=== PATIENT | female | born 1935 | race Caucasian/White ===

== ENCOUNTER 2023-05-26 07:22 | Emergency (ER) | payer MEDICARE, BC, SELFPAY ==
[2023-05-26] VITALS (14 sets, daily range): BP systolic 132–187; BP diastolic 60–98; PULSE 60–64; RESP 14–18; TEMP 36.8; O2SAT 88–95; BMI 36.6
--- NOTE | 2023-05-26 07:50 | CRLHL7_ITS ---
For Patients: As a result of the Century Cures Act, medical imaging exams and procedure reports are released immediately into your electronic medical record. You may view this report before your referring provider. If you have questions, please contact your health care provider. INDICATION: HF exacerbation, increased edema vascular congestion TECHNIQUE: Chest 2 views. COMPARISON: April 18, 2019 FINDINGS: Cardiovascular and mediastinum: Stable cardiomediastinal enlargement. Left-sided dual chamber pacemaker with leads in place. Lungs and pleural spaces: Mild central vascular congestion and interstitial prominence suspicious for mild interstitial edema. Probable trace left greater than right bilateral pleural effusions with associated atelectasis. No pneumothorax. Bones and soft tissues: No significant findings. IMPRESSION: Mild central vascular congestion and interstitial prominence suspicious for mild interstitial edema. Probable trace left greater than right bilateral pleural effusions with associated atelectasis. Dictated by Gareth Austin MD @ 05/26/2023 8:59:57 AM (Electronically Signed)
--- NOTE | 2023-05-26 07:51 | ED.GENADULT ---
HPI - General Adult General Time Seen by Provider: 07:51 Date Seen: 05/26/23 Chief complaint: Weakness Stated complaint: chest heaviness,arm pain Time Seen by Provider: 05/26/23 07:43 Source: patient and family Mode of arrival: ambulatory Limitations: no limitations History of Present Illness HPI narrative: Lauren is a 87-year-old female past medical history includes hypertension, heart failure, atrial fibrillation status post pacemaker on chronic anticoagulation with Coumadin presents emerged department via private car with with weakness shortness of breath and chest heaviness. Patient states over the last weekend she has had increased chest heaviness and arm heaviness, this is worse with laying down, and when she sleeps, she has to get up and sit in her chair during the night. She gets more short of breath. This gets better throughout the day, however she is short of breath on exertion, she was seen in clinic a few weeks ago, her blood pressures were low so they stopped her diuretic and lisinopril, patient recently restarted on a couple days ago because her blood pressures were riding higher. No real chest pain, no nausea vomiting, fevers or chills, she has not had a cough, she denies any weight gain. Abdominal pain, urinary complaints or diarrhea. She just does not feel well, denies any weakness, dizziness or lightheadedness. She denies any pain at this time. Related Data Home Medications Medication Instructions Recorded Confirmed hydrochlorothiazide 12.5 mg tablet 12.5 mg PO DAILY 05/26/23 05/26/23 lisinopril 10 mg tablet 10 mg PO DAILY 05/26/23 05/26/23 sertraline 50 mg tablet 50 mg PO DAILY 05/26/23 05/26/23 sotalol 80 mg tablet 80 mg PO BID 05/26/23 05/26/23 warfarin 2.5 mg tablet mg PO 05/26/23 Previous Rx's Medication Instructions Recorded furosemide 20 mg tablet (Lasix) 20 mg PO DAILY 3 days #3 tabs 05/26/23 Allergies Allergy/AdvReac Type Severity Reaction Status Date / Time No Known Drug Allergies Allergy Verified 05/26/23 07:42 Review of Systems Status of ROS: Reports: 10 or more systems reviewed and unremarkable except as noted in History and below PFSH PFSH Social History Smoking Status: Never smoker Do you use any of these nicotine containing products: None How often do you have a drink containing alcohol: never AUDIT-C Alcohol total score: 0 Exam Narrative: Exam Narrative: General: No obvious distress sitting comfortably, nontoxic in appearance HEENT: Oropharynx is clear and moist, pupils equal round reactive to light, extraocular muscles intact No JVD Lungs: Mild bibasilar crackles Heart; normal sinus rhythm S1-S2 Abdomen: Soft nontender bowel sounds present Extremities: No lower extremity edema Neuro; awake and oriented x3, ambulatory Const: Vital Signs, click to edit/add: Vital Signs - 24 hr 05/26/23 07:37 05/26/23 08:03 05/26/23 08:24 Temperature 98.3 F Pulse Rate 60 60 Pulse Rate [Right Pulse Oximeter] 61 Respiratory Rate 18 Blood Pressure Blood Pressure [Ri ght Upper Arm] 187/98 H Pulse Oximetry 95 94 92 Oxygen Delivery Me thod Room Air 05/26/23 08:25 05/26/23 08:30 05/26/23 08:45 Temperature Pulse Rate 60 61 60 Pulse Rate [Right Pulse Oximeter] Respiratory Rate Blood Pressure 147/74 H Blood Pressure [Ri ght Upper Arm] Pulse Oximetry 91 91 88 Oxygen Delivery Me thod 05/26/23 09:00 05/26/23 09:15 05/26/23 09:21 Temperature Pulse Rate 60 60 60 Pulse Rate [Right Pulse Oximeter] Respiratory Rate Blood Pressure 153/72 H Blood Pressure [Ri ght Upper Arm] Pulse Oximetry 89 92 91 Oxygen Delivery Me thod 05/26/23 09:30 05/26/23 10:08 05/26/23 10:09 Temperature Pulse Rate 64 62 Pulse Rate [Right Pulse Oximeter] Respiratory Rate Blood Pressure 134/81 Blood Pressure [Ri ght Upper Arm] Pulse Oximetry 89 95 Oxygen Delivery Me thod 05/26/23 10:15 05/26/23 11:36 Temperature Pulse Rate 60 60 Pulse Rate [Right Pulse Oximeter] Respiratory Rate 14 Blood Pressure 132/60 Blood Pressure [Ri ght Upper Arm] Pulse Oximetry 95 94 Oxygen Delivery Me thod Course Course Hospital Course: 7:45 AM: AIDET performed, workup will include, IV peripheral, will obtain EKG, CBC, CMP, magnesium, BNP, point of care troponin, and imaging including XR chest two views, suspect heart failure exacerbation since patient has not been on her diuretic for 2 weeks, vitals are normal at this time, no appreciable hypoxia. Patient has no chest pain at this time, less likely ACS. Differential diagnosis include but not limited to COPD exacerbation, pulmonary edema, ACS, STEMI, NSTEMI, pulmonary embolism, pneumonia, viral pneumonia, pneumothorax heart failure exacerbation. Reevaluation(s) Time of Reevaluation #1: 09:06 Reevaluation #1: XR chest PA and lateral: IMPRESSION: Mild central vascular congestion and interstitial prominence suspicious for mild interstitial edema. Probable trace left greater than right bilateral pleural effusions with associated atelectasis. Time of Reevaluation #2: 09:07 Reevaluation #2: EKG showed a atrial paced rhythm, incomplete right bundle branch block seen on previous, rate 61, labs showed no leukocytosis, metabolic panel within normal limits, BNP was elevated, imaging showed mild central vascular congestion and interstitial prominence suspicious for mild interstitial edema consistent with her symptoms, she will receive IV Lasix 20 mg here in the emergency department. Repeat troponin was unchanged. Patient had a urinary output of greater than 300 mL of urine. She is ambulating and feeling better after above care given, plan would be to discharge, she will get a short course of Lasix 20 mg daily over the next 3 days, she will hold her hydrochlorothiazide during that time, will make a follow-up appointment for her this Thursday for recheck. Time of Reevaluation #3: 11:49 Reevaluation #3: Plan would be to discharge, she will follow up with her primary care provider over the next 3 days as scheduled, reasons to return given. Vital Signs Vital signs: Initial Vital Signs Temperature 98.3 F 05/26/23 07:37 Temperature Source Temporal Artery Scan 05/26/23 07:37 Pulse Rate 61 05/26/23 07:37 Respiratory Rate 18 05/26/23 07:37 Blood Pressure 187/98 H 05/26/23 07:37 Blood Pressure Mean 127 H 05/26/23 07:37 Blood Pressure Position Sitting 05/26/23 07:37 Pulse Oximetry 95 05/26/23 07:37 Oxygen Delivery Method Room Air 05/26/23 07:37 Vital Signs Temperature 98.3 F 05/26/23 07:37 Pulse Rate 61 05/26/23 07:37 Respiratory Rate 18 05/26/23 07:37 Blood Pressure 187/98 H 05/26/23 07:37 Pulse Oximetry 95 05/26/23 07:37 Oxygen Delivery Method Room Air 05/26/23 07:37 Temperature 98.3 F 05/26/23 07:37 Pulse Rate 60 05/26/23 11:36 Respiratory Rate 14 05/26/23 11:36 Blood Pressure 132/60 05/26/23 11:36 Pulse Oximetry 94 05/26/23 11:36 Oxygen Delivery Method Room Air 05/26/23 07:37 Medical Decision Making Lab Data Labs: Lab Results 05/26/23 05/26/23 05/26/23 Range/Units 07:45 07:56 10:45 WBC 8.70 (4.50-11.00) K/uL RBC 4.59 (4.00-5.20) m/uL Hgb 12.1 (12.0-16.0) gm/dL Hct 38.6 (33.0-51.0) % MCV 84 (80-100) fL MCH 26 (26-34) pg MCHC 31 L (32-36) gm/dL RDW Coeff of [place] 16.0 H (11.5-15.5) % Plt Count 275 (140-440) K/uL Neut % (Auto) 77.0 H (42.0-72.0) % Lymph % (Auto) 16.4 L (20-44) % [place] % (Auto) 4.3 (0.0-11.0) % Eos % (Auto) 1.8 (0.0-7.0) % Baso % (Auto) 0.2 (0.0-3.0) % Neut # (Auto) 6.70 (1.7-7.0) K/uL Lymph # (Auto) 1.40 (0.90-2.90) K/uL [place] # (Auto) 0.40 (0.00-0.90) K/UL Eos # (Auto) 0.16 (0.00-0.50) K/uL Baso # (Auto) 0.02 (0.00-0.30) K/uL INR 2.07 H (0.91-1.10) Sodium 135 (135-149) mmol/L Potassium 4.4 (3.6-5.1) mmol/L Chloride 102 (96-114) mmol/L Carbon Dioxide 27 (20-32) mmol/L BUN 12 (7-30) mg/dL Creatinine 0.8 (0.5-1.5) mg/dL Estimated Creat Clear 36.34 Estimated GFR 72 ml/min Glucose 106 (60-115) mg/dL Calcium 9.3 (8.4-10.6) mg/dL Magnesium 2.0 (1.5-2.6) mg/dL Total Bilirubin 0.6 (0.1-1.5) mg/dL AST 23 (12-35) U/L ALT 15 (4-35) U/L Alkaline Phosphatase 62 (40-150) U/L NT-Pro-B Natriuret Pep 2330 pg/mL Total Protein 6.8 (6.0-8.3) g/dL Albumin 3.9 (3.3-5.0) g/dL POC Troponin I 0.01 0.01 (0.01-0.04) ng/ml Discharge Plan Discharge Clinical Impression: Chest heaviness, Breathing difficult, Interstitial edema, Pleural effusion Patient Disposition: Home, Self-Care Condition: Improved Instructions: Pulmonary Edema (ED) Additional Instructions: To take Lasix 20 mg daily over the next 3 days, until follow up appointment. To hold hydrochlorothiazide until then. Return if worsening symptoms. Follow up appointment is scheduled at the [facility] on 05/29 with an 11:15am appointment time. Please arrive 10 minutes early to check in. If you have any questions or need to reschedule, please call [phone]. [facility] [address] [place] [address] Prescriptions: New furosemide [Lasix] 20 mg tablet 20 mg PO DAILY 3 Days Qty: 3 0RF No Action sotalol 80 mg tablet 80 mg PO BID warfarin 2.5 mg tablet PO lisinopril 10 mg tablet 10 mg PO DAILY sertraline 50 mg tablet 50 mg PO DAILY hydrochlorothiazide 12.5 mg tablet 12.5 mg PO DAILY Follow Up/Referrals: Kay Lange DO [Primary Care Provider] - Stand Alone Forms: Invoice2[employer] Info Instructions
[2023-05-26 08:01] LABS: Basophils Absolute Auto 0.02 K/uL (0.00-0.30); Basophils Percent Auto 0.2 % (0.0-3.0); Eosinophils Absolute Auto 0.16 K/uL (0.00-0.50); Eosinophils Percent Auto 1.8 % (0.0-7.0); Hematocrit 38.6 % (33.0-51.0); Hemoglobin* 12.1 gm/dL (12.0-16.0); Immature Granulocytes Abs Auto 0.03 K/uL (0.00-0.30); Immature Granulocytes Pct Auto 0.3 %; Lymphocytes Percent Auto 16.4 % (20-44); Mean Corpuscular HGB Conc 31 gm/dL (32-36); Mean Corpuscular Hemoglobin 26 pg (26-34); Mean Corpuscular Volume 84 fL (80-100); Monocytes Percent Auto 4.3 % (0.0-11.0); Platelet Count* 275 K/uL (140-440); Red Blood Count 4.59 m/uL (4.00-5.20)
[2023-05-26 08:08] LABS: Troponin, Point-of-Care* 0.01 ng/ml (0.01-0.04)
[2023-05-26 08:10] LABS: Slide Review Reflex No
[2023-05-26 08:23] LABS: Albumin* 3.9 g/dL (3.3-5.0); Chloride* 102 mmol/L (96-114)
[2023-05-26 08:24] LABS: Potassium* 4.4 mmol/L (3.6-5.1); Sodium* 135 mmol/L (135-149)
[2023-05-26 08:26] LABS: Alkaline Phosphatase* 62 U/L (40-150); Aspartate Amino Transferase* 23 U/L (12-35); Bilirubin Total* 0.6 mg/dL (0.1-1.5); Blood Urea Nitrogen* 12 mg/dL (7-30); Carbon Dioxide* 27 mmol/L (20-32); Creatinine* 0.8 mg/dL (0.5-1.5); Est. Creatinine Clearance* 36.34; Estimated Glomerular Filt Rate 72 ml/min; Glucose* 106 mg/dL (60-115); Total Protein* 6.8 g/dL (6.0-8.3)
[2023-05-26 08:27] LABS: Alanine Aminotransferase* 15 U/L (4-35); Calcium* 9.3 mg/dL (8.4-10.6)
[2023-05-26 08:36] LABS: NT Pro B Type NatriureticPept* 2330 pg/mL
[2023-05-26 09:12] LABS: INR 2.07 (0.91-1.10); Prothrombin Time 24.3 Seconds
[2023-05-26] MEDS: FUROSEMIDE 10 MG/ML inj 20 MG IVP (09:17)
[2023-05-26 11:17] LABS: Troponin, Point-of-Care* 0.01 ng/ml (0.01-0.04)
== END 2023-05-26 12:03 | disposition home or self-care (01) ==
PROVIDERS: Emergency Provider Student in an Organized Health Care Education/Training Program; PCP Family Medicine
DX: R07.89 Other chest pain (principal); R06.02 Shortness of breath; R60.9 Edema, unspecified; I26.99 Other pulmonary embolism without acute cor pulmonale
CPT/HCPCS: 36415; 71046; 80053; 83735; 83880; 84484; 85025; 85610; 93005; 96374; 99283; 99284; 99285; J1940

== ENCOUNTER 2023-07-01 10:21 | Emergency (ER) | payer MEDICARE, BC, SELFPAY ==
[2023-07-01 10:30] VITALS: BP 164/83; PULSE 85; RESP 18; TEMP 36.6; O2SAT 93; BMI 35.5
--- NOTE | 2023-07-01 11:03 | ED.CHESTPAIN ---
HPI - Chest Pain General Chief Complaint: Chest Pain Stated Complaint: Heaviness in chest Time Seen by Provider: 07/01/23 10:55 History of Present Illness HPI narrative: This 87-year-old female comes in by ambulance reporting some chest heaviness that began upon awakening this morning. She states that it has been constant since then. She does not have any nausea, vomiting, lightheadedness, shortness of breath, diaphoresis. She does not report any exercise intolerance and denies having any prior coronary artery disease history. She does have a pacemaker in place. She states that the bumps in the ambulance ride on the way here made the pain worse. Otherwise she states that she is not really able to reproduce the pain. Related Data Home Medications Medication Instructions Recorded Confirmed hydrochlorothiazide 12.5 mg tablet 12.5 mg PO DAILY 05/26/23 05/26/23 lisinopril 10 mg tablet 10 mg PO DAILY 05/26/23 05/26/23 sertraline 50 mg tablet 50 mg PO DAILY 05/26/23 05/26/23 sotalol 80 mg tablet 80 mg PO BID 05/26/23 05/26/23 warfarin 2.5 mg tablet mg PO 05/26/23 Previous Rx's Medication Instructions Recorded furosemide 20 mg tablet (Lasix) 20 mg PO DAILY 3 days #3 tabs 05/26/23 Allergies Allergy/AdvReac Type Severity Reaction Status Date / Time No Known Drug Allergies Allergy Verified 05/26/23 07:42 Review of Systems Status of ROS Reports: 10 or more systems reviewed and unremarkable except as noted in History and below Narrative Constitutional: No fevers, no weight gain or loss. Eyes: No discharge. No vision changes. HENT: No congestion, no sore throat, no ear pain. Cardiovascular: No palpitations. Respiratory: No shortness of breath, no wheezes, no cough. Gastrointestinal: No abdominal pain, no vomiting, no diarrhea. Genitourinary: No dysuria, no hematuria. Musculoskeletal: Normal range of motion. Skin: No rashes, no pruritis. Neurological: No dizziness, weakness, sensory change, speech change. Endo/Heme/Allergies: No bruising or bleeding. No polydipsia. Pysch: no suicidality, no anxiety, no insomnia. All other systems reviewed and are negative. PFSH PFSH Social History Smoking Status: Never smoker Do you use any of these nicotine containing products: None How often do you have a drink containing alcohol: never AUDIT-C Alcohol total score: 0 Non-prescribed substance use: denies use service: No Exam Narrative Exam Narrative: Constitutional: Well-developed, well-nourished, no acute distress. HEENT: Normocephalic, atraumatic. Neck: Normal range of motion. Nontender. Supple. Heart: Regular. No murmurs. Normal rate. Intact distal pulses. Lungs: Clear to auscultation. No wheezes, rhonchi, or rales. She reports a feeling of chest heaviness. Pain is not reproduced when palpating along the sternum. Abdomen: Normal bowel sounds. Nontender. No rebound tenderness. Genitalia: Deferred. Back: No midline tenderness. Normal range of motion. Extremities: Normal range of motion. No injury. Skin: Intact. No rash. Warm. No erythema or pallor. Neurologic: No altered sensation. No weakness. Alert and oriented. Psychiatric: No suicidality. No anxiety or depression. No insomnia. Nursing notes and vitals signs are reviewed. Const Vital Signs, click to edit/add: Vital Signs - 24 hr 07/01/23 10:30 Temperature 97.8 F Pulse Rate [Right Pulse Oximeter] 85 Respiratory Rate 18 Blood Pressure [Right Upper Arm] 164/83 H Pulse Oximetry 93 Oxygen Delivery Method Room Air Course Vital Signs Vital signs: Initial Vital Signs Temperature 97.8 F 07/01/23 10:30 Temperature Source Temporal Artery Scan 07/01/23 10:30 Pulse Rate 85 07/01/23 10:30 Respiratory Rate 18 07/01/23 10:30 Blood Pressure 164/83 H 07/01/23 10:30 Blood Pressure Mean 110 H 07/01/23 10:30 Blood Pressure Position Sitting 07/01/23 10:30 Pulse Oximetry 93 07/01/23 10:30 Oxygen Delivery Method Room Air 07/01/23 10:30 Vital Signs Temperature 97.8 F 07/01/23 10:30 Pulse Rate 85 07/01/23 10:30 Respiratory Rate 18 07/01/23 10:30 Blood Pressure 164/83 H 07/01/23 10:30 Pulse Oximetry 93 08/02/23 10:30 Oxygen Delivery Method Room Air 07/01/23 10:30 Temperature 97.8 F 07/01/23 10:30 Pulse Rate 85 07/01/23 10:30 Respiratory Rate 18 07/01/23 10:30 Blood Pressure 164/83 H 07/01/23 10:30 Pulse Oximetry 93 07/01/23 10:30 Oxygen Delivery Method Room Air 07/01/23 10:30 MDM - Chest Pain MDM Narrative Medical decision making narrative: This patient comes in reporting chest heaviness and discomfort as described above. Actually she clarifies this now saying that is really more on the right side of her chest and may in fact be coming from her back as she has some symptoms in the right midback also. She does not describe any injury event or strenuous activity recently. The pain or discomfort was worsened when going over bumps on the road. Her EKG here today shows no sign of heart strain or cardiac cause for these symptoms. Additionally her troponin is in normal range. Other lab results are also reassuring. Most likely this patient is experiencing symptoms related to her chest wall. At the time of discharge the patient appears safe for outpatient management. The treatment plan is reviewed along with written and verbal return precautions. Reasons to return and the importance of close followup were also reviewed. Lab Data Labs: Lab Results 07/01/23 07/01/23 Range/Units 11:03 11:16 WBC 9.68 (4.50-11.00) K/uL RBC 4.50 (4.00-5.20) m/uL Hgb 11.8 L (12.0-16.0) gm/dL Hct 37.4 (33.0-51.0) % MCV 83 (80-100) fL MCH 26 (26-34) pg MCHC 32 (32-36) gm/dL RDW Coeff of Ebony 15.6 H (11.5-15.5) % Plt Count 270 (140-440) K/uL Neut % (Auto) 78.5 H (42.0-72.0) % Lymph % (Auto) 12.9 L (20-44) % [place] % (Auto) 6.3 (0.0-11.0) % Eos % (Auto) 1.3 (0.0-7.0) % Baso % (Auto) 0.2 (0.0-3.0) % Neut # (Auto) 7.60 H (1.7-7.0) K/uL Lymph # (Auto) 1.20 (0.90-2.90) K/uL [place] # (Auto) 0.60 (0.00-0.90) K/UL Eos # (Auto) 0.13 (0.00-0.50) K/uL Baso # (Auto) 0.02 (0.00-0.30) K/uL Abs Immat Gran (auto) 0.08 (0.00-0.30) K/uL Imm/Tot Granulo (auto) 0.8 % Sodium 136 (135-149) mmol/L Potassium 3.9 (3.6-5.1) mmol/L Chloride 104 (96-114) mmol/L Carbon Dioxide 26 (20-32) mmol/L BUN 14 (7-30) mg/dL Creatinine 0.8 (0.5-1.5) mg/dL Estimated Creat Clear 37.80 Estimated GFR 72 ml/min Glucose 110 (60-115) mg/dL Calcium 9.6 (8.4-10.6) mg/dL POC Troponin I 0.01 (0.01-0.04) ng/ml ECG Data Attestation: I personally reviewed and interpreted this ECG as follows: Interpretation: Atrial paced rhythm. Rate is 65 beats per minute. There are no specific ST or T-wave abnormalities. Incomplete right bundle branch block. Discharge Plan Discharge Clinical Impression: Acute chest wall pain Patient Disposition: Home, Self-Care Condition: Stable Additional Instructions: Use [id number] medicines as needed and directed for symptomatic relief. Activity as tolerated. Follow up with MD or return if worsening. Prescriptions: No Action sotalol 80 mg tablet 80 mg PO BID warfarin 2.5 mg tablet PO lisinopril 10 mg tablet 10 mg PO DAILY sertraline 50 mg tablet 50 mg PO DAILY hydrochlorothiazide 12.5 mg tablet 12.5 mg PO DAILY furosemide [Lasix] 20 mg tablet 20 mg PO DAILY 3 Days Qty: 3 0RF Follow Up/Referrals: Kay Lange DO [Primary Care Provider] - Stand Alone Forms: RPOth Info Instructions
[2023-07-01 11:28] LABS: Basophils Absolute Auto 0.02 K/uL (0.00-0.30); Basophils Percent Auto 0.2 % (0.0-3.0); Eosinophils Absolute Auto 0.13 K/uL (0.00-0.50); Eosinophils Percent Auto 1.3 % (0.0-7.0); Hematocrit 37.4 % (33.0-51.0); Hemoglobin* 11.8 gm/dL (12.0-16.0); Immature Granulocytes Abs Auto 0.08 K/uL (0.00-0.30); Immature Granulocytes Pct Auto 0.8 %; Lymphocytes Percent Auto 12.9 % (20-44); Mean Corpuscular HGB Conc 32 gm/dL (32-36); Mean Corpuscular Hemoglobin 26 pg (26-34); Mean Corpuscular Volume 83 fL (80-100); Monocytes Percent Auto 6.3 % (0.0-11.0); Neutrophils Percent Auto 78.5 % (42.0-72.0); Platelet Count* 270 K/uL (140-440); RDW Coefficient of Variation % 15.6 % (11.5-15.5); White Blood Count* 9.68 K/uL (4.50-11.00)
[2023-07-01 11:34] LABS: Troponin, Point-of-Care* 0.01 ng/ml (0.01-0.04)
[2023-07-01 11:37] LABS: Slide Review Reflex No
[2023-07-01 11:47] LABS: Chloride* 104 mmol/L (96-114); Sodium* 136 mmol/L (135-149)
[2023-07-01 11:48] LABS: Potassium* 3.9 mmol/L (3.6-5.1)
[2023-07-01 11:50] LABS: Carbon Dioxide* 26 mmol/L (20-32); Creatinine* 0.8 mg/dL (0.5-1.5); Estimated Glomerular Filt Rate 72 ml/min
[2023-07-01 11:51] LABS: Blood Urea Nitrogen* 14 mg/dL (7-30); Calcium* 9.6 mg/dL (8.4-10.6); Glucose* 110 mg/dL (60-115)
== END 2023-07-01 12:16 | disposition home or self-care (01) ==
PROVIDERS: Emergency Provider Emergency Medicine Emergency Medical Services; PCP Family Medicine
DX: R07.89 Other chest pain (principal)
CPT/HCPCS: 36415; 80048; 84484; 85025; 93005; 99284

== ENCOUNTER 2023-07-04 22:37 | Emergency (ER) | payer MEDICARE, BC, SELFPAY ==
[2023-07-04 22:41] VITALS: BP 153/61; PULSE 61; RESP 18; TEMP 36.3; O2SAT 93; BMI 35.5
[2023-07-04 22:58] VITALS: O2SAT 92
--- NOTE | 2023-07-04 22:58 | CRLHL7_ITS ---
For Patients: As a result of the Century Cures Act, medical imaging exams and procedure reports are released immediately into your electronic medical record. You may view this report before your referring provider. If you have questions, please contact your health care provider. INDICATION: Shortness of breath TECHNIQUE: Two view chest. FINDINGS: Cardiac silhouette is enlarged. Left cardiac pacer basilar atelectasis and/or fibrotic change. No effusion or pneumothorax. Dictated by Diamond Wilkins MD @ 07/05/2023 1:04:14 AM (Electronically Signed)
[2023-07-04 23:30] VITALS: BP 166/70; PULSE 60; RESP 16; O2SAT 92
[2023-07-04 23:33] LABS: Lactate* 0.8 mmol/L (0.5-1.9)
--- NOTE | 2023-07-04 23:40 | ED_ITS ---
HPI - General Adult General Chief complaint: Chest Pain <Radha August MD - Last Filed: 07/07/23 15:10> Stated complaint: Chest Pain <Radha August MD - Last Filed: 07/07/23 15:10> Time Seen by Provider: 07/04/23 22:51 <Radha August MD - Last Filed: 07/07/23 15:10> Source: patient <Radha August MD - Last Filed: 07/07/23 15:10> Limitations: no limitations <Radha August MD - Last Filed: 07/07/23 15:10> History of Present Illness HPI narrative: 87-year-old female presenting to the ER today stating that she does not feel well. She states that on a regular basis she has the sensation that heat washes over her. It starts in her chest and goes down both arms and into her belly and also upper neck. This sensation lasts about 10 minutes and then resolves but at least her feeling very tired. It occurs approximately once per day. Happened again earlier today. Because she still feels very tired from it she presented to the ER for evaluation. She denies pain in her chest. She denies feeling short of breath. When this occurs she is not diaphoretic or dizzy. She denies any vertiginous symptoms. She denies any nausea or vomiting. She denies fevers or chills. Patient does have medical history significant for atrial fibrillation, she is on chronic anticoagulation therapy. She is also on sotalol. She takes sertraline and lorazepam for depression and anxiety. She states that she also has congestive heart failure for which she takes hydrochlorothiazide and Lasix. She does state that she sleeps in a chair at night because she feels short of breath lying down, however again no shortness of breath during the day. This is unchanged. <Radha August MD - Last Filed: 07/07/23 15:10> Related Data Home medications: Home Medications Medication Instructions Recorded Confirmed hydrochlorothiazide 12.5 mg tablet 12.5 mg PO DAILY 05/26/23 07/04/23 lisinopril 10 mg tablet 10 mg PO DAILY 05/26/23 05/26/23 sertraline 50 mg tablet 50 mg PO DAILY 05/26/23 07/04/23 sotalol 80 mg tablet 80 mg PO BID 05/26/23 07/04/23 warfarin 2.5 mg tablet mg PO 05/26/23 acetaminophen 07/04/23 lorazepam 0.5 mg tablet 0.5 mg PO DAILY PRN 07/04/23 07/04/23 Previous Rx's Medication Instructions Recorded furosemide 20 mg tablet (Lasix) 20 mg PO DAILY 3 days #3 tabs 05/26/23 <Radha August MD - Last Filed: 07/07/23 15:10> Allergies/adverse reactions: Allergies Allergy/AdvReac Type Severity Reaction Status Date / Time No Known Drug Allergies Allergy Verified 07/04/23 22:47 <Radha August MD - Last Filed: 07/07/23 15:10> Review of Systems Status of ROS: Reports: 10 or more systems reviewed and unremarkable except as noted in History and below <Radha August MD - Last Filed: 07/07/23 15:10> [facility] Social History: Social History Smoking Status: Never smoker Do you use any of these nicotine containing products: None How often do you have a drink containing alcohol: never AUDIT-C Alcohol total score: 0 Non-prescribed substance use: denies use service: No <Radha August MD - Last Filed: 07/07/23 15:10> Exam Narrative: Exam Narrative: Well-nourished well-developed patient in no acute distress. Alert and oriented. Answers questions appropriately. Mood and affect are appropriate. Thoughts are goal oriented and rational. No tangential or magical thinking noted. Patient speaks in full sentences without needing to catch her breath. HEENT: Normocephalic atraumatic. Pupils are equally round reactive to light. Extraocular muscles are intact. Conjunctivae are moist without any icterus noted. Moist mucous membranes. Posterior pharynx is normal. Neck is soft without any lymphadenopathy or thyromegaly. No masses are appreciated. Cardiovascular: Heart is regular rate and rhythm S1 and S2 are present with a very soft diastolic murmur. Lungs: Clear to auscultation bilaterally no wheezes rhonchi or rales are appreciated. Patient takes deep breaths without any discomfort. Abdomen: Soft and nontender nondistended with normal bowel sounds. No guarding or rebound. No masses or organomegaly appreciated. Extremities: Bilateral lower extremities are without pitting edema. Skin: Well perfused without any obvious rashes. Scattered ecchymosis. <Radha August MD - Last Filed: 07/07/23 15:10> Const: Vital Signs, click to edit/add: Vital Signs - 24 hr 07/04/23 22:41 07/04/23 22:58 07/04/23 23:30 Temperature 97.4 F L Pulse Rate Pulse Rate [Pulse Oximeter] 61 60 Respiratory Rate 18 16 Blood Pressure Blood Pressure [Le ft Upper Arm] 153/61 H 166/70 H Pulse Oximetry 93 92 92 Oxygen Delivery Me thod Room Air Room Air 07/04/23 23:47 07/05/23 00:00 07/05/23 00:02 Temperature Pulse Rate 60 60 60 Pulse Rate [Pulse Oximeter] Respiratory Rate Blood Pressure 133/55 L Blood Pressure [Le ft Upper Arm] Pulse Oximetry 92 92 91 Oxygen Delivery Me thod <Radha August MD - Last Filed: 07/07/23 15:10> Vital Signs, click to edit/add: Vital Signs - 24 hr 07/04/23 22:41 07/04/23 22:58 07/04/23 23:30 Temperature 97.4 F L Pulse Rate Pulse Rate [Pulse Oximeter] 61 60 Respiratory Rate 18 16 Blood Pressure Blood Pressure [Le ft Upper Arm] 153/61 H 166/70 H Pulse Oximetry 93 92 92 Oxygen Delivery Me thod Room Air Room Air 07/04/23 23:47 07/05/23 00:00 07/05/23 00:02 Temperature Pulse Rate 60 60 60 Pulse Rate [Pulse Oximeter] Respiratory Rate Blood Pressure 133/55 L Blood Pressure [Le ft Upper Arm] Pulse Oximetry 92 92 91 Oxygen Delivery Me thod <Radha Bermudez MD - Last Filed: 07/05/23 01:41> Course Course Hospital Course: EKG, read by me, shows atrial paced rhythm with a pulse of 62, incomplete right bundle-branch block. Prolonged QT. IV established and labs were drawn. CBC and chemistries unremarkable, LFTs minimally elevated. Troponin is normal. Chest x-ray results pending. Patient still needs to provide a urine sample, stool sample and she will have a repeat troponin in EKG at the 2 hour jack. Care transferred to oncoming physician at this time. <Radha August MD - Last Filed: 07/07/23 15:10> Reevaluation(s) Time of Reevaluation #1: 01:38 <Radha Bermudez MD - Last Filed: 07/05/23 01:41> Reevaluation #1: Lauren is feeling fine at this time. Reviewed with her that there are no changes in the cardiac enzymes, this spell does not seem to be consistent with any acute cardiac event. She describes epigastric pain where she will have radiating out sense of warmth and into her arms. She states it feels like a hot pain. She is asymptomatic at this time, does not think she can leave a urinalysis. We did discuss following up in clinic this next week and checking a urinalysis just to ensure stability. She has not had any diarrhea here but if that should continue, can follow up in clinic and have stool studies done if deemed appropriate. Talking to her I did wonder possibly about gallbladder issues, she does still have her gallbladder. There is nothing on her examination or with her current symptoms suggesting that this needs any further emergent workup. Her symptoms have improved. She can get gallbladder ultrasound ordered through clinic. In the interim, if symptoms are worsening, she can return back to us through the weekend until clinic is potentially open again. <Radha Bermudez MD - Last Filed: 07/05/23 01:41> Vital Signs Vital signs: Initial Vital Signs Temperature 97.4 F L 07/04/23 22:41 Temperature Source Temporal Artery Scan 07/04/23 22:41 Pulse Rate 61 07/04/23 22:41 Respiratory Rate 18 07/04/23 22:41 Blood Pressure 153/61 H 07/04/23 22:41 Blood Pressure Mean 91 07/04/23 22:41 Blood Pressure Position Semi-Fowlers 07/04/23 22:41 Pulse Oximetry 93 07/04/23 22:41 Oxygen Delivery Method Room Air 07/04/23 22:41 Vital Signs Temperature 97.4 F L 07/04/23 22:41 Pulse Rate 61 07/04/23 22:41 Respiratory Rate 18 07/04/23 22:41 Blood Pressure 153/61 H 07/04/23 22:41 Pulse Oximetry 93 07/04/23 22:41 Oxygen Delivery Method Room Air 07/04/23 22:41 Temperature 97.4 F L 07/04/23 22:41 Pulse Rate 60 07/05/23 00:02 Respiratory Rate 16 07/04/23 23:30 Blood Pressure 133/55 L 07/05/23 00:02 Pulse Oximetry 91 07/05/23 00:02 Oxygen Delivery Method Room Air 07/04/23 23:30 <Radha August MD - Last Filed: 07/07/23 15:10> Initial Vital Signs Temperature 97.4 F L 07/04/23 22:41 Temperature Source Temporal Artery Scan 07/04/23 22:41 Pulse Rate 61 07/04/23 22:41 Respiratory Rate 18 07/04/23 22:41 Blood Pressure 153/61 H 07/04/23 22:41 Blood Pressure Mean 91 07/04/23 22:41 Blood Pressure Position Semi-Fowlers 07/04/23 22:41 Pulse Oximetry 93 07/04/23 22:41 Oxygen Delivery Method Room Air 07/04/23 22:41 Vital Signs Temperature 97.4 F L 07/04/23 22:41 Pulse Rate 61 07/04/23 22:41 Respiratory Rate 18 07/04/23 22:41 Blood Pressure 153/61 H 07/04/23 22:41 Pulse Oximetry 93 07/04/23 22:41 Oxygen Delivery Method Room Air 07/04/23 22:41 Temperature 97.4 F L 07/04/23 22:41 Pulse Rate 60 07/05/23 00:02 Respiratory Rate 16 07/04/23 23:30 Blood Pressure 133/55 L 07/05/23 00:02 Pulse Oximetry 91 07/05/23 00:02 Oxygen Delivery Method Room Air 07/04/23 23:30 <Radha Bermudez MD - Last Filed: 07/05/23 01:41> Medical Decision Making Lab Data Labs: Lab Results 07/04/23 07/04/23 07/05/23 Range/Units 23:20 23:23 01:00 WBC 11.02 H (4.50-11.00) K/uL RBC 4.45 (4.00-5.20) m/uL Hgb 11.8 L (12.0-16.0) gm/dL Hct 37.3 (33.0-51.0) % MCV 84 (80-100) fL MCH 27 (26-34) pg MCHC 32 (32-36) gm/dL RDW Coeff of Ebony 16.2 H (11.5-15.5) % Plt Count 307 (140-440) K/uL Neut % (Auto) 79.7 H (42.0-72.0) % Lymph % (Auto) 12.5 L (20-44) % [place] % (Auto) 4.5 (0.0-11.0) % Eos % (Auto) 1.5 (0.0-7.0) % Baso % (Auto) 0.4 (0.0-3.0) % Neut # (Auto) 8.80 H (1.7-7.0) K/uL Lymph # (Auto) 1.40 (0.90-2.90) K/uL [place] # (Auto) 0.50 (0.00-0.90) K/UL Eos # (Auto) 0.20 (0.00-0.50) K/uL Baso # (Auto) 0.00 (0.00-0.30) K/uL Abs Immat Gran (auto) 0.20 (0.00-0.30) K/uL Imm/Tot Granulo (auto) 1.4 % ESR 24 H (2-20) mm/hr INR 1.71 H (0.91-1.10) Sodium 138 (135-149) mmol/L Potassium 3.9 (3.6-5.1) mmol/L Chloride 105 (96-114) mmol/L Carbon Dioxide 26 (20-32) mmol/L BUN 17 (7-30) mg/dL Creatinine 0.7 (0.5-1.5) mg/dL Estimated Creat Clear 37.80 Estimated GFR 84 ml/min Glucose 108 (60-115) mg/dL Lactate 0.8 (0.5-1.9) mmol/L Calcium 9.3 (8.4-10.6) mg/dL Total Bilirubin 0.6 (0.1-1.5) mg/dL Direct Bilirubin 0.3 (0.0-0.5) mg/dL AST 59 H (12-35) U/L ALT 93 H (4-35) U/L Alkaline Phosphatase 133 (40-150) U/L Troponin I < 0.01 L (0.01-0.04) ng/mL NT-Pro-B Natriuret Pep 2010 pg/mL Total Protein 6.9 (6.0-8.3) g/dL Albumin 3.8 (3.3-5.0) g/dL TSH 3.130 (0.270-4.20) uIU/mL SARS-CoV-2 (PCR) Negative SARS-CoV-2 (Negative) Monoscreen Negative (Negative) Influenza Type A (PCR) Negative PCR FLU A (Negative) Influenza Type B (PCR) Negative PCR FLU B (Negative) RSV (PCR) Negative PCR RSV (Negative) POC Troponin I 0.00 L 0.01 (0.01-0.04) ng/ml <Radha August MD - Last Filed: 07/07/23 15:10> Lab Results 07/04/23 07/04/23 07/05/23 Range/Units 23:20 23:23 01:00 WBC 11.02 H (4.50-11.00) K/uL RBC 4.45 (4.00-5.20) m/uL Hgb 11.8 L (12.0-16.0) gm/dL Hct 37.3 (33.0-51.0) % MCV 84 (80-100) fL MCH 27 (26-34) pg MCHC 32 (32-36) gm/dL RDW Coeff of Ebony 16.2 H (11.5-15.5) % Plt Count 307 (140-440) K/uL Neut % (Auto) 79.7 H (42.0-72.0) % Lymph % (Auto) 12.5 L (20-44) % [place] % (Auto) 4.5 (0.0-11.0) % Eos % (Auto) 1.5 (0.0-7.0) % Baso % (Auto) 0.4 (0.0-3.0) % Neut # (Auto) 8.80 H (1.7-7.0) K/uL Lymph # (Auto) 1.40 (0.90-2.90) K/uL [place] # (Auto) 0.50 (0.00-0.90) K/UL Eos # (Auto) 0.20 (0.00-0.50) K/uL Baso # (Auto) 0.00 (0.00-0.30) K/uL Abs Immat Gran (auto) 0.20 (0.00-0.30) K/uL Imm/Tot Granulo (auto) 1.4 % ESR 24 H (2-20) mm/hr INR 1.71 H (0.91-1.10) Sodium 138 (135-149) mmol/L Potassium 3.9 (3.6-5.1) mmol/L Chloride 105 (96-114) mmol/L Carbon Dioxide 26 (20-32) mmol/L BUN 17 (7-30) mg/dL Creatinine 0.7 (0.5-1.5) mg/dL Estimated Creat Clear 37.80 Estimated GFR 84 ml/min Glucose 108 (60-115) mg/dL Lactate 0.8 (0.5-1.9) mmol/L Calcium 9.3 (8.4-10.6) mg/dL Total Bilirubin 0.6 (0.1-1.5) mg/dL Direct Bilirubin 0.3 (0.0-0.5) mg/dL AST 59 H (12-35) U/L ALT 93 H (4-35) U/L Alkaline Phosphatase 133 (40-150) U/L Troponin I < 0.01 L (0.01-0.04) ng/mL NT-Pro-B Natriuret Pep 2010 pg/mL Total Protein 6.9 (6.0-8.3) g/dL Albumin 3.8 (3.3-5.0) g/dL TSH 3.130 (0.270-4.20) uIU/mL SARS-CoV-2 (PCR) Negative SARS-CoV-2 (Negative) Monoscreen Negative (Negative) Influenza Type A (PCR) Negative PCR FLU A (Negative) Influenza Type B (PCR) Negative PCR FLU B (Negative) RSV (PCR) Negative PCR RSV (Negative) POC Troponin I 0.00 L 0.01 (0.01-0.04) ng/ml <Radha Bermudez MD - Last Filed: 07/05/23 01:41> Imaging Data Chest x-ray: Attestation: I have reviewed the pertinent imaging results. <Radha Owen MD - Last Filed: 07/05/23 01:41> Radiologist's impression: Patient: LAUREN EPTTY Facility:?[facility] Patient ID:?[id number] Site Patient ID:?[id number]. Site :?[id number] Study:?XRay Chest 2 views-07/04/2023 11:52:42 PM Ordering Physician:Matthew Garcia Final Report: INDICATION: Shortness of breath TECHNIQUE: Two view chest. FINDINGS: Cardiac silhouette is enlarged. Left cardiac pacer basilar atelectasis and/or fibrotic change. No effusion or pneumothorax. Dictated by Diamond Wilkins MD @ 07/05/2023 1:04:14 AM (Electronic Signature) <Radha Bermudez MD - Last Filed: 07/05/23 01:41> ECG Data Interpretation: in EKG at 1:13 a.m. showing atrial paced rhythm, incomplete right bundle branch block. Flipped T-waves in the anterior precordial leads without ST segment change. Unchanged from her arrival EKG from earlier this evening. <Radha Bermudez MD - Last Filed: 07/05/23 01:41> Discharge Plan Discharge Clinical Impression: Fatigue <Radha August MD - Last Filed: 07/07/23 15:10> Patient Disposition: Home, Self-Care <Radha August MD - Last Filed: 07/07/23 15:10> Condition: Stable <Radha August MD - Last Filed: 07/07/23 15:10> Additional Instructions: Follow-up with your primary care provider Early next week, consider having urinalysis done, stool studies done if you have ongoing diarrhea as well as discussion of possibly doing an ultrasound of your gallbladder. Return to the ER if your symptoms are getting worse. <Radha August MD - Last Filed: 07/07/23 15:10> Activity Level: Activity as Tolerated <Radha August MD - Last Filed: 07/07/23 15:10> Activity as Tolerated <Radha Bermudez MD - Last Filed: 07/05/23 01:41> Prescriptions: No Action sotalol 80 mg tablet 80 mg PO BID warfarin 2.5 mg tablet PO lisinopril 10 mg tablet 10 mg PO DAILY sertraline 50 mg tablet 50 mg PO DAILY hydrochlorothiazide 12.5 mg tablet 12.5 mg PO DAILY furosemide [Lasix] 20 mg tablet 20 mg PO DAILY 3 Days Qty: 3 0RF lorazepam 0.5 mg tablet 0.5 mg PO DAILY PRN acetaminophen <Radha August MD - Last Filed: 07/07/23 15:10> Follow Up/Referrals: Kay Lange, [Primary Care Provider] - <Radha August MD - Last Filed: 07/07/23 15:10> Stand Alone Forms: MyHealth Info Instructions <Radha August MD - Last Filed: 07/07/23 15:10>
[2023-07-04 23:42] LABS: Basophils Percent Auto 0.4 % (0.0-3.0); Eosinophils Percent Auto 1.5 % (0.0-7.0); Hematocrit 37.3 % (33.0-51.0); Hemoglobin* 11.8 gm/dL (12.0-16.0); Immature Granulocytes Pct Auto 1.4 %; Lymphocytes Percent Auto 12.5 % (20-44); Mean Corpuscular HGB Conc 32 gm/dL (32-36); Mean Corpuscular Hemoglobin 27 pg (26-34); Mean Corpuscular Volume 84 fL (80-100); Monocytes Percent Auto 4.5 % (0.0-11.0); Neutrophils Percent Auto 79.7 % (42.0-72.0); Platelet Count* 307 K/uL (140-440); RDW Coefficient of Variation % 16.2 % (11.5-15.5); Red Blood Count 4.45 m/uL (4.00-5.20); White Blood Count* 11.02 K/uL (4.50-11.00)
[2023-07-04 23:47] VITALS: PULSE 60; O2SAT 92
[2023-07-04 23:49] LABS: Slide Review Reflex No
[2023-07-04 23:51] LABS: Albumin* 3.8 g/dL (3.3-5.0)
[2023-07-04 23:52] LABS: Chloride* 105 mmol/L (96-114); Potassium* 3.9 mmol/L (3.6-5.1); Sodium* 138 mmol/L (135-149)
[2023-07-04 23:54] LABS: Alanine Aminotransferase* 93 U/L (4-35); Alkaline Phosphatase* 133 U/L (40-150); Aspartate Amino Transferase* 59 U/L (12-35); Bilirubin Direct* 0.3 mg/dL (0.0-0.5); Bilirubin Total* 0.6 mg/dL (0.1-1.5); Creatinine* 0.7 mg/dL (0.5-1.5); Estimated Glomerular Filt Rate 84 ml/min; Total Protein* 6.9 g/dL (6.0-8.3)
[2023-07-04 23:55] LABS: Blood Urea Nitrogen* 17 mg/dL (7-30); Calcium* 9.3 mg/dL (8.4-10.6); Carbon Dioxide* 26 mmol/L (20-32); Glucose* 108 mg/dL (60-115)
[2023-07-05] VITALS: PULSE 60; O2SAT 92
[2023-07-05 00:02] VITALS: BP 133/55; PULSE 60; O2SAT 91
[2023-07-05 00:03] LABS: INR 1.71 (0.91-1.10); Prothrombin Time 20.9 Seconds
[2023-07-05 00:07] LABS: NT Pro B Type NatriureticPept* 2010 pg/mL; Troponin I* < 0.01 ng/mL (0.01-0.04)
[2023-07-05 00:11] LABS: Mono Screen* Negative (Negative)
[2023-07-05 00:13] LABS: PCR FLU A Negative PCR FLU A (Negative); PCR FLU B Negative PCR FLU B (Negative); PCR RSV Negative PCR RSV (Negative)
[2023-07-05 00:24] LABS: Erythrocyte SedimentationRate* 24 mm/hr (2-20)
[2023-07-05 00:55] LABS: SARS PCR* Negative SARS-CoV-2 (Negative)
[2023-07-05 01:24] LABS: Troponin, Point-of-Care* 0.01 ng/ml (0.01-0.04)
== END 2023-07-05 02:23 | disposition home or self-care (01) ==
PROVIDERS: Emergency Provider Family Medicine; PCP Family Medicine
DX: R07.89 Other chest pain (principal)
CPT/HCPCS: 36415; 71046; 80048; 80076; 81001; 83605; 83880; 84443; 84484; 85025; 85610; 85651; 86308; 87086; 87493; 87631; 93005; 94761; 99284; 99285

== ENCOUNTER 2023-12-12 06:28 | Outpatient (CLI) | payer MEDICARE, BC, SELFPAY ==
--- OUTSIDE RECORDS SUMMARY | 2023-12-15 12:21 | XMS_ITS | Clinical Summary ---
Author Name Unknown Organization [facility] Address [place], [place] [address] Care Team Providers Care Special Events Fundraiser Name Role Phone Kay Lange Primary Care Provider [phone] Conrado Grigsby MD Unavailable Olman Milner Unavailable [phone] Allergies Active Allergy Reactions Criticality Noted [...] as directed 80 Tablet 0 4 Active furosemide (LASIX) 20 mg tabletIndication s:Systolic [...] Encounters Date Type Department Care Team Description 12/14/2023 Travel 12/14/2023 Lab Requisition [facility] [phone] Sandoval Ortega MD 12/13/2023 12:50 AM CIRCULATION LIBRARIAN Office Visit [facility] [address] [place] [address] Sandoval Ortega MD Surgery Scheduled 12/13/2023 Orders Only [facility] Scanner 1 scan: (1-Ord) [facility], LAPAROSCOPIC CHOLECYSTECTOMY, 12/13/2023 12/12/2023 Orders Only [facility] Scanner 1 scan: (1-Ord) [facility], CT CHEST WO CON, 12/12/2023 12/12/2023 Orders Only [facility] Scanner 1 scan: (1-Ord) [facility], US ABDOMEN LIMITED , 12/12/2023 12/12/2023 Orders Only [facility] Scanner 1 scan: (1-Ord) [facility], XR CHEST 2V, 12/12/2023 12/03/2023 2:30 PM CIRCULATION LIBRARIAN Orders Only [address] [address] Lab[place] [facility] 12/03/2023 Anticoagulation (warfarin) [facility] [address] [place] [address] 1, [place] [facility]ticoagulation; Refill Request (Warfarin ) 12/03/2023 Travel 11/23/[address] [address] Nagi Laguerre MD Refill Request (Furosemide) 11/20/[address] [address] Kay Lange, Anticoagulation (INR OVERDUE REMINDER #2 ) 11/14/[address] [address] Kay Lange DO Refill Request (Warfarin) 11/10/2023 Travel 09/30/[address] [address] Kay Lange DO vaccines 09/17/2023 2:00 PM CDT Orders Only [address] [address] Lab[place] [facility] 09/17/2023 Anticoagulation (warfarin) [facility] [address] [place] [address] 1, [place] [facility] Anticoagulation 09/17/2023 Travel [...] st Contact Info) Description 2023 9:30 AM CIRCULATION LIBRARIAN Orders Only [facility] [address] [place] [address] [place] 03/14/2024 Cardiac Device Check [facility] [phone] Health Maintenance Due Date Last Done Comments [...] Additional history exists COVID-19 vaccine series Completed 10/08/20, 08/18/2022, 03/24/2022, Additional history exists Procedures Procedure Name Priority Date/Time Associated Diagnosis Comments SCAN-OPERATIVE/PROCEDU RE REPORT 12/13/2023 12:00 AM CIRCULATION LIBRARIAN SCAN-CT INTERPRETATION 12:00 AM CIRCULATION LIBRARIAN SCAN-ULTRASOUND REPORT 12:00 AM CIRCULATION LIBRARIAN SCAN-RADIOLOGY REPORT 12/12/2023 12:00 AM CIRCULATION LIBRARIAN INR,POCT Routine 12/03/2023 2:32 PM CIRCULATION LIBRARIAN Paroxysmal atrial fibrillation (HC) Anticoagulation monitoring, INR range 2-3 INR,POCT Routine 09/17/2023 2:09 PM CDT Paroxysmal atrial fibrillation (HC) Anticoagulation monitoring, INR range 2-3 from Last 3 Months Results * SCAN-OPERATIVE/PROCEDURE REPORT (12/13/2023 12:00 AM CIRCULATION LIBRARIAN) Scanner OTHER * SCAN-RADIOLOGY REPORT (12/12/2023 12:00 AM CIRCULATION LIBRARIAN) Anatomical Region Laterality Modality Other Scanner OTHER * SCAN-ULTRASOUND REPORT (12/12/2023 12:00 AM CIRCULATION LIBRARIAN) Anatomical Region Laterality Modality Other Scanner OTHER * SCAN-CT INTERPRETATION (12/12/2023 12:00 AM CIRCULATION LIBRARIAN) Anatomical Region Laterality Modality Other Scanner OTHER * (ABNORMAL) INR,POCT (12/03/2023 2:32 PM CIRCULATION LIBRARIAN) Only the most recent of2 resultswithin the time period is included. INR 1.9(H) <1.3 12/03/2023 2:34 PM CIRCULATION LIBRARIAN [facility] Blood BLOOD SPECIMEN / Unknown 12/03/2023 2:32 PM CIRCULATION LIBRARIAN 12/03/2023 2:34 PM CIRCULATION LIBRARIAN Narrative [facility] - 12/03/2023 2:34 PM CIRCULATION LIBRARIAN ?Therapeutic Range 2.0-3.0 for most anticoagulated patients 2.5-3.5 or 4.0 for high risk patients Kay Lange DO LABORATORY [facility] [address] [place] [address], from Last 3 Months Advance Directives Documents on File Type Date Recorded Patient Mail Handler Expl anation Healthcare Directive 08/06/2016 8:29 PM [...] 8:56 AM 08/15/2009 8:58 PM Care Teams Special Events Fundraiser Relationship Specialty Start Date End Date Kay Lange DO PCP - General 09/25/09 Conrado Grigsby MD [address] [place] [id number] Cardiovascular Disease 04/27/15 Olman Milner [address] [place] [id number] Manager Billing 04/27/15
== END 2023-12-12 06:29 | disposition home or self-care (01) ==
LOC: AMB 12-15 11:46
PROVIDERS: PCP Family Medicine; Visit Provider Internal Medicine
DX: R10.9 Unspecified abdominal pain (principal)
CPT/HCPCS: A0425; A0427

== ENCOUNTER 2023-12-12 07:28 | Inpatient (IN) | payer MEDICARE, BC, SELFPAY ==
[2023-12-12] VITALS (16 sets, daily range): BP systolic 128–158; BP diastolic 52–79; PULSE 60–75; RESP 18; TEMP 36.3–37.5; O2SAT 83–99; BMI 35.5; BMI 36.8
--- NOTE | 2023-12-12 07:54 | ED.ABDPAIN ---
HPI - Abdominal Pain General Time Seen by Provider: 07:54 Date Seen: 12/12/23 Chief Complaint: Abdominal Pain Stated Complaint: Abdominal pain Time Seen by Provider: 12/12/23 07:54 Source: patient, EMS and RN notes reviewed Mode of arrival: EMS Limitations: no limitations History of Present Illness HPI narrative: This 87-year-old female presents via EMS to the ED with right upper quadrant abdominal pain. She reported pain under her right breast for several days, worsening today. She has not had any fever, no vomiting or diarrhea. Nursing staff noted O2 sats in the lower 80s upon arrival, specifically 83%, oxygen was applied. Her temperature on arrival is 99.5? F. nursing staff questions if patient's stay hypoxia may be related to narcotics used in route. She received 2 mg IV morphine and 50 mcg of IV fentanyl. Patient states her pain is gone now. She is pointing to more right upper quadrant pain but to nursing staff had made him feel it was more right lower chest wall internally. She told nursing staff the pain got worse with coughing. She did relate to me that she has had some nausea but no vomiting, no change in stools, specifically no color change in no diarrhea. She has had diminished appetite over the last few days. Pain started a few days ago and has worsened and is not letting up now. She has had no abdominal surgery. She does report that she has been progressively short of breath for some time now. No edema, no chest pain associated with this. Patient's medications include Lasix, hydrochlorothiazide, lisinopril, p.r.n. lorazepam, sertraline, sotalol, Coumadin. Presumably she has had some heart failure if she is on Lasix or at least edema, has underlying arrhythmia, would presume this is likely atrial fibrillation. Related Data Home Medications Medication Instructions Recorded Confirmed sertraline 50 mg tablet 50 mg PO DAILY 05/26/23 12/12/23 sotalol 80 mg tablet 80 mg PO BID 05/26/23 12/12/23 warfarin 2.5 mg tablet 1.25 mg PO MOWEFR 05/26/23 12/12/23 lorazepam 0.5 mg tablet 0.5 mg PO DAILY PRN 07/04/23 12/12/23 warfarin 2.5 mg tablet 2.5 mg PO SUTUTHSA 12/12/23 12/12/23 Previous Rx's Medication Instructions Recorded furosemide 20 mg tablet (Lasix) 20 mg PO DAILY 3 days #3 tabs 05/26/23 Allergies Allergy/AdvReac Type Severity Reaction Status Date / Time No Known Drug Allergies Allergy Verified 07/04/23 22:47 Review of Systems Status of ROS Reports: 6 or more systems reviewed and unremarkable except as noted in History and below PFSH PFS Social History Smoking Status: Never smoker Do you use any of these nicotine containing products: None How often do you have a drink containing alcohol: never AUDIT-C Alcohol total score: 0 Non-prescribed substance use: denies use service: No Exam Const: Vital Signs, click to edit/add: Vital Signs - 24 hr 12/12/23 07:38 12/12/23 07:49 12/12/23 07:49 Temperature 99.5 F Pulse Rate Pulse Rate [Right Pulse Oximeter] 75 Respiratory Rate 18 Blood Pressure Blood Pressure [Ri ght Upper Arm] 144/61 H Pulse Oximetry 83 L 96 96 Oxygen Delivery Me thod Room Air Nasal Cannula Oxygen Flow Rate 2 12/12/23 08:11 12/12/23 08:15 12/12/23 08:30 Temperature Pulse Rate 65 66 66 Pulse Rate [Right Pulse Oximeter] Respiratory Rate Blood Pressure Blood Pressure [Ri ght Upper Arm] Pulse Oximetry 96 96 97 Oxygen Delivery Me thod Oxygen Flow Rate 12/12/23 08:31 12/12/23 08:45 12/12/23 09:00 Temperature Pulse Rate 64 66 Pulse Rate [Right Pulse Oximeter] Respiratory Rate Blood Pressure 128/52 L Blood Pressure [Ri ght Upper Arm] Pulse Oximetry 98 99 Oxygen Delivery Me thod Oxygen Flow Rate 12/12/23 09:02 12/12/23 09:15 Temperature Pulse Rate 65 63 Pulse Rate [Right Pulse Oximeter] Respiratory Rate Blood Pressure 132/79 Blood Pressure [Ri ght Upper Arm] Pulse Oximetry 98 98 Oxygen Delivery Me thod Oxygen Flow Rate This 87-year-old female is sleepy but it is able to stay awake when I am talking to her through the whole interaction, presume this is from the after effects of the IV narcotics. She denies pain at this time. Sclera clear, conjugate gaze, symmetrical facial function. Speech is normal. Patient is lying nearly flat with oxygen on, O2 sats are 96% with 2 L nasal cannula oxygen. Neck without any palpable masses lungs sound clear Documenting provider has reviewed patient's vital signs: yes Course Course ED Course: patient is exhibiting some hypoxia but after narcotics, has no pain now. Unclear if this is a respiratory or abdominal issue. Certainly gallbladder pathology is a consideration as well as pulmonary issues like pneumonia. Will obtain a right upper quadrant ultrasound, chest x-ray to start. She will be managed on supplemental oxygen, followed on pulse oximetry and cardiac monitoring. Will obtain a full complement of labs. Likely to be hospitalized from my initial history taking and evaluation. Consultations Consultation #1: have reviewed with Dr. Matthews the hospitalist. She would like to have a noncontrast chest CT, will follow up the results but I will order it. We have agreed on treating for community-acquired pneumonia, she will follow the patient clinically to see if she thinks there could be cholecystitis. I have ordered 1 g IV Rocephin, 500 mg oral azithromycin as she can tolerate orals. Do not feel that this patient needs any IV fluids she can start maintenance on the floor. I will update the patient on the plan. Time: 10:33 Vital Signs Vital signs: Initial Vital Signs Temperature 99.5 F 12/12/23 07:38 Temperature Source Temporal Artery Scan 12/12/23 07:38 Pulse Rate 75 12/12/23 07:38 Respiratory Rate 18 12/12/23 07:38 Blood Pressure 144/61 H 12/12/23 07:38 Blood Pressure Mean 88 12/12/23 07:38 Pulse Oximetry 83 L 12/12/23 07:38 Oxygen Delivery Method Room Air 12/12/23 07:38 Vital Signs Temperature 99.5 F 12/12/23 07:38 Pulse Rate 75 12/12/23 07:38 Respiratory Rate 18 12/12/23 07:38 Blood Pressure 144/61 H 12/12/23 07:38 Pulse Oximetry 83 L 12/12/23 07:38 Oxygen Delivery Method Room Air 12/12/23 07:38 Temperature 99.5 F 12/12/23 07:38 Pulse Rate 63 12/12/23 09:15 Respiratory Rate 18 12/12/23 07:38 Blood Pressure 132/79 12/12/23 09:02 Pulse Oximetry 98 12/12/23 09:15 Oxygen Delivery Method Nasal Cannula 12/12/23 07:49 Oxygen Flow Rate 2 12/12/23 07:49 Medications Administered Medications: Discontinued Medications Generic Name Dose Route Start Last Admin Trade Name Jennifer PRN Reason Stop Dose Admin Azithromycin 500 mg 12/12/23 10:30 12/12/23 11:27 Azithromycin 250 Mg Tablet PO 12/12/23 10:31 500 mg ONCE ONE Administration Ceftriaxone Sodium 1 gm/ 100 mls @ 200 mls/hr 12/12/23 10:30 12/12/23 11:27 Sodium Chloride IVPB 12/12/23 10:31 200 mls/hr ONCE ONE Administration MDM - Abdominal Pain Lab Data Attestation: I reviewed the patient's lab results. Labs: Lab Results 12/12/23 12/12/23 Range/Units 08:08 08:28 WBC 17.77 H (4.50-11.00) K/uL RBC 4.23 (4.00-5.20) m/uL Hgb 10.4 L (12.0-16.0) gm/dL Hct 34.0 (33.0-51.0) % MCV 80 (80-100) fL MCH 25 L (26-34) pg MCHC 31 L (32-36) gm/dL RDW Coeff of Ebony 16.9 H (11.5-15.5) % Plt Count 294 (140-440) K/uL Neut % (Auto) 87.4 H (42.0-72.0) % Lymph % (Auto) 6.0 L (20-44) % [place] % (Auto) 5.3 (0.0-11.0) % Eos % (Auto) 0.6 (0.0-7.0) % Baso % (Auto) 0.2 (0.0-3.0) % Neut # (Auto) 15.50 H (1.7-7.0) K/uL Lymph # (Auto) 1.10 (0.90-2.90) K/uL [place] # (Auto) 0.90 (0.00-0.90) K/UL Eos # (Auto) 0.10 (0.00-0.50) K/uL Baso # (Auto) 0.00 (0.00-0.30) K/uL Abs Immat Gran (auto) 0.10 (0.00-0.30) K/uL Imm/Tot Granulo (auto) 0.5 % INR 2.31 H (0.91-1.10) D-Dimer Quant (PE/DVT) 1.51 H (0.00-0.50) ug/ml VBG pH 7.457 H (7.32-7.43) VBG pCO2 38 L (40-50) mmHG VBG pO2 52.3 H (25-47) mmHG VBG HCO3 27 (21-28) mmol/L Sodium 135 (135-149) mmol/L Potassium 3.5 L (3.6-5.1) mmol/L Chloride 104 (96-114) mmol/L Carbon Dioxide 25 (20-32) mmol/L Anion Gap 6 L (7-15) mEq/L BUN 22 (7-30) mg/dL Creatinine 0.8 (0.5-1.5) mg/dL Estimated Creat Clear 37.80 Estimated GFR 72 ml/min Glucose 107 (60-115) mg/dL Lactate 0.8 (0.5-1.9) mmol/L Calcium 8.9 (8.4-10.6) mg/dL Total Bilirubin 0.8 (0.1-1.5) mg/dL Direct Bilirubin 0.2 (0.0-0.5) mg/dL AST 23 (12-35) U/L ALT 14 (4-35) U/L Alkaline Phosphatase 66 (40-150) U/L Troponin I < 0.01 L (0.01-0.04) ng/mL C-Reactive Protein 25.5 H (0.5-1.0) mg/dL NT-Pro-B Natriuret Pep 1360 pg/mL Total Protein 6.9 (6.0-8.3) g/dL Albumin 3.8 (3.3-5.0) g/dL Procalcitonin 0.34 (<0.50) ng/mL Lab Acknowledgement Test Added Imaging Data Chest x-ray: Attestation: I have reviewed the pertinent imaging results. Radiologist's impression: Patient: MÓNICA PETTY Facility:?[facility] Patient ID:?[id number] Site Patient ID:?[id number]. Site :?[id number] Study:?XRay Chest 2 VIEW-12/12/2023 9:02:49 AM Ordering Physician:?Lara Garcia Final Report: INDICATION: Short of breath COMPARISON: 07/04/2023 TECHNIQUE: PA and lateral 2 view chest radiograph. FINDINGS: Slightly elevated right diaphragm is unchanged. The lungs are well expanded. New right basilar opacities. No pulmonary edema. No pleural effusion. No pneumothorax. No pneumomediastinum. Two lead pacemaker from left subclavian approach in similar position. Atherosclerotic vascular calcifications are unchanged. Normal cardiomediastinal silhouette. Bones: Normal for age. IMPRESSION: New right basilar opacities may be pneumonia. Atelectasis could also be considered in the setting of a chronically elevated diaphragm. Dictated by Porsche Pete MD @ 12/12/2023 9:10:25 AM (Electronic Signature) US - abdomen: Attestation: I have reviewed the pertinent imaging results. Radiologist's impression: Patient: MÓNICA PETTY Facility:?[facility] Patient ID:?[id number] Site Patient ID:?[id number]. Site :?[id number] Study:?US Abdomen RUQ-12/12/2023 9:52:19 AM Ordering Physician:?Lara Garcia Final Report: INDICATION: Right upper quadrant pain COMPARISON: None. TECHNIQUE: Hollins-scale and color ultrasound of the right upper quadrant to include the liver, gallbladder (or gallbladder fossa), biliary tree, pancreatic head, and right kidney. FINDINGS: Difficult exam due to body habitus, but the exam is diagnostic. Liver: Normal hepatic echogenicity and normal echotexture. No mass. Gallbladder: The gallbladder is distended. The gallbladder wall is thickened measures up to 0.5 cm. There are multiple shadowing gallstones within the gallbladder lumen at the fundus and at the neck. Pericholecystic inflammation/fluid: None. Sonographic Tabares`s sign: Negative. Bile ducts: Not dilated. The common bile duct measures 4 mm. Pancreatic head: Normal homogeneously echogenic parenchyma. No cyst or mass. No duct dilatation. Right Kidney: Renal length: 9.1 cm Parenchyma: Normal thickness and normal echogenicity. Cyst: None Mass: None Calculi: None Urinary tract: Not dilated. RUQ Ascites: None. IMPRESSION: Ultrasound appearance of the gallbladder is suggestive of calculus cholecystitis. However the patient did not report particular tenderness or positive Tabares sign with exam over the gallbladder. Correlate with clinical exam and lab findings. Dictated by Porsche Pete MD @ 12/12/2023 10:01:51 AM (Electronic Signature) ECG Data Attestation: I personally reviewed and interpreted this ECG as follows: ( Normal sinus rhythm, 63 beats per minute. Incomplete right bundle branch block. Flipped T-waves V1 through V4, no definitive acute infarct. Flipped T-waves lead 3. QT corrected 478 milliseconds.) ECG interpretation date: 12/12/23 ECG interpretation time: 08:32 Prior ECG tracings: available for review ( Compared to July 04 2023, the anterior precordial leads are more pronounced in current EKG, new flipped T-wave in lead 3.) Ischemic changes: non-specific ST-T wave changes and t wave inversions Discharge Plan Discharge Clinical Impression: Abnormal findings on diagnostic imaging of abdomen, Hypoxia Pneumonia Qualifiers: Pneumonia type: due to unspecified organism Patient Disposition: Admitted As Observation Discharge Location: [facility]
--- NOTE | 2023-12-12 08:05 | CRLHL7_ITS ---
For Patients: As a result of the Century Cures Act, medical imaging exams and procedure reports are released immediately into your electronic medical record. You may view this report before your referring provider. If you have questions, please contact your health care provider. INDICATION: Right upper quadrant pain COMPARISON: None. TECHNIQUE: Hollins-scale and color ultrasound of the right upper quadrant to include the liver, gallbladder (or gallbladder fossa), biliary tree, pancreatic head, and right kidney. FINDINGS: Difficult exam due to body habitus, but the exam is diagnostic. Liver: Normal hepatic echogenicity and normal echotexture. No mass. Gallbladder: The gallbladder is distended. The gallbladder wall is thickened measures up to 0.5 cm. There are multiple shadowing gallstones within the gallbladder lumen at the fundus and at the neck. Pericholecystic inflammation/fluid: None. Sonographic Tabares`s sign: Negative. Bile ducts: Not dilated. The common bile duct measures 4 mm. Pancreatic head: Normal homogeneously echogenic parenchyma. No cyst or mass. No duct dilatation. Right Kidney: Renal length: 9.1 cm Parenchyma: Normal thickness and normal echogenicity. Cyst: None Mass: None Calculi: None Urinary tract: Not dilated. RUQ Ascites: None. IMPRESSION: Ultrasound appearance of the gallbladder is suggestive of calculus cholecystitis. However the patient did not report particular tenderness or positive Tabares sign with exam over the gallbladder. Correlate with clinical exam and lab findings. Dictated by Porsche Pete MD @ 12/12/2023 10:01:51 AM (Electronically Signed)
--- NOTE | 2023-12-12 08:05 | CRLHL7_ITS ---
For Patients: As a result of the Century Cures Act, medical imaging exams and procedure reports are released immediately into your electronic medical record. You may view this report before your referring provider. If you have questions, please contact your health care provider. INDICATION: Short of breath COMPARISON: 07/04/2023 TECHNIQUE: PA and lateral 2 view chest radiograph. FINDINGS: Slightly elevated right diaphragm is unchanged. The lungs are well expanded. New right basilar opacities. No pulmonary edema. No pleural effusion. No pneumothorax. No pneumomediastinum. Two lead pacemaker from left subclavian approach in similar position. Atherosclerotic vascular calcifications are unchanged. Normal cardiomediastinal silhouette. Bones: Normal for age. IMPRESSION: New right basilar opacities may be pneumonia. Atelectasis could also be considered in the setting of a chronically elevated diaphragm. Dictated by Porsche Pete MD @ 12/12/2023 9:10:25 AM (Electronically Signed)
[2023-12-12 08:30] LABS: PCR FLU A Negative PCR FLU A (Negative); PCR FLU B Negative PCR FLU B (Negative); PCR RSV Negative PCR RSV (Negative); SARS PCR* Negative SARS-CoV-2 (Negative)
[2023-12-12 08:37] LABS: Basophils Percent Auto 0.2 % (0.0-3.0); Eosinophils Percent Auto 0.6 % (0.0-7.0); Hemoglobin* 10.4 gm/dL (12.0-16.0); Immature Granulocytes Pct Auto 0.5 %; Mean Corpuscular HGB Conc 31 gm/dL (32-36); Mean Corpuscular Hemoglobin 25 pg (26-34); Mean Corpuscular Volume 80 fL (80-100); Monocytes Percent Auto 5.3 % (0.0-11.0); Neutrophils Percent Auto 87.4 % (42.0-72.0); Platelet Count* 294 K/uL (140-440); RDW Coefficient of Variation % 16.9 % (11.5-15.5); Red Blood Count 4.23 m/uL (4.00-5.20); White Blood Count* 17.77 K/uL (4.50-11.00)
--- OUTSIDE RECORDS SUMMARY | 2023-12-12 08:37 | XMS_ITS | Clinical Summary ---
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 0 0 Active Blood Pressure MonitorIndicatio ns:Hypertension Hypertension dx. 1 Device 0 3 Active acetaminophen (TYLENOL EXTRA STRGTH) 500 mg tablet Take 1-2 tablets by mouth 3 times daily. Max acetaminophen dose: 4000mg in 24 hrs. 0 7 Active nitroglycerin (NITROSTAT) 0.4 mg sublingual tabletIndication s:Abnormal nuclear stress test ONE TABLET UNDER TONGUE NEEDED FOR CHEST PAIN EVERY 5 MINUTES 25 Tablet 3 1 Active CPAPIndications: STEPHY (obstructive sleep apnea) CPAP machine for home use at pressure 10cm/H2O-- starting pressure at 5cm/H2O with ramp of 15 minutes, nasal mask x1/3month with nasal pillows x 2/mo 1 Each 11 2 Active nystatin powder (MYCOSTATIN) powderIndication s:Yeast dermatitis Apply 1 Strip topically to affected area(s) three times daily. 60 g 3 3 Active sertraline (ZOLOFT) 50 mg tabletIndication s:Anxiety Take 1 Tablet (50 mg) by mouth every morning. 90 Tablet 3 3 Active sotaloL (BETAPACE) 80 mg tabletIndication s:Paroxysmal atrial fibrillation (HC) Take 1 Tablet (80 mg) by mouth every 12 hours. 180 Tablet 3 3 Active LORazepam (ATIVAN) 0.5 mg tabIndications:A nxiety TAKE ONE-HALF TO 1 TABLET BY MOUTH NEEDED FOR ANXIETY 30 Tablet 0 3 Active furosemide (LASIX) 20 mg tabletIndication s:Systolic congestive heart failure, NYHA class 1, unspecified congestive heart failure chronicity (HC) TAKE 1 TABLET(20 MG) BY MOUTH EVERY MORNING 30 Tablet 0 3 Active warfarin (COUMADIN) 2.5 mg tabletIndication s:Paroxysmal atrial fibrillation (HC),Anticoagula tion monitoring, INR range 2-3 Take by mouth 1.25 mg (2.5 mg x 0.5) every Mon, Wed, Fri; 2.5 mg (2.5 mg x 1) all other days in the evening OR as directed 80 Tablet 0 4 Active warfarin (COUMADIN) 2.5 mg tabletIndication s:Paroxysmal atrial fibrillation (HC),Anticoagula tion monitoring, INR range 2-3 Take by mouth 1.25 mg (2.5 mg x 0.5) every Mon, Wed, Fri; 2.5 mg (2.5 mg x 1) all other days in the evening OR as directed 75 Tablet 0 3 023 Discontinued furosemide (LASIX) 20 mg tabletIndication s:Systolic congestive heart failure, NYHA class 1, unspecified congestive heart failure chronicity (HC) TAKE 1 TABLET(20 MG) BY MOUTH EVERY MORNING 90 Tablet 0 3 023 Discontinued warfarin (COUMADIN) 2.5 mg tabletIndication s:Paroxysmal atrial fibrillation (HC),Anticoagula tion monitoring, INR range 2-3 Take by mouth 1.25 mg (2.5 mg x 0.5) every Mon, Wed, Fri; 2.5 mg (2.5 mg x 1) all other days in the evening OR as directed 25 Tablet 0 3 024 Discontinued(Re order (E-cancel not sent)) Active Problems Problem Noted Date Diagnosed Date 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 Normal left ventricular ejection fraction of approximately 65 percent. Anticoagulation monitoring, INR range 2-3 2013 CHF (congestive heart failure), NYHA class I Last Assessment & Plan: stable today during visit. Kay Lange D.O. 05/18/2023 6:11 AM PVC (premature ventricular contraction) 09/02/20 12 PAC (premature atrial contraction) 09/02/2012 Obesity, unspecified 05/30/2011 Hypertension 09/25/2009 Tachycardia 09/25/2009 Paroxysmal atrial fibrillation Overview: S/P EPS with complex atrial fibrillation ablation with Dr Grigsby 10/16/2010 Other ill-defined and unknow n causes of morbidity and mortality Mitral valve disorders Irritable bowel syndrome Resolved Problems Problem Noted Date Diagnosed Date Resolved Date HTN (hypertension) 09/02/2012 2 URETHRAL STRICTURE 07/22/2010 2 Routine general medical exam ination at a health care facility 09/21/2009 04/07/2018 Overview: Pap- hysterectomy Bone Density-02/14/02 Colonoscopy-07/30/05 repeat in 5 years SLEEP APNEA AHI-105 04/05/2008 05/31/2008 02/26/2021 Encounter for long-term (cur rent) use of anticoagulants 04/13/2007 04/03/2014 Overview: INR goal range 2.0-3.0 Urethral stricture unspecified 03/08/2007 06/03/2012 Encounters Date Type Department Care Team Description 12/03/2023 2:30 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 Orders Only [facility] [address] [place] [address] [place] [facility] 12/03/2023 Anticoagulation (warfarin) [facility] [address] [place] [address] 1, [place] [facility] Anticoagulation; Refill Request (Warfarin ) 12/03/2023 Travel 11/23/2023 Refill [facility] [address] [place] [address] Nagi Laguerre MD Refill Request (Furosemide) 11/20/2023 Telephone [facility] [address] [place] [address] Kay Lange, Anticoagulation (INR OVERDUE REMINDER #2 ) 11/14/2023 Refill [facility] [address] [place] [address] Kay Lange DO Refill Request (Warfarin) 11/10/2023 Travel 09/30/2023 Telephone [facility] [address] [place] [address] Kay Lange DO vaccines 09/17/2023 2:00 PM CDT Orders Only [address] [address] Lab, [place] [facility] 09/17/2023 Anticoagulation (warfarin) [facility] [address] [place] [address] 1, [place] [facility] Anticoagulation 09/17/2023 Travel from Last 3 Months Immunizations Name Administration Dates Next Due COVID-19 vaccine (Pfizer-Bio NTech 30mcg/0.3mL) 12YO+ BIVALENT PF, MDV 08/18/2022 COVID-19 vaccine (Pfizer-Bio NTech 30mcg/0.3mL) 12YO+ CECILIA-SUCROSE PF, MDV 03/24/2022 Influenza A (H1N1), Inactiva tsering (Age >=3 Years) 12/04/2009 Influenza Virus, Unspecified 09/08/2018 Influenza, High-dose Inactivated 019,09/08/2018,09/09/2016,2014 Influenza, High-dose Quadriv alent Inactivated 09/05/2020 Influenza, IIV3 (Age >=3 years) 09/21/20 14,11/04/2013,10/19/2010,2008,08/31/2008,09/21/2006 Influenza, Inactivated AIIV4 (Age 65+ Years) Preserv Free 08/27/2023,08/18/2022,09/23/2021 Pneumococcal Poly,23-Valent (Pneumovax) 11/15/2018,08/30/1997,09/24/1995 Pneumococcal conj 13-Valent (Prevnar 13) 04/27/2015 Td (Age >=7 Years) 08/03/1996 Td, Preservative Free (age > = 7 Years) 03/07/2009 Zoster (Shingrix-RZV, recombinant) 08/29/2019, Zoster (Zostavax-ZVL, live) 12/03/2011 Family History Medical History Relation Name Comments Diabetes Father Hypertension Father Hypertension Mother Genetic Other She does not [place] any premature coronary disease in her family. Cancer-breast Sister Relation Name Status Comments Father Mother Other Sister Social History Tobacco Use Types Packs/Day Years Used Date Smoking Tobacco: Former Cigarettes 1 25 0 07/04/1964 - 07/04/1989 Smokeless Tobacco: Never Tobacco Cessation:Counseling Given: Yes Alcohol Use Standard Drinks/Week Comments No 0 (1 standard drink = 0.6 oz pur e alcohol) PHQ-2 Answer Date Recorded PHQ-2 TOTAL SCORE 0 05/13/2023 Social Connections Answer Date Recorded Frequency of Communication with Friends and Fami ly Not on file 11/27/2021 Financial Resource Strain Answer Date R ecorded Difficulty of Paying Living Expenses Not on file 11/27/2021 Difficulty of Paying Living Expenses Not on file 11/27/2021 Sex and Gender Information Value Date Recorded Sex Assigned at Not on file Gender Identity Not on file Sexual Orientation Not on file Obstetrics History Last Filed Vital Signs Vital Sign Reading Time Taken Comments Blood Pressure 143/86 06/26/2023 9:30 AM CDT Pulse 72 06/17/2023 3:00 PM CDT Temperature 36.4 ??C (97.6 ??F) 05/09/2022 2:28 PM CD T Respiratory Rate 16 08/24/2019 7:15 AM CDT Oxygen Saturation 95% 06/17/2023 3:00 PM CDT Inhaled Oxygen Concentration - - Weight 104.3 kg (230 lb) 06/26/2023 9:30 AM CDT Height 167.6 cm (5' 6) 06/17/2023 3:00 PM CDT Body Mass Index 37.12 06/17/2023 3:00 PM CDT Plan of Treatment Upcoming Encounters Date Type Department Care Team (Late st Contact Info) Description 2023 9:30 AM PICKER OPERATOR Orders Only [facility] [address] [place] [address] [place] 03/14/2024 Cardiac Device Check [facility] [phone] Health Maintenance Due Date Last Done Comments Tdap 1946 Tetanus booster 03/07/2019 03/07/2009, 08/03/1996 Medicare Wellness for age 65+ 05/12/2024, 05/09/2022, 11/07/2020, Additional history exists Depression screening for age 12+ 05/15/2024 05/15/2023, 05/14/2023, 05/13/2023, Additional history exists BMI (ht and wt on same day) for age 18+ 06/17/2024 06/17/2023, 05/13/2023, 05/09/2022, Additional history exists DEXA/DXA scan for age 65+ Completed 05/03/2015, Pneumococcal series for age 65+ Completed 11/15/2018, 04/27/2015, 08/30/1997, Additional history exists Zoster (shingles) series for age 50+ Completed 08/29/2019, 06/23/2019, 12/03/2011 Influenza for age 65+ Completed 08/27/2023 , 08/18/2022, 09/23/2021, Additional history exists COVID-19 vaccine series Completed 10/08/20 23, 08/18/2022, 03/24/2022, Additional history exists Procedures Procedure Name Priority Date/Time Associated Diagnosis Comments INR,POCT Routine 12/03/2023 2:32 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 Paroxysmal atrial fibrillation (HC) Anticoagulation monitoring, INR range 2-3 INR,POCT Routine 09/17/2023 2:09 PM CDT Paroxysmal atrial fibrillation (HC) Anticoagulation monitoring, INR range 2-3 from Last 3 Months Results * (ABNORMAL) INR,POCT (12/03/2023 2:32 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) Only the most recent of2 resultswithin the time period is included. INR 1.9(H) <1.3 12/03/2023 2:34 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 [facility] Blood BLOOD SPECIMEN / Unknown 12/03/2023 2:32 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 12/03/2023 2:34 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 Narrative [facility] - 12/03/2023 2:34 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 ?Therapeutic Range 2.0-3.0 for most anticoagulated patients 2.5-3.5 or 4.0 for high risk patients Kay Lange DO LABORATORY [facility] [address] [place] [address], from Last 3 Months Advance Directives Documents on File Type Date Recorded Patient Acid Etch Operator Expl anation Healthcare Directive 08/06/2016 8:29 PM 06/2016 Latest Code Status on File Code Status Date Activated Date Inactivated Comments Full Code 08/23/2019 9:27 AM 08/24/2019 1:45 PM Code Status History Code Status Date Activated Date Inactivated Comments Full Code 08/07/2017 6:41 AM 08/07/2017 9:30 PM Full Code 10/16/2010 9:15 AM 10/17/2010 1:01 PM Full Code 08/15/2009 8:56 AM 08/15/2009 8:58 PM Care Teams Aircraft Sheet Metal Mechanic Relationship Specialty Start Date End Date Kay Lange DO PCP - General 09/25/09 Conrado Grigsby MD [address] [address] Cardiovascular Disease 04/27/15 Olman Milner [address] [place] [id number] Horse Breeder 04/27/15
[2023-12-12 08:38] LABS: HCO3 VBG 27 mmol/L (21-28); Lactate* 0.8 mmol/L (0.5-1.9); PCO2 VBG 38 mmHG (40-50); PO2 VBG 52.3 mmHG (25-47); pH VBG 7.457 (7.32-7.43)
[2023-12-12 08:40] LABS: Slide Review Reflex No
[2023-12-12 09:11] LABS: D Dimer Quantitative* 1.51 ug/ml (0.00-0.50)
[2023-12-12 09:27] LABS: INR 2.31 (0.91-1.10); Prothrombin Time 27.1 Seconds
[2023-12-12 09:30] LABS: Albumin* 3.8 g/dL (3.3-5.0); Chloride* 104 mmol/L (96-114)
[2023-12-12 09:31] LABS: Potassium* 3.5 mmol/L (3.6-5.1); Sodium* 135 mmol/L (135-149)
[2023-12-12 09:33] LABS: Creatinine* 0.8 mg/dL (0.5-1.5); Estimated Glomerular Filt Rate 72 ml/min
[2023-12-12 09:34] LABS: Alanine Aminotransferase* 14 U/L (4-35); Alkaline Phosphatase* 66 U/L (40-150); Anion Gap 6 mEq/L (7-15); Aspartate Amino Transferase* 23 U/L (12-35); Bilirubin Direct* 0.2 mg/dL (0.0-0.5); Bilirubin Total* 0.8 mg/dL (0.1-1.5); Blood Urea Nitrogen* 22 mg/dL (7-30); Calcium* 8.9 mg/dL (8.4-10.6); Carbon Dioxide* 25 mmol/L (20-32); Glucose* 107 mg/dL (60-115); Total Protein* 6.9 g/dL (6.0-8.3)
[2023-12-12 09:51] LABS: Procalcitonin* 0.34 ng/mL (<0.50)
[2023-12-12 09:54] LABS: C Reactive Protein* 25.5 mg/dL (0.5-1.0); NT Pro B Type NatriureticPept* 1360 pg/mL; Troponin I* < 0.01 ng/mL (0.01-0.04)
--- NOTE | 2023-12-12 10:31 | CRLHL7_ITS ---
For Patients: As a result of the Century Cures Act, medical imaging exams and procedure reports are released immediately into your electronic medical record. You may view this report before your referring provider. If you have questions, please contact your health care provider. INDICATION: Hypoxia. Pneumonia. TECHNIQUE: Multiple axial images were obtained from the apices to the diaphragm without contrast. Sagittal and coronal re-formatted images were obtained. COMPARISON: One hundred thirteen 1,024. FINDINGS: There is an area of consolidation in the right lower lobe. There is atelectasis in the dependent portion of the upper lobes bilaterally and left lower lobe. There is no pleural effusion. There is no axillary, mediastinal or hilar adenopathy. There are atherosclerotic calcifications including coronary calcifications. There is a left-sided pacemaker. There is a thickening of the wall of the gallbladder with appearance of pericholecystic fluid. IMPRESSION: 1. Area consolidation right lobe a this could be a secondary atelectasis however a pneumonia cannot be excluded. 2. Abnormal appearing gallbladder with thickened wall and probable pericholecystic fluid. This could be an acute cholecystitis. Please see right upper quadrant abdominal ultrasound done the same day. Please note that all CT scans at this facility use dose modulation, iterative reconstruction, and/or weight-based dosing when appropriate to reduce radiation dose to as low as reasonably achievable. Dictated by Gadiel Gunderson MD @ 12/12/2023 11:18:31 AM (Electronically Signed)
[2023-12-12] MEDS: cefTRIAXone 1 GM in 0.9 % SODIUM CHLORIDE Mini-bag 100 ML IVPB (11:27)
[2023-12-12] MEDS: AZITHROMYCIN 250 MG TABLET 500 MG PO (11:27)
[2023-12-12 11:55] LABS: Gamma Glutamyl Transpeptidase* 22 U/L (8-55)
[2023-12-12] MEDS: PHYTONADIONE (VIT K1) 10 MG in 0.9 % SODIUM CHLORIDE 50 ml 50 ML 100 MG IVPB (14:32)
[2023-12-12] MEDS: LACTATED RINGERS 1000 ML 1,000 ML 125 ML IV ×2 (14:35→21:52)
--- NOTE | 2023-12-12 16:12 | P.IMHP_ITS ---
Hospitalist- H&P: HPI History of Present Illness Date Seen: 12/12/23 Chief complaint: Abdominal pain Narrative: ADMISSION HISTORY AND PHYSICAL - HOSPITALIST Chief Complaint: Abdominal pain HPI: This is an 87-year-old who was in her previous state of good health until 2 days ago when she started having right upper quadrant pain. She felt like she was having a low-grade fever but measured only 99. No chills. No cough. No shortness of breath. She had vomiting on the day of initiation of symptoms but that has tapered off. The pain is described as burning and penetrating to her midback. She had to call EMS today because the pain was getting too intense. ER COURSE: Chest CT, chest x-ray, abdominal ultrasound, labs. Elevated WBC, 17.7 neutrophil predominance. Hemoglobin 10.4. Platelets 294. INR 2.3 PH 7.45, no CO2 retention Mild hypokalemia. Normal renal function. Normal LFTs. Normal lactate. CRP 25 Procalcitonin less than 0.5 Quad screen respiratory screen negative. Blood culture x2 pending, NTD. MRSA negative. EKG QT 478 NSR RBBB CODE STATUS: DNR/DNI EMERGENCY CONTACT PLAN: Primary Contact? Finger,Caden H? ?Rel to Pat? [phone] I've updated the PFSH, medications and allergies in the Expanse tabs. INVESTIGATIONS: LABS/MICRO/ECG/IMAGING 1. Area consolidation right lobe a this could be a secondary atelectasis however a pneumonia cannot be excluded. 2. Abnormal appearing gallbladder with thickened wall and probable pericholecystic fluid. This could be an acute cholecystitis. Please see right upper quadrant abdominal ultrasound done the same day. REVIEW OF SYSTEMS: 12-point ROS completed with patient and negative unless otherwise stated in HPI or below. PHYSICAL EXAM: CONSTITUTIONAL: Conversive, good historian. A/O. Knows setting and context. VITAL SIGNS: see record. HEENT: Normocephalic, atraumatic. PERRL, EOMI, conjunctivae pink, no scleral icterus. Ears and nose externally normal. Pharynx normal. NECK: No JVD. No carotid bruit, no thyromegaly, no adenopathy. CHEST: Clear to auscultation bilaterally - NO WHEEZING HEART: S1 and S2 normal. No harsh murmurs. Edema 1+ MUSCULOSKELETAL: No gross joint deformity or swelling. NEURO: Cranial nerves intact. Grossly intact. No asymmetric findings. Abdomen: soft. tender to palpation UQ bilaterally. SKIN: No rashes, petechiae, concerning changes PSYCHIATRIC: Euthymic. ADMIT TO MEDSURG: FLOOR CARE DVT: coumadin, will be reversed for sugery proposed for 12/13, then lovenox bridge to coumadin GI: PPI Time spent: Today I spent 75 minutes seeing the patient, discussing the patient with ER staff, reviewing Expanse and EPIC notes/diagnostics, discussing the care plan with our care time that includes social work, PT/OT, pharmacy, RT, half-way and documenting my impressions and plan in the medical record. 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 (ICD-10) Surgical History (Updated 12/12/23 @ 16:27 by Eliz Matthews MD) Status post biventricular cardiac pacemaker insertion ?Z95.0 - Presence of cardiac pacemaker (ICD-10) History of hysterectomy ?Z90.710 - Acquired absence of both cervix and uterus (ICD-10) Social History What is your current living situation?: I presently have a place to live Problems where you live: no known problems Problems where you live details: no known problems In the past 12 months, utilities in danger of being shut off: no In past 12 months, lack of transportation kept you from medical appts, meetings, work, or getting things needed for daily living: no In the past 12 mos, have been you worried that your food would run out before you had money to buy more?: never true In the past 12 mos, the food you bought just didn't last and you didn't have money to buy more?: never true Highest level of school completed/degree received: some college, no degree Smoking Status: Never smoker Do you use any of these nicotine containing products: None How often do you have a drink containing alcohol: never How often do you have six or more drinks on one occasion: Less than monthly AUDIT-C Alcohol total score: 1 Non-prescribed substance use: denies use Caffeine: Yes How often does anyone, including family, friends and others, physically hurt you : never How often does anyone, including family, friends and others, insult or talk down to you: never How often does anyone, including family, friends and others, threaten you with harm: never How often does anyone, including family, friends and others, scream or curse at you: never service: No Meds Home Medications and Allergies Home Medications Medication Instructions Recorded Confirmed Type sertraline 50 mg tablet 50 mg PO DAILY 05/26/23 12/12/23 History sotalol 80 mg tablet 80 mg PO BID 05/26/23 12/12/23 History warfarin 2.5 mg tablet 1.25 mg PO MOWEFR 05/26/23 12/12/23 History lorazepam 0.5 mg tablet 0.5 mg PO DAILY PRN 07/04/23 12/12/23 History warfarin 2.5 mg tablet 2.5 mg PO SUTUTHSA 12/12/23 12/12/23 History Allergies Allergy/AdvReac Type Severity Reaction Status Date / Time No Known Drug Allergies Allergy Verified 07/04/23 22:47 Exam Const: Vital Signs, click to edit/add: Vital Signs - 24 hr 12/12/23 07:38 12/12/23 07:49 12/12/23 07:49 Temperature 99.5 F Pulse Rate Pulse Rate [Pulse Oximeter] Pulse Rate [Right Pulse Oximeter] 75 Respiratory Rate 18 Blood Pressure Blood Pressure [Ri ght Arm] Blood Pressure [Ri ght Upper Arm] 144/61 H Pulse Oximetry 83 L 96 96 Oxygen Delivery Me thod Room Air Nasal Cannula Oxygen Flow Rate 2 12/12/23 08:11 12/12/23 08:15 12/12/23 08:30 Temperature Pulse Rate 65 66 66 Pulse Rate [Pulse Oximeter] Pulse Rate [Right Pulse Oximeter] Respiratory Rate Blood Pressure Blood Pressure [Ri ght Arm] Blood Pressure [Ri ght Upper Arm] Pulse Oximetry 96 96 97 Oxygen Delivery Me thod Oxygen Flow Rate 12/12/23 08:31 12/12/23 08:45 12/12/23 09:00 Temperature Pulse Rate 64 66 Pulse Rate [Pulse Oximeter] Pulse Rate [Right Pulse Oximeter] Respiratory Rate Blood Pressure 128/52 L Blood Pressure [Ri ght Arm] Blood Pressure [Ri ght Upper Arm] Pulse Oximetry 98 99 Oxygen Delivery Me thod Oxygen Flow Rate 12/12/23 09:02 12/12/23 09:15 12/12/23 11:34 Temperature Pulse Rate 65 63 Pulse Rate [Pulse Oximeter] Pulse Rate [Right Pulse Oximeter] Respiratory Rate 18 Blood Pressure 132/79 Blood Pressure [Ri ght Arm] Blood Pressure [Ri ght Upper Arm] Pulse Oximetry 98 98 98 Oxygen Delivery Me thod Nasal Cannula Oxygen Flow Rate 1.5 12/12/23 12:56 12/12/23 12:56 12/12/23 14:43 Temperature 99.5 F 99.5 F Pulse Rate Pulse Rate [Pulse Oximeter] Pulse Rate [Right Pulse Oximeter] Respiratory Rate 18 18 18 Blood Pressure Blood Pressure [Ri ght Arm] 148/64 H Blood Pressure [Ri ght Upper Arm] Pulse Oximetry 98 98 96 Oxygen Delivery Me thod Nasal Cannula Nasal Cannula Nasal Cannula Oxygen Flow Rate 1.5 1 1 12/12/23 14:43 Temperature Pulse Rate Pulse Rate [Pulse Oximeter] 74 Pulse Rate [Right Pulse Oximeter] Respiratory Rate 18 Blood Pressure Blood Pressure [Ri ght Arm] Blood Pressure [Ri ght Upper Arm] Pulse Oximetry Oxygen Delivery Me thod Oxygen Flow Rate Hospitalist - H&P: Result Labs Labs: Short CBC 12/12/23 Range/Units 08:28 WBC 17.77 H (4.50-11.00) K/uL Hgb 10.4 L (12.0-16.0) gm/dL Hct 34.0 (33.0-51.0) % Plt Count 294 (140-440) K/uL BMP 12/12/23 08:28 Sodium 135 Potassium 3.5 L Chloride 104 Carbon Dioxide 25 BUN 22 Creatinine 0.8 Glucose 107 Calcium 8.9 Cardiac Enzymes 12/12/23 Range/Units 08:28 Troponin I < 0.01 L (0.01-0.04) ng/mL Liver Function 12/12/23 Range/Units 08:28 Total Bilirubin 0.8 (0.1-1.5) mg/dL Direct Bilirubin 0.2 (0.0-0.5) mg/dL GGT 22 (8-55) U/L AST 23 (12-35) U/L ALT 14 (4-35) U/L Alkaline Phosphatase 66 (40-150) U/L Albumin 3.8 (3.3-5.0) g/dL Assessment and Plan Assessment and plan (1) Acute cholecystitis: Problem comment: -discussed with surgery. Lap choly planned for 12/13 -Zosyn q.6 -LR for IVF -anti coagulation to be reversed with IV vitamin K Status: Acute (2) Hypoxic respiratory failure: Problem comment: -1 L nasal cannula likely due to atelectasis or consolidation in the right lower lobe. Status: Acute (3) Atelectasis of right lung: Problem comment: Likely related to consolidation of the right lower lobe from acute cholecystitis. Will have RT work with patient and antibiotic coverage will cover community-acquired pneumonia. will get sputum cx, MRSA culture and have nebs available. azithro and zosyn are abx being used (after a gram of rocephin given in the ED) Status: Acute (4) Chronic anticoagulation: Problem comment: For longstanding AFib. Has a cardiac pacemaker. Will reverse her anticoagulation with IV vitamin K. Lovenox bridged INR once postop stable Status: Acute (5) Atrial fibrillation: Problem comment: Rate controlled. Continue sotalol. Status: Acute (6) Cardiac pacemaker: Problem comment: Noted Status: Acute (7) Mild anxiety: Problem comment: Noted Status: Acute
[2023-12-12] MEDS: PIPERACILLIN/TAZOBACTAM 3.375 GM in 0.9 % SODIUM CHLORIDE Mini-bag 100 ML IVPB ×2 (17:29→23:40)
[2023-12-12] MEDS: ACETAMINOPHEN 325 MG TABLET PO (17:58)
[2023-12-12] MEDS: OXYCODONE 5 MG TABLET PO (17:59)
[2023-12-12 20:37] LABS: Legionella pneumo Ag Urine L. pneumo Negative (Negative); S pneumo Ag Urine S. pneumo Negative (Negative)
[2023-12-12 21:11] LABS: INR 1.58 (0.91-1.10)
[2023-12-12] MEDS: IPRAT-ALBUT 0.5-2.5 MG/3 ML NEB 1 NEB IH (21:51)
[2023-12-12] MEDS: BUDESONIDE 0.5 MG/2ML NEB NEB (21:54)
[2023-12-12] MEDS: SOTALOL HCL 80 MG TABLET PO (22:11)
[2023-12-13] VITALS (67 sets, daily range): BP systolic 103–185; BP diastolic 42–119; PULSE 58–66; RESP 16–18; TEMP 36.3–36.7; O2SAT 91–99
[2023-12-13] MEDS: PIPERACILLIN/TAZOBACTAM 3.375 GM in 0.9 % SODIUM CHLORIDE Mini-bag 100 ML IVPB ×3 (05:46→23:25)
[2023-12-13 05:55] LABS: Hematocrit 33.8 % (33.0-51.0); Hemoglobin* 10.2 gm/dL (12.0-16.0); Mean Corpuscular HGB Conc 30 gm/dL (32-36); Mean Corpuscular Hemoglobin 24 pg (26-34); Mean Corpuscular Volume 81 fL (80-100); Platelet Count* 280 K/uL (140-440); Red Blood Count 4.19 m/uL (4.00-5.20); White Blood Count* 11.56 K/uL (4.50-11.00)
[2023-12-13 06:07] LABS: Slide Review Reflex No
[2023-12-13 06:09] LABS: HCO3 VBG 28 mmol/L (21-28); PCO2 VBG 48 mmHG (40-50); PO2 VBG 54.1 mmHG (25-47); pH VBG 7.377 (7.32-7.43)
[2023-12-13 06:14] LABS: Albumin* 3.3 g/dL (3.3-5.0); Chloride* 104 mmol/L (96-114); INR 1.36 (0.91-1.10); Prothrombin Time 17.7 Seconds
[2023-12-13 06:15] LABS: Sodium* 138 mmol/L (135-149)
[2023-12-13 06:16] LABS: Potassium* 3.4 mmol/L (3.6-5.1)
[2023-12-13 06:17] LABS: Creatinine* 0.7 mg/dL (0.5-1.5); Estimated Glomerular Filt Rate 84 ml/min
[2023-12-13 06:18] LABS: Alanine Aminotransferase* 12 U/L (4-35); Alkaline Phosphatase* 79 U/L (40-150); Anion Gap 8 mEq/L (7-15); Aspartate Amino Transferase* 22 U/L (12-35); Bilirubin Total* 0.8 mg/dL (0.1-1.5); Blood Urea Nitrogen* 18 mg/dL (7-30); Calcium* 8.6 mg/dL (8.4-10.6); Carbon Dioxide* 26 mmol/L (20-32); Glucose* 100 mg/dL (60-115); Lipase* 20 U/L (23-300); Total Protein* 6.5 g/dL (6.0-8.3)
[2023-12-13 06:19] LABS: Magnesium* 2.3 mg/dL (1.5-2.6)
[2023-12-13 06:41] LABS: Gamma Glutamyl Transpeptidase* 19 U/L (8-55)
--- NOTE | 2023-12-13 06:50 | PC.NURSE ---
Addendum entered by Maria E Lewis RN 12/13/23 06:53: was able to titrate pt to RA, pt maintaining sats >88% Original Note: 23-07: pleasant and cooperative. NPO since midnight. No c/o pain. VSS. need sputum collection, pt working on aerobika indep, attempting to cough up sputum.
[2023-12-13 07:06] LABS: C Reactive Protein* 22.8 mg/dL (0.5-1.0)
[2023-12-13] MEDS: SOTALOL HCL 80 MG TABLET PO ×2 (08:12→21:15)
[2023-12-13] MEDS: IPRAT-ALBUT 0.5-2.5 MG/3 ML NEB 1 NEB IH (08:13)
[2023-12-13] MEDS: BUDESONIDE 0.5 MG/2ML NEB NEB ×2 (08:13→21:15)
[2023-12-13] MEDS: LACTATED RINGERS 1000 ML 1,000 ML 125 ML IV ×2 (08:17→10:30)
--- NOTE | 2023-12-13 08:24 | P.GSCN_ITS ---
History of Present Illness Consult details Date Seen: 12/13/23 Consult date: 12/13/23 Narrative: 87-year-old female was admitted to the hospital with right upper quadrant abdominal pain and I was asked by Dr. St to see her in consultation. Patient states that she did have a good appetite for about a week. For the last few days she has been experiencing ?excruciating? pain in the right upper quadrant. The pain was intermittent. Patient was not sure what was making it better or worse. Yesterday morning when she woke up and the pain was ?awful?. Patient was then brought to the emergency room. Patient states that she had bowel movements daily. She denies any nausea or vomiting. Denies any fevers. She did not have anything previous similar to this pain. In the emergency room she was found to have an elevated WBC of 17. Her liver function tests were normal. Her INR was 2.3 (patient is on warfarin). Patient's CRP was 25. A gallbladder ultrasound was obtained that showed a distended gallbladder with cholelithiasis. The common bile duct was visualized at 0.[address] was obtained due to suspicion for a pneumonia and that showed possible right middle lobe consolidation. There was distended gallbladder with pericholecystic fluid concerning for acute cholecystitis. Patient's warfarin was reversed with vitamin K. Review of Systems Narrative: General: no fevers HENT: no problems swallowing CV: no shortness of breath, patient can walk for about a block and then gets short of breath. Resp: no cough GI: See above Skin: no new rashes Musculoskeletal: Patient had back pain radiating her from her abdominal pain. 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) Surgical History (Updated 12/13/23 @ 08:29 by Sandoval Ortega MD) Status post biventricular cardiac pacemaker insertion ?Z95.0 - Presence of cardiac pacemaker (ICD-10) History of hysterectomy ?Z90.710 - Acquired absence of both cervix and uterus (ICD-10) Social History What is your current living situation?: I presently have a place to live Problems where you live: no known problems Problems where you live details: no known problems In the past 12 months, utilities in danger of being shut off: no In past 12 months, lack of transportation kept you from medical appts, meetings, work, or getting things needed for daily living: no In the past 12 mos, have been you worried that your food would run out before you had money to buy more?: never true In the past 12 mos, the food you bought just didn't last and you didn't have money to buy more?: never true Highest level of school completed/degree received: some college, no degree Smoking Status: Never smoker Do you use any of these nicotine containing products: None How often do you have a drink containing alcohol: never How often do you have six or more drinks on one occasion: Less than monthly AUDIT-C Alcohol total score: 1 Non-prescribed substance use: denies use Caffeine: Yes How often does anyone, including family, friends and others, physically hurt you : never How often does anyone, including family, friends and others, insult or talk down to you: never How often does anyone, including family, friends and others, threaten you with harm: never How often does anyone, including family, friends and others, scream or curse at you: never service: No Meds Home Medications and Allergies Home Medications Medication Instructions Recorded Confirmed Type sertraline 50 mg tablet 50 mg PO DAILY 05/26/23 12/12/23 History sotalol 80 mg tablet 80 mg PO BID 05/26/23 12/12/23 History warfarin 2.5 mg tablet 1.25 mg PO MOWEFR 05/26/23 12/12/23 History lorazepam 0.5 mg tablet 0.5 mg PO DAILY PRN 07/04/23 12/12/23 History warfarin 2.5 mg tablet 2.5 mg PO SUTUTHSA 12/12/23 12/12/23 History Allergies Allergy/AdvReac Type Severity Reaction Status Date / Time No Known Drug Allergies Allergy Verified 07/04/23 22:47 Exam Narrative: Exam Narrative: General appearance: Alert, cooperative, and in no distress Pulmonary: Chest symmetric, lungs clear bilaterally Cardiovascular Heart: Regular rate and rhythm, S1, S2, no murmurs/rubs/gallops Gastrointestinal Abdominal: soft, not distended, exquisitely tender to palpation in the right upper quadrant with positive Tabares sign. Skin: Normal skin color, texture, and turgor. No rashes or lesions. Psychiatric: Alert, cooperative, normal affect. Const: Vital Signs, click to edit/add: Vital Signs - 24 hr 12/12/23 08:30 12/12/23 08:31 12/12/23 08:45 Temperature Pulse Rate 66 64 Pulse Rate [Pulse Oximeter] Respiratory Rate Blood Pressure 128/52 L Blood Pressure [Ri ght Arm] Pulse Oximetry 97 98 Oxygen Delivery Me thod Oxygen Flow Rate 12/12/23 09:00 12/12/23 09:02 12/12/23 09:15 Temperature Pulse Rate 66 65 63 Pulse Rate [Pulse Oximeter] Respiratory Rate Blood Pressure 132/79 Blood Pressure [Ri ght Arm] Pulse Oximetry 99 98 98 Oxygen Delivery Me thod Oxygen Flow Rate 12/12/23 11:34 12/12/23 12:56 12/12/23 12:56 Temperature 99.5 F Pulse Rate Pulse Rate [Pulse Oximeter] Respiratory Rate 18 18 18 Blood Pressure Blood Pressure [Ri ght Arm] Pulse Oximetry 98 98 98 Oxygen Delivery Me thod Nasal Cannula Nasal Cannula Nasal Cannula Oxygen Flow Rate 1.5 1.5 1 12/12/23 14:43 12/12/23 14:43 12/12/23 19:00 Temperature 99.5 F 97.9 F Pulse Rate Pulse Rate [Pulse Oximeter] 74 66 Respiratory Rate 18 18 18 Blood Pressure Blood Pressure [Ri ght Arm] 148/64 H 138/58 L Pulse Oximetry 96 97 Oxygen Delivery Me thod Nasal Cannula Nasal Cannula Oxygen Flow Rate 1 1 12/12/23 23:00 12/12/23 23:00 12/12/23 23:49 Temperature 97.4 F L Pulse Rate 71 Pulse Rate [Pulse Oximeter] 60 60 Respiratory Rate 18 18 Blood Pressure Blood Pressure [Ri ght Arm] 158/67 H Pulse Oximetry 98 Oxygen Delivery Me thod Nasal Cannula Oxygen Flow Rate 1 12/13/23 00:26 12/13/23 03:00 12/13/23 07:00 Temperature 97.4 F L Pulse Rate 60 Pulse Rate [Pulse Oximeter] 66 60 Respiratory Rate 18 18 Blood Pressure Blood Pressure [Ri t Arm] 139/65 Pulse Oximetry 91 Oxygen Delivery Me thod Nasal Cannula Oxygen Flow Rate 0.5 12/13/23 07:00 Temperature 97.4 F L Pulse Rate Pulse Rate [Pulse Oximeter] 60 Respiratory Rate 18 Blood Pressure Blood Pressure [Ri t Arm] 185/76 H Pulse Oximetry 93 Oxygen Delivery Me thod Room Air Oxygen Flow Rate Results Labs Labs: Abnormal lab results 12/12/23 12/12/23 12/13/23 Range/Units 08:28 20:47 05:10 WBC 17.77 H 11.56 H (4.50-11.00) K/uL Hgb 10.4 L 10.2 L (12.0-16.0) gm/dL MCH 25 L 24 L (26-34) pg MCHC 31 L 30 L (32-36) gm/dL RDW Coeff of Ebony 16.9 H (11.5-15.5) % Neut % (Auto) 87.4 H (42.0-72.0) % Lymph % (Auto) 6.0 L (20-44) % Neut # (Auto) 15.50 H (1.7-7.0) K/uL INR 2.31 H 1.58 H 1.36 H (0.91-1.10) D-Dimer Quant (PE/DVT) 1.51 H (0.00-0.50) ug/ml VBG pH 7.457 H (7.32-7.43) VBG pCO2 38 L (40-50) mmHG VBG pO2 52.3 H 54.1 H (25-47) mmHG Potassium 3.5 L 3.4 L (3.6-5.1) mmol/L Anion Gap 6 L (7-15) mEq/L Troponin I < 0.01 L (0.01-0.04) ng/mL C-Reactive Protein 25.5 H 22.8 H (0.5-1.0) mg/dL Lipase 20 L (23-300) U/L Diabetes panel 12/12/23 12/13/23 Range/Units 08:28 05:10 Sodium 135 138 (135-149) mmol/L Potassium 3.5 L 3.4 L (3.6-5.1) mmol/L Chloride 104 104 (96-114) mmol/L Carbon Dioxide 25 26 (20-32) mmol/L BUN 22 18 (7-30) mg/dL Creatinine 0.8 0.7 (0.5-1.5) mg/dL Glucose 107 100 (60-115) mg/dL Calcium 8.9 8.6 (8.4-10.6) mg/dL AST 23 22 (12-35) U/L ALT 14 12 (4-35) U/L Alkaline Phosphatase 66 79 (40-150) U/L Total Protein 6.9 6.5 (6.0-8.3) g/dL Albumin 3.8 3.3 (3.3-5.0) g/dL Calcium panel 12/12/23 12/13/23 Range/Units 08:28 05:10 Calcium 8.9 8.6 (8.4-10.6) mg/dL Albumin 3.8 3.3 (3.3-5.0) g/dL Pituitary panel 12/12/23 12/13/23 Range/Units 08:28 05:10 Sodium 135 138 (135-149) mmol/L Potassium 3.5 L 3.4 L (3.6-5.1) mmol/L Chloride 104 104 (96-114) mmol/L Carbon Dioxide 25 26 (20-32) mmol/L BUN 22 18 (7-30) mg/dL Creatinine 0.8 0.7 (0.5-1.5) mg/dL Glucose 107 100 (60-115) mg/dL Calcium 8.9 8.6 (8.4-10.6) mg/dL Adrenal panel 12/12/23 12/13/23 Range/Units 08:28 05:10 Sodium 135 138 (135-149) mmol/L Potassium 3.5 L 3.4 L (3.6-5.1) mmol/L Chloride 104 104 (96-114) mmol/L Carbon Dioxide 25 26 (20-32) mmol/L BUN 22 18 (7-30) mg/dL Creatinine 0.8 0.7 (0.5-1.5) mg/dL Glucose 107 100 (60-115) mg/dL Calcium 8.9 8.6 (8.4-10.6) mg/dL Total Bilirubin 0.8 0.8 (0.1-1.5) mg/dL AST 23 22 (12-35) U/L ALT 14 12 (4-35) U/L Alkaline Phosphatase 66 79 (40-150) U/L Total Protein 6.9 6.5 (6.0-8.3) g/dL Albumin 3.8 3.3 (3.3-5.0) g/dL All other labs normal. Assessment and Plan Assessment and plan (1) Acute cholecystitis: Problem comment: -discussed with surgery. Lap choly planned for 12/13 -Zosyn q.6 -LR for IVF -anti coagulation to be reversed with IV vitamin K Status: Acute Plan 87-year-old female admitted to the hospital with acute cholecystitis. I discussed with the patient her laboratory and imaging findings. Patient was treated with antibiotics overnight. Her INR today is 1.3. Her WBC decreased to 11. I recommended to proceed with laparoscopic cholecystectomy. The procedure was discussed in detail. The risks associated the procedure including infection, bleeding, injury to intra-abdominal organs, injury to the common bile duct, and the risks of anesthesia as well as stress of surgery such as heart att ack, stroke, and respiratory failure were all discussed with the patient, and she agreed to proceed.
[2023-12-13] MEDS: BUPIVACAINE 0.25% 30 ML 20 ML INJECTION (09:50)
--- NOTE | 2023-12-13 10:44 | REH.OT ---
Orders for evaluate and treat received, will be deferred until tomorrow d/t pt having surgery today.
--- NOTE | 2023-12-13 11:54 | P.GSOP_ITS ---
Operative Note Date of procedure: 12/13/23 Pre-op diagnosis: Acute cholecystitis. Post-op diagnosis: 1. Same Type of Procedure: 1. Laparoscopic cholecystectomy. Indications: 87-year-old female presented to emergency room with a few days of right upper quadrant pain. Patient stated the pain was severe and was intermittent. In the emergency room she was found to have an elevated WBC. A gallbladder ultrasound and chest CT showed distended gallbladder with pericholecystic fluid. There was evidence of cholelithiasis. The common bile duct was normal in caliber. Patient's liver function tests were normal. On clinical exam patient had tenderness to palpation in the right upper quadrant with positive Tabares sign. Procedure Description: After discussing the risks and benefits of the procedure, the patient signed informed consent.? The operative site was marked and the patient was brought to the operating room and placed on the operating table in supine position.? Care was taken to pad the patient's pressure points.?? The patient was then intubated by anesthesia.?? The operative site was then prepped and draped in the usual sterile fashion.? A time-out was then performed. A 5-mm laparoscopy port was placed in the left upper quadrant guided by a 5-mm laparoscope placed into a translucent trochar.~ Passage through the layers of the abdominal wall was visualized with the laparoscope.~ A pneumoperitoneum was established. A 0-degree 5-mm laparoscope was advanced into the abdomen. The abdomen was briefly surveyed, and no adhesions were noted. A 10-mm port were placed infraumbilically and two more 5 mm ports were placed on the right under direct visualization by laparoscope. The camera was then changed to 10 mm 30- degree scope and placed into the abdomen through the 10 mm port. The left upper quadrant port entrance was examined and no injury to intra-abdominal organs was identified. The gallbladder was identified, and the fundus was difficult to grasp because the gallbladder was distended and inflamed. Laparoscopic needle was then used to decompress the gallbladder. 30 mL of green bile was suctioned out of the gallbladder. The gallbladder was then grasped and retracted cephalad. The gallbladder was not very mobile and was folded on itself making it difficult to visualize the gallbladder infundibulum. This made dissection of the gallbladder difficult throughout the case. The infundibulum was freed from adjacent peritoneum with hook cautery and bluntly. The tissues surrounding the gallbladder were friable and inflamed. The infundibulum was grasped and retracted laterally, exposing the peritoneum overlying the triangle of Calot. This was then divided and exposed in a blunt fashion and with hook cautery. Common bile duct was not identified but care was taken not to injure it. The cystic duct was clearly identified and bluntly dissected circumferentially. The cystic artery was not initially identified. Since the dissection was very difficult in visualizing the structures of triangle of Calot, and the cystic duct was clearly going into the gallbladder infundibulum, I elected to divide the cystic duct. Two vascular clips were placed on the patient's side and a single clip was placed on this patient's side and the cystic duct was divided with scissors. This allowed retraction of the infundibulum cranially. We then divided peritoneum overlying the gallbladder medially just lateral to the cystic node. The cystic artery was visualized and was clipped with vascular clips on the patient's side and the gallbladder side and divided with hook cautery. This peritoneum encasing the gallbladder medially and containg the cystic artery was then bluntly retracted medially. We then proceeded with dissecting the gallbladder off the liver. This was very difficult due to limited visualization. Our laparoscopic ports were going in and out of the abdomen and insufflating patient's subcutaneous space with carbon dioxide. For the majority of the case carbon dioxide had some insufflation of the patient's abdominal wall. When the gallbladder was off the liver, it was placed into the laparoscopic bag. The thickness of the abdominal wall made it difficult to remove the bag containing the gallbladder from the abdomen. Infraumbilical skin incision was enlarged with a scalpel. The fascia of the infraumbilical incision was enlarged with cautery. I was able to remove the gallbladder with the bag and that was sent to pathology. The surgical field was then examined and bleeding was noted from the liver edge. This was controlled with hook cautery. Oozing was seen from the inflammatory rind at the lateral edge and that was controlled with vascular clips. Rosalio was sprayed in the gallbladder fossa. The fascia of the infraumbilical incision was then closed with a running 0-0 Vicryl stitch. The abdomen was then insufflated and no intra-abdominal structures were incarcerated in the infraumbilical fascial closure. Pneumoperitoneum was completely reduced and all laparoscopic ports were removed. The dermis of the infraumbilical incision was then reapproximated with interrupted 3-0 Vicryl sutures. The skin of all surgical incisions was then closed with 4-0 monocryl and steristrips were applied. Instrument, sponge, and needle counts were correct at closure and at the conclusion of the case. The patient was transferred to PACU in stable condition. Findings: Inflamed and distended gallbladder, visualization and dissection was difficult throughout the case. Anesthesia: GETA Surgeon: Sandoval Ortega MD Estimated blood loss (mL): 50 Specimen: Gallbladder Condition: stable Disposition: PACU
--- NOTE | 2023-12-13 12:38 | P.ANES_ITS ---
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
--- NOTE | 2023-12-13 12:38 | W.ANESCHARGE ---
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
[2023-12-13 12:42] LABS: HCO3 VBG 26 mmol/L (21-28); PO2 VBG 32.8 mmHG (25-47)
[2023-12-13 12:46] LABS: PCO2 VBG 63 mmHG (40-50)
[2023-12-13] MEDS: LACTATED RINGERS 1000 ML 1,000 ML 75 ML IV (13:52)
[2023-12-13] MEDS: ACETAMINOPHEN INJ 1,000 MG/100 ML VIAL 400 MG IVPB (15:14)
--- NOTE | 2023-12-13 16:27 | P.IMPN_ITS ---
Progress Note: A&P Assessment and plan (1) Acute cholecystitis: Problem details: -transferred from PACU to CCU secondary to CO2 narcosis. clearing. -Zosyn q.6 -LR for IVF -anti coagulation to be reversed with IV vitamin K. restart Coumadin with Lovenox bridge on 12/14/2023. To be discussed with general surgery prior to initiation. Status: Acute (2) Status post laparoscopic cholecystectomy: Problem details: Date of surgery 12/13/2023. Dr. Ortega. Status: Acute (3) Atelectasis of right lung: Problem details: Likely related to consolidation of the right lower lobe from acute cholecystitis. Will have RT work with patient and antibiotic coverage will cover community-acquired pneumonia. will get sputum cx, MRSA culture and have nebs available. azithro and zosyn are abx being used (after a gram of rocephin given in the ED) Status: Acute (4) Hypoxic respiratory failure: Problem details: -1 L nasal cannula likely due to atelectasis or consolidation in the right lower lobe. Status: Acute (5) Atrial fibrillation: Problem details: Rate controlled. Continue sotalol. Resume anticoagulation when stable postoperatively Status: Acute (6) Mild anxiety: Problem details: Noted Status: Acute (7) Chronic anticoagulation: Problem details: For longstanding AFib. Has a cardiac pacemaker. Will reverse her antico agulation with IV vitamin K on night prior to surgery.. Lovenox bridged INR once postop stable Status: Acute (8) Cardiac pacemaker: Problem details: Noted Status: Acute Subjective Date Seen: 12/13/23 Interval history: Daily Progress Note - Hospital Medicine Day #: 2 Post OP Day# 0 - lap choly CC: Acute cholecystitis, potential pneumonia OVERNIGHT UPDATES FROM STAFF & MED, LAB, IMAGING UPDATES Stable night. Pain well controlled. Laparoscopic cholecystectomy morning of 12/13/2023. No immediate surgical complications however patient had a prolonged surgery with prolonged insufflation. Subcu emphysema from the CO2 inserted noted in the PACU. Patient extubated without issue but was groggy upon transfer to floor. End-tidal CO2 was elevated and venous blood gas noted to show some mild acidosis with CO2 elevation. [employer], general surgery all helpful with settling patient at [facility] surge initial pH 7.230, CO2 63. Objective: Alert/in the chair/watching football - when I see for the 2nd time after surgery. Vitals: Mildly hypertensive. Afebrile. Satting 99% on 2 L nasal cannula. see above Lungs: Clear. Cardiac: S1S2. Disposition/Potential discharge - Likely to return to previous living situation. Today I spent 50minutes seeing the patient, reviewing Expanse and EPIC notes/diagnostics, discussing the care plan with our care time that includes social work, PT/OT, pharmacy, RT, fci and documenting my impressions and plan in the medical record. Exam Const: Vital Signs, click to edit/add: Vital Signs - 24 hr 12/12/23 19:00 12/12/23 23:00 12/12/23 23:00 Temperature 97.9 F 97.4 F L Pulse Rate Pulse Rate [Pulse Oximeter] 66 60 60 Respiratory Rate 18 18 18 Blood Pressure Blood Pressure [Le ft Arm] Blood Pressure [Ri ght Arm] 138/58 L 158/67 H Pulse Oximetry 97 98 Oxygen Delivery Me thod Nasal Cannula Nasal Cannula Oxygen Flow Rate 1 1 12/12/23 23:49 12/13/23 00:26 12/13/23 03:00 Temperature 97.4 F L Pulse Rate 71 60 Pulse Rate [Pulse Oximeter] 66 Respiratory Rate 18 Blood Pressure Blood Pressure [Le ft Arm] Blood Pressure [Ri ght Arm] 139/65 Pulse Oximetry 91 Oxygen Delivery Me thod Nasal Cannula Oxygen Flow Rate 0.5 12/13/23 07:00 12/13/23 07:00 12/13/23 11:57 Temperature 97.4 F L Pulse Rate 60 Pulse Rate [Pulse Oximeter] 60 60 Respiratory Rate 18 18 Blood Pressure 173/70 H Blood Pressure [Le ft Arm] Blood Pressure [Ri ght Arm] 185/76 H Pulse Oximetry 93 97 Oxygen Delivery Me thod Room Air OxyMask Oxygen Flow Rate 10 12/13/23 11:58 12/13/23 11:59 12/13/23 12:00 Temperature Pulse Rate 60 60 60 Pulse Rate [Pulse Oximeter] Respiratory Rate Blood Pressure Blood Pressure [Le ft Arm] Blood Pressure [Ri ght Arm] Pulse Oximetry 96 97 97 Oxygen Delivery Me thod Oxygen Flow Rate 12/13/23 12:01 12/13/23 12:02 12/13/23 12:03 Temperature Pulse Rate 60 60 62 Pulse Rate [Pulse Oximeter] Respiratory Rate Blood Pressure 159/73 H Blood Pressure [Le ft Arm] Blood Pressure [Ri ght Arm] Pulse Oximetry 97 97 98 Oxygen Delivery Me thod OxyMask Oxygen Flow Rate 10 12/13/23 12:04 12/13/23 12:05 12/13/23 12:06 Temperature Pulse Rate 60 60 60 Pulse Rate [Pulse Oximeter] Respiratory Rate Blood Pressure 146/79 H Blood Pressure [Le ft Arm] Blood Pressure [Ri ght Arm] Pulse Oximetry 96 97 97 Oxygen Delivery Me thod Oxygen Flow Rate 12/13/23 12:07 12/13/23 12:08 12/13/23 12:09 Temperature Pulse Rate 60 60 60 Pulse Rate [Pulse Oximeter] Respiratory Rate Blood Pressure Blood Pressure [Le ft Arm] Blood Pressure [Ri ght Arm] Pulse Oximetry 97 97 97 Oxygen Delivery Me thod OxyMask Oxygen Flow Rate 10 12/13/23 12:10 12/13/23 12:11 12/13/23 12:12 Temperature Pulse Rate 60 60 60 Pulse Rate [Pulse Oximeter] Respiratory Rate Blood Pressure 169/72 H Blood Pressure [Le ft Arm] Blood Pressure [Ri ght Arm] Pulse Oximetry 97 97 97 Oxygen Delivery Me thod Oxygen Flow Rate 12/13/23 12:13 12/13/23 12:14 12/13/23 12:15 Temperature Pulse Rate 61 60 62 Pulse Rate [Pulse Oximeter] Respiratory Rate Blood Pressure Blood Pressure [Le ft Arm] Blood Pressure [Ri ght Arm] Pulse Oximetry 97 97 97 Oxygen Delivery Me thod OxyMask Oxygen Flow Rate 10 12/13/23 12:16 12/13/23 12:17 12/13/23 12:18 Temperature Pulse Rate 60 64 62 Pulse Rate [Pulse Oximeter] Respiratory Rate Blood Pressure 155/119 H Blood Pressure [Le ft Arm] Blood Pressure [Ri ght Arm] Pulse Oximetry 98 97 97 Oxygen Delivery Me thod Oxygen Flow Rate 12/13/23 12:19 12/13/23 12:20 12/13/23 12:21 Temperature Pulse Rate 61 61 61 Pulse Rate [Pulse Oximeter] Respiratory Rate Blood Pressure Blood Pressure [Le ft Arm] Blood Pressure [Ri ght Arm] Pulse Oximetry 97 97 98 Oxygen Delivery Me thod OxyMask OxyMask Oxygen Flow Rate 10 10 12/13/23 12:22 12/13/23 12:23 12/13/23 12:24 Temperature Pulse Rate 60 60 60 Pulse Rate [Pulse Oximeter] Respiratory Rate Blood Pressure Blood Pressure [Le ft Arm] Blood Pressure [Ri ght Arm] Pulse Oximetry 97 97 97 Oxygen Delivery Me thod Oxygen Flow Rate 12/13/23 12:25 12/13/23 12:26 12/13/23 12:27 Temperature Pulse Rate 60 59 L 60 Pulse Rate [Pulse Oximeter] Respiratory Rate Blood Pressure Blood Pressure [Le ft Arm] Blood Pressure [Ri ght Arm] Pulse Oximetry 97 98 97 Oxygen Delivery Me thod Oxygen Flow Rate 12/13/23 12:28 12/13/23 12:29 12/13/23 12:30 Temperature Pulse Rate 61 60 60 Pulse Rate [Pulse Oximeter] Respiratory Rate Blood Pressure Blood Pressure [Le ft Arm] Blood Pressure [Ri ght Arm] Pulse Oximetry 98 97 97 Oxygen Delivery Me thod Oxygen Flow Rate 12/13/23 12:31 12/13/23 12:32 12/13/23 12:33 Temperature Pulse Rate 60 60 60 Pulse Rate [Pulse Oximeter] Respiratory Rate Blood Pressure Blood Pressure [Le ft Arm] Blood Pressure [Ri ght Arm] Pulse Oximetry 98 96 97 Oxygen Delivery Me thod Oxygen Flow Rate 12/13/23 12:34 12/13/23 12:35 12/13/23 12:36 Temperature Pulse Rate 60 60 59 L Pulse Rate [Pulse Oximeter] Respiratory Rate Blood Pressure Blood Pressure [Le ft Arm] Blood Pressure [Ri ght Arm] Pulse Oximetry 98 97 98 Oxygen Delivery Me thod Oxygen Flow Rate 12/13/23 12:37 12/13/23 12:38 12/13/23 12:39 Temperature Pulse Rate 61 61 58 L Pulse Rate [Pulse Oximeter] Respiratory Rate Blood Pressure Blood Pressure [Le ft Arm] Blood Pressure [Ri ght Arm] Pulse Oximetry 98 98 98 Oxygen Delivery Me thod OxyMask Oxygen Flow Rate 12/13/23 12:40 12/13/23 12:41 12/13/23 12:42 Temperature Pulse Rate 60 60 61 Pulse Rate [Pulse Oximeter] Respiratory Rate Blood Pressure 154/71 H 157/73 H Blood Pressure [Le ft Arm] Blood Pressure [Ri ght Arm] Pulse Oximetry 98 98 98 Oxygen Delivery Me thod Oxygen Flow Rate 12/13/23 12:43 12/13/23 14:11 Temperature 97.7 F Pulse Rate 61 60 Pulse Rate [Pulse Oximeter] Respiratory Rate 16 Blood Pressure Blood Pressure [Le ft Arm] 173/82 H Blood Pressure [Ri ght Arm] Pulse Oximetry 99 Oxygen Delivery Me thod OxyMask Nasal Cannula Oxygen Flow Rate 10 2 Labs Labs: Laboratory Results - last 24 hr 12/12/23 12/12/23 12/13/23 11:34 20:47 05:10 WBC 11.56 H RBC 4.19 Hgb 10.2 L Hct 33.8 MCV 81 MCH 24 L MCHC 30 L Plt Count 280 INR 1.58 H 1.36 H VBG pH 7.377 VBG pCO2 48 VBG pO2 54.1 H VBG HCO3 28 Sodium 138 Potassium 3.4 L Chloride 104 Carbon Dioxide 26 Anion Gap 8 BUN 18 Creatinine 0.7 Estimated Creat Clear 37.80 Estimated GFR 84 Glucose 100 Calcium 8.6 Magnesium 2.3 Total Bilirubin 0.8 GGT 19 AST 22 ALT 12 Alkaline Phosphatase 79 C-Reactive Protein 22.8 H Total Protein 6.5 Albumin 3.3 Lipase 20 L Urine L. pneumophilia Ag L. pneumo Negative Urine Strep pneumoniae Ag S. pneumo Negative 12/13/23 12:37 WBC RBC Hgb Hct MCV MCH MCHC Plt Count INR VBG pH 7.230 L* VBG pCO2 63 H* VBG pO2 32.8 VBG HCO3 26 Sodium Potassium Chloride Carbon Dioxide Anion Gap BUN Creatinine Estimated Creat Clear Estimated GFR Glucose Calcium Magnesium Total Bilirubin GGT AST ALT Alkaline Phosphatase C-Reactive Protein Total Protein Albumin Lipase Urine L. pneumophilia Ag Urine Strep pneumoniae Ag
[2023-12-13 16:42] LABS: HCO3 VBG 25 mmol/L (21-28); PCO2 VBG 40 mmHG (40-50); PO2 VBG 55.7 mmHG (25-47); pH VBG 7.401 (7.32-7.43)
--- NOTE | 2023-12-13 19:47 | PC.NURSE ---
Patient alert and oriented, voided well after surgery. PRN tylenol administered for discomfort from crepitus. IV in right FA patent, Riky. SCD's in use. Patient tolerating a clear liquid diet. Ice pack applied to op site. 4 Lap sites are c/d/i. Patient on 1.5 L of NC and tolerated well. Patient up to chair and tolerated activity well. Patient on tele, A-paced with NSR.
[2023-12-14] VITALS (11 sets, daily range): BP systolic 118–144; BP diastolic 47–76; PULSE 60–68; RESP 16–20; TEMP 36.4–37.3; O2SAT 92–96
[2023-12-14] MEDS: HYDROmorphone 0.5 mg/0.5 ml inj IVP (01:25)
[2023-12-14] MEDS: SODIUM CHLORIDE 0.9 % (FLUSH) 10 ML SYRINGE 5 ML IVF (01:25)
[2023-12-14] MEDS: ACETAMINOPHEN 325 MG TABLET PO ×2 (01:56→05:37)
[2023-12-14] MEDS: LACTATED RINGERS 1000 ML 1,000 ML 75 ML IV (04:27)
--- NOTE | 2023-12-14 04:35 | PC.NURSE ---
Pt's O2 was falling to mid 80s on RA. Placed on 1 L NC to maintain @ 94%. Pt up SBA with walker and voiding. Pain controlled. No N/V. Afebrile. Pleasant and cooperative. Lap sites CDI.
[2023-12-14] MEDS: PIPERACILLIN/TAZOBACTAM 3.375 GM in 0.9 % SODIUM CHLORIDE Mini-bag 100 ML IVPB ×3 (05:34→17:50)
[2023-12-14 06:29] LABS: HCO3 VBG 27 mmol/L (21-28); PCO2 VBG 48 mmHG (40-50); pH VBG 7.354 (7.32-7.43)
[2023-12-14 06:43] LABS: Hematocrit 30.3 % (33.0-51.0); Hemoglobin* 9.1 gm/dL (12.0-16.0); Mean Corpuscular HGB Conc 30 gm/dL (32-36); Mean Corpuscular Hemoglobin 25 pg (26-34); Mean Corpuscular Volume 83 fL (80-100); Platelet Count* 323 K/uL (140-440); Red Blood Count 3.66 m/uL (4.00-5.20); White Blood Count* 13.29 K/uL (4.50-11.00)
[2023-12-14 06:49] LABS: Anion Gap 10 mEq/L (7-15); Carbon Dioxide* 25 mmol/L (20-32); Chloride* 105 mmol/L (96-114); Glucose* 100 mg/dL (60-115); Potassium* 3.8 mmol/L (3.6-5.1); Sodium* 140 mmol/L (135-149)
[2023-12-14 06:55] LABS: Slide Review Reflex No
[2023-12-14] MEDS: AZITHROMYCIN 250 MG TABLET PO (08:19)
[2023-12-14] MEDS: SERTRALINE 50 MG TABLET PO (08:19)
[2023-12-14] MEDS: SOTALOL HCL 80 MG TABLET PO ×2 (08:20→20:44)
[2023-12-14] MEDS: BUDESONIDE 0.5 MG/2ML NEB NEB ×2 (08:21→20:51)
--- NOTE | 2023-12-14 09:20 | CRLHL7_ITS ---
For Patients: As a result of the Century Cures Act, medical imaging exams and procedure reports are released immediately into your electronic medical record. You may view this report before your referring provider. If you have questions, please contact your health care provider. INDICATION: DYSPNEA, S/P LAP DIANDRA TECHNIQUE: Chest 2 views. COMPARISON: CT chest on 12/12/2023 FINDINGS/IMPRESSION: Mild cardiomegaly. Left chest wall dual lead pacemaker with lead tips projecting over the expected position of the right atrium and right ventricle. No focal airspace consolidation, pleural effusion, or pneumothorax. There is subcutaneous emphysema seen throughout the thorax, likely postsurgical given history. No displaced fractures or malalignment Dictated by Nahun Morales MD @ 12/14/2023 9:55:11 AM (Electronically Signed)
--- NOTE | 2023-12-14 11:14 | P.GSPN_ITS ---
Subjective Subjective Date Seen: 12/14/23 Interval history: Patient is doing okay with her abdominal pain. She complains of pain in the upper abdomen. She was also complaining of shortness of breath and difficult to take a deep breath. She had some sips of clears and tolerated those well. Her VBG came down to normal. Exam Narrative: Exam Narrative: Abdomen is soft, not distended, tender to palpation in epigastrium, laparoscopic incisions are covered with Steri is. The periumbilical outer dressing was taken off and there is some skin maceration at the bottom of the umbilicus. Const: Vital Signs, click to edit/add: Vital Signs - 24 hr 12/13/23 11:57 12/13/23 11:58 12/13/23 11:59 Temperature Pulse Rate 60 60 60 Pulse Rate [Pulse Oximeter] Respiratory Rate Blood Pressure 173/70 H Blood Pressure [Le ft Arm] Pulse Oximetry 97 96 97 Oxygen Delivery Me thod OxyMask Oxygen Flow Rate 12/13/23 12:00 12/13/23 12:01 12/13/23 12:02 Temperature Pulse Rate 60 60 60 Pulse Rate [Pulse Oximeter] Respiratory Rate Blood Pressure 159/73 H Blood Pressure [Le ft Arm] Pulse Oximetry 97 97 97 Oxygen Delivery Me thod OxyMask Oxygen Flow Rate 12/13/23 12:03 12/13/23 12:04 12/13/23 12:05 Temperature Pulse Rate 62 60 60 Pulse Rate [Pulse Oximeter] Respiratory Rate Blood Pressure Blood Pressure [Le ft Arm] Pulse Oximetry 98 96 97 Oxygen Delivery Me thod Oxygen Flow Rate 12/13/23 12:06 12/13/23 12:07 12/13/23 12:08 Temperature Pulse Rate 60 60 60 Pulse Rate [Pulse Oximeter] Respiratory Rate Blood Pressure 146/79 H Blood Pressure [Le ft Arm] Pulse Oximetry 97 97 97 Oxygen Delivery Me thod Oxygen Flow Rate 12/13/23 12:09 12/13/23 12:10 12/13/23 12:11 Temperature Pulse Rate 60 60 60 Pulse Rate [Pulse Oximeter] Respiratory Rate Blood Pressure 169/72 H Blood Pressure [Le ft Arm] Pulse Oximetry 97 97 97 Oxygen Delivery Me thod OxyMask Oxygen Flow Rate 12/13/23 12:12 12/13/23 12:13 12/13/23 12:14 Temperature Pulse Rate 60 61 60 Pulse Rate [Pulse Oximeter] Respiratory Rate Blood Pressure Blood Pressure [Le ft Arm] Pulse Oximetry 97 97 97 Oxygen Delivery Me thod Oxygen Flow Rate 12/13/23 12:15 12/13/23 12:16 12/13/23 12:17 Temperature Pulse Rate 62 60 64 Pulse Rate [Pulse Oximeter] Respiratory Rate Blood Pressure 155/119 H Blood Pressure [Le ft Arm] Pulse Oximetry 97 98 97 Oxygen Delivery Me thod OxyMask Oxygen Flow Rate 12/13/23 12:18 12/13/23 12:19 12/13/23 12:20 Temperature Pulse Rate 62 61 61 Pulse Rate [Pulse Oximeter] Respiratory Rate Blood Pressure Blood Pressure [Le ft Arm] Pulse Oximetry 97 97 97 Oxygen Delivery Me thod OxyMask Oxygen Flow Rate 12/13/23 12:21 12/13/23 12:22 12/13/23 12:23 Temperature Pulse Rate 61 60 60 Pulse Rate [Pulse Oximeter] Respiratory Rate Blood Pressure Blood Pressure [Le ft Arm] Pulse Oximetry 98 97 97 Oxygen Delivery Me thod OxyMask Oxygen Flow Rate 12/13/23 12:24 12/13/23 12:25 12/13/23 12:26 Temperature Pulse Rate 60 60 59 L Pulse Rate [Pulse Oximeter] Respiratory Rate Blood Pressure Blood Pressure [Le ft Arm] Pulse Oximetry 97 97 98 Oxygen Delivery Me thod Oxygen Flow Rate 12/13/23 12:27 12/13/23 12:28 12/13/23 12:29 Temperature Pulse Rate 60 61 60 Pulse Rate [Pulse Oximeter] Respiratory Rate Blood Pressure Blood Pressure [Le ft Arm] Pulse Oximetry 97 98 97 Oxygen Delivery Me thod Oxygen Flow Rate 12/13/23 12:30 12/13/23 12:31 12/13/23 12:32 Temperature Pulse Rate 60 60 60 Pulse Rate [Pulse Oximeter] Respiratory Rate Blood Pressure Blood Pressure [Le ft Arm] Pulse Oximetry 97 98 96 Oxygen Delivery Me thod Oxygen Flow Rate 12/13/23 12:33 12/13/23 12:34 12/13/23 12:35 Temperature Pulse Rate 60 60 60 Pulse Rate [Pulse Oximeter] Respiratory Rate Blood Pressure Blood Pressure [Le ft Arm] Pulse Oximetry 97 98 97 Oxygen Delivery Me thod Oxygen Flow Rate 12/13/23 12:36 12/13/23 12:37 12/13/23 12:38 Temperature Pulse Rate 59 L 61 61 Pulse Rate [Pulse Oximeter] Respiratory Rate Blood Pressure Blood Pressure [Le ft Arm] Pulse Oximetry 98 98 98 Oxygen Delivery Me thod OxyMask Oxygen Flow Rate 10 12/13/23 12:39 12/13/23 12:40 12/13/23 12:41 Temperature Pulse Rate 58 L 60 60 Pulse Rate [Pulse Oximeter] Respiratory Rate Blood Pressure 154/71 H Blood Pressure [Le ft Arm] Pulse Oximetry 98 98 98 Oxygen Delivery Me thod Oxygen Flow Rate 12/13/23 12:42 12/13/23 12:43 12/13/23 12:56 Temperature Pulse Rate 61 61 Pulse Rate [Pulse Oximeter] Respiratory Rate 16 Blood Pressure 157/73 H Blood Pressure [Le ft Arm] Pulse Oximetry 98 99 Oxygen Delivery Me thod OxyMask Oxygen Flow Rate 10 12/13/23 13:00 12/13/23 13:15 12/13/23 13:30 Temperature 97.7 F 97.7 F 98.0 F Pulse Rate Pulse Rate [Pulse Oximeter] 63 62 63 Respiratory Rate 16 16 16 Blood Pressure Blood Pressure [Le ft Arm] 171/67 H 161/69 H 143/63 H Pulse Oximetry 93 93 92 Oxygen Delivery Me thod Nasal Cannula Nasal Cannula Nasal Cannula Oxygen Flow Rate 2 2 2 12/13/23 13:45 12/13/23 14:11 12/13/23 14:15 Temperature 98.1 F 97.7 F 98.1 F Pulse Rate 60 Pulse Rate [Pulse Oximeter] 64 60 Respiratory Rate 16 16 16 Blood Pressure Blood Pressure [Le ft Arm] 145/72 H 173/82 H 143/64 H Pulse Oximetry 94 94 Oxygen Delivery Me thod Nasal Cannula Nasal Cannula Nasal Cannula Oxygen Flow Rate 2 2 2 12/13/23 14:45 12/13/23 15:00 12/13/23 15:00 Temperature 98.1 F 98.1 F Pulse Rate 60 Pulse Rate [Pulse Oximeter] 63 62 Respiratory Rate 16 16 Blood Pressure Blood Pressure [Le ft Arm] 141/63 H 142/73 H Pulse Oximetry 91 95 Oxygen Delivery Me thod Nasal Cannula Nasal Cannula Oxygen Flow Rate 2 2 12/13/23 16:00 12/13/23 16:56 12/13/23 17:00 Temperature 98.1 F 98.1 F Pulse Rate Pulse Rate [Pulse Oximeter] 61 61 Respiratory Rate 16 16 16 Blood Pressure Blood Pressure [Le ft Arm] 103/82 156/69 H Pulse Oximetry 95 95 Oxygen Delivery Me thod Nasal Cannula Nasal Cannula Oxygen Flow Rate 2 1.5 12/13/23 18:00 12/13/23 19:00 12/13/23 22:47 Temperature 98.1 F 98.1 F Pulse Rate 60 Pulse Rate [Pulse Oximeter] 63 62 Respiratory Rate 16 18 Blood Pressure Blood Pressure [Le ft Arm] 145/42 H 141/57 H Pulse Oximetry 92 91 Oxygen Delivery Me thod Nasal Cannula CPAP Oxygen Flow Rate 1.5 12/13/23 22:48 12/13/23 22:50 12/14/23 01:56 Temperature 98.1 F 98.1 F Pulse Rate Pulse Rate [Pulse Oximeter] 64 64 Respiratory Rate 16 16 Blood Pressure Blood Pressure [Le ft Arm] 141/55 H Pulse Oximetry 92 Oxygen Delivery Me thod CPAP Oxygen Flow Rate 2 12/14/23 02:00 12/14/23 04:24 12/14/23 05:37 Temperature 98.1 F 98.1 F 98.1 F Pulse Rate Pulse Rate [Pulse Oximeter] 66 Respiratory Rate 16 Blood Pressure Blood Pressure [Le ft Arm] 142/76 H Pulse Oximetry 92 Oxygen Delivery Me thod CPAP Oxygen Flow Rate 2 12/14/23 06:12 12/14/23 07:00 12/14/23 07:00 Temperature 98.1 F 97.9 F Pulse Rate 60 Pulse Rate [Pulse Oximeter] 66 Respiratory Rate 18 Blood Pressure Blood Pressure [Le ft Arm] 133/61 Pulse Oximetry 94 Oxygen Delivery Me thod Oxygen Flow Rate 1 12/14/23 11:00 Temperature 98.0 F Pulse Rate Pulse Rate [Pulse Oximeter] 60 Respiratory Rate 20 Blood Pressure Blood Pressure [Le ft Arm] 118/56 L Pulse Oximetry 96 Oxygen Delivery Me thod Nasal Cannula Oxygen Flow Rate 1 Progress Note: A&P Assessment and plan (1) Status post laparoscopic cholecystectomy: Problem details: Date of surgery 12/13/2023. Dr. Ortega. Status: Acute Plan 87-year-old female s/p laparoscopic cholecystectomy for acute cholecystitis POD 1. Discussed with the patient that she needs to walk around today. Her subcutaneous emphysema on chest x-ray is post surgical since a good amount of time the ports were going in and out of the abdomen and the subcutaneous tissue was insufflated with carbon dioxide. Her VBG is now normal. She can advance her diet as tolerated. Will transition her to oral [place]. I would hold off on Lovenox until tomorrow given the amount of friability that was present during surgery.
[2023-12-14] MEDS: HYDROCODONE-ACETAMIN 5-325 MG 1 TAB PO ×2 (11:15→17:05)
[2023-12-14 11:31] LABS: Bilirubin Total* 0.8 mg/dL (0.1-1.5); Creatinine* 0.7 mg/dL (0.5-1.5); Estimated Glomerular Filt Rate 84 ml/min
[2023-12-14 11:32] LABS: Alanine Aminotransferase* 25 U/L (4-35); Alkaline Phosphatase* 63 U/L (40-150); Aspartate Amino Transferase* 47 U/L (12-35); Blood Urea Nitrogen* 15 mg/dL (7-30); Calcium* 8.2 mg/dL (8.4-10.6); Gamma Glutamyl Transpeptidase* 22 U/L (8-55); Lipase* 16 U/L (23-300); Magnesium* 2.1 mg/dL (1.5-2.6)
[2023-12-14 11:50] LABS: C Reactive Protein* 18.6 mg/dL (0.5-1.0)
[2023-12-14 13:02] LABS: Procalcitonin* 0.18 ng/mL (<0.50)
--- NOTE | 2023-12-14 14:10 | PC.NURSE ---
VSS, sats mid 90s on 1L NC. Abdominal pain 7- relief w/ PRN norco. Heavy chest, SOB coming on shift- chest xray ordered, resulted. On tele, A-paced. Minimal appetite, did advance diet to regular- has had kyung crackers & peanut butter toast. 600 cc in, 400 cc dark yellow, concentrated urine. Moderate BM x1, some small amount of fresh blood noted w/ wiping. Walked in [place] x2, up to bathroom x3, up in chair this afternoon. PIV in left arm, SL'd. Lap sites x4, blood drainage noted and some redness on left incision. Will continue to monitor, follow POC, and keep pt and family updated. Jackie Bravo RN
--- NOTE | 2023-12-14 15:36 | PC.SOCIAL ---
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 Pt would like to discharge home after her stay. Pt does have help at home from her . Pt did express interest in PT/OT through Home Care services if the doctor feels she would qualify for Home Care services. Social work to follow-up as needed.
--- NOTE | 2023-12-14 15:44 | PM.IMPN1 ---
Progress Note: A&P Assessment and plan (1) Status post laparoscopic cholecystectomy: Problem details: Date of surgery 12/13/2023. Dr. Ortega. Status: Acute Assessment and Plan: 1. Discussed with Dr. Ortega and patient. 2. Continue to hold anticoagulants for now. 3. Will follow with General surgery until patient is discharged from hospital. 4. Agree with increased activities. Plan 1. Reviewed impression with patient. 2. Patient agreeable with above stated plans and recommendations. Time Spent With Patient Total time spent: 30 minutes Subjective Date Seen: 12/14/23 Interval history: Daily Progress Note - Hospital Medicine Day #: 3 Post OP Day# 1 - lap choly CC: Acute cholecystitis, potential pneumonia Abdominal pain much improved. Informs me that she does very little physical activity at home and sits most of the day. Informs me that she has dyspnea with exertion but is able to walk to and from the bathroom from her hospital bed. Tolerating clear liquids. Passing flatus. Denies syncope, nausea, vomiting. Exam Narrative: Exam Narrative: I evaluated patient in her hospital room. Appears comfortable at rest. No acute distress. Sitting upright in eating her Jell-O. Vision and hearing are grossly normal. Alert and oriented to self, place, time, situation. Friendly and cooperative. Lungs are clear. Heart tones with regular rhythm. Active bowel sounds. Able to transfer from sitting to standing. Subcutaneous emphysema in chest, minimal. Not unexpected. Const: Vital Signs, click to edit/add: Vital Signs - 24 hr 12/13/23 16:00 12/13/23 16:56 12/13/23 17:00 Temperature 98.1 F 98.1 F Pulse Rate Pulse Rate [Pulse Oximeter] 61 61 Respiratory Rate 16 16 16 Blood Pressure [Le ft Arm] 103/82 156/69 H Pulse Oximetry 95 95 Oxygen Delivery Me thod Nasal Cannula Nasal Cannula Oxygen Flow Rate 2 1.5 12/13/23 18:00 12/13/23 19:00 12/13/23 22:47 Temperature 98.1 F 98.1 F Pulse Rate 60 Pulse Rate [Pulse Oximeter] 63 62 Respiratory Rate 16 18 Blood Pressure [Le ft Arm] 145/42 H 141/57 H Pulse Oximetry 92 91 Oxygen Delivery Me thod Nasal Cannula CPAP Oxygen Flow Rate 1.5 12/13/23 22:48 12/13/23 22:50 12/14/23 01:56 Temperature 98.1 F 98.1 F Pulse Rate Pulse Rate [Pulse Oximeter] 64 64 Respiratory Rate 16 16 Blood Pressure [Le ft Arm] 141/55 H Pulse Oximetry 92 Oxygen Delivery Me thod CPAP Oxygen Flow Rate 2 12/14/23 02:00 12/14/23 04:24 12/14/23 05:37 Temperature 98.1 F 98.1 F 98.1 F Pulse Rate Pulse Rate [Pulse Oximeter] 66 Respiratory Rate 16 Blood Pressure [Le ft Arm] 142/76 H Pulse Oximetry 92 Oxygen Delivery Me thod CPAP Oxygen Flow Rate 2 12/14/23 06:12 12/14/23 07:00 12/14/23 07:00 Temperature 98.1 F 97.9 F Pulse Rate 60 Pulse Rate [Pulse Oximeter] 66 Respiratory Rate 18 Blood Pressure [Le ft Arm] 133/61 Pulse Oximetry 94 Oxygen Delivery Me thod Oxygen Flow Rate 1 12/14/23 11:00 Temperature 98.0 F Pulse Rate Pulse Rate [Pulse Oximeter] 60 Respiratory Rate 20 Blood Pressure [Le ft Arm] 118/56 L Pulse Oximetry 96 Oxygen Delivery Me thod Nasal Cannula Oxygen Flow Rate 1 Labs Labs: Laboratory Results - last 24 hr 12/13/23 12/14/23 12/14/23 16:34 05:44 09:19 WBC 13.29 H RBC 3.66 L Hgb 9.1 L Hct 30.3 L MCV 83 MCH 25 L MCHC 30 L Plt Count 323 VBG pH 7.401 7.354 VBG pCO2 40 48 VBG pO2 55.7 H 44.0 VBG HCO3 25 27 Sodium 140 Potassium 3.8 Chloride 105 Carbon Dioxide 25 Anion Gap 10 BUN 15 Creatinine 0.7 Estimated Creat Clear 37.80 Estimated GFR 84 Glucose 100 Calcium 8.2 L Magnesium 2.1 Total Bilirubin 0.8 GGT 22 AST 47 H ALT 25 Alkaline Phosphatase 63 C-Reactive Protein 18.6 H Total Protein 6.0 Albumin 3.0 L Lipase 16 L Procalcitonin 0.18 Lab Acknowledgement Test Added Imaging Chest x-ray: Attestation: I have reviewed the pertinent imaging results. Radiologist's impression: Subcutaneous emphysema as expected status post laparoscopic cholecystectomy. Otherwise unremarkable.
--- NOTE | 2023-12-14 22:23 | PC.NURSE ---
Shift [id number]- Patient notes pain increases with movement- pain medication administered with relief- see eMAR. She is up with SBA and walker. IV infiltrated this evening- removed with catheter intact- new IV initiated. Poor appetite this evening- bites. Lap sites with old dried blood at steri strips. Bowel sounds active. She is low 90s% on 0.5L O2. Up to bathroom on RA, 85% upon return.
[2023-12-15] VITALS (7 sets, daily range): BP systolic 128–149; BP diastolic 53–62; PULSE 60–71; RESP 18–20; TEMP 36.4–37.2; O2SAT 80–96
[2023-12-15] MEDS: PIPERACILLIN/TAZOBACTAM 3.375 GM in 0.9 % SODIUM CHLORIDE Mini-bag 100 ML IVPB ×4 (01:17→19:15)
[2023-12-15 06:03] LABS: HCO3 VBG 27 mmol/L (21-28); PCO2 VBG 48 mmHG (40-50); PO2 VBG 53.9 mmHG (25-47); pH VBG 7.357 (7.32-7.43)
[2023-12-15 06:07] LABS: Hematocrit 28.1 % (33.0-51.0); Hemoglobin* 8.5 gm/dL (12.0-16.0); Mean Corpuscular HGB Conc 30 gm/dL (32-36); Mean Corpuscular Hemoglobin 25 pg (26-34); Mean Corpuscular Volume 83 fL (80-100); Platelet Count* 282 K/uL (140-440); White Blood Count* 11.92 K/uL (4.50-11.00)
[2023-12-15] MEDS: LACTATED RINGERS 1000 ML 1,000 ML 75 ML IV (06:09)
[2023-12-15 06:15] LABS: Slide Review Reflex No
[2023-12-15 06:21] LABS: Chloride* 107 mmol/L (96-114)
[2023-12-15 06:22] LABS: Potassium* 3.4 mmol/L (3.6-5.1); Sodium* 138 mmol/L (135-149)
[2023-12-15 06:24] LABS: Alkaline Phosphatase* 63 U/L (40-150); Anion Gap 6 mEq/L (7-15); Aspartate Amino Transferase* 32 U/L (12-35); Bilirubin Total* 0.6 mg/dL (0.1-1.5); Carbon Dioxide* 25 mmol/L (20-32); Creatinine* 0.7 mg/dL (0.5-1.5); Estimated Glomerular Filt Rate 84 ml/min
[2023-12-15 06:25] LABS: Alanine Aminotransferase* 20 U/L (4-35); Blood Urea Nitrogen* 13 mg/dL (7-30); Calcium* 8.4 mg/dL (8.4-10.6); Gamma Glutamyl Transpeptidase* 24 U/L (8-55); Glucose* 118 mg/dL (60-115); Lipase* 16 U/L (23-300); Magnesium* 2.2 mg/dL (1.5-2.6)
[2023-12-15 06:40] LABS: C Reactive Protein* 20.8 mg/dL (0.5-1.0)
--- NOTE | 2023-12-15 08:02 | PC.NURSE ---
Pt pleasant and cooperative. Up in chair most of the night stated most comfortable for her. Did have one small loose stool in her pants which she states she didnt even know she had gone. Otherwise voids in the toilet. Up with assist of one and walker.
[2023-12-15] MEDS: AZITHROMYCIN 250 MG TABLET PO (08:17)
[2023-12-15] MEDS: HYDROCODONE-ACETAMIN 5-325 MG 1 TAB PO ×2 (08:17→21:11)
[2023-12-15] MEDS: SOTALOL HCL 80 MG TABLET PO ×2 (08:17→21:11)
[2023-12-15] MEDS: SERTRALINE 50 MG TABLET PO (08:17)
[2023-12-15] MEDS: BUDESONIDE 0.5 MG/2ML NEB NEB ×2 (08:18→21:13)
[2023-12-15] MEDS: IPRAT-ALBUT 0.5-2.5 MG/3 ML NEB 1 NEB IH (08:18)
[2023-12-15] MEDS: POTASSIUM CHLORIDE 10 MEQ CAPSULE ER 20 MEQ PO ×2 (08:33→18:04)
--- NOTE | 2023-12-15 10:08 | P.GSPN_ITS ---
Subjective Subjective Date Seen: 12/15/23 Interval history: Patient complains of shortness of breath with walking. She is on 1.5 L of oxygen. Her abdominal pain is ?sore?. The pain medication is helping. The pain is mostly located in epigastrium. Patient is passing gas and had a bowel movement in the morning. She had some food but did not have a great appetite. Exam Narrative: Exam Narrative: Abdomen is soft, not distended, tender to palpation in epigastrium but no where else. Infraumbilical incision with drainage at the Steri-Strips. The Steri- Strips were removed and her incision was cleaned with Vashe. Dry gauze was placed into the umbilicus and it was covered by Mepilex. The rest of the laparoscopic incisions are covered with dry Steri-Strips. Const: Vital Signs, click to edit/add: Vital Signs - 24 hr 12/14/23 11:00 12/14/23 15:00 12/14/23 15:40 Temperature 98.0 F 99.1 F Pulse Rate 63 Pulse Rate [Pulse Oximeter] 60 67 Respiratory Rate 20 18 Blood Pressure [Le ft Arm] 118/56 L 144/67 H Pulse Oximetry 96 95 Oxygen Delivery Me thod Nasal Cannula Room Air Oxygen Flow Rate 1 12/14/23 19:04 12/14/23 23:00 12/15/23 03:00 Temperature 97.5 F L 99 F 99 F Pulse Rate Pulse Rate [Pulse Oximeter] 68 62 64 Respiratory Rate 20 16 18 Blood Pressure [Le ft Arm] 136/47 L 132/49 L 149/62 H Pulse Oximetry 93 95 95 Oxygen Delivery Me thod Nasal Cannula Nasal Cannula Nasal Cannula Oxygen Flow Rate 0.5 1.5 1.5 12/15/23 07:00 Temperature Pulse Rate 62 Pulse Rate [Pulse Oximeter] Respiratory Rate Blood Pressure [Le ft Arm] Pulse Oximetry Oxygen Delivery Me thod Oxygen Flow Rate Progress Note: A&P Assessment and plan (1) Status post laparoscopic cholecystectomy: Problem details: Date of surgery 12/13/2023. Dr. Ortega. Status: Acute Assessment and Plan: 87-year-old female s/p laparoscopic cholecystectomy POD 2. Patient will need to continue ambulating. We working on weaning her oxygen off. She can advance to regular diet as tolerated. She will most likely need more time to get stronger and have her breathing close to baseline.
--- NOTE | 2023-12-15 15:18 | PC.SOCIAL ---
Per nursing, pt's son (Shane, ) had questions regarding home care and would like social work to reach out to him. Phone call to pt's son Shane to answer questions. Pt's son would like [facility] for pt upon discharge if home care is recommended. Informed pt's son when pt is cleared for discharge social work will assist with setting up home care. Social work will follow up as needed.
--- NOTE | 2023-12-15 15:23 | PM.IMPN1 ---
Progress Note: A&P Assessment and plan (1) Status post laparoscopic cholecystectomy: Problem details: Date of surgery 12/13/2023. Dr. Ortega. Status: Acute (2) Hypoxic respiratory failure: Problem details: -1 L nasal cannula likely due to atelectasis or consolidation in the right lower lobe. Status: Acute (3) Atelectasis of right lung: Problem details: Likely related to consolidation of the right lower lobe from acute cholecystitis. Status: Acute (4) Atrial fibrillation: Problem details: Rate controlled. Continue sotalol. Resume anticoagulation when stable postoperatively Status: Acute (5) Mild anxiety: Problem details: Noted Status: Acute (6) Chronic anticoagulation: Problem details: For longstanding AFib. Has a cardiac pacemaker. Presently warfarin on hold. No need to use bridge therapy for atrial fibrillation in this setting. May resume warfarin therapy when general surgery deems patient ready. Status: Acute (7) Cardiac pacemaker: Problem details: Noted Status: Acute Time Spent With Patient Total time spent: 30 minute Subjective Date Seen: 12/15/23 Interval history: Daily Progress Note - Hospital Medicine Day #: 4 Post OP Day# 1 - lap choly CC: Acute cholecystitis, potential pneumonia Abdominal pain much improved. Informs me that she does very little physical activity at home and sits most of the day. Informs me that she has dyspnea with exertion but is able to walk to and from the bathroom from her hospital bed. Tolerating clear liquids. Passing flatus. Denies syncope, nausea, vomiting. Still requiring O2 support at this time. Exam Narrative: Exam Narrative: I examine her in her room. She appears comfortable and in no acute distress. Alert and oriented to self, place, time situation. Vision and hearing are grossly normal. Friendly and cooperative. Lungs clear to auscultation. Heart tones with regular rhythm. Abdomen with active bowel sounds, soft, nontender. Transfers from bed to chair. Feeds herself without difficulty. Const: Vital Signs, click to edit/add: Vital Signs - 24 hr 12/14/23 15:40 12/14/23 19:04 12/14/23 23:00 Temperature 99.1 F 97.5 F L 99 F Pulse Rate Pulse Rate [Pulse Oximeter] 67 68 62 Respiratory Rate 18 20 16 Blood Pressure [Le ft Arm] 144/67 H 136/47 L 132/49 L Pulse Oximetry 95 93 95 Oxygen Delivery Me thod Room Air Nasal Cannula Nasal Cannula Oxygen Flow Rate 0.5 1.5 12/15/23 03:00 12/15/23 07:00 12/15/23 07:30 Temperature 99 F Pulse Rate 62 Pulse Rate [Pulse Oximeter] 64 64 Respiratory Rate 18 20 Blood Pressure [Le ft Arm] 149/62 H Pulse Oximetry 95 Oxygen Delivery Me thod Nasal Cannula Oxygen Flow Rate 1.5 Documenting provider has reviewed patient's vital signs: yes Labs Labs: Laboratory Results - last 24 hr 12/15/23 05:38 WBC 11.92 H RBC 3.40 L Hgb 8.5 L Hct 28.1 L MCV 83 MCH 25 L MCHC 30 L Plt Count 282 VBG pH 7.357 VBG pCO2 48 VBG pO2 53.9 H VBG HCO3 27 Sodium 138 Potassium 3.4 L Chloride 107 Carbon Dioxide 25 Anion Gap 6 L BUN 13 Creatinine 0.7 Estimated Creat Clear 37.80 Estimated GFR 84 Glucose 118 H Calcium 8.4 Magnesium 2.2 Total Bilirubin 0.6 GGT 24 AST 32 ALT 20 Alkaline Phosphatase 63 C-Reactive Protein 20.8 H Total Protein 6.0 Albumin 3.0 L Lipase 16 L
[2023-12-15] MEDS: SODIUM CHLORIDE 0.9 % (FLUSH) 10 ML SYRINGE 5 ML IVF (21:12)
[2023-12-16] VITALS (10 sets, daily range): BP systolic 127–170; BP diastolic 50–74; PULSE 60–66; RESP 16–20; TEMP 36.1–37.2; O2SAT 92–96
[2023-12-16] MEDS: PIPERACILLIN/TAZOBACTAM 3.375 GM in 0.9 % SODIUM CHLORIDE Mini-bag 100 ML IVPB ×5 (00:16→23:50)
[2023-12-16] MEDS: SODIUM CHLORIDE 0.9 % (FLUSH) 10 ML SYRINGE 5 ML IVF ×3 (00:23→20:51)
--- NOTE | 2023-12-16 05:46 | PC.NURSE ---
end of shift note: pt pleasant and cooperative with cares. a&o x3. lap sites x4 (3 steri strips, umbilical reenforced with dressing). pt with roberto wore cpap roughly 2.5hrs with 0.5-1l o2 bled into cpap. 88-92%. 1l o2 on nc 96% with no activity. no pain reported during vs. per pt report abd hurts when i cough. vss with supplemental o2. tele reads nsr.
[2023-12-16 06:50] LABS: HCO3 VBG 28 mmol/L (21-28); PCO2 VBG 51 mmHG (40-50); PO2 VBG 36.2 mmHG (25-47); pH VBG 7.351 (7.32-7.43)
[2023-12-16 07:00] LABS: Hematocrit 29.8 % (33.0-51.0); Hemoglobin* 8.9 gm/dL (12.0-16.0); Mean Corpuscular HGB Conc 30 gm/dL (32-36); Mean Corpuscular Hemoglobin 25 pg (26-34); Mean Corpuscular Volume 83 fL (80-100); Platelet Count* 342 K/uL (140-440); Red Blood Count 3.59 m/uL (4.00-5.20); White Blood Count* 10.94 K/uL (4.50-11.00)
[2023-12-16 07:22] LABS: Albumin* 3.1 g/dL (3.3-5.0); Chloride* 107 mmol/L (96-114)
[2023-12-16 07:23] LABS: Potassium* 3.7 mmol/L (3.6-5.1); Sodium* 138 mmol/L (135-149)
[2023-12-16 07:25] LABS: Alkaline Phosphatase* 71 U/L (40-150); Anion Gap 4 mEq/L (7-15); Aspartate Amino Transferase* 29 U/L (12-35); Bilirubin Total* 0.5 mg/dL (0.1-1.5); Carbon Dioxide* 27 mmol/L (20-32); Creatinine* 0.7 mg/dL (0.5-1.5); Estimated Glomerular Filt Rate 84 ml/min; Total Protein* 6.4 g/dL (6.0-8.3)
[2023-12-16 07:26] LABS: Alanine Aminotransferase* 20 U/L (4-35); Blood Urea Nitrogen* 13 mg/dL (7-30); Calcium* 8.8 mg/dL (8.4-10.6); Gamma Glutamyl Transpeptidase* 28 U/L (8-55); Glucose* 107 mg/dL (60-115); Lipase* 24 U/L (23-300); Magnesium* 2.3 mg/dL (1.5-2.6)
[2023-12-16 07:28] LABS: Slide Review Reflex No
[2023-12-16 07:42] LABS: C Reactive Protein* 18.7 mg/dL (0.5-1.0)
[2023-12-16] MEDS: POTASSIUM CHLORIDE 10 MEQ CAPSULE ER 20 MEQ PO ×2 (08:39→18:15)
[2023-12-16] MEDS: AZITHROMYCIN 250 MG TABLET PO (08:39)
[2023-12-16] MEDS: SOTALOL HCL 80 MG TABLET PO ×2 (08:39→20:47)
[2023-12-16] MEDS: SERTRALINE 50 MG TABLET PO (08:40)
--- NOTE | 2023-12-16 08:52 | PM.GSPN ---
Subjective Subjective Date Seen: 12/16/23 Interval history: Patient is having hard time breathing and taking deep breaths. She walked several times yesterday. She is passing gas. She tolerated some diet but did not have a great appetite. She states that her abdominal pain is present when she is coughing. Exam Narrative: Exam Narrative: Respiratory: Patient is working harder to brief visually. Lungs with some crackles auscultated bilaterally. Abdomen: Soft, not distended, tender to palpation in epigastrium, this is improved from yesterday. Const: Vital Signs, click to edit/add: Vital Signs - 24 hr 12/15/23 11:30 12/15/23 15:00 12/15/23 15:00 Temperature 98.4 F Pulse Rate 71 Pulse Rate [Pulse Oximeter] 62 66 Respiratory Rate 18 18 Blood Pressure [Le ft Arm] 145/53 H Blood Pressure [Ri ght Arm] Pulse Oximetry 94 Oxygen Delivery Me thod Room Air Oxygen Flow Rate 1 12/15/23 15:00 12/15/23 20:17 12/15/23 22:43 Temperature 97.5 F L 98.9 F Pulse Rate 68 Pulse Rate [Pulse Oximeter] 66 67 Respiratory Rate 20 18 Blood Pressure [Le ft Arm] 139/55 L 128/54 L Blood Pressure [Ri ght Arm] Pulse Oximetry 94 96 Oxygen Delivery Me thod Room Air Nasal Cannula Oxygen Flow Rate 1 1 12/16/23 00:00 12/16/23 00:00 12/16/23 00:00 Temperature 96.9 F L Pulse Rate 64 Pulse Rate [Pulse Oximeter] 66 66 Respiratory Rate 20 20 Blood Pressure [Le ft Arm] Blood Pressure [Ri ght Arm] 142/68 H Pulse Oximetry 96 Oxygen Delivery Me thod Nasal Cannula Oxygen Flow Rate 1 12/16/23 03:00 12/16/23 03:03 12/16/23 07:43 Temperature 97.7 F Pulse Rate 62 60 Pulse Rate [Pulse Oximeter] 61 Respiratory Rate 16 Blood Pressure [Le ft Arm] Blood Pressure [Ri ght Arm] 132/53 L Pulse Oximetry 92 Oxygen Delivery Me thod CPAP Oxygen Flow Rate 0.5 12/16/23 07:56 12/16/23 08:00 Temperature 98.2 F Pulse Rate Pulse Rate [Pulse Oximeter] 61 Respiratory Rate 16 16 Blood Pressure [Le ft Arm] Blood Pressure [Ri ght Arm] 151/50 H Pulse Oximetry 93 96 Oxygen Delivery Me thod Nasal Cannula Nasal Cannula Oxygen Flow Rate 0.5 0.5 Progress Note: A&P Assessment and plan (1) Status post laparoscopic cholecystectomy: Problem details: Date of surgery 12/13/2023. Dr. Ortega. Status: Acute Assessment and Plan: 87-year-old female s/p laparoscopic cholecystectomy POD 3. Patient is having more difficulty breathing today. Her EKG is without ST elevations. I think she might benefit from diuresis. This was discussed with the hospitalist. We could also consider CT chest with IV contrast to evaluate for PE. Patient's hemoglobin has been stable in the 8-9 range. I would recommend starting her on Lovenox for DVT prophylaxis today.
[2023-12-16 09:13] LABS: Troponin I* 0.01 ng/mL (0.01-0.04)
[2023-12-16] MEDS: BUDESONIDE 0.5 MG/2ML NEB NEB ×2 (09:55→20:47)
[2023-12-16 09:56] LABS: NT Pro B Type NatriureticPept* 4160 pg/mL
[2023-12-16 09:56] LABS: Troponin I* < 0.01 ng/mL (0.01-0.04)
[2023-12-16] MEDS: FUROSEMIDE 10 MG/ML inj 40 MG IVP (11:42)
[2023-12-16] MEDS: POTASSIUM CHLORIDE 10 MEQ CAPSULE ER 40 MEQ PO (11:42)
[2023-12-16] MEDS: 0.9 % SODIUM CHLORIDE 250 ml IV (11:44)
--- NOTE | 2023-12-16 13:03 | PC.NURSE ---
Shift Summary: Patient pleasant and cooperative. This morning noted patient having labored breathing in chair, stated her chest felt heavy, MD updated and ordered labs and EKG, patient returned to bed. Repeat weight done since patients weight is up today, new orders for Lasix IV see JAN. Vitals stable and WNL, o2 sats 89-93% on 0.5L/NC. States she has pain when coughing, no cough noted today. Around 10am patient took 1.5hr nap and appears better. Up to [facility] with one assist, walker and gait belt. Poor appetite today. Dressing dry and intact, denies abdominal pain.
--- NOTE | 2023-12-16 15:43 | PM.IMPN1 ---
Progress Note: A&P Assessment and plan (1) Status post laparoscopic cholecystectomy: Problem details: Date of surgery 12/13/2023. Dr. Ortega. Status: Acute (2) Hypoxic respiratory failure: Problem details: -1 L nasal cannula likely due to atelectasis and volume overloaded state of heart from IV fluids perioperatively. Status: Acute (3) Cardiac volume overload: Problem details: -IV fluids have been saline locked -BNP elevated 4 times compared to what it was on presentation, 4100 now -furosemide 40 mg IV x1 dose today, and another dose tomorrow morning - ordinarily takes 20 mg furosemide orally once daily, which has been on hold since she has been in the hospital -troponin I's have been less than 0.01 -electrocardiogram without acute ischemic changes and unchanged from 12/12/2023 -will order bedside transthoracic echocardiogram Status: Acute (4) Atelectasis of right lung: Problem details: Likely related to consolidation of the right lower lobe from acute cholecystitis. Status: Acute (5) Atrial fibrillation: Problem details: Rate controlled. Continue sotalol. Resume anticoagulation when stable postoperatively Status: Acute (6) Chronic anticoagulation: Problem details: For longstanding AFib. Has a cardiac pacemaker. Presently warfarin on hold. No need to use bridge therapy for atrial fibrillation in this setting. May resume warfarin therapy when general surgery deems patient ready. Status: Acute (7) Cardiac pacemaker: Problem details: Noted Status: Acute (8) Mild anxiety: Problem details: Noted Status: Acute Plan 1. Reviewed impression with patient and 2. Answered their questions 3. They agree with above stated plans and recommendations 4. Discussed with Dr. Ortega 5. Consider CT PE protocol if condition not improving or worsening despite intervention efforts. I am not checking a D-dimer given her high suspicion that it will be elevated in association with a CRP. Time Spent With Patient Total time spent: 40 Subjective Date Seen: 12/16/23 Interval history: Daily Progress Note - Hospital Medicine Day #: 4 Post OP Day# 1 - lap choly CC: Acute cholecystitis, potential pneumonia Abdominal pain much improved. Informs me that she does very little physical activity at home and sits most of the day. Complains of dyspnea at rest today. Complains of heaviness and chest. She states she gets this feeling at times at home as well. Tolerating clear liquids. Passing flatus. Denies syncope, nausea, vomiting. Still requiring O2 support at this time. Exam Narrative: Exam Narrative: Examiner in her hospital room. She is asleep in her recliner chair with head of bed elevated at 60? and legs extended out front of her. Easily arousable. Vision and hearing are grossly normal. Appears comfortable and in no acute distress. Nevertheless she tells me that she has a sense of chest heaviness, like someone sitting on her chest. Alert and oriented to self, place, time, situation. Friendly, articulate, cooperative. Has JVD and hepatojugular reflux in the sitting upright position. Lungs fairly clear to auscultation save some decreased breath sounds in the base. Heart tones with regular rhythm. Abdomen with active bowel sounds, soft, nontender. Trace edema bilateral lower extremities. Const: Vital Signs, click to edit/add: Vital Signs - 24 hr 12/15/23 20:17 12/15/23 22:43 12/16/23 00:00 Temperature 98.9 F Pulse Rate 68 64 Pulse Rate [Pulse Oximeter] 67 Respiratory Rate 18 Blood Pressure [Le ft Arm] 128/54 L Blood Pressure [Ri ght Arm] Pulse Oximetry 96 Oxygen Delivery Me thod Nasal Cannula Oxygen Flow Rate 1 12/16/23 00:00 12/16/23 00:00 12/16/23 03:00 Temperature 96.9 F L 97.7 F Pulse Rate Pulse Rate [Pulse Oximeter] 66 66 61 Respiratory Rate 20 20 16 Blood Pressure [Le ft Arm] Blood Pressure [Ri ght Arm] 142/68 H 132/53 L Pulse Oximetry 96 92 Oxygen Delivery Me thod Nasal Cannula CPAP Oxygen Flow Rate 1 0.5 12/16/23 03:03 12/16/23 07:43 12/16/23 07:56 Temperature Pulse Rate 62 60 Pulse Rate [Pulse Oximeter] Respiratory Rate 16 Blood Pressure [Le ft Arm] Blood Pressure [Ri ght Arm] Pulse Oximetry 93 Oxygen Delivery Me thod Nasal Cannula Oxygen Flow Rate 0.5 12/16/23 08:00 12/16/23 11:00 Temperature 98.2 F 98.9 F Pulse Rate Pulse Rate [Pulse Oximeter] 61 60 Respiratory Rate 16 16 Blood Pressure [Le ft Arm] Blood Pressure [Ri ght Arm] 151/50 H 141/74 H Pulse Oximetry 96 92 Oxygen Delivery Me thod Nasal Cannula Nasal Cannula Oxygen Flow Rate 0.5 0.5 Documenting provider has reviewed patient's vital signs: yes Labs Labs: Laboratory Results - last 24 hr 12/16/23 12/16/23 12/16/23 06:09 08:52 09:01 WBC 10.94 RBC 3.59 L Hgb 8.9 L Hct 29.8 L MCV 83 MCH 25 L MCHC 30 L Plt Count 342 VBG pH 7.351 VBG pCO2 51 H VBG pO2 36.2 VBG HCO3 28 Sodium 138 Potassium 3.7 Chloride 107 Carbon Dioxide 27 Anion Gap 4 L BUN 13 Creatinine 0.7 Estimated Creat Clear 37.80 Estimated GFR 84 Glucose 107 Calcium 8.8 Magnesium 2.3 Total Bilirubin 0.5 GGT 28 AST 29 ALT 20 Alkaline Phosphatase 71 Troponin I 0.01 < 0.01 L C-Reactive Protein 18.7 H NT-Pro-B Natriuret Pep 4160 Total Protein 6.4 Albumin 3.1 L Lipase 24 Lab Acknowledgement Test Added Test Added
[2023-12-16] MEDS: HYDROCODONE-ACETAMIN 5-325 MG 1 TAB PO (20:28)
[2023-12-17] VITALS (13 sets, daily range): BP systolic 136–173; BP diastolic 61–87; PULSE 60–78; RESP 18–20; TEMP 36.6–37; O2SAT 90–95
[2023-12-17] MEDS: PIPERACILLIN/TAZOBACTAM 3.375 GM in 0.9 % SODIUM CHLORIDE Mini-bag 100 ML IVPB ×4 (06:25→23:44)
[2023-12-17 06:37] LABS: HCO3 VBG 30 mmol/L (21-28); PCO2 VBG 50 mmHG (40-50); PO2 VBG 57.2 mmHG (25-47); pH VBG 7.384 (7.32-7.43)
[2023-12-17 06:43] LABS: Hemoglobin* 9.1 gm/dL (12.0-16.0); Mean Corpuscular HGB Conc 29 gm/dL (32-36); Mean Corpuscular Hemoglobin 24 pg (26-34); Mean Corpuscular Volume 83 fL (80-100); Platelet Count* 387 K/uL (140-440); Red Blood Count 3.74 m/uL (4.00-5.20); White Blood Count* 11.85 K/uL (4.50-11.00)
[2023-12-17 07:00] LABS: Slide Review Reflex No
[2023-12-17 07:10] LABS: Chloride* 108 mmol/L (96-114)
[2023-12-17 07:11] LABS: Albumin* 3.2 g/dL (3.3-5.0); Sodium* 141 mmol/L (135-149)
[2023-12-17 07:13] LABS: Creatinine* 0.6 mg/dL (0.5-1.5); Estimated Glomerular Filt Rate 87 ml/min
[2023-12-17 07:14] LABS: Alkaline Phosphatase* 73 U/L (40-150); Anion Gap 4 mEq/L (7-15); Aspartate Amino Transferase* 25 U/L (12-35); Bilirubin Total* 0.4 mg/dL (0.1-1.5); Blood Urea Nitrogen* 11 mg/dL (7-30); Carbon Dioxide* 29 mmol/L (20-32); Gamma Glutamyl Transpeptidase* 28 U/L (8-55); Lipase* 24 U/L (23-300); Total Protein* 6.4 g/dL (6.0-8.3)
[2023-12-17 07:15] LABS: Alanine Aminotransferase* 18 U/L (4-35); Calcium* 8.6 mg/dL (8.4-10.6); Glucose* 115 mg/dL (60-115); Magnesium* 2.2 mg/dL (1.5-2.6)
[2023-12-17 07:32] LABS: C Reactive Protein* 13.1 mg/dL (0.5-1.0)
--- NOTE | 2023-12-17 07:34 | PC.NURSE ---
END OF SHIFT NOTE: PT PLEASANT AND COOPERATIVE. A&Ox3. DENIES CP, SOB, N/V. AMBULATES SBA/W. VSS ON 1L NC; PT NON-COMPLIANT WITH CPAP; REMOVED MULTIPLE TIMES. AFEBRILE. x3 LAP SITES WITH STERI STRIPS, UMBILICAL WITH DRESSING AND MEPILEX APPLIED. BED ALARM ON AND CALL LIGHT WITHIN PT?S REACH.?
[2023-12-17] MEDS: SERTRALINE 50 MG TABLET PO (08:58)
[2023-12-17] MEDS: SOTALOL HCL 80 MG TABLET PO ×2 (08:58→20:50)
[2023-12-17] MEDS: POTASSIUM CHLORIDE 10 MEQ CAPSULE ER 20 MEQ PO ×2 (08:58→17:32)
[2023-12-17] MEDS: FUROSEMIDE 10 MG/ML inj 40 MG IVP (09:29)
[2023-12-17] MEDS: SODIUM CHLORIDE 0.9 % (FLUSH) 10 ML SYRINGE 5 ML IVF ×3 (09:29→20:51)
[2023-12-17] MEDS: 0.9 % SODIUM CHLORIDE 250 ml IV (11:53)
--- NOTE | 2023-12-17 14:35 | P.IMPN_ITS ---
Progress Note: A&P Assessment and plan (1) Status post laparoscopic cholecystectomy: Problem details: Date of surgery 12/13/2023. Dr. Ortega. Status: Acute (2) Hypoxic respiratory failure: Problem details: -1 L nasal cannula likely due to atelectasis and volume overloaded state of heart from IV fluids perioperatively. Status: Acute (3) Cardiac volume overload: Problem details: -IV fluids have been saline locked -BNP elevated 4 times compared to what it was on presentation, 4100 now -furosemide 40 mg IV x1 dose on 12/16/2023, and another dose this morning - ordinarily takes 20 mg furosemide orally once daily, which has been on hold since she has been in the hospital -between 12/16/2023 when she weighed 111.2 kg and 12/17/2023 when she weighed 108.9 kg, patient lost 2.3 kg -troponin I's have been less than 0.01 -electrocardiogram without acute ischemic changes on 12/16/2023 and unchanged from 12/12/2023 -bedside transthoracic echocardiogram is still pending as of 2:30 p.m. on 12/17/2023 Status: Acute (4) Atelectasis of right lung: Problem details: Likely related to consolidation of the right lower lobe from acute cholecystitis. Status: Acute (5) Atrial fibrillation: Problem details: Rate controlled. Continue sotalol. Resume anticoagulation when stable postoperatively Status: Acute (6) Chronic anticoagulation: Problem details: For longstanding AFib. Has a cardiac pacemaker. Presently warfarin on hold. No need to use bridge therapy for atrial fibrillation in this setting. May resume warfarin therapy when general surgery deems patient ready. Status: Acute (7) Cardiac pacemaker: Problem details: Noted Status: Acute (8) Mild anxiety: Problem details: Noted Status: Acute (9) Physical deconditioning: Status: Acute Plan 1. Reviewed impression with patient and . 2. Reviewed plans with patient and as specified above. 3. Patient has were agreeable to above stated plans and recommendations. 4. Will likely need to work toward correction facility transitional care services when patient is ready for discharge. Continue to work with physical occupational therapy and social welfare administrator. Time Spent With Patient Total time spent: 40 minutes Subjective Date Seen: 12/17/23 Interval history: Daily Progress Note - Hospital Medicine Day #: 6 Post OP Day# 1 - lap choly CC: Acute cholecystitis, potential pneumonia Abdominal pain much improved. Informs me that she does very little physical activity at home and sits most of the day. Complains of less dyspnea at rest today than yesterday. No longer has complaint of heaviness on chest today, as she did yesterday. Feels all in today from being up and down so much yesterday to urinate after we initiated the diuresis efforts. Tolerating clear liquids. Passing flatus. Denies syncope, nausea, vomiting. Still requiring O2 support at this time, 1 LPM via NC. Exam Narrative: Exam Narrative: Examined patient in her hospital room. Appears comfortable and in no acute distress. Sleeping. Arouses easily by me calling out her name and holding her hand. Vision and hearing are normal. Alert, oriented to self, place, time, situation. Friendly, articulate, cooperative. Sitting with head of bed elevated at 60?, she has jugular venous distention at the base of the neck and hepatojugular reflux to the angle of the jaw. Weight today down to 108.9 kg, yesterday was 111.2 kg. Lung sounds fairly clear to auscultation. Heart tones with regular rhythm. Abdomen with active bowel sounds, soft, nontender. Extremities with only trace edema. Const: Vital Signs, click to edit/add: Vital Signs - 24 hr 12/16/23 15:00 12/16/23 15:00 12/16/23 15:00 Temperature Pulse Rate 60 Pulse Rate [Pulse Oximeter] 60 Respiratory Rate 16 18 Blood Pressure [Le ft Arm] Blood Pressure [Ri ght Arm] Pulse Oximetry 94 Oxygen Delivery Me thod Nasal Cannula Oxygen Flow Rate 0.5 12/16/23 15:00 12/16/23 19:00 12/16/23 23:45 Temperature 97.4 F L 97.6 F Pulse Rate 60 Pulse Rate [Pulse Oximeter] 65 65 Respiratory Rate 18 18 Blood Pressure [Le ft Arm] Blood Pressure [Ri ght Arm] 165/62 H 170/69 H Pulse Oximetry 94 94 Oxygen Delivery Me thod Nasal Cannula Nasal Cannula Oxygen Flow Rate 0.5 0.5 12/16/23 23:45 12/16/23 23:45 12/16/23 23:45 Temperature 97.9 F Pulse Rate Pulse Rate [Pulse Oximeter] 65 65 Respiratory Rate 16 16 16 Blood Pressure [Le ft Arm] Blood Pressure [Ri ght Arm] 127/66 Pulse Oximetry 94 94 Oxygen Delivery Me thod CPAP CPAP Oxygen Flow Rate 0.5 0.5 12/17/23 03:00 12/17/23 07:00 12/17/23 07:23 Temperature 98.4 F 98.3 F Pulse Rate 60 Pulse Rate [Pulse Oximeter] 62 62 Respiratory Rate 18 20 Blood Pressure [Le ft Arm] 136/61 Blood Pressure [Ri ght Arm] 148/69 H Pulse Oximetry 94 93 Oxygen Delivery Me thod Nasal Cannula Nasal Cannula Oxygen Flow Rate 1 0.5 12/17/23 09:14 12/17/23 12:22 12/17/23 14:15 Temperature 98.6 F Pulse Rate Pulse Rate [Pulse Oximeter] 65 Respiratory Rate 20 20 20 Blood Pressure [Le ft Arm] Blood Pressure [Ri ght Arm] 156/87 H Pulse Oximetry 93 90 95 Oxygen Delivery Me thod Nasal Cannula Nasal Cannula Nasal Cannula Oxygen Flow Rate 0.5 0.5 0.5 Documenting provider has reviewed patient's vital signs: yes Labs Labs: Laboratory Results - last 24 hr 12/17/23 06:02 WBC 11.85 H RBC 3.74 L Hgb 9.1 L Hct 31.0 L MCV 83 MCH 24 L MCHC 29 L Plt Count 387 VBG pH 7.384 VBG pCO2 50 VBG pO2 57.2 H VBG HCO3 30 H Sodium 141 Potassium 4.0 Chloride 108 Carbon Dioxide 29 Anion Gap 4 L BUN 11 Creatinine 0.6 Estimated Creat Clear 37.80 Estimated GFR 87 Glucose 115 Calcium 8.6 Magnesium 2.2 Total Bilirubin 0.4 GGT 28 AST 25 ALT 18 Alkaline Phosphatase 73 C-Reactive Protein 13.1 H Total Protein 6.4 Albumin 3.2 L Lipase 24
[2023-12-17 14:43] LABS: INR 1.11 (0.91-1.10); Prothrombin Time 15.1 Seconds
--- NOTE | 2023-12-17 15:22 | PC.SOCIAL ---
Discharge planning- Met with pt, pt's , and pt's daughter Jackie to discuss discharge plans. Pt's daughter called pt's son (Shane, , [email or web address]) to be part of discharge planning, since pt's son works at [employer] as the general administrator. Recommendation is that pt go to SNF for short-term rehab. Per MD, pt would not be ready to discharge until Thursday at the earliest. Per family, they would like this worker to check with [facility] as first choice. Shane will check with [facility] [facility] [employer] to see if there is availability. Phone call to Sarah Davalos at [facility] and she informs that they will have a female private room for Thursday and will accept referral. Secure e-mailed referral to Sarah Davalos at [facility]. Met with pt's daughter Jackie and she provided update that Shane would like the second choice to be [facility] in [place]. Phone call to Leti in admissions at [facility] and there may be some openings next week. Faxed referral to [facility] at [phone]. Social work will continue to follow up as needed.
--- NOTE | 2023-12-17 16:22 | PC.NURSE ---
Shift Summary: Patient pleasant and cooperative. Up walking in keenan between ccu rooms x1, up to bathroom with one assist walker and gait belt. Vitals stable, increased BP this evening after ambulating in keenan. O2 89-84% on 0.5L/NC. C/o pain x1 getting back into bed from the bathroom, quickly resolved denied need for medication. Had nausea with Echo today however no emesis. X2 loose BM, 1 incontinent. Manriquez cath placed this morning. Patient verbalized that chest heaviness has improved today. Poor appetite, has been drinking ensure.
[2023-12-17] MEDS: WARFARIN 2.5 MG TABLET PO (17:32)
[2023-12-17] MEDS: BUDESONIDE 0.5 MG/2ML NEB NEB (20:51)
[2023-12-18] VITALS (8 sets, daily range): BP systolic 134–217; BP diastolic 62–107; PULSE 60–80; RESP 16–24; TEMP 36.4–37.1; O2SAT 88–96
[2023-12-18] MEDS: PIPERACILLIN/TAZOBACTAM 3.375 GM in 0.9 % SODIUM CHLORIDE Mini-bag 100 ML IVPB (05:40)
[2023-12-18 06:48] LABS: HCO3 VBG 33 mmol/L (21-28); PCO2 VBG 49 mmHG (40-50); PO2 VBG 54.3 mmHG (25-47); pH VBG 7.434 (7.32-7.43)
--- NOTE | 2023-12-18 06:48 | PC.NURSE ---
End of shift note [id number]: Pt transfers with assist of 1 using walker and GB with pt using bathroom for toileting. Manriquez catheter currently in place with 325 mL urinary output throughout the shift. Pt noted to be alert & oriented x 4 and able to make needs known. IV patent and SL. Pt denied pain when asked with no nonverbal signs of pain noted. Pt has been afebrile throughout the shift. Lung sounds noted to be clear bilaterally though bases noted to be diminished. No c/o N/V noted this shift. Pt on telemetry with NSR noted. She refused to wear CPAP after CPAP was put on at HS and was then resumed on 0.5 L oxygen via NC. Surgical incisions to abdomen LEAD ATG DEVELOPER with steri strips in place with no s/sx of infection observed upon inspection. Pt remains on CL diet.
--- NOTE | 2023-12-18 06:50 | PC.NURSE ---
End of shift note [id number]: Pt transfers with assist of 1 using walker and GB with pt using bathroom for toileting with no loose stool noted this shift. Manriquez catheter currently in place with 325 mL urinary output throughout the shift. Pt noted to be alert & oriented x 4 and able to make needs known. IV patent and SL. Pt denied pain when asked with no nonverbal signs of pain noted. Pt has been afebrile throughout the shift. Lung sounds noted to be clear bilaterally though bases noted to be diminished. No c/o N/V noted this shift. Pt on telemetry with NSR noted. She refused to wear CPAP after CPAP was put on at HS and was then resumed on 0.5 L oxygen via NC. Surgical incisions to abdomen DAO with no s/sx of infection observed upon inspection. Pt remains on regular diet.
[2023-12-18 06:55] LABS: Hematocrit 30.3 % (33.0-51.0); Mean Corpuscular HGB Conc 30 gm/dL (32-36); Mean Corpuscular Hemoglobin 25 pg (26-34); Mean Corpuscular Volume 82 fL (80-100); Platelet Count* 403 K/uL (140-440); Red Blood Count 3.68 m/uL (4.00-5.20); White Blood Count* 11.36 K/uL (4.50-11.00)
[2023-12-18 07:05] LABS: Slide Review Reflex No
[2023-12-18 07:09] LABS: Albumin* 3.1 g/dL (3.3-5.0); Chloride* 105 mmol/L (96-114)
[2023-12-18 07:10] LABS: Potassium* 3.8 mmol/L (3.6-5.1); Sodium* 143 mmol/L (135-149)
[2023-12-18 07:12] LABS: Creatinine* 0.6 mg/dL (0.5-1.5); Estimated Glomerular Filt Rate 87 ml/min
[2023-12-18 07:13] LABS: Alanine Aminotransferase* 15 U/L (4-35); Alkaline Phosphatase* 71 U/L (40-150); Anion Gap 5 mEq/L (7-15); Aspartate Amino Transferase* 24 U/L (12-35); Bilirubin Total* 0.4 mg/dL (0.1-1.5); Blood Urea Nitrogen* 12 mg/dL (7-30); Carbon Dioxide* 33 mmol/L (20-32); Gamma Glutamyl Transpeptidase* 28 U/L (8-55); Glucose* 113 mg/dL (60-115); Lipase* 33 U/L (23-300); Magnesium* 2.2 mg/dL (1.5-2.6); Total Protein* 6.2 g/dL (6.0-8.3)
[2023-12-18 07:16] LABS: C Reactive Protein* 6.9 mg/dL (0.5-1.0)
[2023-12-18] MEDS: FUROSEMIDE 10 MG/ML inj 40 MG IVP (08:51)
[2023-12-18] MEDS: POTASSIUM CHLORIDE 10 MEQ CAPSULE ER 20 MEQ PO ×2 (08:51→18:44)
[2023-12-18] MEDS: SOTALOL HCL 80 MG TABLET PO ×2 (08:51→21:19)
[2023-12-18] MEDS: SERTRALINE 50 MG TABLET PO (08:51)
[2023-12-18] MEDS: SODIUM CHLORIDE 0.9 % (FLUSH) 10 ML SYRINGE 5 ML IVF ×2 (08:51→21:19)
[2023-12-18] MEDS: BUDESONIDE 0.5 MG/2ML NEB NEB ×2 (09:03→21:19)
--- NOTE | 2023-12-18 12:49 | PM.GSPN ---
Subjective Subjective Date Seen: 12/18/23 Interval history: Lauren is doing well today. She is having bowel movements. She has had several that have been loose, but she states that she has had this prior to the surgery for some time. She is feeling better from a respiratory standpoint though she did desat with activity today. She does not have much of an appetite but no nausea. Exam Narrative: Exam Narrative: General: No acute distress Abdomen: Incisions are clean and dry. No erythema. Abdomen is appropriately tender for the postoperative state. Const: Vital Signs, click to edit/add: Vital Signs - 24 hr 12/17/23 14:15 12/17/23 14:40 12/17/23 15:00 Temperature 97.8 F Pulse Rate 69 Pulse Rate [Pulse Oximeter] 65 Respiratory Rate 20 20 Blood Pressure [Le ft Arm] Blood Pressure [Ri ght Arm] 173/77 H Pulse Oximetry 95 94 Oxygen Delivery Me thod Nasal Cannula Nasal Cannula Oxygen Flow Rate 0.5 0.5 12/17/23 19:42 12/17/23 23:00 12/17/23 23:04 Temperature 98.6 F Pulse Rate 65 Pulse Rate [Pulse Oximeter] 78 78 Respiratory Rate 20 20 Blood Pressure [Le ft Arm] 170/73 H Blood Pressure [Ri ght Arm] Pulse Oximetry 92 Oxygen Delivery Me thod Nasal Cannula Oxygen Flow Rate 0.5 12/17/23 23:47 12/17/23 23:48 12/18/23 03:06 Temperature 98.5 F 97.6 F Pulse Rate Pulse Rate [Pulse Oximeter] 78 65 Respiratory Rate 20 20 16 Blood Pressure [Le ft Arm] 157/74 H Blood Pressure [Ri ght Arm] 169/81 H Pulse Oximetry 94 94 96 Oxygen Delivery Me thod Nasal Cannula Nasal Cannula Nasal Cannula Oxygen Flow Rate 0.5 0.5 0.5 12/18/23 07:00 12/18/23 07:00 12/18/23 07:00 Temperature 97.9 F Pulse Rate Pulse Rate [Pulse Oximeter] 60 60 Respiratory Rate 16 16 16 Blood Pressure [Le ft Arm] 168/70 H Blood Pressure [Ri ght Arm] Pulse Oximetry 96 96 Oxygen Delivery Me thod Nasal Cannula Nasal Cannula Oxygen Flow Rate 0.5 0.5 12/18/23 07:00 Temperature Pulse Rate 60 Pulse Rate [Pulse Oximeter] Respiratory Rate Blood Pressure [Le ft Arm] Blood Pressure [Ri ght Arm] Pulse Oximetry Oxygen Delivery Me thod Oxygen Flow Rate Labs/Imaging Labs Labs: White blood cell count is slightly elevated at 11. This is stable from yesterday. Hemoglobin remained stable at 9. CRP is down to 6.9 from 13 CO2 is mildly elevated today at 33, possibly secondary to contraction from diuresis. Progress Note:A&P Assessment and plan (1) Cardiac volume overload: Status: Acute (2) Physical deconditioning: Status: Acute (3) Status post laparoscopic cholecystectomy: Status: Acute (4) Cardiac pacemaker: Status: Acute (5) Chronic anticoagulation: Status: Acute (6) Atrial fibrillation: Status: Acute Plan The patient is an 87-year-old female who is postop day 5 from laparoscopic cholecystectomy from her acute cholecystitis. She is doing well today. Diuresis continues. She is tolerating a diet though her appetite is poor. She has antegrade bowel function. Pain is controlled. -okay to continue warfarin -continue IS and therapies -in if patient continues to have loose stool and or white blood cell count rises would recommend checking C diff. -can transition antibiotics to oral. Seven day course should be sufficient. -planning on discharge to rehab on Thursday.
--- NOTE | 2023-12-18 15:04 | P.IMPN_ITS ---
Progress Note: A&P Assessment and plan (1) Cardiac volume overload: Problem details: Postoperative IV fluids are discontinued and diuresis has occurred and she is clinically euvolemic Status: Acute (2) Physical deconditioning: Problem details: Will need custodial facility for additional rehab prior to returning home Status: Acute (3) Status post laparoscopic cholecystectomy: Problem details: Date of surgery 12/13/2023. Dr. Ortega. No apparent operative complications. Discontinue Zosyn and switch to Augmentin for 2 days prior to discharge. Status: Acute (4) Cardiac pacemaker: Problem details: Noted Status: Acute (5) Chronic anticoagulation: Problem details: For longstanding AFib. Has a cardiac pacemaker. Resume warfarin and INR monitoring Status: Acute (6) Atrial fibrillation: Problem details: Rate controlled. Continue sotalol. Resume anticoagulation Status: Acute (7) Aortic regurgitation: Problem details: Echo shows moderate aortic regurgitation. Unchanged from 07/05/2021. Outpatient follow-up with Cardiology Status: Acute Assessment and Plan: New diagnosis. Uncertain cause. (8) Pulmonary hypertension: Problem details: Echo shows pulmonary hypertension, 57 mmHg by tricuspid regurgitation velocity and right atrial pressure. New since 07/05/21. Outpatient follow-up Status: Acute Plan Continue in-hospital for management of postoperative care and rehab. Pending discharge to custodial facility for rehab on Thursday. Monitor antico agulation, chronic medical problems including atrial fibrillation, nutrition, rehab therapy. Time Spent With Patient Total time spent: Total time spent today is 45 minutes, 30 minutes in coordination of care discussing with patient, and other providers ongoing evaluation management postoperative care, abnormal echocardiogram, chronic medical management. Subjective Date Seen: 12/18/23 Interval history: 87-year-old female admitted to the hospital with right upper quadrant abdominal pain and fever. She was subsequently diagnosed with acute cholecystitis and underwent laparoscopic cholecystectomy on December 13. She has had a slow but steady recovery from her surgery. She reports her appetite is still poor but a little better. Her pain is better controlled. She reports she still has prominent fatigue. She had some postoperative volume overload treated with diuresis. She is currently pending custodial facility placement for additional rehab prior to returning home with her . Exam Narrative: Exam Narrative: She is alert, oriented and pleasant. Respirations are clear to auscultation. No wheezing rales or rhonchi. Cardiovascular: S1, S2, relatively regular rhythm. Abdomen is soft without tenderness or mass. Laparoscopic puncture sites are well healed. Extremities without significant edema. Const: Vital Signs, click to edit/add: Vital Signs - 24 hr 12/17/23 19:42 12/17/23 23:00 12/17/23 23:04 Temperature 98.6 F Pulse Rate 65 Pulse Rate [Pulse Oximeter] 78 78 Respiratory Rate 20 20 Blood Pressure [Le ft Arm] 170/73 H Blood Pressure [Ri ght Arm] Pulse Oximetry 92 Oxygen Delivery Me thod Nasal Cannula Oxygen Flow Rate 0.5 12/17/23 23:47 12/17/23 23:48 12/18/23 03:06 Temperature 98.5 F 97.6 F Pulse Rate Pulse Rate [Pulse Oximeter] 78 65 Respiratory Rate 20 20 16 Blood Pressure [Le ft Arm] 157/74 H Blood Pressure [Ri ght Arm] 169/81 H Pulse Oximetry 94 94 96 Oxygen Delivery Me thod Nasal Cannula Nasal Cannula Nasal Cannula Oxygen Flow Rate 0.5 0.5 0.5 12/18/23 07:00 12/18/23 07:00 12/18/23 07:00 Temperature 97.9 F Pulse Rate Pulse Rate [Pulse Oximeter] 60 60 Respiratory Rate 16 16 16 Blood Pressure [Le ft Arm] 168/70 H Blood Pressure [Ri ght Arm] Pulse Oximetry 96 96 Oxygen Delivery Me thod Nasal Cannula Nasal Cannula Oxygen Flow Rate 0.5 0.5 12/18/23 07:00 12/18/23 11:00 12/18/23 14:59 Temperature 97.9 F Pulse Rate 60 Pulse Rate [Pulse Oximeter] 61 61 Respiratory Rate 16 16 Blood Pressure [Le ft Arm] Blood Pressure [Ri ght Arm] 134/73 Pulse Oximetry 95 Oxygen Delivery Me thod Room Air Oxygen Flow Rate 12/18/23 14:59 12/18/23 14:59 Temperature 97.9 F Pulse Rate Pulse Rate [Pulse Oximeter] 61 Respiratory Rate 16 Blood Pressure [Le ft Arm] Blood Pressure [Ri ght Arm] 153/62 H Pulse Oximetry 93 93 Oxygen Delivery Me thod Room Air Room Air Oxygen Flow Rate Documenting provider has reviewed patient's vital signs: yes Labs Labs: Laboratory Results - last 24 hr 12/17/23 12/18/23 06:02 06:13 WBC 11.36 H RBC 3.68 L Hgb 9.0 L Hct 30.3 L MCV 82 MCH 25 L MCHC 30 L Plt Count 403 INR 1.11 H VBG pH 7.434 H VBG pCO2 49 VBG pO2 54.3 H VBG HCO3 33 H Sodium 143 Potassium 3.8 Chloride 105 Carbon Dioxide 33 H Anion Gap 5 L BUN 12 Creatinine 0.6 Estimated Creat Clear 37.80 Estimated GFR 87 Glucose 113 Calcium 9.0 Magnesium 2.2 Total Bilirubin 0.4 GGT 28 AST 24 ALT 15 Alkaline Phosphatase 71 C-Reactive Protein 6.9 H Total Protein 6.2 Albumin 3.1 L Lipase 33
[2023-12-18 15:48] LABS: INR 1.14 (0.91-1.10); Prothrombin Time 15.3 Seconds
--- NOTE | 2023-12-18 16:42 | PC.SOCIAL ---
Discharge planning: [facility] on Thursday and reuested pt discharge from the hospital at about 11:00. Spoke with pt's son, Shane, who is aware and agrees with this plan. Shane is arranging for his two brothers to assist with transport in their own vehicle at discharge on Thursday. If pt is too weak on Thursday to be transported in their own vehicle, son would be interested in EMS transport. However, current plan is family transport on Thursday at discharge to [facility]. wash worker to follow up as needed.
[2023-12-18] MEDS: WARFARIN 3 MG TABLET PO (18:44)
[2023-12-18] MEDS: AMOXICILLIN/CLAVULANATE 875 mg/125 mg TABLET PO (18:44)
[2023-12-19] VITALS (10 sets, daily range): BP systolic 132–172; BP diastolic 50–78; PULSE 61–71; RESP 18–24; TEMP 36.4–37.1; O2SAT 89–96
--- NOTE | 2023-12-19 06:03 | PC.NURSE ---
[id number]: Patient cooperative with cares. Around 2100 patient c/o SOB and anxiety. Patient returned to baseline level after moving from the bed to the chair. Patient appeared to rest well during noc. 1.0 Lt NC on during noc. A1/walker/GB. Patient using IS and Aerobika when nurse prompts. No c/o pain. 3 lap sites to abdomen C/D/I. BS active. Loose stool x2.
[2023-12-19 06:18] LABS: HCO3 VBG 32 mmol/L (21-28); PCO2 VBG 42 mmHG (40-50); PO2 VBG 65.5 mmHG (25-47); pH VBG 7.488 (7.32-7.43)
[2023-12-19 06:31] LABS: Hematocrit 32.9 % (33.0-51.0); Hemoglobin* 9.9 gm/dL (12.0-16.0); Mean Corpuscular HGB Conc 30 gm/dL (32-36); Mean Corpuscular Hemoglobin 25 pg (26-34); Mean Corpuscular Volume 82 fL (80-100); Platelet Count* 488 K/uL (140-440); Red Blood Count 4.03 m/uL (4.00-5.20); White Blood Count* 12.28 K/uL (4.50-11.00)
[2023-12-19 06:46] LABS: Slide Review Reflex No
[2023-12-19 06:51] LABS: Albumin* 3.5 g/dL (3.3-5.0); Chloride* 104 mmol/L (96-114)
[2023-12-19 06:52] LABS: Sodium* 141 mmol/L (135-149)
[2023-12-19 06:54] LABS: Anion Gap 5 mEq/L (7-15); Aspartate Amino Transferase* 29 U/L (12-35); Bilirubin Total* 0.4 mg/dL (0.1-1.5); Carbon Dioxide* 32 mmol/L (20-32); Creatinine* 0.6 mg/dL (0.5-1.5); Estimated Glomerular Filt Rate 87 ml/min
[2023-12-19 06:55] LABS: Alanine Aminotransferase* 19 U/L (4-35); Alkaline Phosphatase* 79 U/L (40-150); Blood Urea Nitrogen* 15 mg/dL (7-30); Calcium* 9.4 mg/dL (8.4-10.6); Gamma Glutamyl Transpeptidase* 33 U/L (8-55); Glucose* 117 mg/dL (60-115); Lipase* 49 U/L (23-300); Magnesium* 2.3 mg/dL (1.5-2.6)
[2023-12-19 06:57] LABS: C Reactive Protein* 4.7 mg/dL (0.5-1.0)
[2023-12-19 07:08] LABS: Potassium* 4.3 mmol/L (3.6-5.1)
[2023-12-19] MEDS: POTASSIUM CHLORIDE 10 MEQ CAPSULE ER 20 MEQ PO ×2 (08:30→17:38)
[2023-12-19] MEDS: AMOXICILLIN/CLAVULANATE 875 mg/125 mg TABLET PO ×2 (08:30→17:39)
[2023-12-19] MEDS: FUROSEMIDE 10 MG/ML inj 40 MG IVP (08:30)
[2023-12-19 09:25] LABS: Troponin I* 0.02 ng/mL (0.01-0.04)
[2023-12-19] MEDS: SERTRALINE 50 MG TABLET PO (09:29)
[2023-12-19] MEDS: BUDESONIDE 0.5 MG/2ML NEB NEB ×2 (09:29→21:43)
[2023-12-19] MEDS: SOTALOL HCL 80 MG TABLET PO ×2 (10:36→21:42)
[2023-12-19 11:07] LABS: Troponin I* < 0.01 ng/mL (0.01-0.04)
[2023-12-19] MEDS: SODIUM CHLORIDE 0.9 % (FLUSH) 10 ML SYRINGE 5 ML IVF ×2 (11:52→21:42)
[2023-12-19] MEDS: FUROSEMIDE 10 MG/ML inj 20 MG IVP (13:47)
[2023-12-19] MEDS: OMEPRAZOLE 20 MG CAPSULE DR PO (13:47)
--- NOTE | 2023-12-19 15:38 | PM.IMPN1 ---
Progress Note: A&P Assessment and plan (1) Cardiac volume overload: Problem details: Postoperative IV fluids are discontinued and diuresis has occurred and she is clinically euvolemic Status: Acute (2) Physical deconditioning: Problem details: Will need senior care facility for additional rehab prior to returning home Status: Acute (3) Status post laparoscopic cholecystectomy: Problem details: Date of surgery 12/13/2023. Dr. Ortega. No apparent operative complications. Discontinue Zosyn and switch to Augmentin for 2 days prior to discharge. Status: Acute (4) Cardiac pacemaker: Problem details: Noted Status: Acute (5) Chronic anticoagulation: Problem details: For longstanding AFib. Has a cardiac pacemaker. Resume warfarin and INR monitoring Status: Acute (6) Atrial fibrillation: Problem details: Rate controlled. Continue sotalol. Resume anticoagulation Status: Acute (7) Aortic regurgitation: Problem details: Echo shows moderate aortic regurgitation. Unchanged from 07/05/2021. Outpatient follow-up with Cardiology Status: Acute (8) Pulmonary hypertension: Problem details: Echo shows pulmonary hypertension, 57 mmHg by tricuspid regurgitation velocity and right atrial pressure. New since 07/05/21. Outpatient follow-up Status: Acute (9) Chest pain: Problem details: Patient reports that she has had recent history of chest heaviness. Initial evaluation is reassuring for acute coronary syndrome. Her history is consistent with an anginal presentation however. Continue to monitor and consider stress testing as an outpatient verses inpatient depending on her clinical course Status: Acute Plan Continue in hospital for monitoring of postoperative recovery and evaluation of chest heaviness and cardiac disease. Time Spent With Patient Total time spent: Total time spent today is 50 minutes, 40 minutes in coordination of care discussing with patient and other providers ongoing management of postoperative care and heart disease Subjective Date Seen: 12/19/23 Interval history: 87-year-old female admitted to the hospital with right upper quadrant abdominal pain and fever. She was subsequently diagnosed with acute cholecystitis and underwent laparoscopic cholecystectomy on December 13. She has had a slow but steady recovery from her surgery. She reports her appetite is still poor but a little better. Her pain is better controlled. She reports she still has prominent fatigue. She had some postoperative volume overload treated with diuresis. She is currently pending senior care facility placement for additional rehab prior to returning home with her . Today she reports that she has been having chest heaviness especially with exertion. She reports this has been going on even prior to her hospital admission. Is bothering her more now because she is up walking to the bathroom and more physically active. The sensation is there constantly but gets worse when she exerts herself. She has been in an out of atrial fibrillation during this hospital stay. It is not clear that her symptoms are correlating with her heart rate. She has not had cough or fever. She reports profound fatigue. She has a poor appetite but is able to eat. Exam Narrative: Exam Narrative: She is alert appears in no distress. Respirations are clear to auscultation. Cardiovascular: S1, S2, regular rate and rhythm. Palpation over chest wall is nontender. Palpation of her abdomen shows no tenderness. Skin incisions are well healed. Extremities without significant edema. Const: Vital Signs, click to edit/add: Vital Signs - 24 hr 12/18/23 19:43 12/18/23 22:16 12/18/23 23:00 Temperature 98.8 F 97.7 F Pulse Rate 60 Pulse Rate [Pulse Oximeter] 65 80 Respiratory Rate 24 24 Blood Pressure [Le ft Arm] 147/65 H Blood Pressure [Ri ght Arm] 217/107 H Pulse Oximetry 88 95 Oxygen Delivery Me thod Nasal Cannula Oxygen Flow Rate 2.0 12/18/23 23:00 12/19/23 01:18 12/19/23 03:36 Temperature 97.7 F Pulse Rate Pulse Rate [Pulse Oximeter] 63 Respiratory Rate 24 24 20 Blood Pressure [Le ft Arm] Blood Pressure [Ri ght Arm] 165/54 H Pulse Oximetry 95 94 Oxygen Delivery Me thod Nasal Cannula Nasal Cannula Oxygen Flow Rate 2.0 1.0 12/19/23 07:00 12/19/23 08:40 12/19/23 11:00 Temperature 98.8 F 97.5 F L Pulse Rate Pulse Rate [Pulse Oximeter] 64 61 Respiratory Rate 18 18 Blood Pressure [Le ft Arm] 172/78 H 132/51 L Blood Pressure [Ri ght Arm] Pulse Oximetry 96 96 91 Oxygen Delivery Me thod Nasal Cannula Nasal Cannula Room Air Oxygen Flow Rate 2 1 Documenting provider has reviewed patient's vital signs: yes Labs Labs: Laboratory Results - last 24 hr 12/18/23 12/19/23 12/19/23 15:24 06:04 08:42 WBC 12.28 H RBC 4.03 Hgb 9.9 L Hct 32.9 L MCV 82 MCH 25 L MCHC 30 L Plt Count 488 H INR 1.14 H VBG pH 7.488 H VBG pCO2 42 VBG pO2 65.5 H VBG HCO3 32 H Sodium 141 Potassium 4.3 Chloride 104 Carbon Dioxide 32 Anion Gap 5 L BUN 15 Creatinine 0.6 Estimated Creat Clear 37.80 Estimated GFR 87 Glucose 117 H Calcium 9.4 Magnesium 2.3 Total Bilirubin 0.4 GGT 33 AST 29 ALT 19 Alkaline Phosphatase 79 Troponin I 0.02 C-Reactive Protein 4.7 H Total Protein 7.0 Albumin 3.5 Lipase 49 Lab Acknowledgement Test Added 12/19/23 10:18 WBC RBC Hgb Hct MCV MCH MCHC Plt Count INR VBG pH VBG pCO2 VBG pO2 VBG HCO3 Sodium Potassium Chloride Carbon Dioxide Anion Gap BUN Creatinine Estimated Creat Clear Estimated GFR Glucose Calcium Magnesium Total Bilirubin GGT AST ALT Alkaline Phosphatase Troponin I < 0.01 L C-Reactive Protein Total Protein Albumin Lipase Lab Acknowledgement
[2023-12-19] MEDS: WARFARIN 2 MG TABLET 4 MG PO (17:39)
[2023-12-19] MEDS: ASPIRIN 81 MG TAB.CHEW PO (17:39)
--- NOTE | 2023-12-19 19:40 | PC.NURSE ---
shift note: pt up 1/walker in room. pt ambulated in keenan with PT this a.m. Pt had non radiating chest tightness on lt upper chest this a.m. Dr. Prado notified and EKG done. vss stable. Pt cont sats 89-92% RA. Pt has crkls/dim to RLL. pt using IS and aerobika indept throughout the day. pt denies sob. pt had small loose continent stool this a.m x2. Upper coccyx sore and red.
[2023-12-19] MEDS: LORazepam 0.5 MG TABLET PO (21:42)
[2023-12-20] VITALS (8 sets, daily range): BP systolic 147–164; BP diastolic 63–72; PULSE 60–64; RESP 16–22; TEMP 36.3–37.1; O2SAT 90–94
[2023-12-20] MEDS: OMEPRAZOLE 20 MG CAPSULE DR PO (06:09)
--- NOTE | 2023-12-20 06:41 | PC.NURSE ---
[id number]: Patient pleasant and cooperative with cares. SBA w/walker. Afebrile. Used CPAP during noc. Rates pain 1-2/10. Loose BM x1. Rested well during noc.
[2023-12-20 07:08] LABS: Chloride* 102 mmol/L (96-114); Potassium* 3.7 mmol/L (3.6-5.1); Sodium* 142 mmol/L (135-149)
[2023-12-20 07:11] LABS: Anion Gap 7 mEq/L (7-15); Blood Urea Nitrogen* 18 mg/dL (7-30); Carbon Dioxide* 33 mmol/L (20-32); Creatinine* 0.6 mg/dL (0.5-1.5); Estimated Glomerular Filt Rate 87 ml/min; Glucose* 105 mg/dL (60-115)
[2023-12-20 07:12] LABS: Calcium* 9.3 mg/dL (8.4-10.6)
[2023-12-20 07:23] LABS: INR 1.37 (0.91-1.10); Prothrombin Time 17.7 Seconds
[2023-12-20 07:24] LABS: Troponin I* 0.02 ng/mL (0.01-0.04)
[2023-12-20 07:55] LABS: C Reactive Protein* 3.5 mg/dL (0.5-1.0); Eosinophils Percent Auto 2.9 % (0.0-7.0); Hematocrit 31.9 % (33.0-51.0); Hemoglobin* 9.5 gm/dL (12.0-16.0); Lymphocytes Percent Auto 18.3 % (20-44); Mean Corpuscular HGB Conc 30 gm/dL (32-36); Mean Corpuscular Hemoglobin 25 pg (26-34); Mean Corpuscular Volume 82 fL (80-100); Neutrophils Percent Auto 67.3 % (42.0-72.0); Platelet Count* 453 K/uL (140-440); RDW Coefficient of Variation % 17.5 % (11.5-15.5); Red Blood Count 3.88 m/uL (4.00-5.20)
[2023-12-20 07:56] LABS: Basophils Absolute Auto 0.04 K/uL (0.00-0.30); Basophils Percent Auto 0.4 % (0.0-3.0); Immature Granulocytes Abs Auto 0.42 K/uL (0.00-0.30); Immature Granulocytes Pct Auto 4.1 %; Neutrophils Absolute Auto 6.86 K/uL (1.7-7.0)
[2023-12-20 08:07] LABS: Slide Review Reflex No
[2023-12-20] MEDS: POTASSIUM CHLORIDE 10 MEQ CAPSULE ER 20 MEQ PO ×2 (08:56→18:16)
[2023-12-20] MEDS: FUROSEMIDE 20 MG TABLET PO (08:57)
[2023-12-20] MEDS: AMOXICILLIN/CLAVULANATE 875 mg/125 mg TABLET PO ×2 (08:57→18:16)
[2023-12-20] MEDS: AMLODIPINE 5 MG TABLET PO (10:44)
[2023-12-20] MEDS: SOTALOL HCL 80 MG TABLET PO ×2 (10:45→21:18)
[2023-12-20] MEDS: SERTRALINE 50 MG TABLET PO (10:45)
[2023-12-20] MEDS: BUDESONIDE 0.5 MG/2ML NEB NEB ×2 (10:46→21:18)
[2023-12-20] MEDS: SODIUM CHLORIDE 0.9 % (FLUSH) 10 ML SYRINGE 5 ML IVF ×2 (10:46→21:19)
[2023-12-20] MEDS: ASPIRIN 81 MG TAB.CHEW PO (10:46)
--- NOTE | 2023-12-20 13:49 | P.IMPN_ITS ---
Progress Note: A&P Assessment and plan (1) Cardiac volume overload: Problem details: Postoperative IV fluids are discontinued and diuresis has occurred and she is clinically euvolemic Status: Acute (2) Physical deconditioning: Problem details: Will need assisted facility for additional rehab prior to returning home Status: Acute (3) Status post laparoscopic cholecystectomy: Problem details: Date of surgery 12/13/2023. Dr. Ortega. No apparent operative complications. Discontinue Zosyn and switch to Augmentin for 2 days prior to discharge. Status: Acute (4) Cardiac pacemaker: Problem details: Noted Status: Acute (5) Chronic anticoagulation: Problem details: For longstanding AFib. Has a cardiac pacemaker. Resume warfarin and INR monitoring Status: Acute (6) Atrial fibrillation: Problem details: Rate controlled. Continue sotalol. Resume anticoagulation Status: Acute (7) Aortic regurgitation: Problem details: Echo shows moderate aortic regurgitation. Unchanged from 07/05/2021. Outpatient follow-up with Cardiology Status: Acute (8) Pulmonary hypertension: Problem details: Echo shows pulmonary hypertension, 57 mmHg by tricuspid regurgitation velocity and right atrial pressure. New since 07/05/21. Outpatient follow-up Status: Acute (9) Chest pain: Problem details: She has anterolateral T-wave inversion which is more prominent. Slight change in troponin to 0.02. If she remains asymptomatic delayed outpatient evaluation including stress test may be appropriate. Patient reports that she has had recent history of chest heaviness. Initial evaluation is reassuring for acute coronary syndrome. Her history is consistent with an anginal presentation however. Continue to monitor and consider stress testing as an outpatient verses inpatient depending on her clinical course Status: Acute Plan Continue in-hospital pending probable [facility] discharge tomorrow and outpatient follow-up for heart disease and other concerns. Time Spent With Patient Total time spent: Total time spent today is 40 minutes, 30 minutes in coordination care discussing with patient and other providers ongoing evaluation management of postoperative care and heart disease Subjective Date Seen: 12/20/23 Interval history: 87-year-old female admitted to the hospital with right upper quadrant abdominal pain and fever. She was subsequently diagnosed with acute cholecystitis and underwent laparoscopic cholecystectomy on December 13. She has had a slow but steady recovery from her surgery. She reports her appetite is still poor but a little better. Her pain is better controlled. She reports she still has prominent fatigue. She had some postoperative volume overload treated with diuresis. She is currently pending assisted facility placement for additional rehab prior to returning home with her . Yesterday she reports that she has been having chest heaviness especially with exertion. She reports this has been going on even prior to her hospital admission. Is bothering her more now because she is up walking to the bathroom and more physically active. The sensation is there constantly but gets worse when she exerts herself. She has been in an out of atrial fibrillation during this hospital stay. It is not clear that her symptoms are correlating with her heart rate. She has not had cough or fever. She reports profound fatigue. She has a poor appetite but is able to eat. Today she reports the chest heaviness has resolved and she is tolerating walking without chest heaviness or dyspnea. She still has prominent fatigue and poor appetite. No fever. Abdominal pain is minimal Exam Narrative: Exam Narrative: She is alert and appears in no distress. Respirations are clear to auscultatio n. Cardiovascular: S1, S2, regular rate and rhythm. No murmur gallop or rub. Abdomen is soft without tenderness or mass. Extremities without edema. Const: Vital Signs, click to edit/add: Vital Signs - 24 hr 12/19/23 15:00 12/19/23 15:00 12/19/23 15:00 Temperature 97.7 F Pulse Rate 65 Pulse Rate [Pulse Oximeter] 70 Respiratory Rate 20 20 Blood Pressure [Le ft Arm] 135/64 Blood Pressure [Ri ght Arm] Pulse Oximetry 92 89 Oxygen Delivery Me thod Room Air Room Air 12/19/23 20:08 12/19/23 21:49 12/19/23 23:00 Temperature 97.8 F 98.8 F Pulse Rate Pulse Rate [Pulse Oximeter] 63 71 Respiratory Rate 22 22 22 Blood Pressure [Le ft Arm] Blood Pressure [Ri ght Arm] 138/50 L 163/68 H Pulse Oximetry 93 92 92 Oxygen Delivery Me thod Room Air Room Air Room Air 12/19/23 23:51 12/20/23 03:24 12/20/23 07:00 Temperature Pulse Rate 69 Pulse Rate [Pulse Oximeter] 63 Respiratory Rate 20 16 Blood Pressure [Le ft Arm] Blood Pressure [Ri ght Arm] Pulse Oximetry 90 94 Oxygen Delivery Me thod CPAP Room Air 12/20/23 08:36 12/20/23 11:00 Temperature 97.8 F 97.5 F L Pulse Rate Pulse Rate [Pulse Oximeter] 64 63 Respiratory Rate 18 20 Blood Pressure [Le ft Arm] 164/63 H 147/69 H Blood Pressure [Ri ght Arm] Pulse Oximetry 92 93 Oxygen Delivery Me thod Room Air Room Air Documenting provider has reviewed patient's vital signs: yes Labs Labs: Laboratory Results - last 24 hr 12/20/23 05:35 WBC 10.20 RBC 3.88 L Hgb 9.5 L Hct 31.9 L MCV 82 MCH 25 L MCHC 30 L RDW Coeff of Ebony 17.5 H Plt Count 453 H Neut % (Auto) 67.3 Lymph % (Auto) 18.3 L [place] % (Auto) 7.0 Eos % (Auto) 2.9 Baso % (Auto) 0.4 Neut # (Auto) 6.86 Lymph # (Auto) 1.90 [place] # (Auto) 0.70 Eos # (Auto) 0.30 Baso # (Auto) 0.04 Abs Immat Gran (auto) 0.42 H Imm/Tot Granulo (auto) 4.1 INR 1.37 H Sodium 142 Potassium 3.7 Chloride 102 Carbon Dioxide 33 H Anion Gap 7 BUN 18 Creatinine 0.6 Estimated Creat Clear 37.80 Estimated GFR 87 Glucose 105 Calcium 9.3 Troponin I 0.02 C-Reactive Protein 3.5 H
[2023-12-20] MEDS: WARFARIN 2.5 MG TABLET PO (18:16)
--- NOTE | 2023-12-20 18:19 | PC.NURSE ---
this science writer in chart to help nurse with med pass
--- NOTE | 2023-12-20 18:56 | PC.NURSE ---
shift note: pt up 1/walker. pt states she feels better today. IV patent. cont sats 89-92%
[2023-12-20] MEDS: LORazepam 0.5 MG TABLET PO (21:21)
[2023-12-21 04:16] VITALS: PULSE 65; RESP 20; O2SAT 90
--- NOTE | 2023-12-21 05:37 | PC.NURSE ---
[id number]: Friendly and cooperative. Patient showered before bed. Encouraged to ambulate but declined to walk in the keenan. Using Aerobika and IS when prompted. Used CPAP during noc. Lap sites open to air and C/D/I./ Tuck pads utilized for hemorrhoid. D/C today to [facility].
[2023-12-21] MEDS: OMEPRAZOLE 20 MG CAPSULE DR PO (06:10)
[2023-12-21 06:49] LABS: Basophils Absolute Auto 0.04 K/uL (0.00-0.30); Basophils Percent Auto 0.4 % (0.0-3.0); Eosinophils Absolute Auto 0.26 K/uL (0.00-0.50); Eosinophils Percent Auto 2.7 % (0.0-7.0); Hematocrit 33.3 % (33.0-51.0); Immature Granulocytes Abs Auto 0.31 K/uL (0.00-0.30); Immature Granulocytes Pct Auto 3.2 %; Lymphocytes Percent Auto 17.7 % (20-44); Mean Corpuscular HGB Conc 30 gm/dL (32-36); Mean Corpuscular Hemoglobin 25 pg (26-34); Mean Corpuscular Volume 82 fL (80-100); Monocytes Percent Auto 6.5 % (0.0-11.0); Neutrophils Absolute Auto 6.71 K/uL (1.7-7.0); Neutrophils Percent Auto 69.5 % (42.0-72.0); Platelet Count* 423 K/uL (140-440); RDW Coefficient of Variation % 17.4 % (11.5-15.5); Red Blood Count 4.07 m/uL (4.00-5.20); White Blood Count* 9.66 K/uL (4.50-11.00)
[2023-12-21 07:00] VITALS: BP 169/65; PULSE 62; RESP 20; TEMP 37.1; O2SAT 93
[2023-12-21 07:01] LABS: INR 1.53 (0.91-1.10); Prothrombin Time 19.5 Seconds
[2023-12-21 07:04] LABS: Slide Review Reflex No
[2023-12-21 07:09] LABS: Chloride* 103 mmol/L (96-114)
[2023-12-21 07:10] LABS: Potassium* 4.1 mmol/L (3.6-5.1); Sodium* 141 mmol/L (135-149)
[2023-12-21 07:12] LABS: Creatinine* 0.7 mg/dL (0.5-1.5); Estimated Glomerular Filt Rate 84 ml/min
[2023-12-21 07:13] LABS: Anion Gap 7 mEq/L (7-15); Blood Urea Nitrogen* 17 mg/dL (7-30); Calcium* 9.1 mg/dL (8.4-10.6); Carbon Dioxide* 31 mmol/L (20-32); Glucose* 100 mg/dL (60-115)
[2023-12-21 07:16] LABS: C Reactive Protein* 2.9 mg/dL (0.5-1.0)
[2023-12-21] MEDS: AMLODIPINE 5 MG TABLET PO (08:08)
[2023-12-21] MEDS: POTASSIUM CHLORIDE 10 MEQ CAPSULE ER 20 MEQ PO (08:09)
[2023-12-21] MEDS: BUDESONIDE 0.5 MG/2ML NEB NEB (08:09)
[2023-12-21] MEDS: SERTRALINE 50 MG TABLET PO (08:09)
[2023-12-21] MEDS: SOTALOL HCL 80 MG TABLET PO (08:09)
[2023-12-21] MEDS: FUROSEMIDE 20 MG TABLET PO (08:09)
[2023-12-21] MEDS: AMOXICILLIN/CLAVULANATE 875 mg/125 mg TABLET PO (08:09)
[2023-12-21] MEDS: ASPIRIN 81 MG TAB.CHEW PO (08:09)
[2023-12-21] MEDS: SODIUM CHLORIDE 0.9 % (FLUSH) 10 ML SYRINGE 5 ML IVF (08:10)
[2023-12-21 11:00] VITALS: BP 141/65; PULSE 63; RESP 18; TEMP 36.9; O2SAT 91
[2023-12-21 11:03] LABS: SARS PCR* Negative SARS-CoV-2 (Negative)
[2023-12-21 11:11] VITALS: BP 141/65; PULSE 63; RESP 18; TEMP 36.9
--- NOTE | 2023-12-21 11:15 | PC.NURSE ---
End of care & discharge note: Pt A&O and VSS throughout the morning. Ambulates SBA with 4ww. Pt has a steady gait and ambulated the halls with PT. Denies having any pain, nausea or shortness of breath. Intermittent chest heaviness after coughing or using MD Sage aware. Pt at bedside this morning. Lap sites DAO and C/D/I. No BM today. PIV in right wrist discontinued catheter intact. COVID test for discharge was negative. Pt discharged to [facility] accompanied by her with transportation provided by her son.
--- NOTE | 2023-12-21 11:33 | PM.DS1 ---
DS: Providers Provider Date Seen: 12/21/23 Date of admission: 12/13/23 11:51 Primary care physician: Kay Lange DO Admitting Clinician: Eliz Matthews MD Consults: 12/12/23 11:34 Consult to Occupational Therapy [CONS] Routine Comment: Reason(s) for OT Consult:: Evaluate and Treat Any Restrictions?:: No Restrictions Consult to Physical Therapy [CONS] Routine Comment: Reason(s) for PT Consult:: Evaluate and Treat Any Restrictions?:: No Restrictions Consult to Analyzer Sales [CONS] Routine Comment: Reason for Consult:: Social Service Consult 12/12/23 11:36 Consult to Respiratory Therapy [CONS] Routine Comment: Reason(s) for RT Consult:: Consult Attending Physician on discharge: Eliz Matthews MD DS: Summary Hospital Course Hospital Course: 87-year-old female presented to the hospital with acute cholecystitis. Patient underwent laparoscopic cholecystectomy. Postoperatively she had shortness of breath and was diuresed for several days to get her breathing closer to baseline. Patient had decreased mobility postoperatively and was working with physical and occupational therapy. She was discharged to [facility] to continue working with therapies. She was tolerating regular diet and having bowel movements. Time Spent with Patient Time attestation: Total time spent providing and/or coordinating discharge services: Exam Narrative: Exam Narrative: Abdomen: Soft, not tender to palpation, laparoscopic incisions are healing well. There is dried blood near her infraumbilical incision. There is no surrounding erythema. Const: Vital Signs, click to edit/add: Vital Signs - 24 hr 12/20/23 15:00 12/20/23 15:00 12/20/23 15:00 Temperature 97.8 F Pulse Rate Pulse Rate [Pulse Oximeter] 60 62 Respiratory Rate 18 18 18 Blood Pressure Blood Pressure [Le ft Arm] 157/72 H Blood Pressure [Ri ght Arm] Pulse Oximetry 92 92 Oxygen Delivery Me thod Room Air Room Air 12/20/23 20:15 12/20/23 22:12 12/20/23 22:18 Temperature 97.4 F L 98.7 F Pulse Rate Pulse Rate [Pulse Oximeter] 62 63 Respiratory Rate 20 22 22 Blood Pressure Blood Pressure [Le ft Arm] Blood Pressure [Ri ght Arm] 153/65 H 162/67 H Pulse Oximetry 93 90 90 Oxygen Delivery Me thod Room Air Room Air Room Air 12/21/23 04:16 12/21/23 07:00 12/21/23 07:00 Temperature Pulse Rate Pulse Rate [Pulse Oximeter] 65 62 Respiratory Rate 20 20 20 Blood Pressure Blood Pressure [Le ft Arm] Blood Pressure [Ri ght Arm] Pulse Oximetry 90 93 Oxygen Delivery Me thod CPAP Room Air 12/21/23 07:00 12/21/23 11:00 12/21/23 11:11 Temperature 98.7 F 98.4 F 98.4 F Pulse Rate 63 Pulse Rate [Pulse Oximeter] 62 63 Respiratory Rate 20 18 18 Blood Pressure 141/65 H Blood Pressure [Le ft Arm] Blood Pressure [Ri ght Arm] 169/65 H 141/65 H Pulse Oximetry 93 91 Oxygen Delivery Me thod Room Air Room Air DS: Data Data Completed and Pending Labs on day of discharge: Labs from last 24 hours 12/21/23 12/21/23 Unknown 06:01 WBC 9.66 RBC 4.07 Hgb 10.0 L Hct 33.3 MCV 82 MCH 25 L MCHC 30 L RDW Coeff of Ebony 17.4 H Plt Count 423 Neut % (Auto) 69.5 Lymph % (Auto) 17.7 L [place] % (Auto) 6.5 Eos % (Auto) 2.7 Baso % (Auto) 0.4 Neut # (Auto) 6.71 Lymph # (Auto) 1.70 [place] # (Auto) 0.60 Eos # (Auto) 0.26 Baso # (Auto) 0.04 Abs Immat Gran (auto) 0.31 H Imm/Tot Granulo (auto) 3.2 INR 1.53 H Sodium 141 Potassium 4.1 Chloride 103 Carbon Dioxide 31 Anion Gap 7 BUN 17 Creatinine 0.7 Estimated Creat Clear 37.80 Estimated GFR 84 Glucose 100 Calcium 9.1 C-Reactive Protein 2.9 H SARS-CoV-2 (PCR) Negative SARS-CoV-2 Discharge Plan Discharge Disposition: [facility] Date of Admission: 12/13/23 11:51 Attending Provider on Discharge: Gadiel Prado Consulting Providers: Sandoval Ortega Primary Care Provider: Kay Lange Condition: Improved Anticipated Discharge Date/Time: 12/21/23 10:00 Discharge Medications: New omeprazole 20 mg Capsule,Delayed Release(Dr/Ec) 20 mg PO DAILY@0700 Qty: 30 0RF rosuvastatin 10 mg capsule, sprinkle 10 mg PO DAILY Qty: 30 2RF aspirin 81 mg tablet,chewable 81 mg PO DAILY Qty: 30 2RF amlodipine 5 mg tablet 5 mg PO DAILY Qty: 30 2RF sennosides [Senna Lax] 8.6 mg tablet 8.6 mg PO BID PRN (Reason: constipation) Qty: 30 0RF omeprazole 20 mg capsule,delayed release(DR/EC) 20 mg PO DAILY Qty: 30 2RF potassium chloride 10 mEq capsule, extended release 20 meq PO DAILY Qty: 60 2RF lorazepam 0.5 mg tablet 0.5 mg PO DAILY PRNQty: 10 0RF Continued sotalol 80 mg tablet 80 mg PO BID sertraline 50 mg tablet 50 mg PO DAILY furosemide [Lasix] 20 mg tablet 20 mg PO DAILY 3 Days Qty: 3 0RF Changed warfarin 2.5 mg tablet 2.5 mg PO DAILY Qty: 30 0RF Discontinued warfarin 2.5 mg tablet 1.25 mg PO MOWEFR lorazepam 0.5 mg tablet 0.5 mg PO DAILY PRN Discharge Orders: Discharge Order (Routine); Ordered 12/21/23 Ordered By: Gadiel Prado Additional Instructions: See discharge summary: Patient will need close follow-up of INR Patient will need close followup of chest heaviness associated with exertion. This is suspected to be angina. If getting worse will need stress testing or other cardiac evaluation. New medications started for possible coronary disease include rosuvastatin and aspirin. Also started on omeprazole for possible reflux. Activity Level: No strenuous activity, Up with assist and Use Walker Activity Detail: No strenuous activity or lifting more than 15-20 lbs for 4-6 weeks. No swimming or baths for 2 weeks after surgery. Discharge Diet: Regular Follow Up Appointments: Kay Lange DO [Primary Care Provider] - Sandoval Ortega MD [Staff Physician] - Forms: [employer] [facility] Info Instructions Discharge Comments: Follow-up in surgery Clinic at [facility] in 2 weeks. Admit to: SNF Discharge Potential: Good Length of Stay: <30 days Can use facility standing orders?: Yes Code Status: DNR/DNI Rehab Potential: Good Therapy: Physical Therapy and Occupational Therapy Therapy Orders: Evaluate and Treat Oxygen: No Urinary Catheter: No Next INR: 3days and 7 days INR Goal: 2-3 Lab Orders: INR in 3 days and 7 days, basic metabolic panel in 7 days
--- NOTE | 2023-12-21 12:58 | PM.DS1 ---
DS: Providers Provider Date Seen: 12/21/23 Date of admission: 12/13/23 11:51 Primary care physician: Kay Lange DO Admitting Clinician: Eliz Matthews MD Consults: 12/12/23 11:34 Consult to Occupational Therapy [CONS] Routine Comment: Reason(s) for OT Consult:: Evaluate and Treat Any Restrictions?:: No Restrictions Consult to Physical Therapy [CONS] Routine Comment: Reason(s) for PT Consult:: Evaluate and Treat Any Restrictions?:: No Restrictions Consult to Credit Rating Inspector [CONS] Routine Comment: Reason for Consult:: Social Service Consult 12/12/23 11:36 Consult to Respiratory Therapy [CONS] Routine Comment: Reason(s) for RT Consult:: Consult Attending Physician on discharge: Eliz Matthews MD DS: Summary Hospital Course Hospital Course: 87-year-old female admitted to the hospital with right upper quadrant abdominal pain and fever. She was subsequently diagnosed with acute cholecystitis and underwent laparoscopic cholecystectomy on December 13. She has had a slow but steady recovery from her surgery. She reports her appetite is still poor but a little better. Her pain is better controlled. She reports she still has prominent fatigue. She had some postoperative volume overload treated with diuresis. She is currently pending [facility] facility placement for additional rehab prior to returning home with her . Yesterday she reports that she has been having chest heaviness especially with exertion. She reports this has been going on even prior to her hospital admission. Is bothering her more now because she is up walking to the bathroom and more physically active. The sensation is there constantly but gets worse when she exerts herself. She has been in an out of atrial fibrillation during this hospital stay. It is not clear that her symptoms are correlating with her heart rate. She has not had cough or fever. She reports profound fatigue. She has a poor appetite but is able to eat. Due to the chest heaviness she was started on aspirin, rosuvastatin, amlodipine and omeprazole. The primary concern for her chest heaviness was angina. She did not have abnormal troponins but did have electrocardiographic changes with more obvious T-wave inversion in inferior lateral leads. Since she was clinically asymptomatic this was felt to be best addressed as an outpatient with monitoring of symptoms and outpatient stress test once she has recovered from her current surgery. Today she reports the chest heaviness has resolved and she is tolerating walking without chest heaviness or dyspnea. She still has prominent fatigue and poor appetite. No fever. Abdominal pain is minimal Status at Discharge Functional status at discharge: uses cane/walker Overall status at discharge: patient is progressing back to baseline Time Spent with Patient Time attestation: Total time spent providing and/or coordinating discharge services: Time spent: Greater than 30 minutes Exam Narrative: Exam Narrative: She is alert and appears in no distress. Respirations are clear to auscultation. Cardiovascular: S1, S2, regular rate and rhythm. No murmur gallop or rub. Abdomen: Bowel sounds active. Abdomen is soft without tenderness or mass. Extremities without edema. Const: Vital Signs, click to edit/add: Vital Signs - 24 hr 12/20/23 15:00 12/20/23 15:00 12/20/23 15:00 Temperature 97.8 F Pulse Rate Pulse Rate [Pulse Oximeter] 60 62 Respiratory Rate 18 18 18 Blood Pressure Blood Pressure [Le ft Arm] 157/72 H Blood Pressure [Ri ght Arm] Pulse Oximetry 92 92 Oxygen Delivery Me thod Room Air Room Air 12/20/23 20:15 12/20/23 22:12 12/20/23 22:18 Temperature 97.4 F L 98.7 F Pulse Rate Pulse Rate [Pulse Oximeter] 62 63 Respiratory Rate 20 22 22 Blood Pressure Blood Pressure [Le ft Arm] Blood Pressure [Ri ght Arm] 153/65 H 162/67 H Pulse Oximetry 93 90 90 Oxygen Delivery Me thod Room Air Room Air Room Air 12/21/23 04:16 12/21/23 07:00 12/21/23 07:00 Temperature Pulse Rate Pulse Rate [Pulse Oximeter] 65 62 Respiratory Rate 20 20 20 Blood Pressure Blood Pressure [Le ft Arm] Blood Pressure [Ri ght Arm] Pulse Oximetry 90 93 Oxygen Delivery Me thod CPAP Room Air 12/21/23 07:00 12/21/23 11:00 12/21/23 11:11 Temperature 98.7 F 98.4 F 98.4 F Pulse Rate 63 Pulse Rate [Pulse Oximeter] 62 63 Respiratory Rate 20 18 18 Blood Pressure 141/65 H Blood Pressure [Le ft Arm] Blood Pressure [Ri ght Arm] 169/65 H 141/65 H Pulse Oximetry 93 91 Oxygen Delivery Me thod Room Air Room Air Documenting provider has reviewed patient's vital signs: yes DS: Data Data Completed and Pending Labs on day of discharge: Labs from last 24 hours 12/21/23 12/21/23 Unknown 06:01 WBC 9.66 RBC 4.07 Hgb 10.0 L Hct 33.3 MCV 82 MCH 25 L MCHC 30 L RDW Coeff of Ebony 17.4 H Plt Count 423 Neut % (Auto) 69.5 Lymph % (Auto) 17.7 L [place] % (Auto) 6.5 Eos % (Auto) 2.7 Baso % (Auto) 0.4 Neut # (Auto) 6.71 Lymph # (Auto) 1.70 [place] # (Auto) 0.60 Eos # (Auto) 0.26 Baso # (Auto) 0.04 Abs Immat Gran (auto) 0.31 H Imm/Tot Granulo (auto) 3.2 INR 1.53 H Sodium 141 Potassium 4.1 Chloride 103 Carbon Dioxide 31 Anion Gap 7 BUN 17 Creatinine 0.7 Estimated Creat Clear 37.80 Estimated GFR 84 Glucose 100 Calcium 9.1 C-Reactive Protein 2.9 H SARS-CoV-2 (PCR) Negative SARS-CoV-2 Discharge Plan Discharge Disposition: [facility] Date of Admission: 12/13/23 11:51 Attending Provider on Discharge: Gadiel Prado Consulting Providers: Sandoval Ortega Primary Care Provider: Kay Lange Condition: Improved Anticipated Discharge Date/Time: 12/21/23 10:00 Discharge Medications: New omeprazole 20 mg Capsule,Delayed Release(Dr/Ec) 20 mg PO DAILY@0700 Qty: 30 0RF rosuvastatin 10 mg capsule, sprinkle 10 mg PO DAILY Qty: 30 2RF aspirin 81 mg tablet,chewable 81 mg PO DAILY Qty: 30 2RF amlodipine 5 mg tablet 5 mg PO DAILY Qty: 30 2RF sennosides [Senna Lax] 8.6 mg tablet 8.6 mg PO BID PRN (Reason: constipation) Qty: 30 0RF omeprazole 20 mg capsule,delayed release(DR/EC) 20 mg PO DAILY Qty: 30 2RF potassium chloride 10 mEq capsule, extended release 20 meq PO DAILY Qty: 60 2RF lorazepam 0.5 mg tablet 0.5 mg PO DAILY PRNQty: 10 0RF Continued sotalol 80 mg tablet 80 mg PO BID sertraline 50 mg tablet 50 mg PO DAILY furosemide [Lasix] 20 mg tablet 20 mg PO DAILY 3 Days Qty: 3 0RF Changed warfarin 2.5 mg tablet 2.5 mg PO DAILY Qty: 30 0RF Discontinued warfarin 2.5 mg tablet 1.25 mg PO MOWEFR lorazepam 0.5 mg tablet 0.5 mg PO DAILY PRN Discharge Orders: Discharge Order (Routine); Ordered 12/21/23 Ordered By: Gadiel Prado Additional Instructions: See discharge summary: Patient will need close follow-up of INR Patient will need close followup of chest heaviness associated with exertion. This is suspected to be angina. If getting worse will need stress testing or other cardiac evaluation. New medications started for possible coronary disease include rosuvastatin and aspirin. Also started on omeprazole for possible reflux. Activity Level: No strenuous activity, Up with assist and Use Walker Activity Detail: No strenuous activity or lifting more than 15-20 lbs for 4-6 weeks. No swimming or baths for 2 weeks after surgery. Discharge Diet: Regular Follow Up Appointments: Kay Lange DO [Primary Care Provider] - Sandoval Ortega MD [Staff Physician] - Forms: [employer] Info Instructions Discharge Comments: Follow-up in surgery Clinic at [facility] in 2 weeks. Admit to: SNF Discharge Potential: Good Length of Stay: <30 days Can use facility standing orders?: Yes Code Status: DNR/DNI Rehab Potential: Good Therapy: Physical Therapy and Occupational Therapy Therapy Orders: Evaluate and Treat Oxygen: No Urinary Catheter: No Next INR: 3days and 7 days INR Goal: 2-3 Lab Orders: INR in 3 days and 7 days, basic metabolic panel in 7 days
--- NOTE | 2023-12-22 09:47 | PC.SOCIAL ---
Social work note: Late Entry: Prior to discharge on 12/21/23, multiple attempts made to complete the PAS, but system was not working. Called [facility] and spoke with Jud who confirmed the system is down ant that they are working on it and hospital should complete the PAS when the system is working again. Per Jud, there is a process to backdate the PAS which can be done by Aging Services Staff after the PAS has been submitted late. counter supply worker continued to try to submit all day on 12/21/22 with no success. At 4:35pm, called again to [facility] and confirmed with Lisa the system is still down. Called on 12/22/23 and spoke with Julianne who conforms the system is still down and requested the names of patients being sent to nursing homes without the PAS bring completed due to this issue. counter supply worker provided names and dates as requested. Per Julianne, director of social media marketing should continue to try to complete the PAS and once able to complete it, should include on the note section at the end of the PAS an explanation of why it was completed late. counter supply worker to follow up as needed.
--- NOTE | 2023-12-24 10:37 | PC.SOCIAL ---
Discharge planning: cathead worker completed PAS for pt today, as system is now working. PAS#[id number]. Social work to follow-up as needed.
== END 2023-12-21 11:05 | DRG 417 ==
LOC: ED 08:36 → MEDSURG 11:14
PROVIDERS: Family Medicine; Internal Medicine; Nurse Anesthetist, Certified Registered; Physician Assistant; Admitting Provider Surgery; Emergency Provider Family Medicine; PCP Family Medicine; Visit Provider Family Medicine
PROC: 0FT44ZZ Resection of Gallbladder, Percutaneous Endoscopic Approach (ICD-10-PCS; CPT 47562; principal; 2023-12-13 08:30)
DX: K80.00 Calculus of gallbladder with acute cholecystitis without obstruction (principal); J96.01 Acute respiratory failure with hypoxia; J98.11 Atelectasis; I48.91 Unspecified atrial fibrillation; Z79.01 Long term (current) use of anticoagulants; Z87.891 Personal history of nicotine dependence; F41.9 Anxiety disorder, unspecified; Z95.0 Presence of cardiac pacemaker; T81.82XA Emphysema (subcutaneous) resulting from a procedure, initial encounter; E87.79 Other fluid overload; I35.1 Nonrheumatic aortic (valve) insufficiency; I27.20 Pulmonary hypertension, unspecified; R54 Age-related physical debility; R07.9 Chest pain, unspecified
CPT/HCPCS: 00790; 36415; 51701; 71046; 71250; 76705; 80048; 80053; 82248; 82803; 82977; 83605; 83690; 83735; 83880; 84145; 84484; 85025; 85027; 85379; 85610; 86140; 87040; 87070; 87081; 87449; 87631; 87635; 87899; 88304; 93005; 93306; 94640; 94664; 94761; 97110; 97116; 97161; 97165; 97530; 97535; 99100; 99140; 99285; G0378; A9270; J0131; J0330; J0665; J0696; J1170; J1940; J2371; J2405; J2543; J2704; J3010; J3430; J3490; J7050; J7120; J7626

== ENCOUNTER 2024-07-13 08:17 | Inpatient (IN) | payer MEDICARE, BC, SELFPAY ==
[2024-07-13] VITALS (36 sets, daily range): BP systolic 124–149; BP diastolic 53–79; PULSE 59–93; RESP 16–22; TEMP 36.3–36.6; O2SAT 83–96; BMI 37.1; BMI 37.9
--- NOTE | 2024-07-13 08:49 | CRLHL7_ITS ---
For Patients: As a result of the Century Cures Act, medical imaging exams and procedure reports are released immediately into your electronic medical record. You may view this report before your referring provider. If you have questions, please contact your health care provider. INDICATION: Chest discomfort COMPARISON: December 14, 2023 TECHNIQUE: Two views of the chest were acquired FINDINGS: TUBES AND LINES: Pacer normally located. HEART AND MEDIASTINUM: Heart size top normal. LUNGS AND PLEURAL SPACES: Left lower lobe airspace disease. This could be the residua of a more dense process that was present in this area on the prior study the could represent recurrent abnormality as well.The pleural spaces are unremarkable. OSSEOUS STRUCTURES: Age-appropriate appearance. No acute focal finding. IMPRESSION: 1. Left lower lobe airspace disease. The patient had an abnormality in this area December 14, 2023. However, the current appearance is improved. This could represent a chronic sequela of the prior abnormality or could represent recurrent airspace disease. 2. Top-normal size heart. 3. Pacer normally located Dictated by Lg Engle MD @ 07/13/2024 9:59:53 AM (Electronically Signed)
--- NOTE | 2024-07-13 08:53 | ED.CHESTPAIN ---
HPI - Chest Pain General Chief Complaint: Chest Pain Stated Complaint: Arms and chest aching Time Seen by Provider: 07/13/24 08:19 Source: patient Mode of arrival: wheelchair Limitations: no limitations History of Present Illness HPI narrative: Patient is an 88-year-old female history of hypertension, high cholesterol, history of pacemaker on warfarin presenting to emergency department for chest pain. She states that been going on for past week. She states she only notices it with exertion. When she has had rest she is having no symptoms. Is not having any associated shortness of breath. States she will also have discomfort in her left shoulder initially and now has radiated to both arms starting yesterday. States symptoms do not occur every single time she ambulated but she does state it is starting to take less to bring on the symptoms. Has never had symptoms like this before. No history of coronary artery disease that she is aware of. Denies fevers, chills, weakness, lightheadedness, dizziness, abdominal pain, diarrhea, constipation, dysuria. No history of blood clots. While in bed she states she feels symptom free. Related Data Home Medications ?Medication ?Instructions ?Recorded ?Confirmed sertraline 50 mg tablet 50 mg PO DAILY 05/26/23 07/13/24 sotalol 80 mg tablet 80 mg PO BID 05/26/23 07/13/24 Previous Rx's ?Medication ?Instructions ?Recorded furosemide 20 mg tablet (Lasix) 20 mg PO DAILY 3 days #3 tabs 05/26/23 amlodipine 5 mg tablet 5 mg PO DAILY #30 tabs 12/21/23 aspirin 81 mg chewable tablet 81 mg PO DAILY #30 tabs 12/21/23 lorazepam 0.5 mg tablet 0.5 mg PO DAILY PRN #10 tabs 12/21/23 omeprazole 20 mg capsule,delayed 20 mg PO DAILY #30 caps 12/21/23 release omeprazole 20 mg capsule,delayed 20 mg PO DAILY@0700 #30 caps 12/21/23 release potassium chloride 10 mEq 20 meq (2 x 10 mEq) PO DAILY #60 12/21/23 capsule,extended release caps rosuvastatin 10 mg sprinkle capsule 10 mg PO DAILY #30 caps 12/21/23 sennosides 8.6 mg tablet (Senna 8.6 mg PO BID PRN constipation #30 12/21/23 Lax) tabs warfarin 2.5 mg tablet 2.5 mg PO DAILY #30 tabs 12/21/23 Allergies Allergy/AdvReac Type Severity Reaction Status Date / Time No Known Drug Allergies Allergy Verified 07/13/24 08:38 Review of Systems Status of ROS Reports: 10 or more systems reviewed and unremarkable except as noted in History and below [facility] Medical History Chest pain ?R07.9 - Chest pain, unspecified (ICD-10) Cardiac pacemaker ?Z95.0 - Presence of cardiac pacemaker (ICD-10) Pulmonary hypertension ?I27.20 - Pulmonary hypertension, unspecified (ICD-10) Aortic regurgitation ?I35.1 - Nonrheumatic aortic (valve) insufficiency (ICD-10) Former smoker ?Z87.891 - Personal history of nicotine dependence (ICD-10) Mild anxiety ?F41.9 - Anxiety disorder, unspecified (ICD-10) Atrial fibrillation ?I48.91 - Unspecified atrial fibrillation (ICD-10) Chronic anticoagulation ?Z79.01 - [facility] (current) use of anticoagulants (ICD-10) Surgical History Status post laparoscopic cholecystectomy ?Z90.49 - Acquired absence of other specified parts of digestive tract (ICD-10) Status post biventricular cardiac pacemaker insertion ?Z95.0 - Presence of cardiac pacemaker (ICD-10) History of hysterectomy ?Z90.710 - Acquired absence of both cervix and uterus (ICD-10) Social History What is your current living situation?: I presently have a place to live Problems where you live: no known problems Problems where you live details: no known problems In the past 12 months, utilities in danger of being shut off: no In past 12 months, lack of transportation kept you from medical appts, meetings, work, or getting things needed for daily living: no In the past 12 mos, have been you worried that your food would run out before you had money to buy more?: never true In the past 12 mos, the food you bought just didn't last and you didn't have money to buy more?: never true Highest level of school completed/degree received: some college, no degree Smoking Status: Never smoker Do you use any of these nicotine containing products: None How often do you have a drink containing alcohol: never How often do you have six or more drinks on one occasion: Less than monthly AUDIT-C Alcohol total score: 1 Non-prescribed substance use: denies use Caffeine: Yes How often does anyone, including family, friends and others, physically hurt you: never How often does anyone, including family, friends and others, insult or talk down to you: never How often does anyone, including family, friends and others, threaten you with harm: never How often does anyone, including family, friends and others, scream or curse at you: never service: No Exam Narrative Exam Narrative: Const: Well-nourished, Well-developed, in no distress Eyes: PERRL, no conjunctival injection, and symmetrical lids HENT: Atraumatic external nose and ears. Moist mucous membranes. Neck: Symmetric, trachea midline, No thyromegaly. CVS: RRR, No murmurs or gallops. Peripheral pulses 2+ and equal in all extremities RESP: Unlabored respiratory effort. Clear to auscultation bilaterally. GI: Nontender/Nondistended, No rebound or guarding. MSK:Extremities w/o deformity, Normal Active ROM Skin: Warm, Dry. No rashes or lesions. Neuro: Normal Muscle tone, No focal neurological deficits. Psych: Awake, Alert, & Oriented x3. Appropriate mood and affect. Const Vital Signs, click to edit/add: Vital Signs - 24 hr 07/13/24 08:19 07/13/24 08:28 07/13/24 08:29 Temperature 97.8 F Pulse Rate 61 61 Pulse Rate [Pulse Oximeter] 62 Respiratory Rate 16 Blood Pressure 144/61 H Blood Pressure [Left Upper Arm] 144/61 H Pulse Oximetry 95 96 96 Oxygen Delivery Method Room Air 07/13/24 08:31 07/13/24 08:32 07/13/24 08:45 Temperature Pulse Rate 62 60 63 Pulse Rate [Pulse Oximeter] Respiratory Rate 16 Blood Pressure 144/62 H Blood Pressure [Left Upper Arm] Pulse Oximetry 93 96 95 Oxygen Delivery Method 07/13/24 09:00 07/13/24 09:01 07/13/24 09:15 Temperature Pulse Rate 60 60 60 Pulse Rate [Pulse Oximeter] Respiratory Rate Blood Pressure 141/62 H Blood Pressure [Left Upper Arm] Pulse Oximetry 93 94 94 Oxygen Delivery Method 07/13/24 09:30 07/13/24 09:31 07/13/24 09:32 Temperature Pulse Rate 60 60 60 Pulse Rate [Pulse Oximeter] Respiratory Rate Blood Pressure 136/79 Blood Pressure [Left Upper Arm] Pulse Oximetry 93 94 94 Oxygen Delivery Method 07/13/24 09:51 07/13/24 10:00 07/13/24 10:02 Temperature Pulse Rate 68 60 63 Pulse Rate [Pulse Oximeter] Respiratory Rate Blood Pressure 133/57 L Blood Pressure [Left Upper Arm] Pulse Oximetry 88 96 95 Oxygen Delivery Method 07/13/24 10:15 07/13/24 10:30 07/13/24 10:31 Temperature Pulse Rate 60 65 61 Pulse Rate [Pulse Oximeter] Respiratory Rate Blood Pressure 126/57 L Blood Pressure [Left Upper Arm] Pulse Oximetry 94 94 93 Oxygen Delivery Method 07/13/24 10:31 07/13/24 10:31 07/13/24 10:45 Temperature Pulse Rate 61 61 63 Pulse Rate [Pulse Oximeter] Respiratory Rate Blood Pressure 126/57 L 126/57 L Blood Pressure [Left Upper Arm] Pulse Oximetry 93 93 92 Oxygen Delivery Method 07/13/24 11:00 07/13/24 11:01 07/13/24 11:15 Temperature Pulse Rate 60 61 60 Pulse Rate [Pulse Oximeter] Respiratory Rate Blood Pressure 141/69 H Blood Pressure [Left Upper Arm] Pulse Oximetry 94 93 92 Oxygen Delivery Method 07/13/24 11:30 07/13/24 12:01 07/13/24 12:31 Temperature Pulse Rate 60 Pulse Rate [Pulse Oximeter] Respiratory Rate Blood Pressure 140/55 H 149/68 H Blood Pressure [Left Upper Arm] Pulse Oximetry 93 Oxygen Delivery Method 07/13/24 12:43 07/13/24 12:45 07/13/24 12:45 Temperature Pulse Rate 93 65 Pulse Rate [Pulse Oximeter] Respiratory Rate 22 Blood Pressure Blood Pressure [Left Upper Arm] Pulse Oximetry 83 L 93 84 L Oxygen Delivery Method Room Air 07/13/24 13:00 07/13/24 13:01 07/13/24 13:12 Temperature Pulse Rate 60 60 60 Pulse Rate [Pulse Oximeter] Respiratory Rate Blood Pressure 144/69 H 124/53 L Blood Pressure [Left Upper Arm] Pulse Oximetry 94 94 92 Oxygen Delivery Method 07/13/24 13:15 07/13/24 14:40 Temperature Pulse Rate 60 Pulse Rate [Pulse Oximeter] Respiratory Rate Blood Pressure Blood Pressure [Left Upper Arm] Pulse Oximetry 93 86 L Oxygen Delivery Method Course Vital Signs Vital signs: Initial Vital Signs Temperature 97.8 F 07/13/24 08:19 Temperature Source Temporal Artery Scan 07/13/24 08:19 Pulse Rate 62 07/13/24 08:19 Respiratory Rate 16 07/13/24 08:19 Respiratory Effort Normal, Spontaneous, Non-Labored 07/13/24 08:19 Respiratory Depth Normal 07/13/24 08:19 Blood Pressure 144/61 H 07/13/24 08:19 Blood Pressure Mean 88 07/13/24 08:19 Blood Pressure Position Sitting 07/13/24 08:19 Pulse Oximetry 95 07/13/24 08:19 Oxygen Delivery Method Room Air 07/13/24 08:19 Vital Signs Temperature 97.8 F 07/13/24 08:19 Pulse Rate 62 07/13/24 08:19 Respiratory Rate 16 07/13/24 08:19 Blood Pressure 144/61 H 07/13/24 08:19 Pulse Oximetry 95 07/13/24 08:19 Oxygen Delivery Method Room Air 07/13/24 08:19 Temperature 97.8 F 07/13/24 08:19 Pulse Rate 60 07/13/24 13:15 Respiratory Rate 22 07/13/24 12:45 Blood Pressure 124/53 L 07/13/24 13:12 Pulse Oximetry 86 L 07/13/24 14:40 Oxygen Delivery Method Room Air 07/13/24 12:45 MDM - Chest Pain MDM Narrative Medical decision making narrative: Patient is an 88-year-old female presenting for chest pain. The differential diagnosis of chest pain is broad and includes common etiologies such as musculoskeletal strain, GERD, pneumonia, etc. More serious etiologies considered include PE, coronary artery disease, pneumothorax, aortic dissection, aortic aneurysm. Considering her symptoms a stable angina seems very likely. Will do a CBC, BMP, COVID/flu/RSV, BNP, troponin, EKG. Will check her INR. Of note she did have an echocardiogram 12/13/2023 that showed hyperdynamic global systolic function with any EF of 70-75%, moderately enlarged left atrium, moderate tricuspid regurgitation mildly increased pulmonary pressures. EKG shows no concerning findings. Chest x-ray reviewed by myself and the radiologist shows no obviously acute issues. There is some abnormality in the left lower low level seen on a previous chest x-ray which is improved the cannot say if this is a chronic issue or a recurrent airspace disease. Patient then had 2 separate episodes where she became very short of breath walking just a few feet to the bathroom next door to her room. She then became hypoxic in the 80s and recovered after resting in bed. Due to this a CT was ordered. D-dimer within normal limits and CTA not necessary. CT reviewed by myself and the radiologist shows mild interstitial ground-glass opacities of the lung bases that are likely infectious versus inflammatory. There is also right upper lobe nodule that should have follow-up in 6 months. Due to these hypoxic episodes in my continue concerned that she could have cardiac issues causing the symptoms patient will be admitted to the hospitalist service. Federicoan ordered for tomorrow. Lab Data Labs: Lab Results 07/13/24 07/13/24 07/13/24 Range/Units 09:30 09:46 11:32 WBC 9.95 (4.50-11.00) K/uL RBC 4.79 (4.00-5.20) m/uL Hgb 10.2 L (12.0-16.0) gm/dL Hct 35.1 (33.0-51.0) % MCV 73 L (80-100) fL MCH 21 L (26-34) pg MCHC 29 L (32-36) gm/dL RDW Coeff of Ebony 19.8 H (11.5-15.5) % Plt Count 359 (140-440) K/uL Neut % (Auto) 80.4 H (42.0-72.0) % Lymph % (Auto) 13.3 L (20-44) % [place] % (Auto) 4.0 (0.0-11.0) % Eos % (Auto) 1.7 (0.0-7.0) % Baso % (Auto) 0.4 (0.0-3.0) % Neut # (Auto) 8.00 H (1.7-7.0) K/uL Lymph # (Auto) 1.30 (0.90-2.90) K/uL [place] # (Auto) 0.40 (0.00-0.90) K/UL Eos # (Auto) 0.17 (0.00-0.50) K/uL Baso # (Auto) 0.04 (0.00-0.30) K/uL Abs Immat Gran (auto) 0.02 (0.00-0.30) K/uL Imm/Tot Granulo (auto) 0.2 % Diff Slide Review Acceptable Review (Acceptable) INR 2.01 H (0.91-1.10) D-Dimer Quant (PE/DVT) < 0.27 (0.00-0.50) ug/ml Sodium 138 (135-149) mmol/L Potassium 4.3 (3.6-5.1) mmol/L Chloride 106 (96-114) mmol/L Carbon Dioxide 29 (20-32) mmol/L Anion Gap 3 L (7-15) mEq/L BUN 14 (7-30) mg/dL Creatinine 0.6 (0.5-1.5) mg/dL Estimated Creat Clear 37.10 Estimated GFR 87 ml/min Glucose 97 (60-115) mg/dL Calcium 9.2 (8.4-10.6) mg/dL Troponin I < 0.01 L < 0.01 L (0.01-0.04) ng/mL NT-Pro-B Natriuret Pep 518 pg/mL Urine Color Yellow (Yellow) Urine Appearance Clear (Clear) Urine pH 7.5 (5.0-8.5) Ur Specific [place] 1.015 (1.000-1.030) Urine Protein Negative (Negative) Urine Glucose (UA) Negative (Negative) Urine Ketones Negative (Negative) Urine Blood Negative (Negative) Urine Nitrite Negative (Negative) Urine Bilirubin Negative (Negative) Urine Urobilinogen 0.2 (0.2-1.0) Ur Leukocyte Esterase Negative (Negative) Urine RBC 0-2 (0-2) Urine WBC 0-2 (0-5) Ur Squamous Epith Cells Few (None-Few) Urine Bacteria None (None) SARS-CoV-2 (PCR) Negative SARS-CoV-2 (Negative) Influenza Type A (PCR) Negative PCR FLU A (Negative) Influenza Type B (PCR) Negative PCR FLU B (Negative) RSV (PCR) Negative PCR RSV (Negative) Lab Acknowledgement 07/13/24 Range/Units 13:53 WBC (4.50-11.00) K/uL RBC (4.00-5.20) m/uL Hgb (12.0-16.0) gm/dL Hct (33.0-51.0) % MCV (80-100) fL MCH (26-34) pg MCHC (32-36) gm/dL RDW Coeff of Ebony (11.5-15.5) % Plt Count (140-440) K/uL Neut % (Auto) (42.0-72.0) % Lymph % (Auto) (20-44) % [place] % (Auto) (0.0-11.0) % Eos % (Auto) (0.0-7.0) % Baso % (Auto) (0.0-3.0) % Neut # (Auto) (1.7-7.0) K/uL Lymph # (Auto) (0.90-2.90) K/uL [place] # (Auto) (0.00-0.90) K/UL Eos # (Auto) (0.00-0.50) K/uL Baso # (Auto) (0.00-0.30) K/uL Abs Immat Gran (auto) (0.00-0.30) K/uL Imm/Tot Granulo (auto) % Diff Slide Review (Acceptable) INR (0.91-1.10) D-Dimer Quant (PE/DVT) (0.00-0.50) ug/ml Sodium (135-149) mmol/L Potassium (3.6-5.1) mmol/L Chloride (96-114) mmol/L Carbon Dioxide (20-32) mmol/L Anion Gap (7-15) mEq/L BUN (7-30) mg/dL Creatinine (0.5-1.5) mg/dL Estimated Creat Clear Estimated GFR ml/min Glucose (60-115) mg/dL Calcium (8.4-10.6) mg/dL Troponin I (0.01-0.04) ng/mL NT-Pro-B Natriuret Pep pg/mL Urine Color (Yellow) Urine Appearance (Clear) Urine pH (5.0-8.5) Ur Specific [place] (1.000-1.030) Urine Protein (Negative) Urine Glucose (UA) (Negative) Urine Ketones (Negative) Urine Blood (Negative) Urine Nitrite (Negative) Urine Bilirubin (Negative) Urine Urobilinogen (0.2-1.0) Ur Leukocyte Esterase (Negative) Urine RBC (0-2) Urine WBC (0-5) Ur Squamous Epith Cells (None-Few) Urine Bacteria (None) SARS-CoV-2 (PCR) (Negative) Influenza Type A (PCR) (Negative) Influenza Type B (PCR) (Negative) RSV (PCR) (Negative) Lab Acknowledgement Test Added Imaging Data Chest x-ray: Attestation: I have reviewed the pertinent imaging results. Radiologist's impression: 1. Left lower lobe airspace disease. The patient had an abnormality in this area December 14, 2023. However, the current appearance is improved. This could represent a chronic sequela of the prior abnormality or could represent recurrent airspace disease. 2. Top-normal size heart. 3. Pacer normally located Dictated by Lg Engle MD @ 07/13/2024 9:59:53 AM CTA chest: Attestation: I have reviewed the pertinent imaging results. Radiologist's impression: 1. Mild interstitial and ground-glass opacities at the lung bases are likely infectious or inflammatory. 2. Right upper lobe 4 mm nodule has become more solid in appearance. Follow-up chest CT in 6 months is recommended for further evaluation. Dictated by Tunde Ross MD @ 07/13/2024 3:12:50 PM Please note that all CT scans at this facility use dose modulation, iterative reconstruction, and/or weight-based dosing when appropriate to reduce radiation dose to as low as reasonably achievable. Dictated by: Tunde Ross MD @ 07/13/2024 15:13:08 ECG Data Attestation: I personally reviewed and interpreted this ECG as follows: Prior ECG tracings: available for review Interpretation: Atrial paced rhythm with a rate of 61 beats per minute, incomplete right bundle-branch block, normal intervals, normal axis, no ST or T-wave abnormalities. Appears similar previous EKG on file Discharge Plan Discharge Clinical Impression: Hypoxia Chest pain Qualifiers: Chest pain type: unspecified Qualified Code(s): R07.9 - Chest pain, unspecified Patient Disposition: Admitted As Observation Condition: Stable
--- OUTSIDE RECORDS SUMMARY | 2024-07-13 08:59 | XMS_ITS | Clinical Summary ---
Author Organization [facility] Address [place], [place] [address] Care Team Providers Care Knife Cutter Name Role Phone Kay Lange Primary Care Provider Conrado Grigsby MD Unavailable Olman Milner Unavailable [phone] Allergies Active Allergy Reactions Criticality Noted Date Comments Diphenhydramine Other - Describe In Comment Field 01/25/2019 increase in heart palpitations Medications Medication Sig Dispensed Refills Start Date End Date Status CALCIUM 600 + D(3) 600 MG (1,500)-200 UNIT TAB twice daily 0 09/25/2009 Active cholecalciferol (VITAMIN D) 1,000 unit capsule Take 1 capsule by mouth once daily. 0 09/03/2010 Active Blood Pressure MonitorIndication s:Hypertension Hypertension dx. 1 Device 0 11/07/2013 Active acetaminophen (TYLENOL EXTRA STRGTH) 500 mg tablet Take 1-2 tablets by mouth 3 times daily. Max acetaminophen dose: 4000mg in 24 hrs. 0 12/01/2016 Active nitroglycerin (NITROSTAT) 0.4 mg sublingual tabletIndications :Abnormal nuclear stress test ONE TABLET UNDER TONGUE NEEDED FOR CHEST PAIN EVERY 5 MINUTES 25 Tablet 3 10/22/2021 Active CPAPIndications:O SA (obstructive sleep apnea) CPAP machine for home use at pressure 10cm/H2O-- starting pressure at 5cm/H2O with ramp of 15 minutes, nasal mask x1/3month with nasal pillows x 2/mo 1 Each 11 11/18/2022 Active nystatin powder (MYCOSTATIN) powderIndications :Yeast dermatitis Apply 1 Strip topically to affected area(s) three times daily. 60 g 3 05/13/2023 Active sotaloL (BETAPACE) 80 mg tabletIndications :Paroxysmal atrial fibrillation (HC) Take 1 Tablet (80 mg) by mouth every 12 hours. 180 Tablet 3 06/26/2023 Active amLODIPine (NORVASC) 5 mg tabletIndications :Hypertension Take 1 Tablet (5 mg) by mouth once daily. 90 Tablet 2 06/20/2024 Active furosemide (LASIX) 20 mg tabletIndications :Systolic congestive heart failure, NYHA class 1, unspecified congestive heart failure chronicity (HC) Take 1 Tablet (20 mg) by mouth once daily in the morning. 90 Tablet 3 06/20/2024 Active LORazepam (ATIVAN) 0.5 mg tabIndications:An xiety TAKE ONE-HALF TO 1 TABLET BY MOUTH NEEDED FOR ANXIETY 30 Tablet 06/20/2024 Active potassium chloride (MICRO-K) 10 mEq Controlled-releas e capsuleIndication s:Hypertension,Sy stolic congestive heart failure, NYHA class 1, unspecified congestive heart failure chronicity (HC) Take 2 Capsules (20 mEq) by mouth two times daily with meals. 180 Capsule 2 06/20/2024 Active sertraline (ZOLOFT) 50 mg tabletIndications :Anxiety Take 1 Tablet (50 mg) by mouth once daily in the morning. 90 Tablet 1 06/20/2024 Active rosuvastatin (CRESTOR) 10 mg tabletIndications :Systolic congestive heart failure, NYHA class 1, unspecified congestive heart failure chronicity (HC) Take 10 mg by mouth once daily. 90 Tablet 3 06/20/2024 Active warfarin (COUMADIN) 2.5 mg tabletIndications :Paroxysmal atrial fibrillation (HC),Chronic anticoagulation,A nticoagulation monitoring, INR range 2-3 Take by mouth 2.5 mg (2.5 mg x 1) every Mon, [place]; 1.25 mg (2.5 mg x 0.5) all other days in the evening OR as directed 60 Tablet 06/21/2024 Active amLODIPine (NORVASC) 5 mg tabletIndications :Hypertension Take 1 Tablet (5 mg) by mouth once daily. 90 Tablet 2 02/01/2024 06/20/20 24 Discontinu ed(Reorder (E-cancel not sent)) furosemide (LASIX) 20 mg tabletIndications :Systolic congestive heart failure, NYHA class 1, unspecified congestive heart failure chronicity (HC) Take 1 Tablet (20 mg) by mouth every morning. 90 Tablet 2 02/01/2024 06/20/20 24 Discontinu ed(Reorder (E-cancel not sent)) potassium chloride (MICRO-K) 10 mEq Controlled-releas e capsuleIndication s:Hypertension,Sy stolic congestive heart failure, NYHA class 1, unspecified congestive heart failure chronicity (HC) Take 2 Capsules (20 mEq) by mouth two times daily with meals. 180 Capsule 2 02/01/2024 06/20/20 24 Discontinu ed(Reorder (E-cancel not sent)) LORazepam (ATIVAN) 0.5 mg tabIndications:An xiety TAKE ONE-HALF TO 1 TABLET BY MOUTH NEEDED FOR ANXIETY 30 Tablet 02/01/2024 06/20/20 24 Discontinu ed(Reorder (E-cancel not sent)) rosuvastatin (CRESTOR) 10 mg tablet Take 10 mg by mouth once daily. 02/29/2024 06/20/20 24 Discontinu ed(Reorder (E-cancel not sent)) warfarin (COUMADIN) 2.5 mg tabletIndications :Paroxysmal atrial fibrillation (HC),Chronic anticoagulation,A nticoagulation monitoring, INR range 2-3 Take by mouth 2.5 mg (2.5 mg x 1) every Mon, [place]; 1.25 mg (2.5 mg x 0.5) all other days in the evening OR as directed 03/14/2024 06/21/20 24 Discontinu ed(Reorder (E-cancel not sent)) sertraline (ZOLOFT) 50 mg tabletIndications :Anxiety Take 1 Tablet (50 mg) by mouth once daily in the morning. 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 Normal left ventricular ejection fraction of approximately 65 percent. Chronic anticoagulation 04/03/2014 CHF (congestive heart failure), NYHA class I Last Assessment & Plan: stable today during visit. Kay Lange D.O. 05/18/2023 6:11 AM PVC (premature ventricular contraction) 09/02/20 12 PAC (premature atrial contraction) 09/02/2012 Obesity, unspecified 05/30/2011 Hypertension 09/25/2009 Tachycardia 09/25/2009 Other ill-defined and unknow n causes of [...] Encounters Date Type Department Care Team Description 07/13/2024 Nurse Triage [facility] [address] [place] [address] Kay LangeDO Chest Pain 07/06/2024 Telephone [facility] [address] [facility] [place] [address] Kay Lange DO Anticoagulation (Annual re-enrollment ) 06/21/2024 Telephone [facility] [address] [facility] [address] Kay Lange DO Medication Management (warfarin (COUMADIN)); Refill Request (warfarin) 06/21/2024 Anticoagulation (warfarin) [facility] [address] [facility] [place] [address] 1, [facility] Anticoagulation 06/20/2024 2:15 PM CDT Office Visit [address] [place] [address] Kay Lange DO Medicare ANNUAL (subsequent) Visit (88 Year Old/) 06/20/2024 Travel 06/14/2024 2:00 PM CDT Orders Only [address] [address] Lab, [facility] 06/14/2024 Anticoagulation (warfarin) [facility] [address] [place] [address] 1, [facility] Anticoagulation 06/14/2024 Travel 05/26/[address] [place] [address] Kay Lange DO Refill Request (Sertraline) 04/18/2024 7:45 AM CDT Orders Only [address] [address] Lab, [facility] 04/18/2024 Anticoagulation (warfarin) [address] [address] 1, [facility] Anticoagulation 04/18/2024 Travel from Last 3 Months Immunizations Name Administration Dates Next Due COVID-19 vaccine (Pfizer-Bio NTech 30mcg/0.3mL) 12YO+ BIVALENT PF, MDV 08/18/2022 COVID-19 vaccine (Pfizer-Bio NTech 30mcg/0.3mL) 12YO+ CECILIA-SUCROSE PF, MDV 03/24/2022 Influenza A (H1N1), Inactiva tsering (Age >=3 Years) 12/04/2009 Influenza Virus, Unspecified 09/08/2018 Influenza, High-dose Inactivated 019,09/08/2018,09/09/2016,09/17 Influenza, High-dose Quadriv alent Inactivated 09/05/2020 Influenza, IIV3 (Age >=3 years) 09/21/20 14,11/04/2013,10/19/2010,08/24,08/31/2008,09/21/2006 Influenza, Inactivated AIIV4 (Age 65+ Years) Preserv Free 08/27/2023,08/18/2022,09/23/2021 Pneumococcal Poly,23-Valent (Pneumovax) 11/15/2018,08/30/1997,09/24/1995 Pneumococcal conj 13-Valent (Prevnar 13) 04/27/2015 RSV, Recombinant ADJ Reconst ituted (Arexvy 120MCG/0.5mL) 10/08/2023 Td (Age >=7 Years) 08/03/1996 Td, Preservative Free (age >= 7 Years) 9 Zoster (Shingrix-RZV, recombinant) 08/29/2019, Zoster (Zostavax-ZVL, live) [...] PHQ-2 Answer Date Recorded PHQ-2 TOTAL SCORE 2 06/20/2024 Social Connections Answer Date Recorded Frequency of Communication with Friends and Fami ly 0 02/01/2024 Financial Resource Strain Answer Date R ecorded Difficulty of Paying Living Expenses 3 02/01/2024 Difficulty of Paying Living Expenses Not on file 02/01/2024 Food Insecurity Answer Date Recorded Worried About Running Out of Food in the Last Ye ar 1 02/01/2024 Transportation Needs Answer Date Record ed Lack of Transportation (Medical) 1 02/01/2024 Housing Stability Answer Date Recorded Unable to Pay for Housing in the Last Year 1 02/01/2024 Sex and Gender Information Value Date Recorded Sex Assigned at Not on file Gender Identity Not on file Sexual Orientation Not on file Obstetrics History Last Filed Vital Signs Vital Sign Reading Time Taken Comments Blood Pressure 115/75 06/20/2024 2:07 PM CDT Pulse 72 06/20/2024 2:07 PM CDT Temperature 36.4 ??C (97.6 ??F) 05/09/2022 2:28 PM CD T Respiratory Rate 16 08/24/2019 7:15 AM CDT Oxygen Saturation 95% 06/20/2024 2:07 PM CDT Inhaled Oxygen Concentration - - Weight 105.7 kg (233 lb) 06/20/2024 2:07 PM CDT Height 166.6 cm (5' 5.59) 06/20/2024 2:07 PM CD T Body Mass Index 38.08 06/20/2024 2:07 PM CDT Plan of Treatment Upcoming Encounters Date Type Department Care Team (Late st Contact Info) Description 07/27/2024 1:45 PM CDT Office Visit [facility] [address] [place] [address] Gaby Ingram, DO [address] [place] [address] 11/08/2024 1:00 PM 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 [place] [facility] [address] [place] [phone] Health Maintenance Due Date Last Done Comments Tdap 1946 Tetanus booster 03/07/2019 03/07/2009, 08/03/1996 COVID-19 vaccine series ( season) 2024 10/08/2023, 08/18/2022, 03/24/2022, Additional history exists Influenza for age 65+ 07/31/2024 08/27/2023 , 08/18/2022, 09/23/2021, Additional history exists BMI (ht and wt on same day) for age 18+ 06/20/2025 06/20/2024, 06/17/2023, 05/13/2023, Additional history exists Depression screening for age 12+ 06/21/2025 06/21/2024, 06/21/2024, 06/20/2024, Additional history exists Medicare Wellness for age 65+ 06/21/2025, 05/13/2023, 05/09/2022, Additional history exists DEXA/DXA scan for age 65+ Completed 05/03/2015, Pneumococcal series for age 65+ Completed 11/15/2018, 04/27/2015, 08/30/1997, Additional history exists Zoster (shingles) series for age 50+ Completed 08/29/2019, 06/23/2019, 12/03/2011 Procedures Procedure Name Priority Date/Time Associated Diagnosis Comments BASIC METABOLIC PANEL Routine 06/20/2024 3:27 PM CDT Hypertension, unspecified type LIPID PANEL W REFLEX MEASURED LDL Routine 06/20/2024 3:27 PM CDT Lipid screening PROTIME-INR STAT 06/20/2024 3:27 PM CDT Paroxysmal atrial fibrillation (HC) Anticoagulation monitoring, INR range 2-3 INR,POCT Routine 06/14/2024 4:26 PM CDT Paroxysmal atrial fibrillation (HC) Anticoagulation monitoring, INR range 2-3 INR,POCT Routine 04/18/2024 8:00 AM CDT Paroxysmal atrial fibrillation (HC) Anticoagulation monitoring, INR range 2-3 XR DXA BONE DENSITY 2 SITES AXIAL Routine 05/03/2015 11:12 AM CDT Post-menopausal from Last 3 Months or Most Recently Relevant to Health Maintenance Results * (ABNORMAL) LIPID PANEL W REFLEX MEASURED LDL (06/20/2024 3:27 PM CDT) CHOLESTEROL,TOTAL 233(H) 100 - 199 mg/dL 06/21/2024 7:14 AM CDT [facility] Comment: Cholesterol, Total Reference Ranges Desirable <200 mg/dL Borderline 200-239 mg/dL High >=240 mg/dL TRIGLYCERIDES 114 <150 mg/dL 06/21/2024 7:14 AM CDT [facility] HDL CHOLESTEROL 69 >40 mg/dL 7:14 AM CDT [facility] NON-HDL CHOLESTEROL 164(H) <145 mg/dl 06/21/2024 7:14 AM CDT [facility] CHOL/HDL RATIO 3.38 <4.50 06/21/2024 7:14 AM CDT [facility] LDL CHOLESTEROL 141(H) <=130 mg/dL 06/21/2024 7:14 AM CDT [facility] VLDL CHOLESTEROL 23 <=30 mg/dL 06/21/2024 7:14 AM CDT [facility] PROVIDER ORDERED STATUS RANDOM 06/21/2024 7:14 AM CDT [facility] Blood BLOOD SPECIMEN / Unknown Venipuncture / Unknown 06/20/2024 3:27 PM CDT 06/20/2024 3:27 PM CDT Kay Lange DO CHEMISTRY [facility] [address] [place] [id number], * (ABNORMAL) PROTIME-INR (06/20/2024 3:27 PM CDT) INR 1.7(H) <1.3 06/20/2024 9:52 PM CDT [facility] PROTIME 18.5(H) 10.3 - 12.3 sec 06/20/2024 9:52 PM CDT [facility] Blood BLOOD SPECIMEN / Unknown Venipuncture / Unknown 06/20/2024 3:27 PM CDT 06/20/2024 3:27 PM CDT [facility] - 06/20/2024 9:52 PM CDT ?Therapeutic Range 2.0-3.0 for most anticoagulated patients 2.5-3.5 or 4.0 for high risk patients The INR is only used for patients on stable oral anticoagulant therapy. It makes no significant contribution to the diagnosis or treatment of patients whose Protime is prolonged for other reasons. INR results are increased when heparin levels exceed 1.0 U/mL, which corresponds to an aPTT >125 seconds if the patient is on UFH. Kay Lange DO HEMATOLOGY [facility] [address] [place] [address], * (ABNORMAL) BASIC METABOLIC PANEL (06/20/2024 3:27 PM CDT) SODIUM 139 136 - 145 mmol/L 06/21/2024 7:14 AM CDT [facility] POTASSIUM 4.5 3.5 - 5.1 mmol/L 06/21/2024 7:14 AM T [facility] CHLORIDE 104 98 - 107 mmol/L 06/21/2024 7:14 AM T [facility] CO2,TOTAL 24 22 - 29 mmol/L 06/21/2024 7:14 AM [facility] ANION GAP 11 5 - 18 06/21/2024 7:14 AM T [facility] GLUCOSE 104(H) 70 - 99 mg/dL 06/21/2024 7:14 AM T [facility] CALCIUM 9.4 8.8 - 10.2 mg/dL 06/21/2024 7:14 AM T [facility] BUN 14 8 - 23 mg/dL 06/21/2024 7:14 AM T [facility] CREATININE 0.93(H) 0.50 - 0.90 mg/dL 06/21/2024 7:14 AM T [facility] BUN/CREAT RATIO 15 10 - 20 7:14 AM CDT [facility] eGFR 60(L) >90 mL/min/1.7 3m2 06/21/2024 7:14 AM CDT [facility] Comment:As of 2022, eG FR is calculated by the CKD-EPI creatinine equation without race adjustment. ??eGFR can be influenced by muscle mass, exercise, and diet. ??The reported eGFR is an estimation only and is only applicable if the renal function is stable. Blood BLOOD SPECIMEN / Unknown Venipuncture / Unknown 06/20/2024 3:27 PM CDT 06/20/2024 3:27 PM CDT Kay Lange DO CHEMISTRY Performing Organization Address City/[facility]/ZIP Co de Phone Number [facility] [address] [place] [address], [place] * (ABNORMAL) INR,POCT (06/14/2024 4:26 PM CDT) Only the most recent of2 resultswithin the time period is included. INR 1.8(H) <1.3 06/14/2024 4:27 PM CDT [facility] Blood BLOOD SPECIMEN / Unknown Capillary / Unknown 06/14/2024 4:26 PM CDT 06/14/2024 4:27 PM CDT Narrative [facility] - 06/14/2024 4:27 PM CDT ?Therapeutic Range 2.0-3.0 for most anticoagulated patients 2.5-3.5 or 4.0 for high risk patients Kay Lange DO LABORATORY [facility] [address] [place] [address], [place] [phone] * (ABNORMAL) XR DXA BONE DENSITY 2 SITES (05/03/2015 11:12 AM CDT) Anatomical Region Laterality Modality Spine, HIPS, HIPL, HIPR Other Narrative 05/04/2015 12:22 PM CDT Please see scanned document for results of this study. Procedure Note Annia Joseph Rashaun - 05/04/2015 Please see scanned document for results of this study. Kay Lange DO DEXA from Last 3 Months or Most Recently Relevant to Health Maintenance Advance Directives Documents on File Type Date Recorded Patient Fast Brim Pouncer Expl anation Healthcare Directive 08/06/2016 8:29 PM 06/2016 * Full Code (Latest Code Status on File) Date Activated Date Inactivated Comments 08/23/2019 9:27 AM 08/24/2019 1:45 PM * Full Code Date Activated Date Inactivated Comments 08/07/2017 6:41 AM 08/07/2017 9:30 PM * Full Code Date Activated Date Inactivated Comments 10/16/2010 9:15 AM 10/17/2010 1:01 PM * Full Code Date Activated Date Inactivated Comments 08/15/2009 8:56 AM 08/15/2009 8:58 PM Care Teams Knife Cutter Relationship Specialty Start Date End Date Kay Lange DO PCP - General 09/25/09 Conrado Grigsby MD [address] [place] [id number] Cardiovascular Disease 04/27/15 Olman Milner [address] [place] [id number] Linking Machine Operator 04/27/15
[2024-07-13 09:38] LABS: Basophils Absolute Auto 0.04 K/uL (0.00-0.30); Basophils Percent Auto 0.4 % (0.0-3.0); Eosinophils Absolute Auto 0.17 K/uL (0.00-0.50); Eosinophils Percent Auto 1.7 % (0.0-7.0); Hematocrit 35.1 % (33.0-51.0); Hemoglobin* 10.2 gm/dL (12.0-16.0); Immature Granulocytes Abs Auto 0.02 K/uL (0.00-0.30); Immature Granulocytes Pct Auto 0.2 %; Lymphocytes Percent Auto 13.3 % (20-44); Mean Corpuscular HGB Conc 29 gm/dL (32-36); Mean Corpuscular Hemoglobin 21 pg (26-34); Mean Corpuscular Volume 73 fL (80-100); Neutrophils Percent Auto 80.4 % (42.0-72.0); Platelet Count* 359 K/uL (140-440); RDW Coefficient of Variation % 19.8 % (11.5-15.5); Red Blood Count 4.79 m/uL (4.00-5.20); White Blood Count* 9.95 K/uL (4.50-11.00)
[2024-07-13 09:41] LABS: Slide Review Reflex Yes
[2024-07-13 09:52] LABS: Chloride* 106 mmol/L (96-114); Potassium* 4.3 mmol/L (3.6-5.1); Sodium* 138 mmol/L (135-149)
[2024-07-13 09:54] LABS: INR 2.01 (0.91-1.10); Prothrombin Time 24.3 Seconds
[2024-07-13 09:55] LABS: Anion Gap 3 mEq/L (7-15); Blood Urea Nitrogen* 14 mg/dL (7-30); Calcium* 9.2 mg/dL (8.4-10.6); Carbon Dioxide* 29 mmol/L (20-32); Creatinine* 0.6 mg/dL (0.5-1.5); Estimated Glomerular Filt Rate 87 ml/min; Glucose* 97 mg/dL (60-115)
[2024-07-13 10:03] LABS: Appearance Urine Clear (Clear); Bilirubin Urine Negative (Negative); Blood Urine Negative (Negative); Color Urine Yellow (Yellow); Glucose Urine Negative (Negative); Ketones Urine Negative (Negative); Leukocyte Esterase Urine Negative (Negative); Nitrite Urine Negative (Negative); Protein Urine Negative (Negative); Specific Gravity Urine 1.015 (1.000-1.030); Urobilinogen Urine 0.2 (0.2-1.0); pH Urine 7.5 (5.0-8.5)
[2024-07-13 10:05] LABS: NT Pro B Type NatriureticPept* 518 pg/mL
[2024-07-13 10:12] LABS: PCR FLU A Negative PCR FLU A (Negative); PCR FLU B Negative PCR FLU B (Negative); PCR RSV Negative PCR RSV (Negative); SARS PCR* Negative SARS-CoV-2 (Negative)
[2024-07-13 10:17] LABS: Troponin I* < 0.01 ng/mL (0.01-0.04)
[2024-07-13 10:19] LABS: Slide Review Acceptable Review (Acceptable)
[2024-07-13 10:27] LABS: RBC Urine 0-2 (0-2); Squamous Epithelial Cell Urine Few (None-Few); WBC Urine 0-2 (0-5)
[2024-07-13 12:21] LABS: Troponin I* < 0.01 ng/mL (0.01-0.04)
[2024-07-13 14:15] LABS: D Dimer Quantitative* < 0.27 ug/ml (0.00-0.50)
--- NOTE | 2024-07-13 14:16 | CRLHL7_ITS ---
For Patients: As a result of the Century Cures Act, medical imaging exams and procedure reports are released immediately into your electronic medical record. You may view this report before your referring provider. If you have questions, please contact your health care provider. INDICATIONS: Shortness of breath. Dizziness. TECHNIQUE: CT chest without contrast. COMPARISON: CT chest without contrast 12/12/2023. FINDINGS: No pleural or pericardial effusions. No pathologic lymphadenopathy. Aortic atherosclerosis and tortuosity, as before. 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 Main pulmonary artery is dilated to 3.2 cm, unchanged. Indwelling pacemaker appears appropriately positioned. Mild cardiomegaly and coronary artery calcifications. Soft tissues of the thoracic wall are unremarkable. No pneumothorax. Central airways are patent. Mild interstitial and ground-glass opacities at the lung bases. Right upper lobe 4 mm nodule on image 18 of series 2 has become more solid in appearance. There are additional smaller bilateral subcentimeter nodules that are similar in appearance. Cholecystectomy. Visualized upper abdomen is otherwise unremarkable. Mild degenerative changes of the spine. No acute or suspicious osseous abnormality. IMPRESSION: 1. Mild interstitial and ground-glass opacities at the lung bases are likely infectious or inflammatory. 2. Right upper lobe 4 mm nodule has become more solid in appearance. Follow-up chest CT in 6 months is recommended for further evaluation. Dictated by Tunde Ross MD @ 07/13/2024 3:12:50 PM Please note that all CT scans at this facility use dose modulation, iterative reconstruction, and/or weight-based dosing when appropriate to reduce radiation dose to as low as reasonably achievable. Dictated by: Tunde Ross MD @ 07/13/2024 15:13:08 (Electronically Signed)
--- NOTE | 2024-07-13 14:56 | ED.NURSE ---
Patient walked to CT- maintained oxygen saturation >92%. After CT, patient walked to bathroom, went to bathroom and walked back to room. When patient got back to room and into bed, oxygen saturation went down to 86% and patient was experiencing dyspnea. MD notified
--- NOTE | 2024-07-13 15:28 | P.IMHP_ITS ---
Hospitalist- H&P: HPI History of Present Illness Date Seen: 07/13/24 Chief complaint: Arms and chest aching Narrative: Lauren Hines is a 88 year old female with history of atrial fibrillation (rate controlled on sotalol and anticoagulated on warfarin), pacemaker, pulmonary hypertension, depression, and HFpEF who presented to the emergency room today for a 1 week history of chest pain. Today, the pain seemed worse and involved both of her arms; first her left arm, then travelled to her R arm, which prompted the ER visit. She also endorses dyspnea on exertion for about a week. She tells me that after getting up and moving, she would have to sit for quite some time to catch her breath. She has not had a cough or fever. No significant lower extremity swelling. She has not had any known sick contacts. No nausea, vomiting, or diarrhea. ER course and findings: - no acute changes on EKG (paced rhythm), troponin negative x2. Scheduled for stress test tomorrow morning - negative D-dimer, therapeutic INR - noted to have hypoxia with ambulation in the emergency room (down to 83% on room air when ambulating) - CT chest obtained which revealed mild interstitial an GGO at lung bases in addition to an incidental right 4 mm nodule (follow-up chest CT in 6 months) - negative COVID Given acute hypoxic respiratory failure, NAJERA, chest pain, patient is admitted to the hospital. History is updated below. PCP is Dr. Lange. Review of Systems Status of ROS: Reports: 10 or more systems reviewed and unremarkable except as noted in History and below Narrative: - no n/v/d - no cough, no fever - no skin concerns - no sick contacts [facility] Medical History (Updated 07/13/24 @ 18:43 by Sherly Pichardo MD) Pulmonary hypertension ?I27.20 - Pulmonary hypertension, unspecified (ICD-10) Atrial fibrillation ?I48.91 - Unspecified atrial fibrillation (ICD-10) Chest pain ?R07.9 - Chest pain, unspecified (ICD-10) Cardiac pacemaker ?Z95.0 - Presence of cardiac pacemaker (ICD-10) Aortic regurgitation ?I35.1 - Nonrheumatic aortic (valve) insufficiency (ICD-10) Former smoker ?Z87.891 - Personal history of nicotine dependence (ICD-10) Mild anxiety ?F41.9 - Anxiety disorder, unspecified (ICD-10) Chronic anticoagulation ?Z79.01 - senior living (current) use of anticoagulants (ICD-10) Surgical History (Updated 07/13/24 @ 17:32 by Sherly Pichardo MD) Status post laparoscopic cholecystectomy ?Z90.49 - Acquired absence of other specified parts of digestive tract (ICD- 10) Status post biventricular cardiac pacemaker insertion ?Z95.0 - Presence of cardiac pacemaker (ICD-10) History of hysterectomy ?Z90.710 - Acquired absence of both cervix and uterus (ICD-10) Social History (Updated 07/13/24 @ 18:52 by Sherly Pichardo MD) Narrative: Lives locally with . No current smoking, no concerning ETOH use. Requests DNR/DNI status. What is your current living situation?: I presently have a place to live Problems where you live: no known problems Problems where you live details: no known problems In the past 12 months, utilities in danger of being shut off: no In past 12 months, lack of transportation kept you from medical appts, meetings, work, or getting things needed for daily living: no In the past 12 mos, have been you worried that your food would run out before you had money to buy more?: never true In the past 12 mos, the food you bought just didn't last and you didn't have money to buy more?: never true Highest level of school completed/degree received: some college, no degree Smoking Status: Former smoker Do you use any of these nicotine containing products: None Second hand tobacco smoke exposure: No How often do you have a drink containing alcohol: monthly or less How many standard drinks containing alcohol do you have on a typical day: 1 or 2 How often do you have six or more drinks on one occasion: Less than monthly AUDIT-C Alcohol total score: 2 Non-prescribed substance use: denies use Caffeine: Yes (rare occasional soda) How often does anyone, including family, friends and others, physically hurt you : never How often does anyone, including family, friends and others, insult or talk down to you: never How often does anyone, including family, friends and others, threaten you with harm: never How often does anyone, including family, friends and others, scream or curse at you: never service: No Meds Home Medications and Allergies Home Medications ?Medication ?Instructions ?Recorded ?Confirmed ?Type sertraline 50 mg tablet 50 mg PO DAILY 05/26/23 07/13/24 History sotalol 80 mg tablet 80 mg PO BID 05/26/23 07/13/24 History calcium 500 mg tablet 500 mg PO DAILY 07/13/24 07/13/24 History nitroglycerin 0.4 mg sublingual 0.4 mg sublingual Q5M PRN 07/13/24 07/13/24 History tablet rosuvastatin 10 mg tablet 10 mg PO DAILY 07/13/24 07/13/24 History warfarin 2.5 mg tablet 1.25 - 2.5 mg PO DAILY 07/13/24 07/13/24 History Allergies Allergy/AdvReac Type Severity Reaction Status Date / Time No Known Drug Allergies Allergy Verified 07/13/24 08:38 Exam Narrative: Exam Narrative: GEN: Alert and laying comfortably in bed, answering questions appropriately HEENT: EOMIs bilaterally, no scleral icterus CV: RRR, soft murmur without concerning features R: LCTA bilaterally without concerning wheezing, soft bibasilar rhonchi, no coug h Ext: wwp, no concerning edema Skin: No concerning skin lesions or rashes on exposed skin Neuro: Nonfocal Psych: Appropriate Const: Vital Signs, click to edit/add: Vital Signs - 24 hr 07/13/24 08:19 07/13/24 08:28 07/13/24 08:29 Temperature 97.8 F Pulse Rate 61 61 Pulse Rate [Pulse Oximeter] 62 Respiratory Rate 16 Blood Pressure 144/61 H Blood Pressure [Le ft Upper Arm] 144/61 H Pulse Oximetry 95 96 [facility] 07/13/24 08:31 07/13/24 08:32 07/13/24 08:45 Temperature Pulse Rate 62 60 63 Pulse Rate [Pulse Oximeter] Respiratory Rate 16 Blood Pressure 144/62 H Blood Pressure [Le ft Upper Arm] Pulse Oximetry 93 96 95 Oxygen Delivery Nd thod 07/13/24 09:00 07/13/24 09:01 07/13/24 09:15 Temperature Pulse Rate 60 60 60 Pulse Rate [Pulse Oximeter] Respiratory Rate Blood Pressure 141/62 H Blood Pressure [Le ft Upper Arm] Pulse Oximetry 93 94 94 [facility] 07/13/24 09:30 07/13/24 09:31 07/13/24 09:32 Temperature Pulse Rate 60 60 60 Pulse Rate [Pulse Oximeter] Respiratory Rate Blood Pressure 136/79 Blood Pressure [Le ft Upper Arm] Pulse Oximetry 93 94 94 Oxygen Delivery Nd thod 07/13/24 09:51 07/13/24 10:00 07/13/24 10:02 Temperature Pulse Rate 68 60 63 Pulse Rate [Pulse Oximeter] Respiratory Rate Blood Pressure 133/57 L Blood Pressure [Le ft Upper Arm] Pulse Oximetry 88 96 95 [facility] 07/13/24 10:15 07/13/24 10:30 07/13/24 10:31 Temperature Pulse Rate 60 65 61 Pulse Rate [Pulse Oximeter] Respiratory Rate Blood Pressure 126/57 L Blood Pressure [Le ft Upper Arm] Pulse Oximetry 94 94 93 Oxygen Delivery Nd thod 07/13/24 10:31 07/13/24 10:31 07/13/24 10:45 Temperature Pulse Rate 61 61 63 Pulse Rate [Pulse Oximeter] Respiratory Rate Blood Pressure 126/57 L 126/57 L Blood Pressure [Le ft Upper Arm] Pulse Oximetry 93 93 92 [facility] 07/13/24 11:00 07/13/24 11:01 07/13/24 11:15 Temperature Pulse Rate 60 61 60 Pulse Rate [Pulse Oximeter] Respiratory Rate Blood Pressure 141/69 H Blood Pressure [Le ft Upper Arm] Pulse Oximetry 94 93 92 Oxygen Delivery Nd thod 07/13/24 11:30 07/13/24 12:01 07/13/24 12:31 Temperature Pulse Rate 60 Pulse Rate [Pulse Oximeter] Respiratory Rate Blood Pressure 140/55 H 149/68 H Blood Pressure [Le ft Upper Arm] Pulse Oximetry 93 Oxygen Delivery Nd thod 07/13/24 12:43 07/13/24 12:45 07/13/24 13:00 Temperature Pulse Rate 93 65 60 Pulse Rate [Pulse Oximeter] Respiratory Rate Blood Pressure Blood Pressure [Le ft Upper Arm] Pulse Oximetry 83 L 93 94 Oxygen Delivery Nd thod 07/13/24 13:01 07/13/24 13:12 07/13/24 13:15 Temperature Pulse Rate 60 60 60 Pulse Rate [Pulse Oximeter] Respiratory Rate Blood Pressure 144/69 H 124/53 L Blood Pressure [Le ft Upper Arm] Pulse Oximetry 94 92 93 Oxygen Delivery [facility] Hospitalist - H&P: Result Labs Labs: Short CBC 07/13/24 Range/Units 09:30 WBC 9.95 (4.50-11.00) K/uL Hgb 10.2 L (12.0-16.0) gm/dL Hct 35.1 (33.0-51.0) % Plt Count 359 (140-440) K/uL BMP 07/13/24 09:30 Sodium 138 Potassium 4.3 Chloride 106 Carbon Dioxide 29 BUN 14 Creatinine 0.6 Glucose 97 Calcium 9.2 Cardiac Enzymes 07/13/24 07/13/24 Range/Units 09:30 11:32 Troponin I < 0.01 L < 0.01 L (0.01-0.04) ng/mL Urine 07/13/24 Range/Units 09:46 Urine Color Yellow (Yellow) Urine Appearance Clear (Clear) Urine pH 7.5 (5.0-8.5) Ur Specific Fitzwilliam 1.015 (1.000-1.030) Urine Protein Negative (Negative) Urine Glucose (UA) Negative (Negative) Assessment and Plan Assessment and plan (1) Hypoxia: Problem comment: - GGOs noted on CT scan - no evidence of infectious process, negative COVID - RT referral, supplemental oxygen as needed Status: Acute (2) Chest pain: Problem comment: - present for approximately one week prior to admission - negative troponins in ED - trend troponins, telemetry, stress test ordered for 8/15 am Status: Acute (3) Heart failure with preserved ejection fraction (HFpEF, >= 50%): Problem comment: - last TTE November 2023: Final Impressions: 1. Normal LV size, mildly increased wall thickness, hyperdynamic global systolic function with an estimated EF of 70 - 75%. 2. Right ventricular cavity size is normal, global systolic RV function is normal. 3. Moderately enlarged left atrium. 4. The aortic valve is trileaflet, no stenosis and mild to moderate regurgitation. 5. The mitral valve is sclerotic, mild mitral regurgitation. 6. Moderate tricuspid regurgitation. 7. Moderately increased estimated pulmonary systolic pressures by tricuspid regurgitation velocity and right atrial pressure (~57 mmHg). Status: Acute (4) Chronic anticoagulation: Problem comment: - on Coumadin for longstanding AFib, has cardiac pacemaker - INR therapeutic, pharmacist consult for management Status: Acute (5) Pulmonary hypertension: Problem comment: - TTE 11/2023: 57 mmHg by tricuspid regurgitation velocity and right atrial pressure, new since 07/05/21 - potentially related to hypoxia - consider repeat TTE pending overnight course and results of stress test Status: Acute (6) Atrial fibrillation: Problem comment: - rate controlled on Sotalol, anticoagulated on Warfarin Status: Acute Plan - per above
[2024-07-13] MEDS: WARFARIN 2.5 MG TABLET 1.25 MG PO (17:59)
[2024-07-13] MEDS: SOTALOL HCL 80 MG TABLET PO (22:06)
--- NOTE | 2024-07-13 22:48 | PC.NURSE ---
Shift note: Pt a/o and able to verbalize her needs. VS WNL and LS COA. Currently denies any CP or pressure but does appear to have increased work of breathing with ambulation to the BR. She has not required O2, SpO2 93-96%. Pt scheduled for stress echo tomorrow morning at 0830. Tele in place, paced rhythm.
[2024-07-14] MEDS: MELATONIN 3 MG TABLET PO (00:04)
[2024-07-14 03:15] VITALS: BP 122/50; PULSE 65; RESP 16; TEMP 36.6; O2SAT 95
[2024-07-14 06:51] LABS: HCO3 VBG 27 mmol/L (21-28); PCO2 VBG 42 mmHG (40-50); PO2 VBG 55.6 mmHG (25-47); pH VBG 7.421 (7.32-7.43)
[2024-07-14 07:01] LABS: Basophils Absolute Auto 0.05 K/uL (0.00-0.30); Basophils Percent Auto 0.6 % (0.0-3.0); Eosinophils Absolute Auto 0.15 K/uL (0.00-0.50); Eosinophils Percent Auto 1.8 % (0.0-7.0); Hematocrit 32.5 % (33.0-51.0); Hemoglobin* 9.5 gm/dL (12.0-16.0); Immature Granulocytes Abs Auto 0.03 K/uL (0.00-0.30); Immature Granulocytes Pct Auto 0.4 %; Lymphocytes Percent Auto 16.5 % (20-44); Mean Corpuscular HGB Conc 29 gm/dL (32-36); Mean Corpuscular Hemoglobin 21 pg (26-34); Mean Corpuscular Volume 73 fL (80-100); Monocytes Percent Auto 4.6 % (0.0-11.0); Neutrophils Percent Auto 76.1 % (42.0-72.0); Platelet Count* 333 K/uL (140-440); RDW Coefficient of Variation % 19.4 % (11.5-15.5); Red Blood Count 4.48 m/uL (4.00-5.20); White Blood Count* 8.44 K/uL (4.50-11.00)
[2024-07-14 07:09] LABS: Slide Review Reflex No
[2024-07-14 07:28] LABS: INR 1.93 (0.91-1.10); Prothrombin Time 23.5 Seconds
[2024-07-14 07:32] LABS: Creatine Kinase* 24 U/L (41-117)
--- NOTE | 2024-07-14 08:03 | PC.NURSE ---
end of shift note: A&Ox4. AMBULATES WITH SBA. VSS ON RA; AFEBRILE. TELE=PACED. NO CAFFEINE, NICOTINE OR BETA BLOCKERS GIVEN THIS SHIFT. NPO SINCE [phone]. BED ALARM ON AND CALL LIGHT WITHIN PT REACH.
[2024-07-14 08:18] LABS: Albumin* 3.5 g/dL (3.3-5.0); Chloride* 108 mmol/L (96-114)
[2024-07-14 08:19] LABS: Potassium* 4.4 mmol/L (3.6-5.1); Sodium* 137 mmol/L (135-149)
[2024-07-14 08:21] LABS: Anion Gap 3 mEq/L (7-15); Aspartate Amino Transferase* 24 U/L (12-35); Bilirubin Total* 0.5 mg/dL (0.1-1.5); Blood Urea Nitrogen* 13 mg/dL (7-30); Carbon Dioxide* 26 mmol/L (20-32); Creatinine* 0.6 mg/dL (0.5-1.5); Estimated Glomerular Filt Rate 87 ml/min; Glucose* 97 mg/dL (60-115); Total Protein* 6.4 g/dL (6.0-8.3)
[2024-07-14 08:22] LABS: Alanine Aminotransferase* 9 U/L (4-35); Alkaline Phosphatase* 74 U/L (40-150); Calcium* 9.3 mg/dL (8.4-10.6); Magnesium* 2.3 mg/dL (1.5-2.6)
[2024-07-14 08:26] VITALS: RESP 20; O2SAT 93
[2024-07-14 08:29] VITALS: BP 130/49; PULSE 66; RESP 20; TEMP 36.4; O2SAT 93
[2024-07-14 08:40] LABS: Procalcitonin* 0.05 ng/mL (<0.50)
[2024-07-14 08:45] LABS: Troponin I* < 0.01 ng/mL (0.01-0.04)
[2024-07-14 09:39] VITALS: BP 124/55; PULSE 74; RESP 16; O2SAT 88
--- NOTE | 2024-07-14 11:11 | P.DS_ITS ---
DS: Providers Provider Date Seen: 07/14/24 Date of admission: 07/13/24 17:14 Primary care physician: Kay Lange DO Admitting Clinician: Sherly Pichardo MD Consults: 07/13/24 18:10 Consult to Occupational Therapy [CONS] Routine Comment: Reason(s) for OT Consult:: Evaluate and Treat Any Restrictions?:: No Restrictions 07/13/24 22:34 Consult to Respiratory Therapy [CONS] Routine Comment: Reason(s) for RT Consult:: Consult Comment: Hypoxia with ambulation, may need home O2. Attending Physician on discharge: Abbie Hickman MD DS: Diagnosis Discharge Diagnosis (1) Hypoxia: Status: Acute Problem details: - Acute on chronic dyspnea on exertion, improving - DDx Cardiac (ordered a stress test), worsening of her pulm HTN, ILD (GGOs noted on CT scan). - no evidence of infectious process, negative COVID - RT referral, supplemental oxygen as needed. Pt does not need O2 today 8, satting high 90s on RA. (2) Chest pain: Status: Acute Problem details: - Retrosternal chest pain, resolved, ACS ruled out - present for approximately one week prior to admission - negative troponins x3. EKG: I reviewed it myself, showed regular atrial-paced rhythm, incomplete RBBB, non-specific T wave changes. - stress test 8/15 am preliminary report: negative for ischemia. (3) Pulmonary hypertension: Status: Chronic Problem details: - Recent TTE on 11/2023: 57 mmHg by tricuspid regurgitation velocity and right atrial pressure, new since 07/05/21 - potentially contributing to hypoxia. 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 Normal LV size, mildly increased wall thickness, hyperdynamic global systolic function with an estimated EF of 70 - 75%. 2. Right ventricular cavity size is normal, global systolic RV function is normal. 3. Moderately enlarged left atrium. 4. The aortic valve is trileaflet, no stenosis and mild to moderate regurgitation. 5. The mitral valve is sclerotic, mild mitral regurgitation. 6. Moderate tricuspid regurgitation. 7. Moderately increased estimated pulmonary systolic pressures by tricuspid regurgitation velocity and right atrial pressure (~57 mmHg). (5) Chronic anticoagulation: Status: Chronic Problem details: - on Coumadin for longstanding AFib, has cardiac pacemaker - INR therapeutic, pharmacist consult for management (6) Atrial fibrillation: Status: Chronic Problem details: - rate controlled on Sotalol, anticoagulated on Warfarin (7) Lung nodule: Status: Acute Problem details: CT chest: Right upper lobe 4 mm nodule has become more solid in appearance. Follow-up chest CT in 6 months is recommended for further evaluation. DS: Summary Hospital Course Hospital Course: FINAL DIAGNOSIS / FOLLOW UP ISSUES: As above F/up w/ PCP BRIEF HOSPITAL COURSE: Patient was admitted for [1] days. Synopsis of acute inpatient issues are outlined above. Chronic medical conditions with notable findings outlined above. Pt presented w CP that resolved. ACS R/out w Trop x3 and an EKG. Pt C/O NAJERA, can be d/t pulm HTN. CT scan also suggested GGO, suspect ILD (?) stress test 8/15 am preliminary report: negative for ischemia. DISCHARGE MEDICATIONS: See Reconciled list - SIGNIFICANT CHANGES: None Specific instructions to the patient and follow-up are outlined below. REVIEW OF SYSTEMS No chest pain or dyspnea today PHYSICAL EXAM: as documented below DISPOSITION: Home Status at Discharge Cognitive/behavioral status at discharge: Improved Time Spent with Patient Time attestation: Total time spent providing and/or coordinating discharge services: Exam Narrative: Exam Narrative: Physical exam GENERAL: Comfortable, no acute distress. HEAD AND NECK: Atraumatic, normocephalic CARDIOVASCULAR: RRR. Normal S1, S2. No murmurs. RESPIRATORY: Clear to auscultation B/L. Good air entry B/L. No wheezes or rhonchi. GASTROINTESTINAL: Not distended, not tender to palpation. NEUROLOGY: Alert, awake, oriented X 3. Normal speech. PSYCH: Normal mood, normal affect. Const: Vital Signs, click to edit/add: Vital Signs - 24 hr 07/13/24 11:15 07/13/24 11:30 07/13/24 12:01 Temperature Pulse Rate 60 60 Pulse Rate [Pulse Oximeter] Respiratory Rate Blood Pressure 140/55 H Blood Pressure [Le ft Arm] Pulse Oximetry 92 93 Oxygen Delivery Me thod 07/13/24 12:31 07/13/24 12:43 07/13/24 12:45 Temperature Pulse Rate 93 65 Pulse Rate [Pulse Oximeter] Respiratory Rate Blood Pressure 149/68 H Blood Pressure [Le ft Arm] Pulse Oximetry 83 L 93 Oxygen Delivery Wi thod 07/13/24 12:45 07/13/24 13:00 07/13/24 13:01 Temperature Pulse Rate 60 60 Pulse Rate [Pulse Oximeter] Respiratory Rate 22 Blood Pressure 144/69 H Blood Pressure [Le ft Arm] Pulse Oximetry 84 L 94 [facility] 07/13/24 13:12 07/13/24 13:15 07/13/24 14:40 Temperature Pulse Rate 60 60 Pulse Rate [Pulse Oximeter] Respiratory Rate Blood Pressure 124/53 L Blood Pressure [Le ft Arm] Pulse Oximetry 92 93 86 L [facility] 07/13/[facility] 16:19 07/13/24 18:01 07/13/24 21:56 Temperature 97.3 F L 97.4 F L Pulse Rate Pulse Rate [Pulse Oximeter] 71 59 L Respiratory Rate 20 20 20 Blood Pressure Blood Pressure [Le ft Arm] 139/63 124/54 L Pulse Oximetry 91 91 94 [facility] Room Air Room Air 07/13/24 23:55 07/13/24 23:55 07/13/24 23:55 Temperature Pulse Rate 61 Pulse Rate [Pulse Oximeter] 60 Respiratory Rate 16 16 Blood Pressure Blood Pressure [Le ft Arm] Pulse Oximetry 95 [facility] CPAP 07/14/24 03:15 07/14/24 08:26 07/14/24 08:29 Temperature 97.9 F 97.5 F L Pulse Rate Pulse Rate [Pulse Oximeter] 65 66 Respiratory Rate 16 20 20 Blood Pressure Blood Pressure [Le ft Arm] 122/50 L 130/49 L Pulse Oximetry 95 93 93 [facility] CPAP CPAP 07/14/24 09:39 Temperature Pulse Rate Pulse Rate [Pulse Oximeter] 74 Respiratory Rate 16 Blood Pressure Blood Pressure [Le ft Arm] 124/55 L Pulse Oximetry 88 [facility] DS: Data Data Completed and Pending Completed studies during hospitalization: Procedures Introduction of Other Therapeutic Substance into Respiratory Tract, Via Natural or Artificial Opening (12/13/23) Resection of Gallbladder, Percutaneous Endoscopic Approach (12/13/23) Labs on day of discharge: Labs from last 24 hours 07/14/24 07/13/24 07/13/24 06:18 13:53 11:32 WBC 8.44 RBC 4.48 Hgb 9.5 L Hct 32.5 L MCV 73 L MCH 21 L MCHC 29 L RDW Coeff of Ebony 19.4 H Plt Count 333 Neut % (Auto) 76.1 H Lymph % (Auto) 16.5 L Power % (Auto) 4.6 Eos % (Auto) 1.8 Baso % (Auto) 0.6 Neut # (Auto) 6.40 Lymph # (Auto) 1.40 Power # (Auto) 0.40 Eos # (Auto) 0.15 Baso # (Auto) 0.05 Abs Immat Gran (auto) 0.03 Imm/Tot Granulo (auto) 0.4 INR 1.93 H D-Dimer Quant (PE/DVT) VBG pH 7.421 VBG pCO2 42 VBG pO2 55.6 H VBG HCO3 27 Sodium 137 Potassium 4.4 Chloride 108 Carbon Dioxide 26 Anion Gap 3 L BUN 13 Creatinine 0.6 Estimated Creat Clear 37.10 Estimated GFR 87 Glucose 97 Calcium 9.3 Magnesium 2.3 Total Bilirubin 0.5 AST 24 ALT 9 Alkaline Phosphatase 74 Total Creatine Kinase 24 L Troponin I < 0.01 L < 0.01 L Total Protein 6.4 Albumin 3.5 Procalcitonin 0.05 Lab Acknowledgement Test Added 07/13/24 09:30 WBC RBC Hgb Hct MCV MCH MCHC RDW Coeff of Ebony Plt Count Neut % (Auto) Lymph % (Auto) Power % (Auto) Eos % (Auto) Baso % (Auto) Neut # (Auto) Lymph # (Auto) Power # (Auto) Eos # (Auto) Baso # (Auto) Abs Immat Gran (auto) Imm/Tot Granulo (auto) INR D-Dimer Quant (PE/DVT) < 0.27 VBG pH VBG pCO2 VBG pO2 VBG HCO3 Sodium Potassium Chloride Carbon Dioxide Anion Gap BUN Creatinine Estimated Creat Clear Estimated GFR Glucose Calcium Magnesium Total Bilirubin AST ALT Alkaline Phosphatase Total Creatine Kinase Troponin I Total Protein Albumin Procalcitonin Lab Acknowledgement Imaging CT scan - chest: Radiologist's impression: CT chest without contrast. COMPARISON: CT chest without contrast 12/12/2023. FINDINGS: No pleural or pericardial effusions. No pathologic lymphadenopathy. Aortic atherosclerosis and tortuosity, as before. 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 Main pulmonary artery is dilated to 3.2 cm, unchanged. Indwelling pacemaker appears appropriately positioned. Mild cardiomegaly and coronary artery calcifications. Soft tissues of the thoracic wall are unremarkable. No pneumothorax. Central airways are patent. Mild interstitial and ground-glass opacities at the lung bases. Right upper lobe 4 mm nodule on image 18 of series 2 has become more solid in appearance. There are additional smaller bilateral subcentimeter nodules that are similar in appearance. Cholecystectomy. Visualized upper abdomen is otherwise unremarkable. Mild degenerative changes of the spine. No acute or suspicious osseous abnormality. IMPRESSION: 1. Mild interstitial and ground-glass opacities at the lung bases are likely infectious or inflammatory. 2. Right upper lobe 4 mm nodule has become more solid in appearance. Follow-up chest CT in 6 months is recommended for further evaluation. Dictated by Tunde Ross MD @ 07/13/2024 3:12:50 PM Please note that all CT scans at this facility use dose modulation, iterative reconstruction, and/or weight-based dosing when appropriate to reduce radiation dose to as low as reasonably achievable. Discharge Plan Discharge Disposition: Home, Self-Care Date of Admission: 07/13/24 17:14 Attending Provider on Discharge: Abbie Hickman Primary Care Provider: Kay Lange Condition: Stable Anticipated Discharge Date/Time: 07/14/24 11:55 Discharge Medications: Continued sotalol 80 mg tablet 80 mg PO BID sertraline 50 mg tablet 50 mg PO DAILY furosemide [Lasix] 20 mg tablet 20 mg PO DAILY 3 Days Qty: 3 0RF rosuvastatin 10 mg tablet 10 mg PO DAILY warfarin 2.5 mg tablet 1.25 - 2.5 mg PO DAILY Rx Instructions: 2.5 mg on MON AND THURS, 1.25 MG ALL OTHER DAYS calcium 500 mg tablet 500 mg PO DAILY potassium chloride 10 mEq capsule, extended release 20 meq PO DAILY Qty: 60 2RF amlodipine 5 mg tablet 5 mg PO DAILY Qty: 30 2RF lorazepam 0.5 mg tablet 0.5 mg PO DAILY PRNQty: 10 0RF Discontinued nitroglycerin 0.4 mg tablet, sublingual 0.4 mg sublingual Q5M PRN Rx Instructions: do not exceed 3 doses per episode Discharge Orders: Discharge Order (Routine); Ordered 07/14/24 Ordered By: Abbie Hickman Patient Education: Chest Pain (DC) Additional Instructions: Follow up with primary care for a right upper lobe 4 mm nodule. Follow-up chest CT in 6 months is recommended for further evaluation. Activity Level: Activity as Tolerated Discharge Diet: Heart Healthy (2 gm sodium, low fat) Follow Up Appointments: Kay Lange DO [Primary Care Provider] - (Follow up in 1-2 weeks. Pt presented w CP that resolved. ACS R/out w Trop x3 and an EKG. Pt also C/O NAJERA , can be d/t pulm HTN. CT scan also suggested GGO, suspect ILD (?) stress test 8 am preliminary report: negative for ischemia. Please follow up the full report. Stress test ordered and done on 07/14, pending results. CT chest showed Right upper lobe 4 mm nodule has become more solid in appearance. Follow-up chest CT in 6 months is recommended for further evaluation. ) Forms: [employer] Info Instructions
[2024-07-14] MEDS: SOTALOL HCL 80 MG TABLET PO (12:48)
[2024-07-14] MEDS: POTASSIUM CHLORIDE 10 MEQ CAPSULE ER 20 MEQ PO (12:48)
[2024-07-14] MEDS: FUROSEMIDE 20 MG TABLET PO (12:49)
[2024-07-14] MEDS: AMLODIPINE 5 MG TABLET PO (12:49)
[2024-07-14] MEDS: SERTRALINE 50 MG TABLET PO (12:49)
[2024-07-14] MEDS: ROSUVASTATIN CALCIUM 10 MG TABLET PO (12:52)
[2024-07-14 13:17] VITALS: BP 111/80; PULSE 62; RESP 20; TEMP 36.1; O2SAT 93
--- NOTE | 2024-07-14 15:15 | PC.NURSE ---
Discharge - Pt alert, oriented, cooperative. Up independently in room, tolerating RA and regular diet/fluids. Pt denied SOB, N/V, dizziness. Reported one instance of heaviness in chest while ambulating to the bathroom with OT, pt recovered without intervention and did not report experiencing similar episodes during shift. IV removed with catheter intact, d/c education provided with pt verbalizing understanding. Pt d/c'd to home via wheelchair with spouse at approximately 1429.
== END 2024-07-14 14:29 | disposition home or self-care (01) | DRG 314 ==
LOC: ED 15:31 → MEDSURG 16:05
PROVIDERS: Admitting Provider Family Medicine; Emergency Provider Student in an Organized Health Care Education/Training Program; PCP Family Medicine; Visit Provider Family Medicine
DX: I27.20 Pulmonary hypertension, unspecified (principal); J96.21 Acute and chronic respiratory failure with hypoxia; I50.32 Chronic diastolic (congestive) heart failure; I48.20 Chronic atrial fibrillation, unspecified; I11.0 Hypertensive heart disease with heart failure; Z95.0 Presence of cardiac pacemaker; Z79.01 Long term (current) use of anticoagulants; R07.9 Chest pain, unspecified; M79.602 Pain in left arm; M79.601 Pain in right arm; I45.19 Other right bundle-branch block; R91.1 Solitary pulmonary nodule; F32.A Depression, unspecified; Z87.891 Personal history of nicotine dependence; I08.3 Combined rheumatic disorders of mitral, aortic and tricuspid valves
CPT/HCPCS: 36415; 71046; 71250; 78452; 80048; 80053; 81001; 82550; 82803; 83735; 83880; 84145; 84484; 85025; 85379; 85610; 87631; 93005; 97165; 99283; 99285; A9270; A9500

== ENCOUNTER 2024-07-14 08:57 | Outpatient (CLI) | payer MEDICARE, BC, SELFPAY ==
--- OUTSIDE RECORDS SUMMARY | 2024-07-14 09:00 | XMS_ITS | Clinical Summary ---
Author Organization [employer] [facility] [employer] [facility] Address [place], [place] [address] Care Team Providers Care Substation Superintendent Name Role Phone Kya Lange Primary Care Provider Conrado Grigsby MD Unavailable Olman Milner Unavailable [phone] Allergies Active Allergy Reactions Criticality Noted [...] Date Type Department Care Team Description 07/13/2024 Orders Only [facility] Scanner 1 scan: (1-Ord) [facility], CT CHEST WO CON, 07/13/2024 07/13/2024 Orders Only [facility] Scanner 1 scan: (1-Ord) [facility], CHEST, 07/13/2024 07/13/2024 Nurse Triage [facility] [address] [facility] [place] [address] Kay Lange DO Chest Pain 07/06/[address] [place] [address] Kay Lange DO Anticoagulation (Annual re-enrollment ) 06/21/[address] [place] [address] Kay Lange DO Medication Management (warfarin (COUMADIN)); Refill Request (warfarin) 06/21/2024 Anticoagulation (warfarin) [address] [place] [address] 1, [facility] Anticoagulation 06/20/2024 2:15 PM CDT Office Visit [address] [place] [address] Kay Lange DO Medicare ANNUAL (subsequent) Visit (88 Year Old/) 06/20/2024 Travel 06/14/2024 2:00 PM CDT Orders Only [address] [place] [address] Lab, [facility] 06/14/2024 Anticoagulation (warfarin) [address] [address] 1, [facility] Anticoagulation 06/14/2024 Travel 05/26/[address] [address] Kay Lange DO Refill Request (Sertraline) 04/18/2024 7:45 AM CDT Orders Only [address] [place] [address] Lab, [facility] 04/18/2024 Anticoagulation (warfarin) [facility] [address] [place] [address] 1, [facility] Anticoagulation 04/18/2024 Travel [...] Care Team (Late st Contact Info) Description 07/14/2024 9:00 AM CDT Ancillary Procedure [facility] [address] [place] [address] 07/27/2024 1:45 PM CDT Office Visit [facility] [address] [place] [address] Gaby Ingram DO [address] [place] [address] 11/08/2024 1:00 PM POLLUTION CONTROL ENGINEER Cardiac Device Check [facility] [address] [place] [phone] Health Maintenance Due Date Last Done Comments [...] Procedure Name Priority Date/Time Associated Diagnosis Comments SCAN-CT INTERPRETATION 12:00 AM CDT SCAN-RADIOLOGY REPORT 07/13/2024 12:00 AM CDT BASIC METABOLIC PANEL Routine 06/20/2024 3:27 PM [...] Recently Relevant to Health Maintenance Results * SCAN-RADIOLOGY REPORT (07/13/2024 12:00 AM CDT) Anatomical Region Laterality Modality Other Scanner OTHER * SCAN-CT INTERPRETATION (07/13/2024 12:00 AM CDT) Anatomical Region Laterality Modality Other Scanner OTHER * (ABNORMAL) LIPID PANEL W REFLEX MEASURED LDL (06/20/2024 3:27 PM CDT) CHOLESTEROL,TOTAL 233(H) 100 - 199 mg/dL 06/21/2024 7:14 AM CDT [facility] Comment: Cholesterol, Total Reference Ranges Desirable <200 mg/dL Borderline 200-239 mg/dL High >=240 mg/dL TRIGLYCERIDES 114 <150 mg/dL 06/21/2024 7:14 AM CDT [facility] [employer] [facility] HDL CHOLESTEROL 69 >40 mg/dL 7:14 AM CDT [facility] NON-HDL CHOLESTEROL 164(H) <145 mg/dl 06/21/2024 7:14 AM CDT [facility] CHOL/HDL RATIO 3.38 <4.50 06/21/2024 7:14 AM CDT [facility] LDL CHOLESTEROL 141(H) <=130 mg/dL 06/21/2024 7:14 AM CDT [facility] VLDL CHOLESTEROL 23 <=30 mg/dL 06/21/2024 7:14 AM CDT [facility] PROVIDER ORDERED STATUS RANDOM 06/21/2024 7:14 AM CDT [facility] Blood BLOOD SPECIMEN / Unknown Venipuncture / Unknown 06/20/2024 3:27 PM CDT 06/20/2024 3:27 PM CDT Kay Lange DO CHEMISTRY Performing Organization Address [facility] de Phone Number [facility] [address] [place] [address], * (ABNORMAL) PROTIME-INR (06/20/2024 3:27 PM CDT) INR 1.7(H) <1.3 06/20/2024 9:52 PM CDT [facility] PROTIME 18.5(H) 10.3 - 12.3 sec 06/20/2024 9:52 PM CDT [facility] Blood BLOOD SPECIMEN / Unknown Venipuncture / Unknown 06/20/2024 3:27 PM CDT 06/20/2024 3:27 PM CDT Narrative [facility] - 06/20/2024 9:52 PM CDT ?Therapeutic [...] is on UFH. Kay Lange DO HEMATOLOGY Performing Organization Address [facility] Co de Phone Number [facility] [address] [place] [address], [place] * (ABNORMAL) BASIC METABOLIC PANEL (06/20/2024 3:27 PM CDT) SODIUM 139 136 - 145 mmol/L 06/21/2024 7:14 AM CDT [facility] POTASSIUM 4.5 3.5 - 5.1 mmol/L 06/21/2024 7:14 AM CDT [facility] CHLORIDE 104 98 - 107 mmol/L 06/21/2024 7:14 AM CDT [facility] CO2,TOTAL 24 22 - 29 mmol/L 06/21/2024 7:14 AM CDT [facility] ANION GAP 11 5 - 18 06/21/2024 7:14 AM T [facility] GLUCOSE 104(H) 70 - 99 mg/dL 06/21/2024 7:14 AM CDT [facility] CALCIUM 9.4 8.8 - 10.2 mg/dL 06/21/2024 7:14 AM T [facility] BUN 14 8 - 23 mg/dL 06/21/2024 7:14 AM T [facility] CREATININE 0.93(H) 0.50 - 0.90 mg/dL 06/21/2024 7:14 AM T [facility] BUN/CREAT RATIO 15 10 - 20 7:14 AM T [facility] eGFR 60(L) >90 mL/min/1.7 3m2 06/21/2024 7:14 AM T [facility] Comment:As of 2022, eG FR [...] 3:27 PM CDT Kay Lange DO CHEMISTRY [facility] [address] [place] [address], * (ABNORMAL) INR,POCT (06/14/2024 4:26 PM CDT) Only the most recent of2 resultswithin the time period is included. INR 1.8(H) <1.3 06/14/2024 4:27 PM CDT [facility] Blood BLOOD SPECIMEN / Unknown Capillary / Unknown 06/14/2024 4:26 PM CDT 06/14/2024 4:27 PM CDT Narrative [facility] - 06/14/2024 4:27 PM CDT ?Therapeutic Range 2.0-3.0 for most anticoagulated patients 2.5-3.5 or 4.0 for high risk patients Kay Lange DO LABORATORY [facility] [address] [place] [address], * (ABNORMAL) XR DXA BONE DENSITY 2 SITES (05/03/2015 11:12 AM CDT) Anatomical Region Laterality Modality Spine, HIPS, HIPL, HIPR Other Narrative 05/04/2015 12:22 PM CDT Please see scanned document for results of this study. Procedure Note Annia Joseph - 05/04/2015 Please see scanned document for results of this study. Kay Lange DO DEXA from Last 3 Months or Most Recently Relevant to Health Maintenance Advance Directives Documents on File Type Date Recorded Patient Manager Ct Expl anation Healthcare Directive 08/06/2016 8:29 PM [...] 8:56 AM 08/15/2009 8:58 PM Care Teams Substation Superintendent Relationship Specialty Start Date End Date Kay Lange DO PCP - General 09/25/09 Conrado Grigsby MD [address] [address] Cardiovascular Disease 04/27/15 Olman Milner [address] [place] [id number] Engineering Mechanic 04/27/15
[2024-07-14 11:00] VITALS: BP 111/70; PULSE 76; RESP 16
[2024-07-14] MEDS: REGADENOSON 0.4 MG/5 ML SYRINGE IVP (11:10)
[2024-07-14] MEDS: SODIUM CHLORIDE 0.9 % (FLUSH) 10 ML SYRINGE IVF (11:11)
--- NOTE | 2024-07-14 14:44 | W.PM.STED ---
Stress Test Note Providers Primary care provider: Kay Lange Stress test physician: Farhan Gunderson Stress Test Note Stress test ordered: Lexiscan Indication for test: Chest pain Stress test medicine: Lexiscan Results discussion: Patient is a very nice 88-year-old female who was an inpatient. She re is here for the above-stated test, discussion the risks benefits and side effects she would like to proceed. Pretest EKG shows normal sinus rhythm with a ventricular rate of 62, there is some diffuse ST wave flattening noted, following normal Lexiscan nonwalking protocol, she had a maximum heart rate of 82 with a target which is 72%, maximum blood pressure was 125/75 she had no chest pain, no shortness of breath, she had a my some mild dizziness noted. Recovered well. No EKG changes suggestive of ischemia. Baseline irregularities persist Impression: Negative electrographic portion of Lexiscan, subjectively negative Follow up suggested: Await nuclear images over-read by nuclear Medicine/Cardiology, clinical correlation with these will be needed, there were no complications.
== END 2024-07-14 11:11 | disposition admitted as inpatient to this hospital (09) ==
LOC: STRESS 08:57
PROVIDERS: PCP Family Medicine; Visit Provider Student in an Organized Health Care Education/Training Program
DX: R07.9 Chest pain, unspecified (principal)
CPT/HCPCS: 93016; 93017; J2785

== ENCOUNTER 2024-08-10 14:21 | Outpatient (CLI) | payer MEDICARE, BC, SELFPAY ==
--- OUTSIDE RECORDS SUMMARY | 2024-08-12 07:29 | XMS_ITS | Clinical Summary ---
Author Organization [employer] [facility] Address [place], [place] [address] Care Team Providers Care Manufacturing Production Manager Name Role Phone Kay Lange DO Primary Care Provider Conrado Grigsby MD Unavailable Olman Milner Unavailable [phone] Allergies Active Allergy Reactions Criticality Noted [...] Encounters Date Type Department Care Team Description 08/10/2024 Orders Only [facility] Scanner 1 scan: (1-Ord) [facility], XR CHEST 1V PORTABLE, 08/10/2024 08/05/[address] [address] Kay Lange DO Refill Request (Warfarin) 08/04/2024 Anticoagulation (warfarin) [address] [address] 1, [facility] Anticoagulation 08/03/2024 1:50 PM CDT Office Visit [address] [address] Kay Lange DO Hospital F/U 08/03/[address] [address] Kay Lange DO Refill Request (Donepezil 5mg) 08/03/2024 Travel 07/27/[address] [address] Gaby Ingram DO Appointment (CAMP reschedule) 07/27/[address] [address] Kay Lange DO 07/14/2024 9:00 AM CDT Ancillary Procedure [facility] [address] [place] [address] 07/13/2024 Orders Only [facility] Scanner 1 scan: (1-Ord) [facility], CT CHEST WO CON, 07/13/2024 07/13/2024 Orders Only [facility] Scanner 1 scan: (1-Ord) [facility], CHEST, 07/13/2024 07/13/2024 Nurse Triage [facility] [address] [place] [address] Kay Lange DO Chest Pain 07/06/[address] [address] Kay Lange DO Anticoagulation (Annual re-enrollment ) 06/21/[address] [address] Kay Lange DO Medication Management (warfarin (COUMADIN)); Refill Request (warfarin) 06/21/2024 Anticoagulation (warfarin) [address] [address] 1, [facility] Anticoagulation 06/20/2024 2:15 PM CDT Office Visit [address] [address] Kay Lange DO Medicare ANNUAL (subsequent) Visit (88 Year Old/) 06/20/2024 Travel 06/14/2024 2:00 PM CDT Orders Only [address] [address] Lab, [facility] 06/14/2024 Anticoagulation (warfarin) [address] [address], [facility] Anticoagulation 06/14/2024 Travel 05/26/[address] [address] Kay Lange DO Refill Request (Sertraline) from Last 3 Months Immunizations Name Administration Dates Next Due COVID-19 vaccine (Pfizer-Bio NTech 30mcg/0.3mL) 12YO+ BIVALENT PF, MDV 08/18/2022 COVID-19 vaccine (Ception TherapeuticsBio NTech 30mcg/0.3mL) 12YO+ CECILIA-SUCROSE PF, MDV 03/24/2022 [...] Description 09/05/2024 1:45 PM CDT Orders Only [facility] [address] [place] [address] [facility] [place] 09/05/2024 2:15 PM CDT Office Visit [facility] [address] [place] [address] Kay Lange DO [address] [place] [address] 09/07/2024 8:55 AM CDT Office Visit [address] [address] Gaby Ingram DO [address] [place] [address] 11/08/2024 1:00 PM MOLD CLAMPER Cardiac Device Check [facility] [address] [place] [phone] Health Maintenance Due Date Last Done Comments [...] Procedure Name Priority Date/Time Associated Diagnosis Comments SCAN-RADIOLOGY REPORT 08/10/2024 12:00 AM CDT INR,POCT Routine 08/03/2024 2:55 PM CDT Paroxysmal [...] to Health Maintenance Results * SCAN-RADIOLOGY REPORT (08/10/2024 12:00 AM CDT) Only the most recent of2 resultswithin the time period is included. Anatomical Region Laterality Modality Other Scanner OTHER * (ABNORMAL) INR,POCT (08/03/2024 2:55 PM CDT) Only the most recent of2 resultswithin the time period is included. INR 2.8(H) <1.3 08/03/2024 2:56 PM CDT [facility] Blood BLOOD SPECIMEN / Unknown Capillary / Unknown 08/03/2024 2:55 PM CDT 08/03/2024 2:55 PM CDT Narrative [facility] - 08/03/2024 2:56 PM CDT ?Therapeutic Range 2.0-3.0 for most anticoagulated patients 2.5-3.5 or 4.0 for high risk patients Kay Lange DO LABORATORY [facility] [place] [address], * NM CARDIAC MPI STRESS TEST (07/14/2024 12:51 PM CDT) Anatomical Region Laterality Modality HEART Ultrasound 07/14/2024 9:38 AM CDT Narrative 07/14/2024 1:13 PM CDT ? Toll -free: [phone] ?[employer] ? MYOCARDIAL PERFUSION IMAGING REPORT REST/STRESS SINGLE ISOTOPE GATED SPECT IMAGING Patient Name: ?? LAUREN I FINGER ? Gender: ? F ? Height: ? 66 in Accession #: ?[id number] ?Weight: ? 230 lb Study Date: ? 07/14/2024 9:38:20 AM ? BSA: ?2.12 m? ? ? : ?1935 88 years ? BMI: ?37.12 kg/m? ? ? Ord. Prov.: ? RAINER NGUYEN ? Monitoring Prov.: Farzana Gunderson Performing Site [facility] Clinical History: ? Dyspnea and palpitations. [...] Brennon Colbert MD - 07/14/2024 Toll -free: [phone] [employer] MYOCARDIAL PERFUSION IMAGING REPORT REST/STRESS SINGLE ISOTOPE GATED SPECT IMAGING Patient Name: LAUREN HINES Gender: F Height: 66 in Weight: 230 lb Study Date: 07/14/2024 9:38:20 AM BSA: 2.12 m? ? ? : 1935 88 years BMI: 37.12kg/m? ? ? Ord. Prov.: RAINER NGUYEN Monitoring Prov.: Farzana Gunderosn [facility] Clinical History: Dyspnea and palpitations. [...] was 96 mmHg/55 mmHg; peak blood pressure dly298 mmHg/75 mmHg. FINDINGS Imaging - The overall [...] Final (Updated) Rainer Nguyen DO NM * SCAN-CT INTERPRETATION (07/13/2024 12:00 AM CDT) Anatomical Region Laterality Modality Other Scanner OTHER * (ABNORMAL) LIPID PANEL W REFLEX MEASURED LDL (06/20/2024 3:27 PM CDT) CHOLESTEROL,TOTAL 233(H) 100 - 199 mg/dL 06/21/2024 7:14 AM T [facility] Comment: Cholesterol, Total Reference Ranges Desirable <200 mg/dL Borderline 200-239 mg/dL High >=240 mg/dL TRIGLYCERIDES 114 <150 mg/dL 06/21/2024 7:14 AM CDT [facility] HDL CHOLESTEROL 69 >40 mg/dL 7:14 AM T [facility] NON-HDL CHOLESTEROL 164(H) <145 mg/dl 06/21/2024 7:14 AM T [facility] CHOL/HDL RATIO 3.38 <4.50 06/21/2024 7:14 AM CDT [facility] LDL CHOLESTEROL 141(H) <=130 mg/dL 06/21/2024 7:14 AM T [facility] VLDL CHOLESTEROL 23 <=30 mg/dL 06/21/2024 7:14 AM CDT [facility] PROVIDER ORDERED STATUS RANDOM 06/21/2024 7:14 AM CDT [facility] Blood BLOOD SPECIMEN / Unknown Venipuncture / Unknown 06/20/2024 3:27 PM CDT 06/20/2024 3:27 PM CDT Kay Lange DO CHEMISTRY Performing Organization Address City/[facility] Co de Phone Number [facility] [address] [place] [phone], [place] * (ABNORMAL) PROTIME-INR (06/20/2024 3:27 PM CDT) [facility] INR 1.7(H) <1.3 06/20/2024 9:52 PM CDT [facility] PROTIME 18.5(H) 10.3 - 12.3 sec 06/20/2024 9:52 PM CDT [facility] Blood BLOOD SPECIMEN / Unknown Venipuncture / Unknown 06/20/2024 3:27 PM CDT 06/20/2024 3:27 PM CDT Narrative [facility] - 06/20/2024 9:52 PM CDT ?Therapeutic Range [...] Kay Lange DO HEMATOLOGY Performing Organization Address City/[facility] Co de Phone Number [facility] [address] [place] [phone], [place] * (ABNORMAL) BASIC METABOLIC PANEL (06/20/2024 3:27 PM CDT) Pathologist [facility] SODIUM 139 136 - 145 mmol/L 06/21/2024 7:14 AM [facility] POTASSIUM 4.5 3.5 - 5.1 mmol/L 06/21/2024 7:14 AM [facility] CHLORIDE 104 98 - 107 mmol/L 06/21/2024 7:14 AM [facility] CO2,TOTAL 24 22 - 29 mmol/L 06/21/2024 7:14 AM [facility] ANION GAP 11 5 - 18 06/21/2024 7:14 AM [facility] GLUCOSE 104(H) 70 - 99 mg/dL 06/21/2024 7:14 AM [facility] CALCIUM 9.4 8.8 - 10.2 mg/dL 06/21/2024 7:14 AM [facility] BUN 14 8 - 23 mg/dL 06/21/2024 7:14 AM [facility] CREATININE 0.93(H) 0.50 - 0.90 mg/dL 06/21/2024 7:14 AM [facility] BUN/CREAT RATIO 15 10 - 20 7:14 AM [facility] eGFR 60(L) >90 mL/min/1.7 3m2 06/21/2024 7:14 AM [facility] Comment:As of 2022, eG [...] 3:27 PM CDT Kay Lange DO CHEMISTRY [facility] [address] [address], * (ABNORMAL) XR DXA BONE DENSITY 2 [...] Documents on File Type Date Recorded Patient Wet Inspector Optical Glass Expl anation Healthcare Directive 08/06/2016 8:29 PM [...] 8:56 AM 08/15/2009 8:58 PM Care Teams Manufacturing Production Manager Relationship Specialty Start Date End Date Kay Lange DO PCP - General 09/25/09 Conrado Grigsby MD [facility] [address] [address] Cardiovascular Disease 04/27/15 Olman Milner [address] [place] [phone] Inspector And Hand Packager 04/27/15
== END 2024-08-10 14:22 | disposition home or self-care (01) ==
LOC: AMB 08-12 07:26
PROVIDERS: PCP Family Medicine; Visit Provider Family Medicine
DX: R07.89 Other chest pain (principal)
CPT/HCPCS: A0425; A0427

== ENCOUNTER 2024-08-10 14:56 | Emergency (ER) | payer MEDICARE, BC, SELFPAY ==
[2024-08-10] VITALS (16 sets, daily range): BP systolic 150–185; BP diastolic 61–75; PULSE 59–68; RESP 18; TEMP 36.6; O2SAT 84–95; BMI 35.5
--- NOTE | 2024-08-10 15:21 | ED_ITS ---
HPI - General Adult General Time Seen by Provider: 15:21 Date Seen: 08/10/24 Chief complaint: Chest Pain Stated complaint: chest pressure Time Seen by Provider: 08/10/24 15:19 Source: patient, EMS, RN notes reviewed and old records reviewed Mode of arrival: EMS Limitations: no limitations History of Present Illness HPI narrative: This 88-year-old female is brought in by EMS from home where she resides with resolved chest and bilateral shoulder and arm discomfort. She was washing dishes this morning, her symptoms came on after that, she went to rest in the chair. Did try nitroglycerin, did not really help. Symptoms eventually went away. She later got up to walk around and go to the bathroom, felt her symptoms come back. She states it is not really a chest pain but more of a severe discomfort or heaviness feeling. She took another nitroglycerin this afternoon, maybe about an hour and half ago or so, did not help. Pain eventually just went away on its own. She states she has no symptoms right now, states she could go home. She did get to 325 mg aspirin from EMS. Patient is on chronic anticoagulation with warfarin for history of atrial fibrillation. She does have a pacemaker. She notes that she has difficulty lying flat at night, will feel short of breath, this is maybe been worse the last couple nights. She notes no coughing, no upper respiratory symptoms, has not felt like she is coming down with a cold, no associated GI symptoms with any of this. She does not carry a history of prior ischemic cardiac disease per her report. Patient is also maintained on sotalol. She states she has not missed any medicines, has not missed any Coumadin doses. She was hospitalized mid June for acute on chronic respiratory failure. She did have a myocardial perfusion scan on 07/14/2020 for which was normal. The overall left ventricular systolic function was normal without wall motion abnormalities, post stress LVEF was visually estimated to be 75%. Left ventricular cavity size was normal. Compared to prior study of 07/08/2017, there were no significant changes. Related Data Home Medications ?Medication ?Instructions ?Recorded ?Confirmed sertraline 50 mg tablet 50 mg PO DAILY 05/26/23 07/13/24 sotalol 80 mg tablet 80 mg PO BID 05/26/23 07/13/24 calcium 500 mg tablet 500 mg PO DAILY 07/13/24 07/13/24 rosuvastatin 10 mg tablet 10 mg PO DAILY 07/13/24 07/13/24 warfarin 2.5 mg tablet 1.25 - 2.5 mg PO DAILY 07/13/24 07/13/24 Previous Rx's ?Medication ?Instructions ?Recorded furosemide 20 mg tablet (Lasix) 20 mg PO DAILY 3 days #3 tabs 05/26/23 amlodipine 5 mg tablet 5 mg PO DAILY #30 tabs 12/21/23 lorazepam 0.5 mg tablet 0.5 mg PO DAILY PRN #10 tabs 12/21/23 potassium chloride 10 mEq 20 meq (2 x 10 mEq) PO DAILY #60 07/14/24 capsule,extended release caps Allergies Allergy/AdvReac Type Severity Reaction Status Date / Time No Known Drug Allergies Allergy Verified 07/13/24 08:38 [facility] Medical History (Updated 08/10/24 @ 18:58 by Radha Bermudez MD) Pulmonary hypertension ?I27.20 - Pulmonary hypertension, unspecified (ICD-10) Atrial fibrillation ?I48.91 - Unspecified atrial fibrillation (ICD-10) Chest pain ?R07.9 - Chest pain, unspecified (ICD-10) Cardiac pacemaker ?Z95.0 - Presence of cardiac pacemaker (ICD-10) Aortic regurgitation ?I35.1 - Nonrheumatic aortic (valve) insufficiency (ICD-10) Former smoker ?Z87.891 - Personal history of nicotine dependence (ICD-10) Mild anxiety ?F41.9 - Anxiety disorder, unspecified (ICD-10) Chronic anticoagulation ?Z79.01 - long term care pharmacist (current) use of anticoagulants (ICD-10) Surgical History (Updated 07/22/24 @ 00:00 by Donya Burrell) Status post laparoscopic cholecystectomy ?Z90.49 - Acquired absence of other specified parts of digestive tract (ICD- 10) Status post biventricular cardiac pacemaker insertion ?Z95.0 - Presence of cardiac pacemaker (ICD-10) History of hysterectomy ?Z90.710 - Acquired absence of both cervix and uterus (ICD-10) Social History (Updated 07/13/24 @ 18:52 by Sherly Pichardo MD) Narrative: Lives locally with . No current smoking, no concerning ETOH use. Requests DNR/DNI status. What is your current living situation?: I presently have a place to live Problems where you live: no known problems Problems where you live details: no known problems In the past 12 months, utilities in danger of being shut off: no In past 12 months, lack of transportation kept you from medical appts, meetings, work, or getting things needed for daily living: no In the past 12 mos, have been you worried that your food would run out before you had money to buy more?: never true In the past 12 mos, the food you bought just didn't last and you didn't have money to buy more?: never true Highest level of school completed/degree received: some college, no degree Smoking Status: Former smoker Do you use any of these nicotine containing products: None Second hand tobacco smoke exposure: No How often do you have a drink containing alcohol: monthly or less How many standard drinks containing alcohol do you have on a typical day: 1 or 2 How often do you have six or more drinks on one occasion: Less than monthly AUDIT-C Alcohol total score: 2 Non-prescribed substance use: denies use Caffeine: Yes (rare occasional soda) How often does anyone, including family, friends and others, physically hurt you : never How often does anyone, including family, friends and others, insult or talk down to you: never How often does anyone, including family, friends and others, threaten you with harm: never How often does anyone, including family, friends and others, scream or curse at you: never service: No Exam Const: Vital Signs, click to edit/add: Vital Signs - 24 hr 08/10/24 15:13 08/10/24 15:30 08/10/24 16:18 Temperature 97.9 F Pulse Rate Pulse Rate [Pulse Oximeter] 61 60 Respiratory Rate 18 18 Blood Pressure Blood Pressure [Ri ght Upper Arm] 170/75 H 153/66 H Pulse Oximetry 95 94 92 Oxygen Delivery Me thod Room Air Room Air 08/10/24 16:54 08/10/24 17:00 08/10/24 17:02 Temperature Pulse Rate 60 60 60 Pulse Rate [Pulse Oximeter] Respiratory Rate Blood Pressure 150/63 H Blood Pressure [Ri ght Upper Arm] Pulse Oximetry 95 94 95 Oxygen Delivery Me thod 08/10/24 17:15 08/10/24 17:30 08/10/24 17:32 Temperature Pulse Rate 60 60 60 Pulse Rate [Pulse Oximeter] Respiratory Rate Blood Pressure 151/61 H Blood Pressure [Ri ght Upper Arm] Pulse Oximetry 94 95 94 Oxygen Delivery Me thod 08/10/24 17:45 08/10/24 18:00 08/10/24 18:02 Temperature Pulse Rate 62 60 59 L Pulse Rate [Pulse Oximeter] Respiratory Rate Blood Pressure 160/72 H Blood Pressure [Ri ght Upper Arm] Pulse Oximetry 93 95 94 [facility] 08/10/24 18:15 08/10/24 18:34 08/10/24 18:37 Temperature Pulse Rate 60 68 62 Pulse Rate [Pulse Oximeter] Respiratory Rate Blood Pressure 185/75 H Blood Pressure [Ri ght Upper Arm] Pulse Oximetry 93 84 L 91 [facility]xygen [facility] 08/10/24 18:45 Temperature Pulse Rate 60 Pulse Rate [Pulse Oximeter] Respiratory Rate Blood Pressure Blood Pressure [Ri ght Upper Arm] Pulse Oximetry 95 Oxygen Delivery Me thod 88-year-old female is alert, interactive , no apparent distress, seen exam room 5. Sclera clear, conjugate gaze, symmetrical facial function. Next thicker but no masses, do not appreciate jugular venous distension. Is able to sit up, lungs are clear, no wheezing or crackles noted. CV regular rate and rhythm, no murmur, normal S1-S2, no S3-S4 noted. Abdomen is obese but soft, no rebound or guarding, no organomegaly. No significant pitting edema of her lower extremities. No rash noted. Documenting provider has reviewed patient's vital signs: yes Course Course ED Course: In lieu of this patient just having a normal myocardial perfusion scan on July 14, less than a month ago, I doubt that this is likely cardiac. Could be congestive heart failure. We certainly will get troponin on her. Her baseline EKG is paced. Will get portable chest x-ray, appropriate labs. This could be pulmonary, infectious as well, potentially referred pain from GI. She has no abdominal pain at this time. Reevaluation(s) Time of Reevaluation #1: 18:54 Reevaluation #1: Patient was ambulated in the ER, had no recurrence of her symptoms. Her troponins remain normal. She indeed just had a normal Myoview in June. I do not have a definite explanation for her symptoms but I do feel that it is reasonable to discharge her home since she is asymptomatic and we have been unable to reproduce symptoms. Vital Signs Vital signs: Initial Vital Signs Temperature 97.9 F 08/10/24 15:13 Temperature Source Temporal Artery Scan 08/10/24 15:13 Pulse Rate 61 08/10/24 15:13 Respiratory Rate 18 08/10/24 15:13 Blood Pressure 170/75 H 08/10/24 15:13 Blood Pressure Mean 106 H 08/10/24 15:13 Pulse Oximetry 95 08/10/24 15:13 Oxygen Delivery Method Room Air 08/10/24 15:13 Vital Signs Temperature 97.9 F 08/10/24 15:13 Pulse Rate 61 08/10/24 15:13 Respiratory Rate 18 08/10/24 15:13 Blood Pressure 170/75 H 08/10/24 15:13 Pulse Oximetry 95 08/10/24 15:13 Oxygen Delivery Method Room Air 08/10/24 15:13 Temperature 97.9 F 08/10/24 15:13 Pulse Rate 60 08/10/24 18:45 Respiratory Rate 18 08/10/24 16:18 Blood Pressure 185/75 H 08/10/24 18:37 Pulse Oximetry 95 08/10/24 18:45 Oxygen Delivery Method Room Air 08/10/24 16:18 Medical Decision Making Lab Data Lab results reviewed: Yes I reviewed the patient's lab results Lab results narrative: Hemoglobin is stable for the patient. Labs: Lab Results 08/10/24 08/10/24 08/10/24 Range/Units 15:18 15:34 15:49 WBC 9.80 (4.50-11.00) K/uL RBC 4.49 (4.00-5.20) m/uL Hgb 9.6 L (12.0-16.0) gm/dL Hct 33.1 (33.0-51.0) % MCV 74 L (80-100) fL MCH 21 L (26-34) pg MCHC 29 L (32-36) gm/dL RDW Coeff of Ebony 19.8 H (11.5-15.5) % Plt Count 328 (140-440) K/uL Neut % (Auto) 75.3 H (42.0-72.0) % Lymph % (Auto) 17.4 L (20-44) % Orange % (Auto) 5.1 (0.0-11.0) % Eos % (Auto) 1.5 (0.0-7.0) % Baso % (Auto) 0.3 (0.0-3.0) % Neut # (Auto) 7.40 H (1.7-7.0) K/uL Lymph # (Auto) 1.70 (0.90-2.90) K/uL Orange # (Auto) 0.50 (0.00-0.90) K/UL Eos # (Auto) 0.15 (0.00-0.50) K/uL Baso # (Auto) 0.03 (0.00-0.30) K/uL Abs Immat Gran (auto) 0.04 (0.00-0.30) K/uL Imm/Tot Granulo (auto) 0.4 % INR 2.16 H (0.91-1.10) Sodium 137 (135-149) mmol/L Potassium 4.4 (3.6-5.1) mmol/L Chloride 105 (96-114) mmol/L Carbon Dioxide 26 (20-32) mmol/L Anion Gap 6 L (7-15) mEq/L BUN 13 (7-30) mg/dL Creatinine 0.6 (0.5-1.5) mg/dL Estimated Creat Clear 37.10 Estimated GFR 87 ml/min Glucose 104 (60-115) mg/dL Lactate 1.5 (0.5-1.9) mmol/L Calcium 9.2 (8.4-10.6) mg/dL Total Bilirubin 0.6 (0.1-1.5) mg/dL AST 29 (12-35) U/L ALT 13 (4-35) U/L Alkaline Phosphatase 68 (40-150) U/L Troponin I 0.02 (0.01-0.04) ng/mL C-Reactive Protein 0.9 (0.5-1.0) mg/dL NT-Pro-B Natriuret Pep 977 pg/mL Total Protein 7.0 (6.0-8.3) g/dL Albumin 4.1 (3.3-5.0) g/dL Urine Color Yellow (Yellow) Urine Appearance Clear (Clear) Urine pH 7.0 (5.0-8.5) Ur Specific Sherrill 1.010 (1.000-1.030) Urine Protein Negative (Negative) Urine Glucose (UA) Negative (Negative) Urine Ketones Negative (Negative) Urine Blood Negative (Negative) Urine Nitrite Negative (Negative) Urine Bilirubin Negative (Negative) Urine Urobilinogen 0.2 (0.2-1.0) Ur Leukocyte Esterase Trace A (Negative) Urine RBC 0-2 (0-2) Urine WBC 2-5 (0-5) Ur Squamous Epith Cells Few (None-Few) Urine Bacteria Few A (None) SARS-CoV-2 (PCR) Negative SARS-CoV-2 (Negative) Influenza Type A (PCR) Negative PCR FLU A (Negative) Influenza Type B (PCR) Negative PCR FLU B (Negative) RSV (PCR) Negative PCR RSV (Negative) Lab Acknowledgement Test Added POC Troponin I (0.01-0.04) ng/ml 08/10/24 Range/Units 17:08 WBC (4.50-11.00) K/uL RBC (4.00-5.20) m/uL Hgb (12.0-16.0) gm/dL Hct (33.0-51.0) % MCV (80-100) fL MCH (26-34) pg MCHC (32-36) gm/dL RDW Coeff of Ebony (11.5-15.5) % Plt Count (140-440) K/uL Neut % (Auto) (42.0-72.0) % Lymph % (Auto) (20-44) % Orange % (Auto) (0.0-11.0) % Eos % (Auto) (0.0-7.0) % Baso % (Auto) (0.0-3.0) % Neut # (Auto) (1.7-7.0) K/uL Lymph # (Auto) (0.90-2.90) K/uL Orange # (Auto) (0.00-0.90) K/UL Eos # (Auto) (0.00-0.50) K/uL Baso # (Auto) (0.00-0.30) K/uL Abs Immat Gran (auto) (0.00-0.30) K/uL Imm/Tot Granulo (auto) % INR (0.91-1.10) Sodium (135-149) mmol/L Potassium (3.6-5.1) mmol/L Chloride (96-114) mmol/L Carbon Dioxide (20-32) mmol/L Anion Gap (7-15) mEq/L BUN (7-30) mg/dL Creatinine (0.5-1.5) mg/dL Estimated Creat Clear Estimated GFR ml/min Glucose (60-115) mg/dL Lactate (0.5-1.9) mmol/L Calcium (8.4-10.6) mg/dL Total Bilirubin (0.1-1.5) mg/dL AST (12-35) U/L ALT (4-35) U/L Alkaline Phosphatase (40-150) U/L Troponin I (0.01-0.04) ng/mL C-Reactive Protein (0.5-1.0) mg/dL NT-Pro-B Natriuret Pep pg/mL Total Protein (6.0-8.3) g/dL Albumin (3.3-5.0) g/dL Urine Color (Yellow) Urine Appearance (Clear) Urine pH (5.0-8.5) Ur Specific Sherrill (1.000-1.030) Urine Protein (Negative) Urine Glucose (UA) (Negative) Urine Ketones (Negative) Urine Blood (Negative) Urine Nitrite (Negative) Urine Bilirubin (Negative) Urine Urobilinogen (0.2-1.0) Ur Leukocyte Esterase (Negative) Urine RBC (0-2) Urine WBC (0-5) Ur Squamous Epith Cells (None-Few) Urine Bacteria (None) SARS-CoV-2 (PCR) (Negative) Influenza Type A (PCR) (Negative) Influenza Type B (PCR) (Negative) RSV (PCR) (Negative) Lab Acknowledgement POC Troponin I 0.01 (0.01-0.04) ng/ml ECG Data Attestation: I personally reviewed and interpreted this ECG as follows: (Paced rhythm at 61 beats per minute.) Prior ECG tracings: available for review Discharge Plan Discharge Clinical Impression: Chest discomfort Patient Disposition: Home, Self-Care Condition: Stable Instructions: Chest Pain (ED), Noncardiac Chest Pain (ED) Additional Instructions: There is no evidence of any rhythm disturbance or any heart damage/heart attack on your testing here. Your labs are stable and reassuring. I do not definitely know what the cause of your symptoms were but I am happy to see that you can ambulate briefly here in the ER without any recurrence. I would ask that you follow up in clinic with your primary care provider within the next week for recheck. If you have further concerns or return of symptoms, please seek re- evaluation. Prescriptions: No Action sotalol 80 mg tablet 80 mg PO BID sertraline 50 mg tablet 50 mg PO DAILY furosemide [Lasix] 20 mg tablet 20 mg PO DAILY 3 Days Qty: 3 0RF rosuvastatin 10 mg tablet 10 mg PO DAILY warfarin 2.5 mg tablet 1.25 - 2.5 mg PO DAILY Rx Instructions: 2.5 mg on MON AND TH, 1.25 MG ALL OTHER DAYS calcium 500 mg tablet 500 mg PO DAILY potassium chloride 10 mEq capsule, extended release 20 meq PO DAILY Qty: 60 2RF amlodipine 5 mg tablet 5 mg PO DAILY Qty: 30 2RF lorazepam 0.5 mg tablet 0.5 mg PO DAILY PRNQty: 10 0RF Follow Up/Referrals: Kay Lange DO [Primary Care Provider] - Stand Alone Forms: [employer] Info Instructions
--- NOTE | 2024-08-10 15:30 | CRLHL7_ITS ---
For Patients: As a result of the Century Cures Act, medical imaging exams and procedure reports are released immediately into your electronic medical record. You may view this report before your referring provider. If you have questions, please contact your health care provider. INDICATION: Chest pain. TECHNIQUE: Chest 1 portable view. COMPARISON: 07/13/2024. FINDINGS: Intracardiac device appears appropriately positioned. No pneumothorax or pleural effusion. Mild bibasilar scarring or atelectasis. Lungs are otherwise clear. Aortic atherosclerosis. Borderline/mild cardiomegaly, unchanged. No pulmonary edema. Upper abdomen and osseous structures as imaged show no acute abnormality. IMPRESSION: No evidence of acute cardiopulmonary disease. Dictated by Tunde Ross MD @ 08/10/2024 4:27:19 PM (Electronically Signed)
[2024-08-10 15:35] LABS: Appearance Urine Clear (Clear); Bilirubin Urine Negative (Negative); Blood Urine Negative (Negative); Color Urine Yellow (Yellow); Glucose Urine Negative (Negative); Ketones Urine Negative (Negative); Leukocyte Esterase Urine Trace (Negative); Nitrite Urine Negative (Negative); Protein Urine Negative (Negative); Urobilinogen Urine 0.2 (0.2-1.0)
[2024-08-10 15:59] LABS: Lactate* 1.5 mmol/L (0.5-1.9)
[2024-08-10 16:00] LABS: Basophils Absolute Auto 0.03 K/uL (0.00-0.30); Basophils Percent Auto 0.3 % (0.0-3.0); Eosinophils Absolute Auto 0.15 K/uL (0.00-0.50); Eosinophils Percent Auto 1.5 % (0.0-7.0); Hematocrit 33.1 % (33.0-51.0); Hemoglobin* 9.6 gm/dL (12.0-16.0); Immature Granulocytes Abs Auto 0.04 K/uL (0.00-0.30); Immature Granulocytes Pct Auto 0.4 %; Lymphocytes Percent Auto 17.4 % (20-44); Mean Corpuscular HGB Conc 29 gm/dL (32-36); Mean Corpuscular Hemoglobin 21 pg (26-34); Mean Corpuscular Volume 74 fL (80-100); Monocytes Percent Auto 5.1 % (0.0-11.0); Neutrophils Percent Auto 75.3 % (42.0-72.0); Platelet Count* 328 K/uL (140-440); RDW Coefficient of Variation % 19.8 % (11.5-15.5); Red Blood Count 4.49 m/uL (4.00-5.20)
[2024-08-10 16:01] LABS: RBC Urine 0-2 (0-2)
[2024-08-10 16:02] LABS: Bacteria Urine Few; Squamous Epithelial Cell Urine Few (None-Few)
[2024-08-10 16:02] LABS: Slide Review Reflex No
[2024-08-10 16:07] LABS: PCR FLU A Negative PCR FLU A (Negative); PCR FLU B Negative PCR FLU B (Negative); PCR RSV Negative PCR RSV (Negative); SARS PCR* Negative SARS-CoV-2 (Negative)
[2024-08-10 16:22] LABS: Albumin* 4.1 g/dL (3.3-5.0)
[2024-08-10 16:23] LABS: Chloride* 105 mmol/L (96-114); Potassium* 4.4 mmol/L (3.6-5.1); Sodium* 137 mmol/L (135-149)
[2024-08-10 16:25] LABS: Bilirubin Total* 0.6 mg/dL (0.1-1.5); Creatinine* 0.6 mg/dL (0.5-1.5); Estimated Glomerular Filt Rate 87 ml/min; INR 2.16 (0.91-1.10); Prothrombin Time 25.7 Seconds
[2024-08-10 16:26] LABS: Alanine Aminotransferase* 13 U/L (4-35); Alkaline Phosphatase* 68 U/L (40-150); Anion Gap 6 mEq/L (7-15); Aspartate Amino Transferase* 29 U/L (12-35); Blood Urea Nitrogen* 13 mg/dL (7-30); Carbon Dioxide* 26 mmol/L (20-32); Glucose* 104 mg/dL (60-115)
[2024-08-10 16:27] LABS: Calcium* 9.2 mg/dL (8.4-10.6)
[2024-08-10 16:29] LABS: C Reactive Protein* 0.9 mg/dL (0.5-1.0)
--- OUTSIDE RECORDS SUMMARY | 2024-08-10 16:36 | XMS_ITS | Clinical Summary ---
Author Organization [facility] Address [place], [place] [address] Care Team Providers Care Tin Pourer Name Role Phone Kay Lange DO Primary Care Provider Conrado Grigsby MD Unavailable [phone] Olman Milner Unavailable [phone] Allergies Active Allergy Reactions Criticality Noted Date Comments Diphenhydramine Other - Describe In Comment Field 01/25/2019 increase in heart palpitations Medications Medication Sig Dispensed Refills Start Date End Date Status CALCIUM 600 + D(3) 600 MG (1,500)-200 UNIT TAB twice daily 0 9 Active cholecalciferol (VITAMIN D) 1,000 unit capsule Take 1 capsule by mouth once daily. 0 0 Active Blood Pressure MonitorIndication s:Hypertension Hypertension dx. 1 Device 0 3 Active acetaminophen (TYLENOL EXTRA STRGTH) 500 mg tablet Take 1-2 tablets by mouth 3 times daily. Max acetaminophen dose: 4000mg in 24 hrs. 0 7 Active nitroglycerin (NITROSTAT) 0.4 mg sublingual tabletIndications :Abnormal nuclear stress test ONE TABLET UNDER TONGUE NEEDED FOR CHEST PAIN EVERY 5 MINUTES 25 Tablet 3 1 Active CPAPIndications:O SA (obstructive sleep apnea) CPAP machine for home use at pressure 10cm/H2O-- starting pressure at 5cm/H2O with ramp of 15 minutes, nasal mask x1/3month with nasal pillows x 2/mo 1 Each 11 2 Active nystatin powder (MYCOSTATIN) powderIndications :Yeast dermatitis Apply 1 Strip topically to affected area(s) three times daily. 60 g 3 3 Active sotaloL (BETAPACE) 80 mg tabletIndications :Paroxysmal atrial fibrillation (HC) Take 1 Tablet (80 mg) by mouth every 12 hours. 180 Tablet 3 3 Active amLODIPine (NORVASC) 5 mg tabletIndications :Hypertension Take 1 Tablet (5 mg) by mouth once daily. 90 Tablet 2 4 Active furosemide (LASIX) 20 mg tabletIndications :Systolic congestive heart failure, NYHA class 1, unspecified congestive heart failure chronicity (HC) Take 1 Tablet (20 mg) by mouth once daily in the morning. 90 Tablet 3 4 Active LORazepam (ATIVAN) 0.5 mg tabIndications:An xiety TAKE ONE-HALF TO 1 TABLET BY MOUTH NEEDED FOR ANXIETY 30 Tablet 4 Active potassium chloride (MICRO-K) 10 mEq Controlled-releas e capsuleIndication s:Hypertension,Sy stolic congestive heart failure, NYHA class 1, unspecified congestive heart failure chronicity (HC) Take 2 Capsules (20 mEq) by mouth two times daily with meals. 180 Capsule 2 4 Active sertraline (ZOLOFT) 50 mg tabletIndications :Anxiety Take 1 Tablet (50 mg) by mouth once daily in the morning. 90 Tablet 1 4 Active rosuvastatin (CRESTOR) 10 mg tabletIndications :Systolic congestive heart failure, NYHA class 1, unspecified congestive heart failure chronicity (HC) Take 10 mg by mouth once daily. 90 Tablet 3 4 Active donepeziL (ARICEPT) 5 mg tabletIndications :Dementia in Alzheimer's disease (HC) Take 1 Tablet (5 mg) by mouth at bedtime. 60 Tablet 4 Active warfarin (COUMADIN) 2.5 mg tabletIndications :Paroxysmal atrial fibrillation (HC),Chronic anticoagulation,A nticoagulation monitoring, INR range 2-3 Take by mouth 2.5 mg (2.5 mg x 1) every Mon, [place]; 1.25 mg (2.5 mg x 0.5) all other days in the evening OR as directed. 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 Normal left ventricular ejection fraction of approximately 65 percent. Chronic anticoagulation 04/03/2014 CHF (congestive heart failure), NYHA class I Assessment & Plan (05/18/2023 6:11 AM CDT): stable today during visit. Kay Lange D.O. [...] at a health care facility 09/21/2009 04/07/2018 Overview (09/21/2009): Pap- hysterectomy Bone Density-02/14/02 Colonoscopy-07/30/05 repeat in 5 years SLEEP APNEA AHI-105 04/05/2008 05/31/2008 02/26/2021 Encounter for long-term (cur rent) use of anticoagulants 04/13/2007 04/03/2014 Overview (07/13/2009): INR goal range 2.0-3.0 Urethral stricture unspecified 03/08/2007 06/03/2012 Encounters Date Type Department Care Team Description 08/05/[address] [address] Kay Lange DO Refill Request (Warfarin) 08/04/2024 Anticoagulation (warfarin) [address] [address] 1, [facility] Anticoagulation 08/03/2024 1:50 PM CDT Office Visit [address] [address] Kay Lange DO Hospital F/U 08/03/[address] [address] Kay Lange DO Refill Request (Donepezil 5mg) 08/03/2024 Travel 07/27/[address] [address] Gaby Ingram DO Appointment (CAMP reschedule) 07/27/[address] [address] Kay Lange DO 07/14/2024 9:00 AM CDT Ancillary Procedure [facility] [address] [place] [address] 07/13/2024 Orders Only [facility] Scanner 1 scan: (1-Ord) [facility], CT CHEST WO CON, 07/13/2024 07/13/2024 Orders Only [facility] Scanner 1 scan: (1-Ord) [facility], CHEST, 07/13/2024 07/13/2024 Nurse Triage [facility] [address] [place] [address] Kay Lange DO Chest Pain 07/06/2024 Telephone [facility] [address] [place] [address] Kay Lange DO Anticoagulation (Annual re-enrollment ) 06/21/2024 Telephone [facility] [address] [place] [address] Kay Lange DO Medication Management (warfarin (COUMADIN)); Refill Request (warfarin) 06/21/2024 Anticoagulation (warfarin) [facility] [address] [place] [address] 1, [facility] Anticoagulation 06/20/2024 2:15 PM CDT Office Visit [facility] [address] [place] [address] Kay Lange DO Medicare ANNUAL (subsequent) Visit (88 Year Old/) 06/20/2024 Travel 06/14/2024 2:00 PM CDT Orders Only [address] [address] Lab, [facility] 06/14/2024 Anticoagulation (warfarin) [facility] [address] [place] [address] 1, [facility] Anticoagulation 06/14/2024 Travel 05/26/[address] [address] Kay Lange DO Refill Request (Sertraline) from Last 3 Months Immunizations Name Administration [...] Sign Reading Time Taken Comments Blood Pressure 92/61 08/03/2024 2:06 PM CDT Pulse 61 08/03/2024 1:51 PM CDT Temperature 36.4 ??C (97.6 ??F) 05/09/2022 2:28 PM CD T Respiratory Rate 16 08/24/2019 7:15 AM CDT Oxygen Saturation 95% 08/03/2024 1:51 PM CDT Inhaled Oxygen Concentration - - Weight 107.3 kg (236 lb 9.6 oz) 08/03/2024 1:51 PM CDT Height 166.6 cm (5' 5.59) 06/20/2024 2:07 PM CD T Body Mass Index 38.67 06/20/2024 2:07 PM CDT Plan of Treatment Upcoming Encounters Date Type Department Care Team (Late st Contact Info) Description 09/05/2024 1:45 PM CDT Orders Only [facility] [address] [place] [address] [facility] [place] 09/05/2024 2:15 PM CDT Office Visit [facility] [address] [place] [address] Kay Lange, [address] [place] [address] 09/07/2024 8:55 AM CDT Office Visit [facility] [address] [place] [address] Gaby Ingram, DO [address] [place] [address] 11/08/2024 1:00 PM [employer] DISPATCHER Cardiac Device Check [facility] [address] [place] [address] Health Maintenance Due Date Last Done Comments Tdap 1946 Tetanus booster 03/07/2019 03/07/2009, 08/03/1996 COVID-19 vaccine series (2022- season) 2024 10/08/2023, 08/18/2022, 03/24/2022, Additional history [...] for age 50+ Completed 08/29/2019, 06/23/2019, 12/03/2011 RSV vaccine for adults or Completed 10/08/2023 Procedures Procedure Name Priority Date/Time Associated Diagnosis Comments INR,POCT Routine 08/03/2024 2:55 PM CDT Paroxysmal atrial fibrillation (HC) Chronic anticoagulation Anticoagulation monitoring, INR range 2-3 NM CARDIAC MPI STRESS TEST Routine 07/14/2024 12:51 PM CDT Chest pain SCAN-CT INTERPRETATION 12:00 AM CDT SCAN-RADIOLOGY REPORT [...] Relevant to Health Maintenance Results * (ABNORMAL) INR,POCT (08/03/2024 2:55 PM CDT) Only the most recent of2 resultswithin the time period is included. INR 2.8(H) <1.3 08/03/2024 2:56 PM CDT [facility] Blood BLOOD SPECIMEN / Unknown Capillary / Unknown 08/03/2024 2:55 PM CDT 08/03/2024 2:55 PM CDT Narrative [facility] - 08/03/2024 2:56 PM CDT ?Therapeutic Range 2.0-3.0 for most anticoagulated patients 2.5-3.5 or 4.0 for high risk patients Kay Lange DO LABORATORY [facility] [address] [place] [address], [place] [phone] * NM CARDIAC MPI STRESS TEST (07/14/2024 12:51 PM CDT) Anatomical Region Laterality Modality HEART Ultrasound 07/14/2024 9:38 AM CDT Narrative 07/14/2024 1:13 PM CDT ? Toll -free: [phone] ?[facility] ? MYOCARDIAL PERFUSION IMAGING REPORT REST/STRESS SINGLE ISOTOPE GATED SPECT IMAGING Patient Name: ?? LAUREN HINES ? Gender: ? F ? Height: ? 66 in Accession #: ?[id number] ?Weight: ? 230 lb Study Date: ? 07/14/2024 9:38:20 AM ? BSA: ?2.12 m? ? ? : ?1935 88 years ? BMI: ?37.12 kg/m? ? ? Ord. Prov.: ? RAINER NGUYEN ? Monitoring Prov.: Jalyn Farzana [facility] Clinical History: ? Dyspnea and palpitations. No known coronary artery ?disease. Cardiac Risk Factors: Hypertension. Other Symptomatology: STEPHY. Cardiac History: ?Abnormal ECG. PPM. Heart failure. Beta ana/calcium channel ana/nitrate taken today: Unknown. Caffeine/methylxanthine taken within 12 hrs: ?Unknown. Chest pain/discomfort at baseline: ?No. IMPRESSION 1. Myocardial perfusion was normal. 2. Overall left ventricular systolic function was normal without wall motion abnormalities. The post stress LVEF was visually estimated to be 75%. 3. Left ventricular cavity size was normal (resting EDV 93 ml). 4. Compared to prior study of July 08, 2017, there is no significant change. 5. See separate report for EKG intrepretation. STRESS MPI PROCEDURE The patient was studied utilizing a same day rest/stress protocol. Myocardial perfusion imaging was performed at rest, 30 minutes following the intravenous injection of 10.5 mCi of 99mTc sestamibi. 30 seconds after the 15 second IV regadenoson injection, the patient was injected via IV with 35.0 mCi of 99mTc sestamibi. Gated post-stress tomographic imaging was performed 35 minutes after stress. After image acquisition was completed, data was reconstructed in short, horizontal long and vertical long axis views and tomographic slices were generated. - Pharmacologic stress testing was performed with an IV regadenoson dose of 0.4 mg. - No low level exercise was performed. - Resting heart rate was 62 bpm, peak heart rate was 82 bpm. - Resting blood pressure was 96 mmHg/55 mmHg; peak blood pressure was 125 mmHg/75 mmHg. FINDINGS Imaging - The overall quality of the study was excellent with mild soft tissue attenuation on rest and stress studies. Computerized motion correction was not applied. - SPECT perfusion images were normal without evidence of ischemia or infarction. - Post stress gated imaging revealed normal left ventricular size with a visually estimated LVEF of 75%. (Lab normals: LVEF >50%, LV Size <150 ml). - There was normal post-stress myocardial thickening and wall motion. - No right ventricular abnormalities were identified. - There was no evidence of abnormal lung or extracardiac activity. - Risk/extent of ischemia per ACC Noninvasive Risk Stratification Guideline: LOW RISK. This study was interpreted and electronically signed by Brennon Colbert MD on 07/14/2024 1:04:26 PM. ??Final (Updated) ?? Procedure Note Brennon Colbert MD - 07/14/2024 Toll -free: [phone] [facility] MYOCARDIAL PERFUSION IMAGING REPORT REST/STRESS SINGLE ISOTOPE GATED SPECT IMAGING Patient Name: LAUREN HINES Gender: F Height: 66 in Weight: 230 lb Study Date: 07/14/2024 9:38:20 AM BSA: 2.12 m? ? ? : 1935 88 years BMI: 37.12kg/m? ? ? Ord. Prov.: RAINER NGUYEN Monitoring Prov.: Farzana Gunderson Performing [facility] Clinical History: Dyspnea and palpitations. No known coronary artery disease. Cardiac Risk Factors: Hypertension. Other Symptomatology: STEPHY. Cardiac History: Abnormal ECG. PPM. Heart failure. Beta ana/calcium channel ana/nitrate taken today: Unknown. Caffeine/methylxanthine taken within 12 hrs: Unknown. Chest pain/discomfort at baseline: No. IMPRESSION 1. Myocardial perfusion was normal. 2. Overall left ventricular systolic function was normal without wallmotion abnormalities. The post stress LVEF was visually estimated to be75%. 3. Left ventricular cavity size was normal (resting EDV 93 ml). 4. Compared to prior study of July 08, 2017, there is no significantchange. 5. See separate report for EKG intrepretation. STRESS MPI PROCEDURE The patient was studied utilizing a same day rest/stress protocol.Myocardial perfusion imaging was performed at rest, 30 minutes followingthe intravenous injection of 10.5 mCi of 99mTc sestamibi. 30 seconds afterthe 15 second IV regadenoson injection, the patient was injected via IVwith 35.0 mCi of 99mTc sestamibi. Gated post-stress tomographic imagingwas performed 35 minutes after stress. After image acquisition wascompleted, data was reconstructed in short, horizontal long and verticallong axis views and tomographic slices were generated. - Pharmacologic stress testing was performed with an IV regadenoson doseof 0.4 mg. - No low level exercise was performed. - Resting heart rate was 62 bpm, peak heart rate was 82 bpm. - Resting blood pressure was 96 mmHg/55 mmHg; peak blood pressure vqt294 mmHg/75 mmHg. FINDINGS Imaging - The overall quality of the study was excellent with mild soft tissue attenuation on rest and stress studies. Computerized motion correction wasnot applied. - SPECT perfusion images were normal without evidence of ischemia orinfarction. - Post stress gated imaging revealed normal left ventricular size with a visually estimated LVEF of 75%. (Lab normals: LVEF >50%, LV Size <150ml). - There was normal post-stress myocardial thickening and wall motion. - No right ventricular abnormalities were identified. - There was no evidence of abnormal lung or extracardiac activity. - Risk/extent of ischemia per ACC Noninvasive Risk StratificationGuideline: LOW RISK. This study was interpreted and electronically signed by Festus Hannon 07/14/2024 1:04:26 PM. Final (Updated) Rainer Nguyen DO NM * SCAN-RADIOLOGY REPORT (07/13/2024 12:00 AM CDT) Anatomical Region Laterality Modality Other Scanner OTHER * SCAN-CT INTERPRETATION (07/13/2024 12:00 AM CDT) Anatomical Region Laterality Modality Other Scanner OTHER * (ABNORMAL) LIPID PANEL W REFLEX MEASURED LDL (06/20/2024 3:27 PM CDT) CHOLESTEROL,TOTAL 233(H) 100 - 199 mg/dL 06/21/2024 7:14 AM CDT [facility] Comment: Cholesterol, Total Reference Ranges Desirable <200 mg/dL Borderline 200-239 mg/dL High >=240 mg/dL TRIGLYCERIDES 114 <150 mg/dL 06/21/2024 7:14 AM CDT [facility] HDL CHOLESTEROL 69 >40 mg/dL 7:14 AM CDT [facility] NON-HDL CHOLESTEROL 164(H) <145 mg/dl 06/21/2024 7:14 AM CDT [facility] CHOL/HDL RATIO 3.38 <4.50 06/21/2024 7:14 AM CDT [facility] LDL CHOLESTEROL 141(H) <=130 mg/dL 06/21/2024 7:14 AM CDT [facility] VLDL CHOLESTEROL 23 <=30 mg/dL 06/21/2024 7:14 AM T [facility] PROVIDER ORDERED STATUS RANDOM 06/21/2024 7:14 AM T [facility] Blood BLOOD SPECIMEN / Unknown Venipuncture / Unknown 06/20/2024 3:27 PM CDT 06/20/2024 3:27 PM CDT Kay Lange DO CHEMISTRY Performing Organization Address [facility] de Phone Number [facility] [address] [place] [address], * (ABNORMAL) PROTIME-INR (06/20/2024 3:27 PM CDT) INR 1.7(H) <1.3 06/20/2024 9:52 PM CDT [facility] PROTIME 18.5(H) 10.3 - 12.3 sec 06/20/2024 9:52 PM CDT [facility] Blood BLOOD SPECIMEN / Unknown Venipuncture / Unknown 06/20/2024 3:27 PM CDT 06/20/2024 3:27 PM CDT Narrative [facility] - 06/20/2024 9:52 PM CDT ?Therapeutic [...] Kay Lange DO HEMATOLOGY Performing Organization Address [facility] Co de Phone Number [facility] [address] [place] [address], * (ABNORMAL) BASIC METABOLIC PANEL (06/20/2024 3:27 PM CDT) SODIUM 139 136 - 145 mmol/L 06/21/2024 7:14 AM CDT [facility] POTASSIUM 4.5 3.5 - 5.1 mmol/L 06/21/2024 7:14 AM CDT [facility] CHLORIDE 104 98 - 107 mmol/L 06/21/2024 7:14 AM CDT [facility] CO2,TOTAL 24 22 - 29 mmol/L 06/21/2024 7:14 AM CDT [facility] ANION GAP 11 5 - 18 06/21/2024 7:14 AM CDT [facility] GLUCOSE 104(H) 70 - 99 mg/dL 06/21/2024 7:14 AM CDT [facility] CALCIUM 9.4 8.8 - 10.2 mg/dL 06/21/2024 7:14 AM CDT [facility] BUN 14 8 - 23 mg/dL 06/21/2024 7:14 AM T [facility] CREATININE 0.93(H) 0.50 - 0.90 mg/dL 06/21/2024 7:14 AM T [facility] BUN/CREAT RATIO 15 10 - 20 7:14 AM T [facility] eGFR 60(L) >90 mL/min/1.7 3m2 06/21/2024 7:14 AM CDT [facility] Comment:As of 2022, eG [...] 3:27 PM CDT Kay Lange DO CHEMISTRY [facility] [address] [place] [address], * (ABNORMAL) XR DXA BONE DENSITY 2 SITES (05/03/2015 11:12 AM CDT) Anatomical Region Laterality Modality Spine, HIPS, HIPL, HIPR Other Narrative 05/04/2015 12:22 PM CDT Please see scanned document for results of this study. Procedure Note Annia Joseph E - 05/04/2015 Please see scanned document for results of this study. Kay Lange DO DEXA from Last 3 Months or Most Recently Relevant to Health Maintenance Advance Directives Documents on File Type Date Recorded Patient Cable Television Technician Expl anation Healthcare Directive 08/06/2016 8:29 PM [...] 8:56 AM 08/15/2009 8:58 PM Care Teams Tin Pourer Relationship Specialty Start Date End Date Kay Lange DO PCP - General 09/25/09 Conrado Grigsby MD [address] [place] [id number] Cardiovascular Disease 04/27/15 Olman Milner [address] [place] [id number] [employer] Consultant 04/27/15
[2024-08-10 16:38] LABS: Troponin I* 0.02 ng/mL (0.01-0.04)
[2024-08-10 16:41] LABS: NT Pro B Type NatriureticPept* 977 pg/mL
[2024-08-10 17:27] LABS: Troponin, Point-of-Care* 0.01 ng/ml (0.01-0.04)
--- NOTE | 2024-08-10 18:36 | ED.NURSE ---
Pt ambulated around ER unit, pt tolerated walking. Pt did not report any feelings, signs or symptoms of pain.
== END 2024-08-10 19:06 | disposition home or self-care (01) ==
PROVIDERS: Emergency Provider Family Medicine; PCP Family Medicine
DX: R07.9 Chest pain, unspecified (principal)
CPT/HCPCS: 36415; 71045; 80053; 81001; 83605; 83880; 84484; 85025; 85610; 86140; 87086; 87186; 87631; 93005; 94761; 99284

== ENCOUNTER 2025-01-01 00:57 | Outpatient (CLI) | payer BC, SELFPAY | END 2025-01-01 00:58 | disposition home or self-care (01) | LOC: AMB 01-10 05:58 | PROVIDERS: PCP Family Medicine; Visit Provider Family Medicine | DX: R53.1 Weakness (principal) | CPT/HCPCS: A0998 ==

== ENCOUNTER 2025-02-23 08:15 | Emergency (ER) | payer BC, SELFPAY ==
--- OUTSIDE RECORDS SUMMARY | 2025-02-23 08:18 | XMS_ITS | Clinical Summary ---
Author Organization [employer] [facility] Address [address] [place] [address] Care Team Providers Care Manager Access Name Role Phone MariuszKay crook Zeny Primary Care Provider Conrado Watts MD Unavailable Olman Milner Unavailable [phone] Allergies Active Allergy Reactions Criticality Noted Date Comments Diphenhydramine Other - Describe In Comment Field 01/25/2019 increase in heart palpitations Medications CALCIUM 600 + D(3) 600 MG (1,500)-200 UNIT TAB twice daily 0 09/25/20 09 Active cholecalciferol (VITAMIN D) 1,000 unit capsule Take 1 capsule by mouth once daily. 0 09/03/20 10 Active Blood Pressure MonitorIndicatio ns:Hypertension Hypertension dx. 1 Device 0 11/07/20 13 Active acetaminophen (TYLENOL EXTRA STRGTH) 500 mg tablet Take 1-2 tablets by mouth 3 times daily. Max acetaminophen dose: 4000mg in 24 hrs. 0 12/01/19 17 Active nitroglycerin (NITROSTAT) 0.4 mg sublingual tabletIndication s:Abnormal nuclear stress test ONE TABLET UNDER TONGUE NEEDED FOR CHEST PAIN EVERY 5 MINUTES 25 Tablet 3 10/22/20 21 Active CPAPIndications: STEPHY (obstructive sleep apnea) CPAP machine for home use at pressure 10cm/H2O-- starting pressure at 5cm/H2O with ramp of 15 minutes, nasal mask x1/3month with nasal pillows x 2/mo 1 Each 11/18/20 22 Active nystatin powder (MYCOSTATIN) powderIndication s:Yeast dermatitis Apply 1 Strip topically to affected area(s) three times daily. 60 g 3 05/13/20 23 Active furosemide (LASIX) 20 mg tabletIndication s:Systolic congestive heart failure, NYHA class 1, unspecified congestive heart failure chronicity (HC) Take 1 Tablet (20 mg) by mouth once daily in the morning. 90 Tablet 3 06/20/20 24 Active rosuvastatin (CRESTOR) 10 mg tabletIndication s:Systolic congestive heart failure, NYHA class 1, unspecified congestive heart failure chronicity (HC) Take 10 mg by mouth once daily. 90 Tablet 3 06/20/20 24 Active ferrous sulfate 325 mg delayed release tabletIndication s:Anemia of unknown etiology Take 1 Tablet (325 mg) by mouth once daily with a meal. 90 Tablet 3 09/12/20 24 Active cyanocobalamin (Vitamin B-12) 1,000 mcg tabletIndication s:Vitamin B12 deficiency Take 1 Tablet (1,000 mcg) by mouth once daily. 90 Tablet 3 09/12/20 24 Active LORazepam (ATIVAN) 0.5 mg tabIndications:A nxiety TAKE 1/2 TO 1 TABLET BY MOUTH NEEDED FOR ANXIETY 30 Tablet 10/13/20 24 Active donepeziL (ARICEPT) 5 mg tabletIndication s:Dementia in Alzheimer's disease (HC) TAKE 1 TABLET(5 MG) BY MOUTH AT BEDTIME 90 Tablet 3 11/02/20 24 Active Diaper,Brief, Adult,Disposable Indications:Loos e stools For home use. 96 Each 11/09/20 24 Active potassium chloride (MICRO-K) 10 mEq Controlled-relea se capsuleIndicatio ns:Hypertension, Systolic congestive heart failure, NYHA class 1, unspecified congestive heart failure chronicity (HC) Take 2 Capsules (20 mEq) by mouth two times daily with meals. 360 Capsule 1 11/30/19 25 Active sertraline (ZOLOFT) 50 mg tabletIndication s:Anxiety TAKE 1 TABLET(50 MG) BY MOUTH DAILY IN THE MORNING 90 Tablet 1 12/17/19 25 Active warfarin (COUMADIN) 2.5 mg tabletIndication s:Paroxysmal atrial fibrillation (HC),Chronic anticoagulation, Anticoagulation monitoring, INR range 2-3 Take by mouth 1.25 mg (2.5 mg x 0.5) every day in the evening OR as directed 02/02/20 25 Active warfarin (COUMADIN) 2.5 mg tabletIndication s:Paroxysmal atrial fibrillation (HC),Chronic anticoagulation, Anticoagulation monitoring, INR range 2-3 Take by mouth 1.25 mg (2.5 mg x 0.5) every day in the evening OR as directed 01/03/20 25 025 Discontinu ed(Other - add note to specify (E-cancel not sent)) Active Problems Problem Noted Date Diagnosed Date Familial Alzheimer's disease 02/01/2024 Depression, recurrent 02/01/2024 Anticoagulation monitoring, INR range 2-3 2023 Paroxysmal atrial fibrillation 01/05/2024 Overview (01/05/2024): S/P EPS with complex atrial fibrillation ablation with Dr Watts 10/16/2010 Mild anxiety 01/05/2024 Pulmonary hypertension 01/05/2024 [...] Encounters Date Type Department Care Team Description 02/01/2025 Anticoagulation (warfarin) [facility] [address] [place] [address] 1, [facility] (Home Care) 01/03/2025 Anticoagulation (warfarin) [facility] [address] [place] [address] 1, [facility] Anticoagulation (Home care) 12/30/2024 Telephone [facility] [address] [place] [address] Kay Lange DO Form 12/20/2024 Anticoagulation (warfarin) [facility] [address] [place] [address] 1, [facility] Anticoagulation (Home care) 12/20/2024 Telephone [facility] [address] [place] [address] Kay Lange DO Outside Order (Verbal orders for INR check ) 12/19/2024 12:45 PM INSPECTING AND TESTING LEAD HAND Nurse/Clinic Staff Only [address] [address] Testing (EKG per cardiology) 12/19/2024 Travel 12/15/[address] [address] Kay Lange DO Refill Request (Sertraline) 12/14/2024 Telephone [facility] [address] [place] [address] Kay Lange DO Home Care (Orders) 12/12/2024 3:00 PM INSPECTING AND TESTING LEAD HAND Orders Only [facility] [address] [place] [address] Lab, [facility] 12/12/2024 Anticoagulation (warfarin) [facility] [address] [place] [address] 1[facility] Anticoagulation (lab) 12/12/2024 Travel 12/08/2024 1:15 PM INSPECTING AND TESTING LEAD HAND Nurse/Clinic Staff Only [address] [address] Cardiovascular Diagnostic Testing (EKG PER DR. WATTS ) 12/07/2024 2:00 PM INSPECTING AND TESTING LEAD HAND Orders Only [facility] [address] [place] [address] Lab, [facility] 12/07/[address] [address] Kay Lange DO Refill Request (Warfarin) 12/07/[address] [address] 1, [facility] Anticoagulation (Approval for POCT INR's ) 12/07/2024 Anticoagulation (warfarin) [address] [address] 1, [facility]ticoagulation (Lab ) 12/07/2024 Travel 11/29/2024 1:15 PM INSPECTING AND TESTING LEAD HAND Orders Only [address] [address] Lab, [facility] 11/29/2024 Anticoagulation (warfarin) [address] [address] 1, [facility] Anticoagulation 11/29/2024 Travel 11/27/[address] [address] Kay Lange DO Refill Request (Potassium Chloride) 11/26/2024 Refill [facility] [address] [place] [address] Kay Lange DO Refill Request (Potassium Chloride) from Last 3 Months Immunizations Immunization Administration Dates Next Due COVID-19 VACCINE SPIKEVAX (M ODERNA 50MCG/0.5ML) 12YO+ PFS 11/07/2024 COVID-19 vaccine (Pfizer-Bio NTech 30mcg/0.3mL) 12YO+ BIVALENT PF, MDV 10/08/2023,08/18/2022 COVID-19 vaccine (Pfizer-Bio NTech 30mcg/0.3mL) 12YO+ CECILIA-SUCROSE PF, MDV 03/24/2022 COVID-19 vaccine (Pfizer-Bio NTech 30mcg/0.3mL) PF, MDV 08/18/2022,03/24/2022 Influenza A (H1N1), Inactiva tsering (Age >=3 Years) 12/04/2009 Influenza Virus, Unspecified 09/08/2018 Influenza, High-dose Inactivated 023,08/29/2019,09/08/2018,09/09,09/17/2015 Influenza, High-dose Quadriv alent Inactivated 09/05/2020 Influenza, IIV3 (Age >=3 years) 09/21/20 14,11/04/2013,10/19/2010,08/24,08/31/2008,09/21/2006 Influenza, Inactivated AIIV4 (Age 65+ Years) Preserv Free 08/27/2023,08/18/2022,09/23/2021 Influenza, Inactivated IIV3 (Age 65+ Years) Preserv Free 11/07/2024 Pneumococcal Poly,23-Valent (Pneumovax) 11/15/2018,08/30/1997,09/24/1995 Pneumococcal conj 13-Valent (Prevnar 13) 04/27/2015 RSV, Bivalent Vaccine Recons tituted (Abrysvo 120MCG/0.5mL) 10/08/2023 RSV, Recombinant ADJ Reconst ituted (Arexvy 120MCG/0.5mL) 10/08/2023 Td (Age >=7 Years) 08/03/1996 Td, Preservative Free (age >= 7 Years) 9 Tuberculin Skin Test, Unspecified 12/21/2023 Zoster (Shingrix-RZV, recombinant) 08/29/2019, Zoster (Zostavax-ZVL, live) 08/29/2019, 9,12/03/2011 Family History Medical History Relation Name Comments [...] PHQ-2 Answer Date Recorded PHQ-2 TOTAL SCORE 1 09/07/2024 Social Connections Answer Date Recorded Do you often feel lonely or isolated from those around you? 0 02/01/2024 Financial Resource Strain Answer Date R ecorded Difficulty of Paying Living Expenses 3 02/01/2024 Difficulty of Paying Living Expenses Not on file 02/01/2024 Food Insecurity Answer Date Recorded Do you worry your food will run out before you are able to buy more? 1 02/01/2024 Transportation Needs Answer Date Record ed Does lack of transportation keep you from medica l appointments? 1 02/01/2024 Does lack of transportation keep you from work, meetings or getting things that you need? 1 02/01/2024 Housing Stability Answer Date Recorded What is your housing situation today? 1 02/01/2024 Utilities Answer Date Recorded Do you have trouble paying f or utilities (for example, heat, electricity, water, phone)? 1 02/01/2024 Comments No Sex and Gender Information Value Date Recorded Sex Assigned at Not on file Legal Sex Female 5:25 AM INSPECTING AND TESTING LEAD HAND Gender Identity Not on file Sexual Orientation Not on file Occupation Industry Job Start Date Job End Date retired Not on file Not on file Not on file Obstetrics History Last Filed Vital Signs Vital Sign Reading Time Taken Comments Blood Pressure 108/70 11/07/2024 10:50 AM INSPECTING AND TESTING LEAD HAND Pulse 70 11/07/2024 10:50 AM INSPECTING AND TESTING LEAD HAND Temperature 36.4 C (97.6 F) 05/09/2022 2:28 PM CDT Respiratory Rate 16 08/24/2019 7:15 AM CDT Oxygen Saturation 92% 11/07/2024 10: 50 AM INSPECTING AND TESTING LEAD HAND Inhaled Oxygen Concentration - - Weight 102.6 kg (226 lb 3.2 oz) 024 10:50 AM INSPECTING AND TESTING LEAD HAND Height 166.6 cm (5' 5.59) 06/20/2024 2:07 PM CD T Body Mass Index 36.97 06/20/2024 2:07 PM CDT Plan of Treatment Upcoming Encounters Date Type Department Care Team (Late st Contact Info) Description 04/11/2025 2:00 PM CDT Cardiac Device Check [facility] [place] [facility] [address] [place] [address] 04/17/2025 4:00 PM CDT Telemedicine [facility] [address] [place] [address] Lg Burrows MD [address] [place] [address] Health Maintenance Due Date Last Done Comments Tdap 1946 Tetanus booster 03/07/2019 03/07/2009, 08/03/1996 COVID-19 vaccine series ( season) 2025 11/07/2024, 10/08/2023, 10/08/2023, Additional history exists BMI (ht and wt on same day) for age 18+ 06/20/2025 06/20/2024, 06/17/2023, 05/13/2023, Additional history exists Medicare Wellness for age 65+ 06/21/2025, 05/13/2023, 05/09/2022, Additional history exists Depression screening for age 12+ 09/08/2025 09/08/2024, 09/07/2024, 09/07/2024, Additional history exists DEXA/DXA scan for age 65+ Completed 05/03/2015, Pneumococcal series for age 50+ Completed 11/15/2018, 04/27/2015, 08/30/1997, Additional history exists Zoster (shingles) series for age 50+ Completed 08/29/2019, 08/29/2019, 06/23/2019, Additional history exists RSV vaccine for adults or Completed 10/08/2023, 10/08/2023 Influenza Vaccine Completed 11/07/2024, , 08/27/2023, Additional history exists Procedures Procedure Name Priority Date/Time Associated Diagnosis Comments EKG 12 LEAD Today 12/19/2024 1:35 PM INSPECTING AND TESTING LEAD HAND Therapeutic drug monitoring INR,POCT Routine 12/12/2024 3:05 PM INSPECTING AND TESTING LEAD HAND Paroxysmal atrial fibrillation (HC) Chronic anticoagulation Anticoagulation monitoring, INR range 2-3 EKG 12 LEAD Routine 12/08/2024 1:46 PM INSPECTING AND TESTING LEAD HAND Therapeutic drug monitoring PROTIME-INR Routine 12/07/2024 2:04 PM INSPECTING AND TESTING LEAD HAND Paroxysmal atrial fibrillation (HC) Chronic anticoagulation Anticoagulation monitoring, INR range 2-3 PROTIME-INR Routine 11/29/2024 2:12 PM INSPECTING AND TESTING LEAD HAND Paroxysmal atrial fibrillation (HC) Chronic anticoagulation Anticoagulation monitoring, INR range 2-3 INR,POCT Routine 11/29/2024 1:18 PM INSPECTING AND TESTING LEAD HAND Paroxysmal atrial fibrillation (HC) Chronic anticoagulation Anticoagulation monitoring, INR range 2-3 XR DXA BONE DENSITY 2 SITES AXIAL Routine 05/03/2015 11:12 AM CDT Post-menopausal from Last 3 Months or Most Recently Relevant to Health Maintenance Results * EKG 12 LEAD (12/19/2024 1:35 PM INSPECTING AND TESTING LEAD HAND) Only the most recent of2 resultswithin the time period is included. us Conrado Watts MD EKG ORD Final Result * (ABNORMAL) INR - POCT [[id number]] - Standing Order (12/12/2024 3:05 PM INSPECTING AND TESTING LEAD HAND) Only the most recent of2 resultswithin the time period is included. INR 2.1(H) ratio [facility] Comment: INRs >2.9 may be falsely elevated in patients receiving either unfractionated Heparin or Low Molecular Weight Heparin. Follow up testing in a hospital laboratory may be helpful if clinically indicated. INR results of > or = 5.0 should be verified using the standard venipuncture procedure. Reference Range 0.9-1.1 Moderate-intensity Warfarin Therapy 2.0-3.0 Higher-intensity Warfarin Therapy 3.0-4.0 PROTHROMBIN TIMEP 25.1(H) 10.5 - 13.1 sec [facility] Comment: Point of care fingerstick Prothrombin Time/INR results may vary from venous Prothrombin Time/INR methodologies. Any results exhibiting inconsistency with the patient's clinical status should be repeated using a venous Prothrombin Time/INR method. Blood BLOOD SPECIMEN / Unknown 12/12/2024 3:05 PM INSPECTING AND TESTING LEAD HAND 12/12/2024 3:05 PM INSPECTING AND TESTING LEAD HAND us Kay Lange DO LABORATORY Final Resul t [facility] [address] [place] [address], [facility] [address] [place] [address] * (ABNORMAL) PROTIME-INR [[id number]] - Standing Order (12/07/2024 2:04 PM INSPECTING AND TESTING LEAD HAND) Only the most recent of2 resultswithin the time period is included. INR 4.2(H) <1.3 12/07/2024 3:04 PM INSPECTING AND TESTING LEAD HAND [facility] PROTIME 49.4(H) 10.6 - 12.4 sec 12/07/2024 3:04 PM [facility] Blood BLOOD SPECIMEN / Unknown [facility] / Unknown 12/07/2024 2:04 PM INSPECTING AND TESTING LEAD HAND 12/07/2024 2:04 PM INSPECTING AND TESTING LEAD HAND Narrative [facility] - 12/07/2024 3:04 PM INSPECTING AND TESTING LEAD HAND Therapeutic Range 2.0-3.0 for most anticoagulated patients 2.5-3.5 [...] is on [facility]FH. Kay Lange DO HEMATOLOGY Final Resul t [facility] [address] [place], [place] [id number] * (ABNORMAL) XR DXA BONE DENSITY 2 SITES (05/03/2015 11:12 AM CDT) Anatomical Region Laterality Modality Spine, HIPS, HIPL, HIPR Other Narrative 05/04/2015 12:22 PM CDT Please see scanned document for results of this study. Procedure Note Annia Joseph - 05/04/2015 Please see scanned document for results of this study. Kay Lange DO DEXA Final Resul t from Last 3 Months or Most Recently Relevant to Health Maintenance Insurance MEDICARE PART B HB ONLY [place]UE [place]UE HB ONLY MEDIC[facility] Member Subscriber Plan / Payer (Ef fective 2024-Present) Name:Lauren Hines I Relation to Subscriber:Self Name:Lauren Hines I Payer ID:[id number] (NAIC) Group ID:[id number] Type:Not on file Address: MAILSTOP: [id number] [facility] [place] [address] Advance Directives Documents on File Type Date Recorded Patient Mailing Machine Operator Expl anation Treatment Guidelines 12/30/2024 Healthcare Directive 08/06/2016 8:29 PM 06/2016 * [...] 8:56 AM 08/15/2009 8:58 PM Care Teams Manager Access Relationship Specialty Start Date End Date Kay Lange DO PCP - General 09/25/09 Conrado Watts MD [address] [address] Cardiovascular Disease 04/27/15 Olman Milner [address] [place] [address] [employer] 04/27/15
--- OUTSIDE RECORDS SUMMARY | 2025-02-23 08:18 | XMS_ITS ---
Author Organization [facility] Care Team Providers Care Skip Pitman Name Role Phone Annia Thomas Unavailable Unavailable Farzana Godoy Unavailable Unavailable Calvin Munoz Unavailable Unavailable Allergies and adverse reactions No Known Allergies Care Team Name Role Address Phone Organization Dates Calvin Munoz PCP [address], [address], [place], [place], [facility], [facility] (Office): [facility] 12/21/2023 - 12/29/2023 Annia Thomas Attending Physician [facility] 12/21/2023 - 12/29/2023 Farzana Godoy Attending Physician [place] [id number] [facility] [address], [place], [address], [facility] (Office): : [facility] 12/21/2023 - 12/29/2023 Immunizations Immunization Status Vaccine Details Vaccine Code CodeSystem Date Notes TB 2 Step Mantoux Skin Test completed tuberculin skin test; unspecified formulation lotNumber: [id number] expiry: 09/29/2026 Mfg: tubersol Given 0.1 ml Left Forearm subcutaneously Step 1 of Multi-step with next step required 98 CVX created date: 12/21/2023 consent date: 12/21/2023 administer ed date: 12/21/2023 Educated by on 10/10/2024 PPSV23, Pneumovax 23 completed pneumococcal polysaccharide vaccine, 23 valent 33 CVX created date: 12/21/2023 administer ed date: 11/15/2018 PCV13, [id number] completed pneumococcal conjugate vaccine, 13 valent 133 CVX created date: 12/21/2023 administer ed date: 04/27/2015 Influenza-High Dose completed Influenza, high-dose, split virus, quadrivalent, injectable, preservative free 197 CVX created date: 12/21/2023 administer ed date: 08/27/2023 Td completed tetanus and diphtheria toxoids, adsorbed, preservative free, for adult use (5 Lf of tetanus toxoid and 2 Lf of diphtheria toxoid) 113 CVX created date: 12/21/2023 administer ed date: 03/07/2009 Zostavax (Live Shingles) completed zoster vaccine, live 121 CVX created date: 12/21/2023 administer ed date: 08/29/2019 Zostavax (Live Shingles) completed zoster vaccine, live 121 CVX created date: 12/21/2023 administer ed date: 06/23/2019 Zostavax (Live Shingles) completed zoster vaccine, live 121 CVX created date: 12/21/2023 administer ed date: 12/03/2011 COVID-19 Vaccine dose 1 completed SARS-COV-2 (COVID-19) vaccine, mRNA, spike protein, LNP, preservative free, 30 mcg/0.3mL dose Mfg: Pfizer 208 CVX created date: 12/21/2023 administer ed date: 01/05/2021 COVID-19 Vaccine dose 2 completed SARS-COV-2 (COVID-19) vaccine, mRNA, spike protein, LNP, preservative free, 30 mcg/0.3mL dose Mfg: TestQuest 208 CVX created date: 12/21/2023 administer ed date: 01/26/2021 COVID-19 Vaccine dose 3 completed SARS-COV-2 (COVID-19) vaccine, mRNA, spike protein, LNP, preservative free, 30 mcg/0.3mL dose Mfg: TestQuest 208 CVX created date: 12/21/2023 administer ed date: 09/02/2021 COVID-19 Vaccine dose 4 completed SARS-COV-2 (COVID-19) vaccine, mRNA, spike protein, LNP, preservative free, 30 mcg/0.3mL dose Mfg: TestQuest 208 CVX created date: 12/21/2023 administer ed date: 03/24/2022 COVID-19 Vaccine dose 5 completed SARS-COV-2 (COVID-19) vaccine, mRNA, spike protein, LNP, preservative free, 30 mcg/0.3mL dose Mfg: TestQuest 208 CVX created date: 12/21/2023 administer ed date: 08/18/2022 COVID-19 Vaccine dose 6 completed SARS-COV-2 (COVID-19) vaccine, mRNA, spike protein, LNP, bivalent, preservative free, 30 mcg/0.3 mL dose, taqueria-sucrose formulation Mfg: TestQuest 300 CVX created date: 12/21/2023 administer ed date: 10/08/2023 RSV (respiratory syncytial virus)Vaccine completed Respiratory syncytial virus (RSV), vaccine, bivalent, protein subunit RSV prefusion F, diluent reconstituted, 0.5 mL, preservative free 305 CVX created date: 12/21/2023 administer ed date: 10/08/2023 Mental Status Section Date Assessment Total Score Description 12/29/2023 BIMS 12 moderate cognit neelima impairment CAM 0 No delirium ind icated 12/26/2023 BIMS 15 cognitively int act PHQ-9 01 minimal depress ion Problems Problem # Description Date of onset Resolved Date Code CodeSystem Concern Status 1 OTHER SPECIFIED PERSONAL RISK FACTORS, NOT ELSEWHERE CLASSIFIED 12/23/[address] active 2 ANEMIA, UNSPECIFIED 12/21/[address] active 3 ANXIETY DISORDER, UNSPECIFIED 12/21/[address] active 4 CHRONIC SYSTOLIC (CONGESTIVE) HEART FAILURE 12/21/[address] active 5 DEPRESSION, UNSPECIFIED 12/21/[address] active 6 ENCOUNTER FOR SURGICAL AFTERCARE FOLLOWING SURGERY ON THE DIGESTIVE SYSTEM 12/21/[address] active 7 ESSENTIAL (PRIMARY) HYPERTENSION 12/21/[address] active 8 GASTRO-ESOPHAGEAL REFLUX DISEASE WITHOUT ESOPHAGITIS 12/21/[address] active 9 HYPERLIPIDEMIA, UNSPECIFIED 12/21/[address] active 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 12/21/[address] active 11 OBSTRUCTIVE SLEEP APNEA (ADULT) (PEDIATRIC) 12/21/[address] active 12 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) DRUG THERAPY 12/21/[address] active 13 PAROXYSMAL ATRIAL FIBRILLATION 12/21/[address] active 14 PERSONAL HISTORY OF NICOTINE DEPENDENCE 12/21/[address] active 15 PRESENCE OF CARDIAC PACEMAKER 12/21/[address] active Reason for Referral No Reasons for Referral Entered Social History Social History Observation Description Start Date End Date Code Code System Current Smoking Status Tobacco smoking consumption unknown 788825360 SNOMED CT Sex Assigned At Female 1935 00900-0 [facility] Vital Signs Code Code System Vitals Name Values and Units Timing Information 35607-5 LOINC Pain Level Value=1.0 12/29/2023 35175-4 LOINC Weight Nzfpg=407.0 Units=Lbs 8302-2 LOINC Height Value=66.0 Units=Inches 12/23/2023 9279-1 LOINC Respiratory Rate Value=16.0 Units=/m in 12/23/2023 8462-4 LOINC Blood Pressure-Diastolic Value=77 Un its=mmHg 12/23/2023 8480-6 LOINC Blood Pressure-Systolic Degci=321 Un its=mmHg 12/23/2023 8310-5 LOINC Body Temperature Value=97.2 Units= F 12/23/2023 8867-4 LOINC Heart rate Value=65.0 Units=/min 40904-7 LOINC O2 % [facility] Oximetry Value=92.0 Units= % 12/22/2023
[2025-02-23 08:32] VITALS: BP 148/68; PULSE 78; RESP 20; TEMP 36.2; O2SAT 93; BMI 35.5
--- NOTE | 2025-02-23 08:56 | ED_ITS ---
HPI - General Adult General Date Seen: 02/23/25 Chief complaint: Arrhythmia/Palpitations Stated complaint: my heart Time Seen by Provider: 02/23/25 08:56 History of Present Illness HPI narrative: 89-year-old female with history of atrial fibrillation (on warfarin for anticoagulation, previously on sotalol for rhythm control, but the patient and her are not sure when it was stopped), pacemaker, pulmonary hypertension. She also takes Lasix apparently for high blood pressure or fluid. She also has a history of sleep apnea on CPAP. She also has a history of poor memory and is on donepezil. She has nitroglycerin tablets but does not know if she has ever had a stent or coronary artery disease. . She presents to the ER this morning with concern that she had an episode where her heart ?was feeling funny. ? Per medical record she was hospitalized in June 2024 with hypoxia and chest pain. At that time she had a pacemaker in place and it was functional with an atrial paced rhythm. At that time chest CT scan showed ground-glass opacities, and she was referred for outpatient stress testing. LExiscan was reportedly normal. TTE November 2023: Final Impressions: 1. Normal LV size, mildly increased wall thickness, hyperdynamic global systolic function with an estimated EF of 70 - 75%. 2. Right ventricular cavity size is normal, global systolic RV function is normal. 3. Moderately enlarged left atrium. 4. The aortic valve is trileaflet, no stenosis and mild to moderate regurgitation. 5. The mitral valve is sclerotic, mild mitral regurgitation. 6. Moderate tricuspid regurgitation. 7. Moderately increased estimated pulmonary systolic pressures by tricuspid regurgitation velocity and right atrial pressure (~57 mmHg). She presents to the ER today with her with concern for irregular heartbeat. She actually notes that she usually as some trouble sleeping flat so always likes to keep the head of her bed up slightly. She uses CPAP. For the past couple of nights she has had more trouble sleeping because of breathing so has actually been sleeping in a recliner instead of her bed. Although they have a automatic bed that raises the head, her does not like having had raised very high. She does not really notice any other dyspnea or shortness of breath during the day. No dyspnea on exertion. She has just been feeling ?run down? for the past couple of days and has not been very active. She was awoken from sleep early in the morning 2 nights ago with sensation of racing and irregularity and palpitations in her heart. She was not really having any pain. Her gave her 2 sublingual nitroglycerin tablets and this seemed to help her feel better. Yesterday through the day she felt run down but no other symptoms. No pain. No shortness of breath. No palpitations. She went to bed last night and again slept in the chair. She was awoken about 3:00 a.m. with a sensation of her heart was intermittently racing and skipping. It lasted about 5 hours. She did not take any nitroglycerin this morning because her could not find the bottle. Symptoms resolved just before they arrived here in the ER at around a.m.. She is not for sure why they got better. She is very careful to note that she was not having any pain or discomfort, but just felt an irregular heart rhythm. Now that she is here in the ER she is still feeling rundown but otherwise back to normal. No palpitations. No trouble breathing. No chest pain. She did not faint. No vomiting. No nausea. No abdominal pain or back pain. No new swelling in her legs. Related Data Home Medications ?Medication ?Instructions ?Recorded ?Confirmed sertraline 50 mg tablet 50 mg PO DAILY 05/26/23 07/13/24 sotalol 80 mg tablet 80 mg PO BID 05/26/23 07/13/24 calcium 500 mg tablet 500 mg PO DAILY 07/13/24 07/13/24 rosuvastatin 10 mg tablet 10 mg PO DAILY 07/13/24 07/13/24 warfarin 2.5 mg tablet 1.25 - 2.5 mg PO DAILY 07/13/24 07/13/24 Previous Rx's ?Medication ?Instructions ?Recorded furosemide 20 mg tablet (Lasix) 20 mg PO DAILY 3 days #3 tabs 05/26/23 amlodipine 5 mg tablet 5 mg PO DAILY #30 tabs 12/21/23 lorazepam 0.5 mg tablet 0.5 mg PO DAILY PRN #10 tabs 12/21/23 potassium chloride 10 mEq 20 meq (2 x 10 mEq) PO DAILY #60 07/14/24 capsule,extended release caps metoprolol succinate 25 mg 25 mg PO DAILY #30 tabs 03/27/25 tablet,extended release 24 hr Allergies Allergy/AdvReac Type Severity Reaction Status Date / Time No Known Drug Allergies Allergy Verified 07/13/24 08:38 PFSH [facility] Medical History (Updated 02/23/25 @ 11:08 by Raymond Greco MD) Pulmonary hypertension ?I27.20 - Pulmonary hypertension, unspecified (ICD-10) Atrial fibrillation ?I48.91 - Unspecified atrial fibrillation (ICD-10) Chest pain ?R07.9 - Chest pain, unspecified (ICD-10) Cardiac pacemaker ?Z95.0 - Presence of cardiac pacemaker (ICD-10) Aortic regurgitation ?I35.1 - Nonrheumatic aortic (valve) insufficiency (ICD-10) Former smoker ?Z87.891 - Personal history of nicotine dependence (ICD-10) Mild anxiety ?F41.9 - Anxiety disorder, unspecified (ICD-10) Chronic anticoagulation ?Z79.01 - halfway (current) use of anticoagulants (ICD-10) Surgical History (Updated 07/22/24 @ 00:00 by Donya Burrell) Status post laparoscopic cholecystectomy ?Z90.49 - Acquired absence of other specified parts of digestive tract (ICD- 10) Status post biventricular cardiac pacemaker insertion ?Z95.0 - Presence of cardiac pacemaker (ICD-10) History of hysterectomy ?Z90.710 - Acquired absence of both cervix and uterus (ICD-10) Social History (Updated 07/13/24 @ 18:52 by Sherly Pichardo MD) Narrative: Lives locally with . No current smoking, no concerning ETOH use. Requests DNR/DNI status. What is your current living situation?: I presently have a place to live Problems where you live: no known problems Problems where you live details: no known problems In the past 12 months, utilities in danger of being shut off: no In past 12 months, lack of transportation kept you from medical appts, meetings, work, or getting things needed for daily living: no In the past 12 mos, have been you worried that your food would run out before you had money to buy more?: never true In the past 12 mos, the food you bought just didn't last and you didn't have money to buy more?: never true Highest level of school completed/degree received: some college, no degree Smoking Status: Former smoker Do you use any of these nicotine containing products: None Second hand tobacco smoke exposure: No How often do you have a drink containing alcohol: monthly or less How many standard drinks containing alcohol do you have on a typical day: 1 or 2 How often do you have six or more drinks on one occasion: Less than monthly AUDIT-C Alcohol total score: 2 Non-prescribed substance use: denies use Caffeine: Yes (rare occasional soda) How often does anyone, including family, friends and others, physically hurt you : never How often does anyone, including family, friends and others, insult or talk down to you: never How often does anyone, including family, friends and others, threaten you with harm: never How often does anyone, including family, friends and others, scream or curse at you: never service: No Exam Narrative: Exam Narrative: Constitutional: Appears well-developed and well-nourished. Alert. Conversant. Non toxic. HENT: Head: Atraumatic. Nose: Nose normal. Mouth/Throat: Oral mucosa is clear and moist. no trismus. Pharynx normal. Tonsils symmetric. No tonsillar enlargement, erythema, or exudate. Eyes: Conjunctivae normal. EOM normal. Pupils equal, round, and reactive to light. No scleral icterus. Neck: Normal range of motion. Neck supple. No tracheal deviation present. No JVD Cardiovascular: Normal rate, regular rhythm. Paced atrial rhythm on the monitor. No gallop. No friction rub. No murmur heard. Symmetric radial and PT artery pulses Pulmonary/Chest: Effort normal. No stridor. No respiratory distress. No wheezes. Very faint bibasilar crackles. No rhonchi . No tenderness. Abdominal: Soft. No distension. No mass. No tenderness. No rebound. No guarding. Musculoskeletal: RUE: Normal range of motion. No tenderness. No deformity LUE: Normal range of motion. No tenderness. No deformity RLE: Normal range of motion. No edema. No tenderness. No deformity LLE: Normal range of motion. No edema. No tenderness. No deformity Neurological: Alert and oriented to person, place, and time. She has a bit of a poor memory and is a poor historian. Normal strength. CN II-VII intact. No sensory deficit. GCS eye subscore is 4. GCS verbal subscore is 5. GCS motor subscore is 6. Normal coordination Skin: Skin is warm and dry. No rash noted. No pallor. Normal capillary refill. Psychiatric: Normal mood. Normal affect. Const: Vital Signs, click to edit/add: Vital Signs - 24 hr 02/23/25 08:32 02/23/25 09:54 Temperature 97.1 F L 98.7 F Pulse Rate 68 Pulse Rate [Pulse Oximeter] 78 Respiratory Rate 20 14 Blood Pressure 153/64 H Blood Pressure [Le ft Upper Arm] 148/68 H Pulse Oximetry 93 96 Oxygen Delivery Me thod Room Air Course Vital Signs Vital signs: Initial Vital Signs Temperature 97.1 F L 02/23/25 08:32 Temperature Source Temporal Artery Scan 02/23/25 08:32 Pulse Rate 78 02/23/25 08:32 Respiratory Rate 20 02/23/25 08:32 Blood Pressure 148/68 H 02/23/25 08:32 Blood Pressure Mean 94 02/23/25 08:32 Pulse Oximetry 93 02/23/25 08:32 Oxygen Delivery Method Room Air 02/23/25 08:32 Vital Signs Temperature 97.1 F L 02/23/25 08:32 Pulse Rate 78 02/23/25 08:32 Respiratory Rate 20 02/23/25 08:32 Blood Pressure 148/68 H 02/23/25 08:32 Pulse Oximetry 93 02/23/25 08:32 Oxygen Delivery Method Room Air 02/23/25 08:32 Temperature 98.7 F 02/23/25 09:54 Pulse Rate 68 02/23/25 09:54 Respiratory Rate 14 02/23/25 09:54 Blood Pressure 153/64 H 02/23/25 09:54 Pulse Oximetry 96 02/23/25 09:54 Oxygen Delivery Method Room Air 02/23/25 08:32 Medical Decision Making MDM Narrative Medical decision making narrative: 89-year-old female with a history of atrial fibrillation and pacemaker, also with a history of some impaired cognition which makes history difficult presenting to the ER today with concerns that she has had palpitations that awoke her from sleep overnight this morning and yesterday morning. Along with that she has also had some orthopnea and has been needing to sleep sitting up in her recliner chair rather than her in her bed for the past 2 nights. Differential here includes paroxysmal AFib as well as other cardiac arrhythmia. She does have a pacemaker in place but we unfortunately are not able to interrogate her pacemaker here in the [place] ER today. We do not have the appropriate equipment. Here in the ER she is no longer having symptoms of racing or palpitations and correspondingly, she has an atrial paced rhythm. She was not having any chest pain or real chest discomfort, just palpitations. Consider possible atypical presentation of ACS. EKG shows no definitive ischemia but does show inverted T-waves similar to prior. No definite change. Troponin is normal. Differential also includes congestive heart failure. Chest x-ray shows perhaps very mild reticulation lateral lung finch but this looks similar to prior. N terminal proBNP level is equivocal at around 1000. Chest x-ray does not show any findings consistent with pneumonia. No pneumothorax. No pleural effusion. Discussed with [facility] take out waiter, Dr. Del Real. Discussed the patient's presenting symptoms and my concern that she is probably having paroxysms of AFib overnight the past 2 nights. We discussed options. He would buys against restarting sotalol. He would advise against for prior afternoon. He did consider amiodarone but decided to hold off on that for now. In lieu of that will start on metoprolol to see if we can prevent tachycardia if she has recurrent episodes of AFib. He recommends having the patient follow-up in the EP clinic for pacemaker interrogation and further workup. We will start the patient on metoprolol XR 25 mg per day. She will take her 1st dose tonight before bed. Discussed with the patient and her that will start the metoprolol now in hopes that we can suppress tachycardia and keep her having symptomatic AFib. She will maintain on her other medications and her warfarin for stroke prophylaxis. She will need outpatient follow-up with Cardiology for pacemaker interrogation and or Zio patch. However she has recurrent episodes of palpitations or if she develops any new symptoms such as chest pain or any worsening dyspnea, she is instructed to return to the ER right away. Lab Data Labs: Lab Results 02/23/25 Range/Units 09:48 WBC 8.84 (4.50-11.00) K/uL RBC 5.12 (4.00-5.20) m/uL Hgb 12.9 (12.0-16.0) gm/dL Hct 41.9 (33.0-51.0) % MCV 82 (80-100) fL MCH 25 L (26-34) pg MCHC 31 L (32-36) gm/dL RDW Coeff of Ebony 17.1 H (11.5-15.5) % Plt Count 236 (140-440) K/uL Neut % (Auto) 80.0 H (42.0-72.0) % Lymph % (Auto) 13.1 L (20-44) % Parker % (Auto) 4.5 (0.0-11.0) % Eos % (Auto) 1.4 (0.0-7.0) % Baso % (Auto) 0.5 (0.0-3.0) % Neut # (Auto) 7.10 H (1.7-7.0) K/uL Lymph # (Auto) 1.20 (0.90-2.90) K/uL Parker # (Auto) 0.40 (0.00-0.90) K/UL Eos # (Auto) 0.12 (0.00-0.50) K/uL Baso # (Auto) 0.04 (0.00-0.30) K/uL Abs Immat Gran (auto) 0.04 (0.00-0.30) K/uL Imm/Tot Granulo (auto) 0.5 % Sodium 139 (135-149) mmol/L Potassium 5.1 (3.6-5.1) mmol/L Chloride 105 (96-114) mmol/L Carbon Dioxide 27 (20-32) mmol/L Anion Gap 7 (7-15) mEq/L BUN 11 (7-30) mg/dL Creatinine 0.6 (0.5-1.5) mg/dL Estimated Creat Clear 36.40 Estimated GFR 86 ml/min Glucose 104 (60-115) mg/dL Calcium 9.1 (8.4-10.6) mg/dL Magnesium 2.2 (1.5-2.6) mg/dL Troponin I < 0.01 (0.01-0.04) ng/mL NT-Pro-B Natriuret Pep 1090 pg/mL Imaging Data Chest x-ray: Attestation: I have reviewed the pertinent imaging results. Radiologist's impression: IMPRESSION: Mild bilateral basal peripheral reticulation may reflect mild pulmonary edema and is similar to several prior examinations. Could also be some reticulation related to chronic scarring or fibrosis. ECG Data Attestation: I personally reviewed and interpreted this ECG as follows: Interpretation: Atrial paced rhythm. She appears to have artifact versus atrial fibrillation waves on her baseline Rate: 68 CO: 162 QRS axis: Incomplete right bundle branch block. Normal QRS axis. ST segment/T wave: T-wave inversions in leads V1, V2, V3, V4. Nonspecific T- wave flattening in other leads. QTc: 476 No change compared to 08/10/2024 Discharge Plan Discharge Clinical Impression: Heart palpitations Patient Disposition: Home, Self-Care Condition: Stable Instructions: Heart Palpitations (DC) Additional Instructions: I have spoken to your take out waiter's through [facility]. Right now we suspect that you probably had runs of atrial fibrillation both of last 2 nights. The the take out waiter wants you to start on a new medication, called metoprolol. This is a blood pressure medication that also will keep your heart rate from going too fast. Please start the medication today. Monitor your symptoms carefully. If you have more palpitations or any worsening problems such as shortness of breath or chest pain, return to the ER or see your take out waiter immediately. Even if you get better, please call your cardiology clinic today to arrange an ER follow-up appointment for a pacemaker checkup (ask the workday financials consultant for the earliest available appointment). Prescriptions: New metoprolol succinate 25 mg tablet extended release 24 hr 25 mg PO DAILY Qty: 30 2RF No Action sotalol 80 mg tablet 80 mg PO BID sertraline 50 mg tablet 50 mg PO DAILY furosemide [Lasix] 20 mg tablet 20 mg PO DAILY 3 Days Qty: 3 0RF rosuvastatin 10 mg tablet 10 mg PO DAILY warfarin 2.5 mg tablet 1.25 - 2.5 mg PO DAILY Rx Instructions: 2.5 mg on MON AND THURS, 1.25 MG ALL OTHER DAYS calcium 500 mg tablet 500 mg PO DAILY potassium chloride 10 mEq capsule, extended release 20 meq PO DAILY Qty: 60 2RF amlodipine 5 mg tablet 5 mg PO DAILY Qty: 30 2RF lorazepam 0.5 mg tablet 0.5 mg PO DAILY PRNQty: 10 0RF Follow Up/Referrals: Kay Lange DO [Primary Care Provider] - Stand Alone Forms: [employer] Info Instructions
--- NOTE | 2025-02-23 09:17 | CRLHL7_ITS ---
For Patients: As a result of the Century Cures Act, medical imaging exams and procedure reports are released immediately into your electronic medical record. You may view this report before your referring provider. If you have questions, please contact your health care provider. INDICATION: Orthopnea palpitations COMPARISON: 08/10/2024, 07/13/2024, 12/14/2023, 12/12/2023 TECHNIQUE: PA and lateral 2 view chest. FINDINGS: Lung volumes are good. Bilateral basal peripheral reticulation is similar to previous exams. Normal caliber of the pulmonary arteries. No focal consolidation. No pleural effusion. No pneumothorax. No pneumomediastinum. Cardiomegaly. Atherosclerosis. Left subclavian transvenous pacer leads in the right atrium and right ventricle. Bones: Normal for age. IMPRESSION: Mild bilateral basal peripheral reticulation may reflect mild pulmonary edema and is similar to several prior examinations. Could also be some reticulation related to chronic scarring or fibrosis. Dictated by Porsche Pete MD @ 02/23/2025 9:41:55 AM (Electronically Signed)
--- OUTSIDE RECORDS SUMMARY | 2025-02-23 09:28 | XMS_ITS | Clinical Summary ---
Author Organization [facility] Address [address] [place] [id number] Care Team Providers Care Physician Name Role Phone MariuszKay crook Zeny Primary Care Provider Conrado Watts MD Unavailable [phone] Olman Milner Unavailable [phone] Allergies Active Allergy Reactions Criticality Noted [...] Department Care Team Description 02/01/2025 Anticoagulation (warfarin) [facility] [address] [place] [address] 1, [facility]tico[facility] (Home Care) 01/03/2025 Anticoagulation (warfarin) [facility] [address] [place] [address] 1, [facility] Anticoagulation (Home care) 12/30/2024 Telephone [facility] [address] [place] [address] Kay Lange DO Form 12/20/2024 Anticoagulation (warfarin) [facility] [address] [place] [address] 1, [facility] Anticoagulation (Home care) 12/20/2024 Telephone [facility] [address] [place] [address] Kay Lange DO Outside Order (Verbal orders for INR check ) 12/19/2024 12:45 PM E M ASSEMBLER Nurse/Clinic Staff Only [address] [address] Testing (EKG per cardiology) 12/19/2024 Travel 12/15/[address] [address] aKy Lange DO Refill Request (Sertraline) 12/14/2024 Telephone [facility] [address] [place] [address] Kay Lange DO Home Care (Orders) 12/12/2024 3:00 PM E M ASSEMBLER Orders Only [facility] [address] [place] [address] Lab, [facility] 12/12/2024 Anticoagulation (warfarin) [facility] [address] [place] [address] 1, [facility] Anticoagulation (lab) 12/12/2024 Travel 12/08/2024 1:15 PM E M ASSEMBLER Nurse/Clinic Staff Only [address] [address] Cardiovascular Diagnostic Testing (EKG PER DR. WATTS ) 12/07/2024 2:00 PM E M ASSEMBLER Orders Only [facility] [address] [place] [address] Lab, [facility] 12/07/[address] [address] Kay Lange DO Refill Request (Warfarin) 12/07/[address] [address] 1, [facility] Anticoagulation (Approval for POCT INR's ) 12/07/2024 Anticoagulation (warfarin) [address] [address] 1, [facility] Anticoagulation (Lab ) 12/07/2024 Travel 11/29/2024 1:15 PM E M ASSEMBLER Orders Only [address] [address] Lab, [facility] 11/29/2024 Anticoagulation (warfarin) [address] [address] 1, [facility] Anticoagulation 11/29/2024 Travel 11/27/[address] [address] Kay Lange DO Refill Request (Potassium Chloride) 11/26/2024 Refill [facility] [address] [place] [address] Kay Lange DO Refill Request (Potassium Chloride) [...] on file Legal Sex Female 5:25 AM E M ASSEMBLER Gender Identity Not on file Sexual Orientation Not on file Occupation Industry Job Start Date Job End Date retired Not on file Not on file Not on file Obstetrics History Last Filed Vital Signs Vital Sign Reading Time Taken Comments Blood Pressure 108/70 11/07/2024 10:50 AM E M ASSEMBLER Pulse 70 11/07/2024 10:50 AM E M ASSEMBLER Temperature 36.4 C (97.6 F) 05/09/2022 2:28 PM CDT Respiratory Rate 16 08/24/2019 7:15 AM CDT Oxygen Saturation 92% 11/07/2024 10: 50 AM E M ASSEMBLER Inhaled Oxygen Concentration - - Weight 102.6 kg (226 lb 3.2 oz) 024 10:50 AM E M ASSEMBLER Height 166.6 cm (5' 5.59) 06/20/2024 2:07 PM CD T Body Mass Index 36.97 06/20/2024 2:07 PM CDT Plan of Treatment Upcoming Encounters Date Type Department Care Team (Late st Contact Info) Description 04/11/2025 2:00 PM CDT Cardiac Device Check [facility] [place] [facility] [address] [place] [address] 04/17/2025 4:00 PM CDT Telemedicine [facility] [address] [place] [address] Lg Burrows MD [address] [place] [address] Health Maintenance Due Date Last Done Comments [...] EKG 12 LEAD Today 12/19/2024 1:35 PM E M ASSEMBLER Therapeutic drug monitoring INR,POCT Routine 12/12/2024 3:05 PM E M ASSEMBLER Paroxysmal atrial fibrillation (HC) Chronic anticoagulation Anticoagulation monitoring, INR range 2-3 EKG 12 LEAD Routine 12/08/2024 1:46 PM E M ASSEMBLER Therapeutic drug monitoring PROTIME-INR Routine 12/07/2024 2:04 PM E M ASSEMBLER Paroxysmal atrial fibrillation (HC) Chronic anticoagulation Anticoagulation monitoring, INR range 2-3 PROTIME-INR Routine 11/29/2024 2:12 PM E M ASSEMBLER Paroxysmal atrial fibrillation (HC) Chronic anticoagulation Anticoagulation monitoring, INR range 2-3 INR,POCT Routine 11/29/2024 1:18 PM E M ASSEMBLER Paroxysmal atrial fibrillation (HC) Chronic anticoagulation Anticoagulation monitoring, INR range 2-3 XR DXA BONE DENSITY 2 SITES AXIAL Routine 05/03/2015 11:12 AM CDT Post-menopausal from Last 3 Months or Most Recently Relevant to Health Maintenance Results * EKG 12 LEAD (12/19/2024 1:35 PM E M ASSEMBLER) Only the most recent of2 resultswithin the time period is included. us Conrado Watts MD EKG ORD Final Result * (ABNORMAL) INR - POCT [[id number]] - Standing Order (12/12/2024 3:05 PM E M ASSEMBLER) Only the most recent of2 resultswithin the time period is included. INR 2.1(H) ratio [facility] Comment: INRs >2.9 may be [...] PROTHROMBIN TIMEP 25.1(H) 10.5 - 13.1 sec [facility] Comment: Point of care fingerstick Prothrombin Time/INR results may vary from venous Prothrombin Time/INR methodologies. Any results exhibiting inconsistency with the patient's clinical status should be repeated using a venous Prothrombin Time/INR method. Blood BLOOD SPECIMEN / Unknown 12/12/2024 3:05 PM E M ASSEMBLER 12/12/2024 3:05 PM E M ASSEMBLER us Kay Lange DO LABORATORY Final Resul t [facility] [address] [place] [address], [facility] [address] [place] [address] * (ABNORMAL) PROTIME-INR [[id number]] - Standing Order (12/07/2024 2:04 PM E M ASSEMBLER) Only the most recent of2 resultswithin the time period is included. INR 4.2(H) <1.3 12/07/2024 3:04 PM E M ASSEMBLER [facility] PROTIME 49.4(H) 10.6 - 12.4 sec 12/07/2024 3:04 PM [facility] Blood BLOOD SPECIMEN / Unknown [facility] / Unknown 12/07/2024 2:04 PM E M ASSEMBLER 12/07/2024 2:04 PM E M ASSEMBLER Narrative [facility] - 12/07/2024 3:04 PM E M ASSEMBLER Therapeutic Range 2.0-3.0 for most anticoagulated patients [...] Kay Lange DO HEMATOLOGY Final Resul t [facility] [address] [place], [place] [id number] * (ABNORMAL) XR DXA BONE DENSITY 2 [...] MEDICARE PART B HB ONLY [place] BLUE HB ONLY MEDICARE PART A [facility] Member Subscriber Plan / Payer (Ef fective 2024-Present) Name:Lauren Hines I Relation to Subscriber:Self Name:Lauren Hines I Payer ID:[id number] (NAIC) Group ID:[id number] Type:Not on file Address: MAILSTOP: [id number] [facility] [place] [address] Advance Directives Documents on File Type Date Recorded Patient Brake Adjuster Expl anation Treatment Guidelines 12/30/2024 Healthcare Directive [...] 8:56 AM 08/15/2009 8:58 PM Care Teams Physician Relationship Specialty Start Date End Date Kay Lange DO PCP - General 09/25/09 Conrado Watts MD [address] [address] Cardiovascular Disease 04/27/15 Olman Milner [address] [place] [address] Plant Quality Manager 04/27/15
[2025-02-23 09:54] VITALS: BP 153/64; PULSE 68; RESP 14; TEMP 37.1; O2SAT 96
[2025-02-23 10:02] LABS: Basophils Absolute Auto 0.04 K/uL (0.00-0.30); Basophils Percent Auto 0.5 % (0.0-3.0); Eosinophils Absolute Auto 0.12 K/uL (0.00-0.50); Eosinophils Percent Auto 1.4 % (0.0-7.0); Hematocrit 41.9 % (33.0-51.0); Hemoglobin* 12.9 gm/dL (12.0-16.0); Immature Granulocytes Abs Auto 0.04 K/uL (0.00-0.30); Immature Granulocytes Pct Auto 0.5 %; Lymphocytes Percent Auto 13.1 % (20-44); Mean Corpuscular HGB Conc 31 gm/dL (32-36); Mean Corpuscular Hemoglobin 25 pg (26-34); Mean Corpuscular Volume 82 fL (80-100); Monocytes Percent Auto 4.5 % (0.0-11.0); Platelet Count* 236 K/uL (140-440); RDW Coefficient of Variation % 17.1 % (11.5-15.5); Red Blood Count 5.12 m/uL (4.00-5.20); White Blood Count* 8.84 K/uL (4.50-11.00)
[2025-02-23 10:04] LABS: Slide Review Reflex No
[2025-02-23 10:12] LABS: Chloride* 105 mmol/L (96-114); Potassium* 5.1 mmol/L (3.6-5.1); Sodium* 139 mmol/L (135-149)
[2025-02-23 10:14] LABS: Blood Urea Nitrogen* 11 mg/dL (7-30); Creatinine* 0.6 mg/dL (0.5-1.5); Estimated Glomerular Filt Rate 86 ml/min
[2025-02-23 10:15] LABS: Anion Gap 7 mEq/L (7-15); Calcium* 9.1 mg/dL (8.4-10.6); Carbon Dioxide* 27 mmol/L (20-32); Glucose* 104 mg/dL (60-115); Magnesium* 2.2 mg/dL (1.5-2.6)
[2025-02-23 10:45] LABS: NT Pro B Type NatriureticPept* 1090 pg/mL; Troponin I* < 0.01 ng/mL (0.01-0.04)
== END 2025-02-23 11:36 | disposition home or self-care (01) ==
PROVIDERS: Emergency Provider Emergency Medicine; PCP Family Medicine
DX: R00.2 Palpitations (principal)
CPT/HCPCS: 36415; 71046; 80048; 83735; 83880; 84484; 85025; 93005; 99284; 99285

== ENCOUNTER 2025-10-18 09:30 | Outpatient (CLI) | payer MEDICARE, BC, MEDICAID, SELFPAY | END 2025-10-18 09:31 | disposition home or self-care (01) | LOC: AMB 10-23 15:29 | PROVIDERS: PCP Family Medicine; Visit Provider Family Medicine | DX: R00.0 Tachycardia, unspecified (principal) | CPT/HCPCS: A0425; A0427 ==

== ENCOUNTER 2025-10-18 10:04 | Emergency (ER) | payer MEDICARE, BC, MEDICAID, SELFPAY ==
[2025-10-18] VITALS (7 sets, daily range): BP systolic 91–119; BP diastolic 46–78; PULSE 59–60; RESP 16–20; TEMP 36.8; O2SAT 90–93; BMI 35.5
--- NOTE | 2025-10-18 10:24 | CRLHL7_ITS ---
For Patients: As a result of the Century Cures Act, medical imaging exams and procedure reports are released immediately into your electronic medical record. You may view this report before your referring provider. If you have questions, please contact your health care provider. Indication: Chest pain Comparison: Two-view chest February 23, 2025 Technique: Single AP view chest Findings: There is hyperinflation and chronic interstitial change. There is minimal airspace opacity in the left lung base commensurate with atelectasis versus infiltrates. There is no pneumothorax. The cardiac silhouette is mildly prominent with a dual-chamber pacer. The bony thorax is grossly intact. Impression: Minimal airspace opacity in the left lung base which may represent atelectasis versus infiltrates. Dictated by Markus Rizzo MD @ 10/18/2025 10:52:30 AM (Electronically Signed)
--- NOTE | 2025-10-18 10:27 | ED_ITS ---
HPI - General Adult General Chief complaint: Arrhythmia/Palpitations Stated complaint: chest pain Time Seen by Provider: 10/18/25 10:16 History of Present Illness HPI narrative: Patient is a pleasant 81 year white female with history of atrial fibrillation status post ablation and pacemaker placement presents with a rapid heart rate this morning she had some transient few minutes chest tightness and pain and took 2 nitroglycerin and that relieved her symptoms she has felt well since. She presents to the ER for evaluation. She is back to baseline she has no chest pain, shortness of breath, nausea, vomiting, arm pain or neck pain. Patient has not been ill recently. She has got a history of being on Coumadin chronically and had a cardiac ablation and pacemaker as mention by chart history. Patient denies having had heart surgery or a heart bypass or myocardial infarction. Paco bolanos feels well at this time as mention has been ambulatory without pain. Related Data Home Medications ?Medication ?Instructions ?Recorded ?Confirmed sertraline 50 mg tablet 50 mg PO DAILY 05/26/2309/30 sotalol 80 mg tablet 80 mg PO BID 05/26/23 calcium 500 mg tablet 500 mg PO DAILY 07/13/24 rosuvastatin 10 mg tablet 10 mg PO DAILY 07/13/2409/30 warfarin 2.5 mg tablet 1.25 - 2.5 mg PO DAILY 07/1310/18/25 cyanocobalamin (vitamin B-12) 1,000 mcg PO DAILY 10/1810/18/25 1,000 mcg tablet,extended release donepezil 5 mg tablet 5 mg PO DAILY 10/18/2510/18 metoprolol tartrate 25 mg tablet 25 mg PO BID 10/18/25 10/18/25 nitroglycerin 0.4 mg sublingual mg sublingual 10/18/25 tablet Previous Rx's ?Medication ?Instructions ?Recorded furosemide 20 mg tablet (Lasix) 20 mg PO DAILY 3 days #3 tabs 05/26/23 amlodipine 5 mg tablet 5 mg PO DAILY #30 tabs 12/21 lorazepam 0.5 mg tablet 0.5 mg PO DAILY PRN #10 tabs 12/21/23 potassium chloride 10 mEq 20 meq (2 x 10 mEq) PO DAILY #60 07/14/24 capsule,extended release caps Allergies Allergy/AdvReac Type Severity Reaction Status Date / Time No Known Drug Allergies Allergy Verified 07/13/24 08:38 Review of Systems Status of ROS: Reports: 6 or more systems reviewed and unremarkable except as noted in History and below [facility] Medical History Pulmonary hypertension ?I27.20 - Pulmonary hypertension, unspecified (ICD-10) Atrial fibrillation ?I48.91 - Unspecified atrial fibrillation (ICD-10) Chest pain ?R07.9 - Chest pain, unspecified (ICD-10) Cardiac pacemaker ?Z95.0 - Presence of cardiac pacemaker (ICD-10) Aortic regurgitation ?I35.1 - Nonrheumatic aortic (valve) insufficiency (ICD-10) Former smoker ?Z87.891 - Personal history of nicotine dependence (ICD-10) Mild anxiety ?F41.9 - Anxiety disorder, unspecified (ICD-10) Chronic anticoagulation ?Z79.01 - 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 No current smoking, no concerning ETOH use. Requests DNR/DNI status. What is your current living situation?: I presently have a place to live Problems where you live: no known problems Problems where you live details: no known problems In the past 12 months, utilities in danger of being shut off: no In past 12 months, lack of transportation kept you from medical appts, meetings, work, or getting things needed for daily living: no In the past 12 mos, have been you worried that your food would run out before you had money to buy more?: never true In the past 12 mos, the food you bought just didn't last and you didn't have mon ey to buy more?: never true Highest level of school completed/degree received: some college, no degree Smoking Status: Former smoker Do you use any of these nicotine containing products: None Second hand tobacco smoke exposure: No How often do you have a drink containing alcohol: monthly or less How many standard drinks containing alcohol do you have on a typical day: 1 or 2 How often do you have six or more drinks on one occasion: Less than monthly AUDIT-C Alcohol total score: 2 Non-prescribed substance use: denies use Caffeine: Yes (rare occasional soda) How often does anyone, including family, friends and others, physically hurt you : never How often does anyone, including family, friends and others, insult or talk down to you: never How often does anyone, including family, friends and others, threaten you with harm: never How often does anyone, including family, friends and others, scream or curse at you: never service: No Exam Narrative: Exam Narrative: Objective: The patient's vital signs are within normal limits Alert orient x3 No facial asymmetry Neck is supple Chest clear diminished air exchange Heart rhythm regular 2 systolic murmur. Abdomen benign soft Extremities without marked edema, good peripheral perfusion. Const: Vital Signs, click to edit/add: Vital Signs - 24 hr 10/18/25 10:11 10/18/25 10:15 10/18/25 10:32 Temperature 98.2 F Pulse Rate 59 L Pulse Rate [Pulse Oximeter] 60 Respiratory Rate 20 17 Blood Pressure 91/50 L Blood Pressure [Le ft Upper Arm] 119/78 Pulse Oximetry 92 92 90 Oxygen Delivery Me thod Room Air 10/18/25 10:46 10/18/25 11:02 10/18/25 11:17 Temperature Pulse Rate 60 60 60 Pulse Rate [Pulse Oximeter] Respiratory Rate 19 16 19 Blood Pressure 97/49 L 99/46 L 111/56 L Blood Pressure [Le ft Upper Arm] Pulse Oximetry 92 93 93 Oxygen Delivery Me thod 10/18/25 11:18 Temperature Pulse Rate 60 Pulse Rate [Pulse Oximeter] Respiratory Rate 16 Blood Pressure Blood Pressure [Le ft Upper Arm] Pulse Oximetry 93 Oxygen Delivery Me thod Course Vital Signs Vital signs: Initial Vital Signs Temperature 98.2 F 10/18/25 10:11 Temperature Source Temporal Artery Scan 10/18/25 10:11 Pulse Rate 60 10/18/25 10:11 Respiratory Rate 20 10/18/25 10:11 Blood Pressure 119/78 10/18/25 10:11 Blood Pressure Mean 91 10/18/25 10:11 Blood Pressure Position Supine 10/18/25 10:11 Pulse Oximetry 92 10/18/25 10:11 Oxygen Delivery Method Room Air 10/18/25 10:11 Vital Signs Temperature 98.2 F 10/18/25 10:11 Pulse Rate 60 10/18/25 10:11 Respiratory Rate 20 10/18/25 10:11 Blood Pressure 119/78 10/18/25 10:11 Pulse Oximetry 92 10/18/25 10:11 Oxygen Delivery Method Room Air 10/18/25 10:11 Temperature 98.2 F 10/18/25 10:11 Pulse Rate 60 10/18/25 11:18 Respiratory Rate 16 10/18/25 11:18 Blood Pressure 111/56 L 10/18/25 11:17 Pulse Oximetry 93 10/18/25 11:18 Oxygen Delivery Method Room Air 10/18/25 10:11 Medications Administered Medications: Discontinued Medications Generic Name Dose Route Start Last Admin Trade Name Freq PRN Reason Stop Dose Admin Aspirin 324 mg 10/18/25 10:23 10/18/25 10:32 Aspirin 81 Mg Tab.Chew PO 10/18/25 10:24 324 mg ONCE ONE Administration Sodium Chloride 500 mls @ 500 mls/hr 10/18/25 10:23 10/18/25 11:33 0.9 % Sodium Chloride 500 Ml IV 10/18/25 11:22 Infused .Q1H ONE Infusion Medical Decision Making MDM Narrative Medical decision making narrative: [age] year white female with history of AFib status post ablation and pacemaker with symptoms of palpitations this morning and transient chest discomfort that resolved. She has had no further chest pain, she has had no history by her report to me of coronary artery disease. She does have nitro at home however. She had this happen about 7 this morning and it was transient for a couple minutes. Would recommend a troponin this point, chest x-ray, IV fluid, laboratory studies. Disposition pending these findings. 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 Her EKG by my re ad independently today shows atrial paced rhythm a couple of PACs no obvious ischemic changes. Will check a chest x-ray as well. Is addendum 11:14 a.m.: Lauren claudio chest x-ray by my independent review shows some atelectasis at the base, no obvious infiltrate noted. The patient's EKG asthma mentioned I read as atrial paced rhythm with concomitant changes. Her troponin point of care and troponin I in the lab were negative. Her laboratory studies look reassuring. Her INR is 2. She has been hemodynamically stable and had no chest pain or issues and normal cardiac monitoring with a paced rhythm occasional PAC. At this point I think it be reasonable to have her follow-up with her clinic light activity in the interim she has nor nitro to use at home if needed. I do not think she needs acute intervention at this time. Return as needed. She and comfortable plan. Lab Data Labs: Lab Results 10/18/25 10/18/25 Range/Units 10:29 10:30 WBC 8.93 (4.50-11.00) K/uL RBC 5.01 (4.00-5.20) m/uL Hgb 14.1 (12.0-16.0) gm/dL Hct 45.4 (33.0-51.0) % MCV 91 (80-100) fL MCH 28 (26-34) pg MCHC 31 L (32-36) gm/dL RDW Coeff of Ebony 14.4 (11.5-15.5) % Plt Count 245 (140-440) K/uL Neut % (Auto) 77.6 H (42.0-72.0) % Lymph % (Auto) 14.1 L (20-44) % [place] % (Auto) 5.7 (0.0-11.0) % Eos % (Auto) 1.7 (0.0-7.0) % Baso % (Auto) 0.6 (0.0-3.0) % Neut # (Auto) 6.90 (1.7-7.0) K/uL Lymph # (Auto) 1.30 (0.90-2.90) K/uL [place] # (Auto) 0.50 (0.00-0.90) K/UL Eos # (Auto) 0.15 (0.00-0.50) K/uL Baso # (Auto) 0.05 (0.00-0.30) K/uL Abs Immat Gran (auto) 0.03 (0.00-0.30) K/uL Imm/Tot Granulo (auto) 0.3 % INR 2.00 H (0.91-1.10) Sodium 137 (135-149) mmol/L Potassium 4.5 (3.6-5.1) mmol/L Chloride 102 (96-114) mmol/L Carbon Dioxide 27 (20-32) mmol/L Anion Gap 8 (7-15) mEq/L BUN 14 (7-30) mg/dL Creatinine 0.8 (0.5-1.5) mg/dL Estimated Creat Clear 36.40 Estimated GFR 71 ml/min Glucose 99 (60-115) mg/dL Calcium 9.2 (8.4-10.6) mg/dL Total Bilirubin 0.4 (0.1-1.5) mg/dL Direct Bilirubin 0.2 (0.0-0.5) mg/dL AST 27 (12-35) U/L ALT 19 (4-35) U/L Alkaline Phosphatase 72 (40-150) U/L Troponin I < 0.01 (0.01-0.04) ng/mL C-Reactive Protein 0.9 (0.5-1.0) mg/dL Total Protein 6.6 (6.0-8.3) g/dL Albumin 3.7 (3.3-5.0) g/dL POC Troponin I 0.01 (0.01-0.04) ng/ml Discharge Plan Discharge Clinical Impression: Atrial fibrillation, Chronic anticoagulation, Chest pain, 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 Return to the ER as needed. Activity Level: Light activity Discharge Diet: Low Fat/Low Cholesterol Prescriptions: No Action sotalol 80 mg tablet 80 mg PO BID sertraline 50 mg tablet 50 mg PO DAILY furosemide [Lasix] 20 mg tablet 20 mg PO DAILY 3 Days Qty: 3 0RF rosuvastatin 10 mg tablet 10 mg PO DAILY warfarin 2.5 mg tablet 1.25 - 2.5 mg PO DAILY Rx Instructions: 2.5 mg on THU AND , 1.25 MG ALL OTHER DAYS calcium 500 mg tablet 500 mg PO DAILY potassium chloride 10 mEq capsule, extended release 20 meq PO DAILY Qty: 60 2RF cyanocobalamin (vitamin B-12) 1,000 mcg tablet extended release 1,000 mcg PO DAILY donepezil 5 mg tablet 5 mg PO DAILY nitroglycerin 0.4 mg tablet, sublingual sublingual metoprolol tartrate 25 mg tablet 25 mg PO BID amlodipine 5 mg tablet 5 mg PO DAILY Qty: 30 2RF lorazepam 0.5 mg tablet 0.5 mg PO DAILY PRNQty: 10 0RF Follow Up/Referrals: Kay Lange DO [Primary Care Provider, Family Practice] Stand Alone Forms: [facility] Info Instructions
[2025-10-18] MEDS: ASPIRIN 81 MG TAB.CHEW 324 MG PO (10:32)
[2025-10-18] MEDS: 0.9 % SODIUM CHLORIDE 500 ML 500 ML IV (10:33)
[2025-10-18 10:36] LABS: Hematocrit* 45.4 % (33.0-51.0); Hemoglobin* 14.1 gm/dL (12.0-16.0); Immature Granulocytes Abs Auto 0.03 K/uL (0.00-0.30); Immature Granulocytes Pct Auto 0.3 %; Mean Corpuscular HGB Conc 31 gm/dL (32-36); Mean Corpuscular Hemoglobin 28 pg (26-34); Mean Corpuscular Volume 91 fL (80-100); RDW Coefficient of Variation % 14.4 % (11.5-15.5); Red Blood Count* 5.01 m/uL (4.00-5.20); White Blood Count* 8.93 K/uL (4.50-11.00)
[2025-10-18 10:37] LABS: Lymphocytes Absolute Auto 1.30 K/uL (0.90-2.90); Slide Review Reflex No
[2025-10-18 10:47] LABS: Troponin, Point-of-Care* 0.01 ng/ml (0.01-0.04)
[2025-10-18 10:52] LABS: Albumin* 3.7 g/dL (3.3-5.0); Chloride* 102 mmol/L (96-114); Potassium* 4.5 mmol/L (3.6-5.1); Sodium* 137 mmol/L (135-149)
[2025-10-18 10:54] LABS: Blood Urea Nitrogen* 14 mg/dL (7-30); Creatinine* 0.8 mg/dL (0.5-1.5); Est. Creatinine Clearance* 36.40; Estimated Glomerular Filt Rate 71 ml/min
[2025-10-18 10:55] LABS: Alanine Aminotransferase* 19 U/L (4-35); Alkaline Phosphatase* 72 U/L (40-150); Anion Gap 8 mEq/L (7-15); Aspartate Amino Transferase* 27 U/L (12-35); Bilirubin Direct* 0.2 mg/dL (0.0-0.5); Bilirubin Total* 0.4 mg/dL (0.1-1.5); Calcium* 9.2 mg/dL (8.4-10.6); Carbon Dioxide* 27 mmol/L (20-32); Glucose* 99 mg/dL (60-115); INR 2.00 (0.91-1.10); Prothrombin Time 23.8 Seconds; Total Protein* 6.6 g/dL (6.0-8.3)
== END 2025-10-18 11:30 | disposition home or self-care (01) ==
PROVIDERS: Emergency Provider Family Medicine; PCP Family Medicine
DX: I48.91 Unspecified atrial fibrillation (principal); R07.9 Chest pain, unspecified; I50.30 Unspecified diastolic (congestive) heart failure; F41.9 Anxiety disorder, unspecified; Z79.01 Long term (current) use of anticoagulants; Z95.0 Presence of cardiac pacemaker
CPT/HCPCS: 36415; 71045; 80048; 80076; 84484; 85025; 85610; 86140; 93005; 94761; 96360; 99284; 99285; A9270; J7030